=== PATIENT | female | born 1945 | race Caucasian/White ===

== ENCOUNTER 2019-02-13 06:00 | Outpatient (RCR) | payer MEDICARE, OTHER, SELFPAY | END 2019-03-01 23:00 | disposition home or self-care (01) | LOC: SPT 06:00 | PROVIDERS: Family Provider Family Medicine; Visit Provider Family Medicine | DX: R32 Unspecified urinary incontinence (principal) | CPT/HCPCS: 97530 ==

== ENCOUNTER 2019-03-28 10:17 | Outpatient (CLI) | payer MEDICARE, OTHER, SELFPAY ==
--- NOTE | 2019-03-28 | XR_ITS ---
WS: [id number] CHEST 2 VIEWS HISTORY: COUGH COMPARISON: 03/24/2017 Lungs: Mild pulmonary hyperinflation. Scarring in the upper lung valles is stable. No pulmonary mass, pleural effusion or pneumothorax. Cardiac size: Normal. Mediastinum/Aorta: Normal mediastinum. Bones: Normal. XR/XR chest 2V* [id number] IMPRESSION: Chronic emphysema with no pneumonia.
== END 2019-03-28 10:18 | disposition home or self-care (01) ==
LOC: RADOUTREAD 03-29 06:32
PROVIDERS: Family Provider Family Medicine; PCP Family Medicine; Visit Provider Nurse Practitioner Family
DX: J43.9 Emphysema, unspecified (principal); R05 Cough

== ENCOUNTER → 2019-03-31 10:17 | Outpatient (BNVA) | payer MEDICARE, OTHER, SELFPAY | PROVIDERS: Family Provider Family Medicine; PCP Family Medicine; Visit Provider Podiatrist Foot & Ankle Surgery | DX: M21.612 Bunion of left foot (principal) | CPT/HCPCS: 73620; 73630 ==

== ENCOUNTER 2019-05-05 22:07 | Emergency (ER) | payer MEDICARE, OTHER, SELFPAY ==
[2019-05-05 22:30] VITALS: BP 114/59; PULSE 111; RESP 18; TEMP 37.7; O2SAT 91; BMI 18.5
--- NOTE | 2019-05-05 22:53 | XR_ITS ---
WS: [id number] XR chest 1V portable [id number] REASON FOR EXAM: cough FINDINGS: Chronic obstructive pulmonary disease findings are noted. Comparisons were made to March 28, 2019. There is patchy infiltrate in the left lung base and there is evidence of a reticular pattern through out both lung valles consistent with fibrosis. The hilum showed granulomas similar to the previous exam. The apices and hilum are normal otherwise. XR/XR chest 1V portable [id number] IMPRESSION: Chronic obstructive pulmonary disease with interstitial fibrosis. There is a patchy pneumonia in the left lung base.
--- NOTE | 2019-05-05 22:55 | ED_ITS ---
HPI - URI/Sore Throat General: Chief Complaint: Upper Respiratory Infection Stated Complaint: cough, sob, fever Time Seen by Provider: 05/05/19 22:44 Source: patient Mode of arrival: ambulatory Limitations: no limitations History of Present Illness: HPI Narrative: Patient comes in today with cough and fever starting about 3 days ago. Patient was seen by Royl[facility] and was prescribed azithromycin and a medication for cough and inflammation. Patient states that that was 3 days ago and today she started feeling worse and her noticed that she had a fever tonight. Patient appears mildly unwell. Patient appears in no pain. Patient does report the cough is productive Associated symptoms: Reports fever(s) Review of Systems General: Reports: 10 or more systems reviewed and unremarkable except in HPI and below Const: Reports: fever Resp: Reports: productive cough PFSH ED PFSH: Social History (Updated 03/31/19 @ 10:49 by Zandra Man LPN) Smoking and tobacco status: never smoked Second hand smoke exposure: No Smoking risk assessment/counseling performed?: Yes Alcohol intake: never Desire information about alcohol rehabilitation?: No Counseling given: No Desire information about substance/drug rehabilitation?: No Counseling given: No Physical Exam Const: COMMON NORMALS: no apparent distress and oriented x3 GENERAL APPEARANCE: cooperative HENMT: COMMON NORMALS: normocephalic, external ears normal, EAC's normal, TM's normal bilaterally and external nose normal HEAD & SCALP: normal to insp ection and normocephalic FACE & SINUS: normal facial exam NOSE: external nose normal GENERAL EAR: hearing not grossly impaired EXTERNAL EAR: Yes external ears normal EXTERNAL AUDITORY CANAL: EAC's normal TYMPANIC MEMBRANE: TM's normal bilaterally MOUTH: oral and palatal mucosa normal THROAT: posterior oropharynx normal Eye: COMMON NORMALS: PERRL and EOMs intact bilaterally PUPIL: Yes PERRL Neck/C-Spine: COMMON NORMALS: full ROM and no lymphadenopathy Lymph: LYMPHATIC: no lymphedema noted Chest: COMMONS NORMALS: inspection of chest normal and palpation of chest normal Resp: COMMON NORMALS: normal respiratory effort and clear to auscultation bilaterally AUSCULTATION: clear to auscultation bilaterally Cardio: COMMON NORMALS: regular rate and regular rhythm RATE: regular rate RHYTHM: regular rhythm GI: COMMON NORMALS: normal to inspection, nondistended, normoactive bowel sounds and non-tender : COMMON NORMALS: Yes no CVA tenderness BLADDER/KIDNEY EXAM: Yes no CVA tenderness Back/Pelvis: COMMON NORMALS: no CVA tenderness and thoracic and lumbar spine normal to inspection Extremity: COMMON NORMALS: normal to inspection GENERAL: No edema Neuro: COMMON NORMALS: oriented x3, moves all extremities and no focal motor deficits Psych: COMMON NORMALS: mental status grossly normal and cooperative Skin: COMMON NORMALS: no rashes or lesions noted GENERAL SKIN EXAM: no rashes or lesions noted Course Vital Signs: Vital signs: Vital Signs Temperature 99.8 F H 05/05/19 22:30 Pulse Rate 111 H 05/05/19 22:30 Respiratory Rate 18 05/05/19 22:30 Blood Pressure 114/59 05/05/19 22:30 Pulse Oximetry 91 05/05/19 22:30 MDM - URI/Sore Throat MDM Narrative: Medical decision making narrative: Patient comes in for p ersistent cough for the last 3 days. Patient was started on is azithromycin 2 days ago and started running a fever tonight. Exam notes some decreased breath sounds in the bases. Skin is warm and dry. Vital signs are normal except for low-grade fever of 99.8, and pulse oxygenation of 91% on room air. Differential diagnosis includes exacerbation of COPD, pneumonia, upper respiratory infection, influenza. Chest x-ray noted a patchy infiltrate in the left lower lung. Influenza was negative. Recommended change of antibiotic from azithromycin to doxycycline patient was given a dose of.Rocephin and dexamethasone in the emergency room. Encourage plenty of fluids and return to the ER as needed for worsening difficulty breathing. Patient reported understanding agreed to plan Lab Data: Labs: Lab Results 05/05/19 Range/Units 22:38 Influenza Type A A g Negative (Negative) POC Influenza B Ag Negative (Negative) Discharge Plan Discharge Patient Disposition: Home, Self-Care Clinical Impression: Pneumonia Qualifiers: Pneumonia type: due to unspecified organism Laterality: left Lung location: lower lobe of lung Qualified Code(s): J18.9 - Pneumonia, unspecified organism Condition: Stable Prescriptions: New doxycycline hyclate 100 mg capsule 100 mg PO BID 10 Days Qty: 20 RF: 0 No Action calcium-magnesium 300-300 mg tablet 1 tab PO QDAY RF: 0 digestive aids mixture Tablet,Delayed Release (Dr/Ec) PO RF: 0 estradiol 1 mg tablet 0.5 mg PO QDAY RF: 0 fluoxetine 20 mg capsule 20 mg PO QDAY RF: 0 levothyroxine 50 mcg capsule 50 mcg PO QDAY RF: 0 Zithromax 250 mg tablet 250 mg PO DAILY RF: 0 Discharge Orders: Discharge Order (Routine); Ordered 05/06/19 Ordered By: Kenton Schilling Referrals: Ash Cali MD [Primary Care Provider] - Discharge Diet: Usual diet Discharge Activity: Resume usual activity Patient Instructions: Pneumonia (ED) Activity Restrictions/Additional Instructions: Drink plenty of fluids with medications Activity as tolerated Antibiotics as directed Complete Azithromycin as directed Acetaminophen as needed for pain or fever Follow-up with primary care in one week Return to ER for worsening shortness of breath Coding Level of Care Code ED Parking Lot Spotter for Raisa Fwtiara Exam Comprehensive
[2019-05-05 23:43] LABS: Influenza A by IFA Negative (Negative)
[2019-05-05 23:44] LABS: Influenza B by IFA Negative (Negative)
[2019-05-06] MEDS: dexamethasone 10 mg/mL INJ IM (00:32)
[2019-05-06] MEDS: doxycycline 100 mg Tablet PO (00:32)
[2019-05-06 00:51] VITALS: BP 109/70; PULSE 94; RESP 16; TEMP 36.6; O2SAT 93
== END 2019-05-06 00:51 | disposition home or self-care (01) ==
PROVIDERS: Emergency Provider Nurse Practitioner Family; Family Provider Family Medicine; PCP Family Medicine
DX: J18.9 Pneumonia, unspecified organism (principal)
CPT/HCPCS: 71045; 87804; 96372; 99282; J0696; J1100; J2001

== ENCOUNTER 2019-05-07 12:27 | Inpatient (IN) | payer MEDICARE, OTHER, SELFPAY ==
[2019-05-07] VITALS (9 sets, daily range): BP systolic 96–124; BP diastolic 50–60; PULSE 77–104; RESP 17–21; TEMP 37–37.4; O2SAT 90–96; BMI 18.5
--- NOTE | 2019-05-07 12:52 | ED_ITS ---
Entered by Mateo Washington, acting as scribe for Carrington Mackay MD HPI - SOB/Dyspnea General: Chief Complaint: Shortness of Breath/Dyspnea Stated Complaint: sob Time Seen by Provider: 05/07/19 12:52 History of Present Illness: HPI Narrative: 74 yo female presents with shortness of breath. Pt states that she was recently diagnosed with pneumonia. Pt states that she was up all night coughing. Pt states that she feels like she can't catch her breath. Pt states that she had a fever night. MD elicited complaint: shortness of breath and cough Pertinent past history: COPD Onset (ago): day(s) (2) Severity: moderate Exacerbating factors: coughing Relieving factors: nothing Known history of: COPD Associated symptoms: Reports cough; Deny abdominal pain, chest pain, fever(s), nausea or vomiting Review of Systems Const: Denies: fever, chills, body aches or change in appetite Eyes: Denies: blurry vision or eye discomfort ENMT: Denies: throat pain or dental pain Card: Denies: chest pain Resp: Reports: shortness of breath, non-productive cough and wheezing GI: Denies: abdominal pain, nausea, vomiting or diarrhea : Denies: painful urination Musc: Denies: neck pain or back pain Skin/Breast: Denies: rash Neuro: Denies: headache Psych: Denies: depression Thomas/Lymph: Denies: easy bruising All/Imm: Denies: hives PFSH ED PFSH: Medical History (Updated 05/07/19 @ 14:28 by Carrington Mackay MD) COPD (chronic obstructive pulmonary disease) Irritable bowel syndrome Thyroid disease Surgical History (Updated 05/07/19 @ 12:58 by Mateo Washington) H/O: hysterectomy History of carpal tunnel surgery Social History (Updated 03/31/19 @ 10:49 by Zandra Man LPN) Smoking and tobacco status: never smoked Second hand smoke exposure: No Smoking risk assessment/counseling performed?: Yes Alcohol intake: never Desire information about alcohol rehabilitation?: No Counseling given: No Desire information about substance/drug rehabilitation?: No Counseling given: No Physical Exam Const: COMMON NORMALS: no apparent distress, oriented x3 and healthy appearing HENMT: COMMON NORMALS: normocephalic and head/scalp atraumatic HEAD & SCALP: normocephalic and atraumatic Eye: COMMON NORMALS: PERRL and EOMs intact bilaterally PUPIL: Yes PERRL Neck/C-Spine: COMMON NORMALS: full ROM and supple Chest: COMMONS NORMALS: inspection of chest normal and palpation of chest normal Resp: COMMON NORMALS: normal respiratory effort AUSCULTATION: wheezes scattered wheezes Cardio: COMMON NORMALS: regular rate, regular rhythm and no murmurs RATE: regular rate RHYTHM: regular rhythm GI: COMMON NORMALS: normal to inspection, nondistended, normoactive bowel sounds, soft to palpation, non-tender and no masses PALPATION: Yes soft Extremity: COMMON NORMALS: normal to inspection and full ROM Neuro: COMMON NORMALS: oriented x3, moves all extremities and no focal motor deficits Psych: COMMON NORMALS: mental status grossly normal, thought process normal and cooperative THOUGHT PROCESS: normal thought process Skin: COMMON NORMALS: no rashes or lesions noted and no wounds GENERAL SKIN EXAM: no rashes or lesions noted Course Vital Signs: Vital signs: Vital Signs Temperature 98.6 F 05/07/19 12:47 Pulse Rate 88 05/07/19 13:35 Respiratory Rate 18 05/07/19 13:30 Blood Pressure 124/60 05/07/19 12:47 Pulse Oximetry 95 05/07/19 13:30 MDM - SOB/Dyspnea MDM Narrative: Medical decision making narrative: Patient presents here with pneumonia also history of COPD. Patient's been on outpatient treatment and is now having any improvement. Patient is in no severe distress here. Patient on IV antibiotics and spoke to hospitalist will admit for observation. Patient has been stable while in the ER. Lab Data: Labs: Lab Results 05/07/19 05/07/19 Range/Units 13:05 13:05 WBC 12.8 H (4.0-10.0) 10^3/ uL RBC 4.07 L (4.1-5.3) 10^6/u L Hgb 11.6 (11.5-15.3) g/dL Hct 36.0 L (37.0-47.0) % MCV 88.5 (81-99) fL MCH 28.5 (28.0-34.0) pg MCHC 32.2 (30.0-36.0) g/dL RDW 12.5 (12.1-15.1) % Plt Count 256 (130-400) 10^3/c mm MPV 10.8 H (7.4-10.4) fL Neut % (Auto) 85.1 % Lymph % (Auto) 9.7 % [place] % (Auto) 4.6 % Eos % (Auto) 0.2 % Baso % (Auto) 0.2 % Neut # (Auto) 10.9 H (1.8-7.7) 10^3/u L Lymph # (Auto) 1.2 (0.8-4.8) 10^3/u L [place] # (Auto) 0.6 (0.2-0.9) 10^3/u L Eos # (Auto) 0.0 (0.0-0.8) 10^3/u L Baso # (Auto) 0.0 (0.0-0.1) 10^3/u L Nucleated RBC % (a uto) 0 % Nucleated RBCs # 0.0 /100WBC Sodium 130 L (136-145) mmol/L Potassium 4.0 (3.5-5.1) mmol/L Chloride 92 L (98-107) mmol/L Carbon Dioxide 26 (22-29) mmol/L Anion Gap 16.0 (5-19) BUN 11 (8-23) mg/dL Creatinine 0.6 (0.5-0.9) mg/dL Glucose 104 (65-115) mg/dL Calcium 9.2 (8.5-10.5) mg/dL Total Bilirubin 0.3 (0.15-1.2) mg/dL AST 48 H (0-32) U/L ALT 28 (0-33) U/L Alkaline Phosphata se 48 (35-105) IU/L Total Protein 6.7 (6.6-8.7) g/dL Albumin 3.6 (3.5-5.2) g/dL Globulin 3.1 (1.3-4.6) g/dL Imaging Data^: CXR: Radiologist's impression: Ordering Provider/Ordering MD: Carrington Mackay MD Date of Service: 05/07/19 Procedure(s): XR chest 1V portable [id number] Accession Number(s): [id number] Report Number: [id number] WS: [id number] XR chest 1V portable [id number] REASON FOR EXAM: cough FINDINGS: The left lung base shows a patchy pneumonia overriding the cardiac silhouette. This was not observed on May 05, 2019. The heart and mediastinal interfaces are normal. The remaining lung valles appear to be normal. XR/XR chest 1V portable [id number] IMPRESSION: Pneumonia left lower lung. EKG Data^: EKG 1: Attestation: I personally reviewed and interpreted this EKG as follows: EKG Interpretation Date: 05/07/19 EKG interpretation time: 13:12 Interpretation: nsr hr [address] or t wave abnormaltiies Discharge Plan Discharge Patient Disposition: Placed in Observation Clinical Impression: Pneumonia Qualifiers: Pneumonia type: due to unspecified organism Laterality: left Lung location: lower lobe of lung Qualified Code(s): J18.9 - Pneumonia, unspecified organism Condition: Stable Referrals: Ash Cali MD [Primary Care Provider] - Coding Level of Care Code ED Master [employer] for Chg Fwd Exam Comprehensive The documentation recorded by the Felix dickinson Kialy, accurately reflects the service I personally performed and the decisions made by Thompson muhammad Korby, MD May 07, 2019 12:27
--- NOTE | 2019-05-07 12:57 | XR_ITS ---
WS: [id number] XR chest 1V portable [id number] REASON FOR EXAM: cough FINDINGS: The left lung base shows a patchy pneumonia overriding the cardiac silhouette. This was not observed on May 05, 2019. The heart and mediastinal interfaces are normal. The remaining lung valles appear to be normal. XR/XR chest 1V portable [id number] IMPRESSION: Pneumonia left lower lung.
--- NOTE | 2019-05-07 12:57 | ECG_ITS ---
Measurements Intervals Anton Rate: 88 P: 60 NE: 122 QRS: 31 QRSD: 98 T: 44 QT: 342 QTc: 414 SINUS RHYTHM POSSIBLE LEFT ATRIAL ENLARGEMENT [-0.1mV P WAVE IN V1/V2] INCOMPLETE RIGHT BUNDLE BRANCH BLOCK [90+ ms QRS DURATION, TERMINAL R IN V1/V2, 40+ 40+ ms S IN I/aVL/V4/V5/V6] Compared to ECG 06/02/2015 21:06:32 Sinus tachycardia no longer present ST (T wave) deviation no longer present Electronically Signed On 05-07-2019 14:07:07 ROOFING LABORER by Neha Russell M.D. [id number]
[2019-05-07 13:10] LABS: Basophils % 0.2 %; Eosinophils % 0.2 %; Hemoglobin 11.6 g/dL (11.5-15.3); Lymphocytes # 1.2 10^3/uL (0.8-4.8); Lymphocytes % 9.7 %; Mean Corpuscular HGB Conc 32.2 g/dL (30.0-36.0); Mean Corpuscular Hemoglobin 28.5 pg (28.0-34.0); Mean Corpuscular Volume 88.5 fL (81-99); Mean Platelet Volume 10.8 fL (7.4-10.4); Monocytes # 0.6 10^3/uL (0.2-0.9); Monocytes % 4.6 %; Neutrophils # 10.9 10^3/uL (1.8-7.7); Neutrophils % 85.1 %; Nucleated Red Blood Cells % 0 %; Platelet Count 256 10^3/cmm (130-400); Red Blood Count 4.07 10^6/uL (4.1-5.3); Red Cell Distribution Width 12.5 % (12.1-15.1); White Blood Count 12.8 10^3/uL (4.0-10.0)
[2019-05-07] MEDS: ipratropium-albuterol 3 mL Neb INHALATION (13:30)
[2019-05-07 13:32] LABS: Alanine Aminotransferase 28 U/L (0-33); Albumin Level 3.6 g/dL (3.5-5.2); Alkaline Phosphatase 48 IU/L (35-105); Aspartate Amino Transferase 48 U/L (0-32); Blood Urea Nitrogen 11 mg/dL (8-23); Calcium 9.2 mg/dL (8.5-10.5); Carbon Dioxide 26 mmol/L (22-29); Chloride 92 mmol/L (98-107); Creatinine Clr Calc Pharmacy 50.2767; Globulin 3.1 g/dL (1.3-4.6); Glucose 104 mg/dL (65-115); Sodium 130 mmol/L (136-145); Total Bilirubin 0.3 mg/dL (0.15-1.2); Total Protein 6.7 g/dL (6.6-8.7)
[2019-05-07] MEDS: sodium chloride 0.9% 1,000 ML 999 ML IV (14:26)
[2019-05-07] MEDS: cefTRIAXone 1,000 MG in sodium chloride 0.9% (plus) 50 ML 100 MG IV (14:28)
[2019-05-07] MEDS: azithromycin 500 MG in sodium chloride 0.9% 250 ML 250 MG IV (14:30)
--- NOTE | 2019-05-07 16:32 | P.HP_ITS ---
Providers/Chief Complaint Admitting Physician: Milagros Perry MD Primary Care Provider: Ash Cali MD Chief Complaint: pneumonia History of Present Illness Bernadette Brown is a 74 year old female with PMHx of COPD, Hypothyroidism, presents from home for evaluation of ongoing productive cough with brown sputum production, shortness of breath, malaise for the past several days. She was recently diagnosed with bronchitis and has been on treatment with azithromycin. She presented to the ER with complaints of worsening cough approximately 2 days ago and was switched to doxycycline. Her cough has been so persistent that she has been unable to sleep at night. She has not noticed any hemoptysis and has not had any post-tussive emesis but has generally been feeling quite unwell. She is not oxygen dependent at baseline. is present at bedside during my evaluation and states that she had a fever of 102.4F approximately 2 days ago, has been afebrile since. She had a chest x-ray done during her ER visit that showed COPD with interstitial fibrosis and patchy pneumonia in the left lung base. This seems to have worsened on follow-up chest x-ray done earlier to day. She has noted mild leukocytosis with a white count of 12.8, otherwise normal CBC, sodium of 130 with otherwise normal chemistry. She received IV steroids, azithromycin, ceftriaxone and 1 L normal saline bolus in the ER. She is not ill-appearing, is not in any distress during my assessment, does have a moderately persistent dry cough when asked to take a deep breath during my respiratory examination. Is not requiring any oxygen and is hemodynamically stable at this time, afebrile. She has been admitted for further treatment of left lower lobe pneumonia with continued IV antibiotics and monitoring of her respiratory status. Review of Systems Const: Reports: fever, change in appetite (decreased appetite), fatigue, malaise and change in sleep pattern (poor sleep due to persistent cough); Denies: chills Eyes: Denies: change in vision ENMT: Reports: dry mouth; Denies: throat pain, painful swallowing or hoarseness Card: Denies: chest pain, swelling of feet/ankles or lightheadedness Resp: Reports: productive cough (brown sputum); Denies: shortness of breath, wheezing, pain on inspiration or coughing up blood GI: Denies: abdominal pain, nausea, vomiting, vomiting blood or blood in stool : Denies: difficulty urinating, painful urination or urinary frequency Musc: Denies: back pain Skin/Breast: Denies: rash Neuro: Denies: numbness in extremities or weakness in extremities Psych: Denies: anxiety Medications/Allergies Home Medications Medication Instructions Recorded Confirmed Last Taken Type montelukast 10 mg PO DAILY 05/07/19 05/07/19 05/07/19 History Allergies Allergy/AdvReac Type Severity Reaction Status Date / Time No Known Allergies Allergy Verified 03/31/19 10:41 PFSH Acute PFSH: Medical History COPD (chronic obstructive pulmonary disease) Hypothyroidism Irritable bowel syndrome Thyroid disease Surgical History H/O: hysterectomy History of carpal tunnel surgery R Family History Mother Dementia Father Congestive heart failure Other CAD (coronary artery disease) Cancer Diabetes Hypertension Lung disease Psychiatric illness Denies family history of Clotting disorder Hyperlipidemia Chronic kidney disease (CKD) Suicide Anesthesia complication Bleeding disorder Family history of premature coronary artery disease Stroke Social History (Updated 05/07/19 @ 16:42 by Milagros Perry MD) Smoking and tobacco status: never smoked Second hand smoke exposure: Yes (minimal) Smoking risk assessment/counseling performed?: Yes Alcohol intake: never Desire information about alcohol rehabilitation?: No Counseling given: No Desire information about substance/drug rehabilitation?: No Counseling given: No Household members: spouse Vitals/I&O/Wt Last Vital Signs Temp 99.4 F 05/07/19 15:28 Pulse 88 05/07/19 15:28 Resp 20 H 05/07/19 15:28 BP 96/58 05/07/19 15:28 Pulse Ox 91 05/07/19 15:28 Weight last 48 hrs Weight 48.988 kg Physical Exam Const: COMMON NORMALS: no apparent distress, oriented x3 and alert GENERAL APPEARANCE: cooperative and comfortable; not in distress and not ill appearing NUTRITIONAL APPEARANCE: thin ORIENTATION/CONSCIOUSNESS: Yes awake HENMT: COMMON NORMALS: normocephalic, head/scalp atraumatic and hearing grossly normal bilaterally HEAD & SCALP: normocephalic and atraumatic MOUTH: moist mucous membranes abnormal Details: parched Eye: COMMON NORMALS: PERRL, EOMs intact bilaterally and conjunctivae normal CONJUNCTIVA: Yes conjunctivae normal PUPIL: Yes PERRL Neck/C-Spine: COMMON NORMALS: full ROM GENERAL: Yes normal visual insp ection and Yes trachea midline Resp: COMMON NORMALS: normal respiratory effort, no retractions, no use of accessory muscles and clear to auscultation bilaterally EFFORT & INSPECTION: Yes able to speak in complete sentences, Yes symmetric chest movement, No tachypneic and Yes actively coughing bronchospastic AUSCULTATION: no rhonchi, no wheezes and diminished lung sounds OTHER: -currently on RA Cardio: COMMON NORMALS: regular rate, regular rhythm, S1 normal heart sound, S2 normal heart sound and no murmurs RATE: regular rate RHYTHM: regular rhythm HEART SOUNDS: S1 normal and S2 normal GI: COMMON NORMALS: normal to inspection, nondistended, normoactive bowel sounds, soft to palpation and non-tender PALPATION: Yes soft Back/Pelvis: COMMON NORMALS: thoracic and lumbar spine normal to inspection Extremity: COMMON NORMALS: normal to inspection, full ROM and no clubbing, cyanosis or edema; negative for no pedal edema Neuro: COMMON NORMALS: oriented x3, moves all extremities, no focal motor deficits and no sensory deficits noted Psych: COMMON NORMALS: mental status grossly normal, thought process normal, cooperative, affect normal and speech normal SPEECH: Yes normal speech THOUGHT PROCESS: normal thought process Skin: COMMON NORMALS: no rashes or lesions noted, no jaundice, no petechiae and no mottling GENERAL SKIN EXAM: no rashes or lesions noted Data : 05/07/19 13:05 05/07/19 13:05 Micro: Microbiology 05/07/19 14:13 Blood Culture - Preliminary Blood SPECIMEN COLLECTED 05/07/19 14:16 Blood Culture - Preliminary Blood SPECIMEN COLLECTED A&P Assessment and plan (1) Pneumonia: -Noted evidence of left lower lobe pneumonia on chest x-ray -Minimal leukocytosis, afebrile; no concern for sepsis currently -Has received dose of ceftriaxone and azithromycin in ED, will continue these -Supplemental oxygen as needed, monitoring of respiratory status -Has been treated with oral azithromycin and doxycycline with minimal improvement in her symptoms -Negative influenza screen on 05/05; will check bacterial antigens and legionella -antitussives as needed Status: Acute Qualifiers: Laterality: left Lung location: lower lobe of lung Pneumonia type: due to unspecified organism Qualified Code(s): J18.9 - Pneumonia, unspecified organism Code(s): J18.9 - Pneumonia, unspecified organism (2) COPD (chronic obstructive pulmonary disease): -has known hx of COPD, not oxygen dependent at baseline -no evidence of COPD exacerbation at this time -received IV steroids in ED, hold off on further steroids at this time, no wheezing/bronchospasm on exam -not requiring oxygen currently, continue to monitor respiratory status -Neb treatments as needed Status: Acute Qualifiers: COPD type: unspecified COPD Qualified Code(s): J44.9 - Chronic obstructive pulmonary disease, unspecified Code(s): J44.9 - Chronic obstructive pulmonary disease, unspecified (3) Hypothyroidism: -has known hx of hypothyroidism -resume Levothyroxine Status: Acute Qualifiers: Hypothyroidism type: unspecified Qualified Code(s): E03.9 - H ypothyroidism, unspecified Code(s): E03.9 - Hypothyroidism, unspecified Additional A&P Information -regular diet as tolerated -DVT ppx with Lovenox, encourage ambulation as tolerated -Dispo: home, lives with -Code status: FULL code Attestations Medical Necessity Statement*: [facility]'s hospital stay will be less than 2 midnights for management of LLL pneumonia, failed outpatient therapy, needs IV antibiotics. Time Spent in Patient Care: Greater than 35 minutes (>than 50% of time spent in counselling and/or direct pt care on unit) . Coding Level of Care Code Acute Channel Machine Operator for Chg Fwd Diagnoses Pneumonia J18.9 Laterality: left Lung location: lower lobe of lung Pneumonia type: due to unspecified organism COPD (chronic obstructive pulmonary disease) J44.9 COPD type: unspecified COPD Hypothyroidism E03.9 Hypothyroidism type: unspecified
[2019-05-07] MEDS: enoxaparin 40 mg/0.4 mL Syringe SUBCUT (17:41)
[2019-05-07] MEDS: benzonatate 100 mg Capsule PO (17:41)
[2019-05-08] VITALS (10 sets, daily range): BP systolic 95–105; BP diastolic 48–74; PULSE 68–89; RESP 16–20; TEMP 36.6–37.3; O2SAT 90–98
[2019-05-08] MEDS: guaiFENesin 100 mg/5 mL UDC 10 mL 200 MG PO ×2 (04:28→11:04)
[2019-05-08] MEDS: benzonatate 100 mg Capsule PO (04:29)
[2019-05-08] MEDS: cetylpyridinium Lozenge 1 EACH MUCOUS MEM (04:32)
[2019-05-08] MEDS: levothyroxine 25 mcg Tablet PO (05:51)
[2019-05-08 06:18] LABS: Hematocrit 30.8 % (37.0-47.0); Hemoglobin 10.1 g/dL (11.5-15.3); Lymphocytes # 0.9 10^3/uL (0.8-4.8); Lymphocytes % 10.2 %; Mean Corpuscular HGB Conc 32.8 g/dL (30.0-36.0); Mean Corpuscular Hemoglobin 28.4 pg (28.0-34.0); Mean Corpuscular Volume 86.5 fL (81-99); Mean Platelet Volume 10.8 fL (7.4-10.4); Monocytes # 0.5 10^3/uL (0.2-0.9); Monocytes % 6.3 %; Neutrophils # 7.2 10^3/uL (1.8-7.7); Neutrophils % 83.2 %; Nucleated Red Blood Cells % 0 %; Platelet Count 217 10^3/cmm (130-400); Red Blood Count 3.56 10^6/uL (4.1-5.3); Red Cell Distribution Width 12.7 % (12.1-15.1); White Blood Count 8.6 10^3/uL (4.0-10.0)
[2019-05-08 06:57] LABS: Anion Gap 13.2 (5-19); Blood Urea Nitrogen 8 mg/dL (8-23); Calcium 8.6 mg/dL (8.5-10.5); Carbon Dioxide 25 mmol/L (22-29); Chloride 100 mmol/L (98-107); Glucose 109 mg/dL (65-115); Osmolality Calculated 274 mOsm/kg (285-295); Potassium 4.2 mmol/L (3.5-5.1); Sodium 134 mmol/L (136-145)
[2019-05-08] MEDS: ipratropium-albuterol 3 mL Neb INHALATION ×2 (09:28→14:53)
--- NOTE | 2019-05-08 12:04 | PC.CHAP ---
Pastoral Care Encounter/Spiritual Assessment Type of Contact [] Declined high tension tester visit [] Patient/Family/Request visit [] Outpatient visit [] Follow-up visit [] Physician referral [] Code/Alert [] Routine visit [] Staff referral [] Actively dying [] Patient sleeping [] Family support [] [] Out of room [] Palliative care [] [] Receiving care in room [] Pre-surgical visit [] Trauma [] Long length of stay [] ICU visit [] Other: Relational/Emotional Strength [] Patient feels connected with others/family/visitors/staff [] Distress [] Loneliness/isolation [] Abandonment Spirituality of Patient [] Person of Elizabeth [] Attends Yazidism of their Elizabeth [] Believes in Prayer [] Reads Bible or Baptist materials [] There are Spiritual issues to be addressed Professor Of Special Education Interventions [] Prayer [] Active listening [] Non-anxious presence [] Spiritual/emotional support [] Crisis/trauma care [] Spiritual counseling [] Bereavement support [] Provided bereavement packet [] Provided Bible/devotional materials [] Provided toy/stuffed animal, coloring book to patient or family member [] Provided Communion [] Anointing/[place] [] Salvation [] Completed spiritual assessment [] Other: Impact on Illness or Injury [] Angry [] Fearful [] Anxious [] Often cries [] Exhaustion [] Unable to work [] Unable to attend yarsani [] Unable to walk/stand [] Unable to read [] Unable to drive [] Unable to eat/drink [] Unable to sleep [] Unable to be with family [] Patient intubated [] Other: Summary Patient sleeping, follow up. Time spent with patient
[2019-05-08] MEDS: cefTRIAXone 1,000 MG in sodium chloride 0.9% (plus) 50 ML 100 MG IV (14:10)
--- NOTE | 2019-05-08 14:39 | PM.PN ---
Subjective Subjective: Interval history: AM labs noted, remains on RA, hemodynamically stable, resolved leukocytosis. Had 1100 mL urine output overnight. Just completed neb treatment, had a non-productive coughing spell with noted diffuse wheezing. Will add oral steroids. Primary complaint is cough. Has had a good appetite. Medications: Reviewed: Yes Medication Review Details: Active Medications Generic Name Dose Route Start Last Admin Trade Name Freq PRN Reason Stop Dose Admin Acetaminophen 650 mg 05/07/19 16:32 Tylenol PO Q6H PRN Mild/Mod Pain Or Temp >/= 101 Albuterol/Ipratrop ium 3 ml 05/07/19 16:46 05/08/19 09:28 Duoneb INHALATION 3 ml Q6H PRN Administration SHORTNESS OF BRAVO TH Benzocaine 1 each 05/07/19 16:32 05/08/19 04:32 Cepacol MUCOUS MEM 1 each Q2H PRN Administration SORE THROAT Benzonatate 100 mg 05/07/19 16:32 05/08/19 04:29 Tessalon Pearls PO 100 mg TID PRN Administration COUGH Enoxaparin Sodium 40 mg 05/07/19 17:00 05/07/19 17:41 Lovenox SUBCUT 40 mg Q24H JAVON Administration Guaifenesin 200 mg 05/07/19 16:32 05/08/19 11:04 Robitussin Oral Liq PO 200 mg Q4H PRN Administration COUGH AND CONGEST ION Ceftriaxone Sodium 1,000 mg/ 50 mls @ 100 mls/ hr 05/08/19 14:00 05/08/19 14:10 Sodium Chloride IV 100 mls/hr Q24H JAVON Administration Protocol Azithromycin 500 m g/ Sodium 250 mls @ 250 mls /hr 05/08/19 16:00 Chloride IV Q24H JAVON Protocol Levothyroxine Sodi um 25 mcg 05/08/19 06:00 05/08/19 05:51 Synthroid PO 25 mcg Q24H JAVON Administration Morphine Sulfate 2 mg 05/07/19 16:32 Morphine IVP Q4H PRN SEVERE PAIN Ondansetron HCl 4 mg 05/07/19 16:32 Zofran IVP Q6H PRN vomiting, or N/V if npo No Known Allergies Allergy (Verified 03/31/19 10:41) Vitals/I&O/Wt Last Vital Signs Temp 98.9 F 05/08/19 10:50 Pulse 84 05/08/19 10:50 Resp 18 05/08/19 10:50 BP 95/60 05/08/19 10:50 Pulse Ox 94 05/08/19 10:50 05/07/19 05/08/19 05/08/19 22:59 06:59 14:59 Intake Total 60 / 60 320 / 320 Output Total 450 / 450 650 / 1100 300 / 300 Balance -450 / -450 -590 / -1040 Weight last 48 hrs Weight 50.93 kg Weight 48.988 kg Physical Exam Const: COMMON NORMALS: no apparent distress, oriented x3 and alert GENERAL APPEARANCE: cooperative and comfortable; not in distress and not ill appearing NUTRITIONAL APPEARANCE: thin ORIENTATION/CONSCIOUSNESS: Yes awake HENMT: COMMON NORMALS: normocephalic, head/scalp atraumatic and hearing grossly normal bilaterally HEAD & SCALP: normocephalic and atraumatic MOUTH: moist mucous membranes abnormal Details: parched Eye: COMMON NORMALS: PERRL, EOMs intact bilaterally and conjunctivae normal CONJUNCTIVA: Yes conjunctivae normal PUPIL: Yes PERRL Neck/C-Spine: COMMON NORMALS: full ROM GENERAL: Yes normal visual inspection and Yes trachea midline Resp: COMMON NORMALS: normal respiratory effort, no retractions and no use of accessory muscles EFFORT & INSPECTION: Yes able to speak in complete sentences, Yes symmetric chest movement, No tachypneic and Yes actively coughing non-productive AUSCULTATION: no rhonchi, wheezes throughout and diminished lung sounds OTHER: -currently on RA Cardio: COMMON NORMALS: regular rate, regular rhythm, S1 normal heart sound, S2 normal heart sound and no murmurs RATE: regular rate RHYTHM: regular rhythm HEART SOUNDS: S1 normal and S2 normal GI: COMMON NORMALS: normal to inspection, nondistended, normoactive bowel sounds, soft to palpation and non-tender PALPATION: Yes soft Back/Pelvis: COMMON NORMALS: thoracic and lumbar spine normal to inspection Extremity: COMMON NORMALS: normal to inspection, full ROM and no clubbing, cyanosis or edema; negative for no pedal edema Neuro: COMMON NORMALS: oriented x3, moves all extremities, no focal motor deficits and no sensory deficits noted SENSORIUM/ORIENTATION: Yes alert Psych: COMMON NORMALS: mental status grossly normal, thought process normal, cooperative, affect normal and speech normal SPEECH: Yes normal speech THOUGHT PROCESS: normal thought process Skin: COMMON NORMALS: no rashes or lesions noted, no jaundice, no petechiae and no mottling GENERAL SKIN EXAM: no rashes or lesions noted Data : 05/08/19 05:52 05/08/19 05:52 Micro: Microbiology 05/07/19 14:13 Blood Culture - Preliminary Blood NEGATIVE TO DATE 05/07/19 14:16 Blood Culture - Preliminary Blood NEGATIVE TO DATE 05/07/19 21:37 Bacterial Antigens - Final Urine,Clean Catch A&P Assessment and plan (1) Pneumonia: -Noted evidence of left lower lobe pneumonia on chest x-ray -leukocytosis resolved, afebrile; no concern for sepsis currently -continue ceftriaxone and azithromycin (day 2) -Supplemental oxygen as needed, monitoring of respiratory status -Has been treated with oral azithromycin and doxycycline with minimal improvement in her symptoms -Negative influenza screen on 05/05; negative bacterial antigens, pending legionella -antitussives as needed Status: Acute Qualifiers: Laterality: left Lung location: lower lobe of lung Pneumonia type: due to unspecified organism Qualified Code(s): J18.9 - Pneumonia, unspecified organism Code(s): J18.9 - Pneumonia, unspecified organism (2) COPD (chronic obstructive pulmonary disease): -has known hx of COPD, not oxygen dependent at baseline -no evidence of COPD exacerbation at this time -received IV steroids in ED, will start on oral steroids due to noted diffuse wheezing on exam -not requiring oxygen currently, continue to monitor respiratory status -Neb treatments as needed Status: Acute Qualifiers: COPD type: unspecified COPD Qualified Code(s): J44.9 - Chronic obstructive pulmonary disease, unspecified Code(s): J44.9 - Chronic obstructive pulmonary disease, unspecified (3) Hypothyroidism: -has known hx of hypothyroidism -continue Levothyroxine Status: Acute Qualifiers: Hypothyroidism type: unspecified Qualified Code(s): E03.9 - Hypothyroidism, unspecified Code(s): E03.9 - Hypothyroidism, unspecified Additional A&P Information -regular diet as tolerated -DVT ppx with Lovenox, encourage ambulation as tolerated -Dispo: home, lives with -Code status: FULL code -change to inpatient status due to need for continued monitoring of respiratory status, IV antibiotics Attestations Medical Necessity Statement*: Patient requires hospitalization for continued treatment of LLL pneumonia, on IV antibiotics. Time Spent in Patient Care: Greater than 35 minutes (>than 50% of time spent in counselling and/or direct pt care on unit). Coding Level of Care Code Acute Counter Checker for g Fwd Exam Comprehensive Diagnoses Pneumonia J18.9 Laterality: left Lung location: lower lobe of lung Pneumonia type: due to unspecified organism COPD (chronic obstructive pulmonary disease) J44.9 COPD type: unspecified COPD Hypothyroidism E03.9 Hypothyroidism type: unspecified
[2019-05-08] MEDS: predniSONE 20 mg Tablet 40 MG PO (17:01)
[2019-05-08] MEDS: enoxaparin 40 mg/0.4 mL Syringe SUBCUT (17:01)
[2019-05-08] MEDS: azithromycin 500 MG in sodium chloride 0.9% 250 ML 250 MG IV (17:01)
[2019-05-09] VITALS (10 sets, daily range): BP systolic 101–118; BP diastolic 61–75; PULSE 61–91; RESP 18–24; TEMP 36.4–37; O2SAT 95–97
[2019-05-09] MEDS: guaiFENesin 100 mg/5 mL UDC 10 mL 200 MG PO ×2 (01:11→22:43)
[2019-05-09] MEDS: acetaminophen 325 mg Tablet 650 MG PO (01:11)
[2019-05-09] MEDS: levothyroxine 25 mcg Tablet PO (05:33)
[2019-05-09] MEDS: ipratropium-albuterol 3 mL Neb INHALATION (07:37)
[2019-05-09] MEDS: predniSONE 20 mg Tablet 40 MG PO (08:57)
--- NOTE | 2019-05-09 11:12 | PC.CHAP ---
Pastoral Care Encounter/Spiritual Assessment Type of Contact [] Declined branch service leader visit [] Patient/Family/Request visit [] Outpatient visit [] Follow-up visit [] Physician referral [] Code/Alert [x] Routine visit [] Staff referral [] Actively dying [] Patient sleeping [] Family support [] [] Out of room [] Palliative care [] [] Receiving care in room [] Pre-surgical visit [] Trauma [] Long length of stay [] ICU visit [] Other: Relational/Emotional Strength [x] Patient feels connected with others/family/visitors/staff [] Distress [] Loneliness/isolation [] Abandonment Spirituality of Patient [x] Person of Elizabeth [x] Attends Jew of their Elizabeth [x] Believes in Prayer [x] Reads Bible or Advent materials [] There are Spiritual issues to be addressed Pigs Feet Finisher Interventions [x] Prayer [x] Active listening [x] Non-anxious presence [x] Spiritual/emotional support [] Crisis/trauma care [] Spiritual counseling [] Bereavement support [] Provided bereavement packet [] Provided Bible/devotional materials [] Provided toy/stuffed animal, coloring book to patient or family member [] Provided Communion [] Anointing/[place] [] Salvation [x] Completed spiritual assessment [] Other: Impact on Illness or Injury [] Angry [] Fearful [] Anxious [] Often cries [] Exhaustion [] Unable to work [] Unable to attend moravian [] Unable to walk/stand [] Unable to read [] Unable to drive [] Unable to eat/drink [] Unable to sleep [] Unable to be with family [] Patient intubated [x] Other: No expected impact. Pt expects to return to all normal activities afater leaving hospital. Summary Pt feeling well, is happly, joyous and smiling. Pt expects to go home later today. Pt was able to start reading a book for enjoyment. Pt's was present. He asked to be pray for aas well as his , the patient. Pigs Feet Finisherlizett Bettencourt prayed for both per their specific prayer need requests. present Pigs Feet Finisherdiony Bettencourt Time spent with patient 14 minutes
[2019-05-09] MEDS: cefTRIAXone 1,000 MG in sodium chloride 0.9% (plus) 50 ML 100 MG IV (13:20)
--- NOTE | 2019-05-09 14:04 | P.PN_ITS ---
Subjective Subjective: Interval history: Patient seen and examined, at bedside, is in good spirits, reports feeling much better today. Was able to sleep through the night. Cough is much less frequent. Appetite has improved. Is requesting some MiraLAX which she takes at home due to history of chronic constipation. Is not requiring any supplemental oxygen, hemodynamically stable. Medications: Reviewed: Yes Medication Review Details: Active Medications Generic Name Dose Route Start Last Admin Trade Name Freq PRN Reason Stop Dose Admin Acetaminophen 650 mg 05/07/19 16:32 05/09/19 01:11 Tylenol PO 650 mg Q6H PRN Administration Mild/Mod Pain Or Temp >/= 101 Albuterol/Ipratrop ium 3 ml 05/07/19 16:46 05/09/19 07:37 Duoneb INHALATION 3 ml Q6H PRN Administration SHORTNESS OF BRAVO TH Benzocaine 1 each 05/07/19 16:32 05/08/19 04:32 Cepacol MUCOUS MEM 1 each Q2H PRN Administration SORE THROAT Benzonatate 100 mg 05/07/19 16:32 05/08/19 04:29 Tessalon Pearls PO 100 mg TID PRN Administration COUGH Enoxaparin Sodium 40 mg 05/07/19 17:00 05/08/19 17:01 Lovenox SUBCUT 40 mg Q24H JAVON Administration Guaifenesin 200 mg 05/07/19 16:32 05/09/19 01:11 Robitussin Oral Liq PO 200 mg Q4H PRN Administration COUGH AND CONGEST ION Ceftriaxone Sodium 1,000 mg/ 50 mls @ 100 mls/ hr 05/08/19 14:00 05/09/19 13:20 Sodium Chloride IV 100 mls/hr Q24H JAVON Administration Protocol Azithromycin 500 m g/ Sodium 250 mls @ 250 mls /hr 05/08/19 16:00 05/08/19 17:01 Chloride IV 250 mls/hr Q24H JAVON Administration Protocol Levothyroxine Sodi um 25 mcg 05/08/19 06:00 05/09/19 05:33 Synthroid PO 25 mcg Q24H JAVON Administration Morphine Sulfate 2 mg 05/07/19 16:32 Morphine IVP Q4H PRN SEVERE PAIN Ondansetron HCl 4 mg 05/07/19 16:32 Zofran IVP Q6H PRN vomiting, or N/V if npo Polyethylene Glyco l 17 gm 05/09/19 14:00 Miralax PO DAILY JAVON Prednisone 40 mg 05/08/19 15:45 05/09/19 08:57 Prednisone PO 40 mg DAILY JAVON Administration No Known Allergies Allergy (Verified 03/31/19 10:41) Vitals/I&O/Wt Last Vital Signs Temp 97.9 F 05/09/19 11:14 Pulse 74 05/09/19 11:14 Resp 19 H 05/09/19 11:14 BP 111/69 05/09/19 11:14 Pulse Ox 96 05/09/19 11:14 05/08/19 05/09/19 05/09/19 22:59 06:59 14:59 Intake Total 120 / 490 120 / 610 980 / 980 Output Total 1200 / 1500 400 / 1900 1100 / 1100 Balance -1080 / -1010 -280 / -1290 -120 / -120 Weight last 48 hrs Weight 51.301 kg Weight 50.93 kg Physical Exam Const: COMMON NORMALS: no apparent distress, oriented x3 and alert GENERAL APPEARANCE: cooperative and comfortable; not in distress and not ill appearing NUTRITIONAL APPEARANCE: thin ORIENTATION/CONSCIOUSNESS: Yes awake HENMT: COMMON NORMALS: normocephalic, head/scalp atraumatic and hearing grossly normal bilaterally HEAD & SCALP: normocephalic and atraumatic MOUTH: moist mucous membranes abnormal Details: parched Eye: COMMON NORMALS: PERRL, EOMs intact bilaterally and conjunctivae normal CONJUNCTIVA: Yes conjunctivae normal PUPIL: Yes PERRL Neck/C-Spine: COMMON NORMALS: full ROM GENERAL: Yes normal visual inspection and Yes trachea midline Resp: COMMON NORMALS: normal respiratory effort, no retractions, no use of accessory muscles and clear to auscultation bilaterally EFFORT & INSPECTION: Yes able to speak in complete sentences, Yes symmetric chest movement, No tachypneic and No actively coughing AUSCULTATION: clear to auscultation bilaterally, no rhonchi, no wheezes and diminished lung sounds OTHER: - currently on RA Cardio: COMMON NORMALS: regular rate, regular rhythm, S1 normal heart sound, S2 normal heart sound and no murmurs RATE: regular rate RHYTHM: regular rhythm HEART SOUNDS: S1 normal and S2 normal GI: COMMON NORMALS: normal to inspection, nondistended, normoactive bowel sounds, soft to palpation and non-tender PALPATION: Yes soft Back/Pelvis: COMMON NORMALS: thoracic and lumbar spine normal to inspection Extremity: COMMON NORMALS: normal to inspection, full ROM and no clubbing, cyanosis or edema; negative for no pedal edema Neuro: COMMON NORMALS: oriented x3, moves all extremities, no focal motor deficits and no sensory deficits noted SENSORIUM/ORIENTATION: Yes alert Psych: COMMON NORMALS: mental status grossly normal, thought process normal, cooperative, affect normal and speech normal SPEECH: Yes normal speech THOUGHT PROCESS: normal thought process Skin: COMMON NORMALS: no rashes or lesions noted, no jaundice, no petechiae and no mottling GENERAL SKIN EXAM: no rashes or lesions noted Data : 05/08/19 05:52 05/08/19 05:52 Micro: Microbiology 05/07/19 14:13 Blood Culture - Preliminary Blood NEGATIVE TO DATE 05/07/19 14:16 Blood Culture - Preliminary Blood NEGATIVE TO DATE A&P Assessment and plan (1) Pneumonia: -Noted evidence of left lower lobe pneumonia on chest x-ray -leukocytosis resolved, afebrile; no concern for sepsis currently -continue ceftriaxone and azithromycin (day 3) -Supplemental oxygen as needed, monitoring of respiratory status -Has been treated with oral azithromycin and doxycycline with minimal improvement in her symptoms -Negative influenza screen on 05/05; negative bacterial antigens, pending legionella -antitussives as needed Status: Acute Qualifiers: Laterality: left Lung location: lower lobe of lung Pneumonia type: due to unspecified organism Qualified Code(s): J18.9 - Pneumonia, unspecified organism Code(s): J18.9 - Pneumonia, unspecified organism (2) COPD (chronic obstructive pulmonary disease): -has known hx of COPD, not oxygen dependent at baseline -no evidence of COPD exacerbation at this time -received IV steroids in ED, wheezing improved with oral steroids -not requiring oxygen currently, continue to monitor respiratory status -Neb treatments as needed Status: Acute Qualifiers: COPD type: unspecified COPD Qualified Code(s): J44.9 - Chronic obstructive pulmonary disease, unspecified Code(s): J44.9 - Chronic obstructive pulmonary disease, unspecified (3) Hypothyroidism: -has known hx of hypothyroidism -continue Levothyroxine Status: Acute Qualifiers: Hypothyroidism type: unspecified Qualified Code(s): E03.9 - Hypothyroidism, unspecified Code(s): E03.9 - Hypothyroidism, unspecified Additional A&P Information -Chronic constipation, takes Miralax at home, resume -regular diet as tolerated -DVT ppx with Lovenox, encourage ambulation as tolerated -Dispo: home, lives with -Code status: FULL code Attestations Medical Necessity Statement*: Patient requires hospitalization for continued IV antibiotics as part of treatment for LLL pneumonia. Time Spent in Patient Care: Greater than 35 minutes (>than 50% of time s pent in counselling and/or direct pt care on unit) . Coding Level of Care Code Acute Shearing Machine Tender for Chg Fwd Diagnoses Pneumonia J18.9 Laterality: left Lung location: lower lobe of lung Pneumonia type: due to unspecified organism COPD (chronic obstructive pulmonary disease) J44.9 COPD type: unspecified COPD Hypothyroidism E03.9 Hypothyroidism type: unspecified
[2019-05-09] MEDS: polyethylene glycol 3350 Pkt 17 gm PO (14:39)
[2019-05-09] MEDS: azithromycin 500 MG in sodium chloride 0.9% 250 ML 250 MG IV (16:33)
[2019-05-09] MEDS: enoxaparin 40 mg/0.4 mL Syringe SUBCUT (16:33)
[2019-05-09] MEDS: benzonatate 100 mg Capsule PO (23:54)
[2019-05-10 04:00] VITALS: BP 114/65; PULSE 64; RESP 20; TEMP 36.4; O2SAT 95
[2019-05-10] MEDS: guaiFENesin 100 mg/5 mL UDC 10 mL 200 MG PO (05:17)
[2019-05-10] MEDS: levothyroxine 25 mcg Tablet PO (05:18)
[2019-05-10 07:40] VITALS: BP 118/64; PULSE 64; RESP 18; TEMP 36.4; O2SAT 96
[2019-05-10] MEDS: predniSONE 20 mg Tablet 40 MG PO (08:56)
--- NOTE | 2019-05-10 10:07 | P.DS_ITS ---
Discharge Providers Date of Admission: 05/08/19 15:40 Date of Discharge: May 10, 2019 Attending Provider at Admission: Milagros Perry MD Attending Provider at Discharge: Milagros Perry MD Primary Care Provider: Ash Cali MD Diagnoses at Discharge Discharge Diagnosis (1) Pneumonia: Status: Acute Problem details: -Noted evidence of left lower lobe pneumonia on chest x-ray -leukocytosis resolved, afebrile; no concern for sepsis currently -continue ceftriaxone and azithromycin (day 3) -Supplemental oxygen as needed, monitoring of respiratory status -Has been treated with oral azithromycin and doxycycline with minimal improvement in her symptoms -Negative influenza screen on 05/05; negative bacterial antigens -antitussives as needed Qualifiers: Laterality: left Lung location: lower lobe of lung Pneumonia type: due to unspecified organism Qualified Code(s): J18.9 - Pneumonia, unspecified organism (2) COPD (chronic obstructive pulmonary disease): Status: Chronic Problem details: -has known hx of COPD, not oxygen dependent at baseline -no evidence of COPD exacerbation at this time -received IV steroids in ED, wheezing improved with oral steroids -not requiring oxygen currently, continue to monitor respiratory status -Neb treatments as needed Qualifiers: COPD type: unspecified COPD Qualified Code(s): J44.9 - Chronic obstructive pulmonary disease, unspecified (3) Hypothyroidism: Status: Chronic Problem details: -has known hx of hypothyroidism -continue Levothyroxine Qualifiers: Hypothyroidism type: unspecified Qualified Code(s): E03.9 - Hypothyroidism, unspecified Other Information Additional DC diagnoses/information: -Chronic constipation, takes Miralax at home, resumed Reason for Visit Reason for Visit: Reason For Visit: pneumonia Hospital Course Hospital Course: Patient was admitted to the medical surgical floor and started on IV antibiotics, specifically ceftriaxone and azithromycin. Her respi ratory status was closely monitored and she has not required supplemental oxygen. She has been hemodynamically stable throughout her hospital stay. Chest x-ray showed evidence of left lower lobe pneumonia. She had previously been treated with azithromycin and doxycycline for bronchitis. She had received IV steroids in the ER and is currently on a short course of oral steroids. With nebulizer treatments and pulmonary toilet she has had cough with increased expectoration. I have let the patient know that cough will likely be the last symptom to resolve. She will be discharged on a course of Augmentin to complete her treatment course. She is counseled on need to seek medical attention immediately should any of her symptoms worsen. She will need to follow-up with her primary care physician within 1 week. Discharge Summary: -Patient to follow-up with primary care physician within 1 week. Physical Exam Const: COMMON NORMALS: no apparent distress, oriented x3 and alert GENERAL APPEARANCE: cooperative and comfortable; not in distress and not ill appearing NUTRITIONAL APPEARANCE: thin ORIENTATION/CONSCIOUSNESS: Yes awake HENMT: COMMON NORMALS: normocephalic, head/scalp atraumatic and hearing grossly normal bilaterally HEAD & SCALP: normocephalic and atraumatic MOUTH: moist mucous membranes abnormal Details: parched Eye: COMMON NORMALS: PERRL, EOMs intact bilaterally and conjunctivae normal CONJUNCTIVA: Yes conjunctivae normal PUPIL: Yes PERRL Neck/C-Spine: COMMON NORMALS: full ROM GENERAL: Yes normal visual inspection and Yes trachea midline Resp: COMMON NORMALS: normal respiratory effort, no retractions and no use of accessory muscles EFFORT & INSPECTION: Yes able to speak in complete sentences, Yes symmetric chest movement, No tachypneic and No actively coughing AUSCULTATION: no rhonchi, no wheezes and diminished lung sounds on the left OTHER: -currently on RA Cardio: COMMON NORMALS: regular rate, regular rhythm, S1 normal heart sound, S 2 normal heart sound and no murmurs RATE: regular rate RHYTHM: regular rhythm HEART SOUNDS: S1 normal and S2 normal GI: COMMON NORMALS: normal to inspection, nondistended, normoactive bowel sounds, soft to palpation and non-tender PALPATION: Yes soft Back/Pelvis: COMMON NORMALS: thoracic and lumbar spine normal to inspection Extremity: COMMON NORMALS: normal to inspection, full ROM and no clubbing, cyanosis or edema; negative for no pedal edema Neuro: COMMON NORMALS: oriented x3, moves all extremities, no focal motor deficits and no sensory deficits noted SENSORIUM/ORIENTATION: Yes alert Psych: COMMON NORMALS: mental status grossly normal, thought process normal, cooperative, affect normal and speech normal SPEECH: Yes normal speech THOUGHT PROCESS: normal thought process Skin: COMMON NORMALS: no rashes or lesions noted, no jaundice, no petechiae and no mottling GENERAL SKIN EXAM: no rashes or lesions noted Discharge Data Data Completed and Pending: Completed Studies During Hospitalization Category Date Time Status XR chest 1V rebecca ble [id number] Urgent Exams 05/07/19 12:57 Completed Pending at discharge Category Date Time Status Blood Culture Sta t Lab 05/07/19 14:13 Results Legionella Antibo dy Routine Lab 05/07/19 13:05 Received Vitals: Last Vital Signs Temp 97.5 F L 05/10/19 07:40 Pulse 64 05/10/19 07:40 Resp 18 05/10/19 07:40 BP 118/64 05/10/19 07:40 Pulse Ox 96 05/10/19 07:40 Discharge Plan Discharge Patient Disposition: Home, Self-Care Condition: Stable Prescriptions: New Miralax 17 gram Powder In Packet 17 g PO DAILY 30 Days Qty: 30 RF: 0 prednisone 20 mg Tablet 40 mg PO DAILY 3 Days Qty: 6 RF: 0 guaifenesin 100 mg/5 mL Liquid 200 mg PO Q4H PRN (Reason: Cough And Congestion) Qty: 118 RF: 0 amoxicillin-pot clavulanate 875-125 mg tablet 1 tab PO BID 7 Days Qty: 14 RF: 0 Continued calcium-magnesium 300-300 mg tablet 1 tab PO DAILY RF: 0 estradiol 1 mg tablet See Rx Instructions .ROUTE .COMPLEX RF: 0 levothyroxine 50 mcg capsule 25 mcg PO DAILY RF: 0 Discontinued azithromycin [Zithromax] 250 mg tablet 250 mg PO DAILY RF: 0 doxycycline hyclate 100 mg capsule 100 mg PO BID 10 Days Qty: 20 RF: 0 montelukast 10 mg Tablet 10 mg PO DAILY RF: 0 Discharge Orders: Discharge Order (Routine); Ordered 05/10/19 Ordered By: Milagros Perry Referrals: Ash Cali MD [Primary Care Provider] - 4-7 days (Post-hospital discharge follow up. Treated for LLL pneumonia with ceftriaxone and azithromycin, discharged on Augmentin and had been treated with Azithromycin and doxycycline previously. ) Discharge Diet: Regular Discharge Activity: Resume usual activity Patient Instructions: Prednisone (By mouth), Guaifenesin (By mouth), Amoxicillin/Clavulanate Potassium (By mouth), Polyethylene Glycol 3350 (By mouth ), Pneumonia (GEN) Discharge Attestations Time Spent in Discharge Care*: greater than 30 min Specific Discharge Activities: Specific discharge activities: educating patient, educating and/or supporting family/caregiver, discussing with bottle caser/social workers/dc planners, documenting/other paperwork and evaluating patient/reviewing data Status at Discharge: Cognitive status at discharge: cognitively intact , Behavioral status at discharge: cooperative , Functional status at discharge: independent ambulation Overall status at discharge: patient is back to baseline Quality Metrics Clinical Quality Measures During this hospital stay, did patient experience: None Coding Level of Care Code Acute Machine Heel Seat Laster for Chg Fwd Diagnoses Pneumonia J18.9 Laterality: left Lung location: lower lobe of lung Pneumonia type: due to unspecified organism COPD (chronic obstructive pulmonary disease) J44.9 COPD type: unspecified COPD Hypothyroidism E03.9 Hypothyroidism type: unspecified
[2019-05-10 10:09] VITALS: BP 118/64; PULSE 64; RESP 18; TEMP 36.4; O2SAT 96
[2019-05-11 15:30] LABS: Legionella Antibody <1:256
== END 2019-05-10 10:57 | disposition home or self-care (01) | DRG 194 ==
LOC: ER 14:28 → MEDSURG 14:35
PROVIDERS: Admitting Provider Family Medicine; Emergency Provider Emergency Medicine; Family Provider Family Medicine; PCP Family Medicine; Visit Provider Family Medicine
DX: J18.9 Pneumonia, unspecified organism (principal); J44.0 Chronic obstructive pulmonary disease with (acute) lower respiratory infection; E03.9 Hypothyroidism, unspecified; Z79.890 Hormone replacement therapy; Z79.83 Long term (current) use of bisphosphonates
CPT/HCPCS: 12345; 36415; 71045; 80048; 80053; 85025; 86403; 86713; 87040; 87804; 93005; 94640; 96372; 96374; 99282; 99283; G0378; J0456; J0696; J1100; J1650; J2001; J2930; J7030; J7050; J7512; J7611

== ENCOUNTER 2020-01-04 13:42 | Outpatient (RCR) | payer MEDICARE, OTHER, SELFPAY | END 2020-01-14 23:59 | disposition home or self-care (01) | LOC: SPT 13:42 | PROVIDERS: PCP Family Medicine; Referring Provider Family Medicine; Visit Provider Family Medicine | DX: M54.31 Sciatica, right side (principal) | CPT/HCPCS: 97110; 97161 ==

== ENCOUNTER 2020-01-15 06:00 | Outpatient (RCR) | payer MEDICARE, OTHER, SELFPAY | END 2020-02-13 23:59 | disposition home or self-care (01) | LOC: SPT 06:00 | PROVIDERS: PCP Family Medicine; Visit Provider Family Medicine | DX: M54.31 Sciatica, right side (principal) | CPT/HCPCS: 97110 ==

== ENCOUNTER 2020-02-14 06:00 | Outpatient (RCR) | payer MEDICARE, OTHER, SELFPAY | END 2020-03-15 23:59 | disposition home or self-care (01) | LOC: SPT 06:00 | PROVIDERS: PCP Family Medicine; Visit Provider Family Medicine | DX: M54.31 Sciatica, right side (principal) | CPT/HCPCS: 97110; 97164 ==

== ENCOUNTER 2020-03-16 06:00 | Outpatient (RCR) | payer MEDICARE, OTHER, SELFPAY | END 2020-04-15 23:59 | disposition home or self-care (01) | LOC: SPT 06:00 | PROVIDERS: PCP Family Medicine; Visit Provider Family Medicine | DX: M54.31 Sciatica, right side (principal) | CPT/HCPCS: 97110 ==

== ENCOUNTER 2020-05-04 09:35 | Emergency (ER) | payer MEDICARE, OTHER, SELFPAY ==
[2020-05-04 09:43] VITALS: BP 139/85; PULSE 80; RESP 18; TEMP 36.5; O2SAT 99; BMI 18.8
--- NOTE | 2020-05-04 09:49 | XR_ITS ---
WS: [id number] ABDOMEN 1 VIEW(S) HISTORY: abd pain COMPARISON: None available. Mild fecal retention and constipation. No suspicious calcifications or masses. No bone abnormality. XR/XR KUB portable [id number] IMPRESSION: Mild constipation.
--- NOTE | 2020-05-04 09:53 | ED_ITS ---
HPI - Abdominal Pain General: Chief Complaint: Abdominal Pain Stated Complaint: AB/BACK PAIN Time Seen by Provider: 05/04/20 09:36 History of Present Illness: HPI narrative: 75-year-old female comes in complaining of abdominal pain low back pain for last 2 days. She has chronic constipation she is taken several different stool softeners MiraLAX Dulcolax she has a small bowel movement yesterday but nothing since she still having a lot of cramping pain she denies dysuria urgency or frequency no hematochezia melena hematemesis coffee-ground emesis denies nausea or vomiting or fever. MD elicited complaint: abdominal pain Pertinent past history: constipation Onset (ago): day(s) (2) Pain Consistency: intermittent Location: Diffuse Quality: cramping Radiation: back Exacerbating factors: nothing Relieving factors: nothing Associated Symptoms: Reports bloating, constipation, GI cramping and poor appetite; Denies anorexia, belching, change in bowel habits, change in stool character, chills, coffee ground emesis, diarrhea, dyspepsia, dysuria, excessive flatus, fever(s), heartburn, hematochezia, hematuria, hematemesis, fecal incontinence, loose stools, melena, nausea, syncope and vomiting Review of Systems Const: Denies: fever(s) or chills ENMT: Denies: throat pain, ear or mastoid pain, nasal discharge or nasal congestion Card: Denies: syncope Resp: Denies: dyspnea, productive cough or non-productive cough GI: Reports: constipation, bloating and GI cramping; Denies: nausea, vomiting, hematemesis, coffee ground emesis, heartburn, diarrhea, belching, excessive flatus, fecal incontinence, change in bowel habits, change in stool character, hematochezia or melena : Denies: dysuria or hematuria Skin/Breast: Denies: rash or pruritus PFSH ED PFSH: Medical History COPD (chronic obstructive pulmonary disease) -has known hx of COPD, not oxygen dependent at baseline -no evidence of COPD exacerbation at this time -received IV steroids in ED, wheezing improved with oral steroids -not requiring oxygen currently, continue to monitor respiratory status -Neb treatments as needed Hypothyroidism -has known hx of hypothyroidism -continue Levothyroxine Irritable bowel syndrome Thyroid disease Surgical History H/O: hysterectomy History of carpal tunnel surgery R Family History Mother Dementia Father Congestive heart failure Other CAD (coronary artery disease) Cancer Diabetes Hypertension Lung disease Psychiatric illness Denies family history of Clotting disorder Hyperlipidemia Chronic kidney disease (CKD) Suicide Anesthesia complication Bleeding disorder Family history of premature coronary artery disease Stroke Social History Smoking and tobacco status: never smoked Second hand smoke exposure: Yes (minimal) Smoking risk assessment/counseling performed?: Yes Alcohol intake: never Desire information about alcohol rehabilitation?: No Counseling given: No Desire information about substance/drug rehabilitation?: No Counseling given: No Household members: spouse Physical Exam Const: COMMON NORMALS: no acute distress GENERAL APPEARANCE: cooperative a nd comfortable ORIENTATION/CONSCIOUSNESS: Yes awake, Yes oriented to person, Yes oriented to place and Yes oriented to time HENMT: COMMON NORMALS: normocephalic, atraumatic and hearing grossly normal bilaterally HEAD & SCALP: normocephalic and atraumatic Eye: COMMON NORMALS: Equal, round and reactive pupils present, EOMs intact bilaterally, conjunctivae normal and no scleral icterus CONJUNCTIVA: Yes conjunctivae normal PUPIL: Yes Equal, round and reactive pupils present Neck/C-Spine: COMMON NORMALS: full ROM, no lymphadenopathy, supple and no JVD Lymph: LYMPHATIC: no lymphadenopathy noted and no lymphedema noted Resp: COMMON NORMALS: normal respiratory effort, No retractions, No use of accessory muscles and clear to auscultation bilaterally AUSCULTATION: clear to auscultation bilaterally Cardio: COMMON NORMALS: no JVD, regular rate, regular rhythm and No murmurs present (Cardio) RATE: regular rate RHYTHM: regular rhythm GI: COMMON NORMALS: Soft to palpation and No hepatosplenomegaly present AUSCULTATION: Yes normoactive bowel sounds PALPATION: Yes Soft to palpation, No Tenderness to palpation present (GI), No Guarding due to palpation present (GI) and Yes No hepatosplenomegaly present Extremity: COMMON NORMALS: normal to inspection, capillary refill normal, no clubbing, cyanosis or edema, no calf tenderness and no pedal edema Neuro: SENSORIUM/ORIENTATION: Yes oriented to person, Yes oriented to place and Yes oriented to time Skin: COMMON NORMALS: no rashes or lesions noted GENERAL SKIN EXAM: no rashes or lesions noted Course Vital Signs: Vital signs: Vital Signs Temperature 97.7 F 05/04/20 09:43 Pulse Rate 73 05/04/20 11:28 Respiratory Rate 17 05/04/20 11:28 Blood Pressure 119/67 05/04/20 11:28 Pulse Oximetry 98 05/04/20 11:28 MDM - Abdominal Pain MDM Narrative: Medical decision making narrative: Discussed findings with the patient we will have her use leg citrate relieve her constipation. Continue MiraLAX can also use Sara-Colace. Lab Data: Labs: Lab Results 05/04/20 05/04/20 05/04/20 Range/Units 10:20 10:20 10:50 WBC 6.4 (4.0-10.0) 10^3/ uL RBC 4.59 (4.1-5.3) 10^6/u L Hgb 13.3 (11.5-15.3) g/dL Hct 40.9 (37.0-47.0) % MCV 89.1 (81-99) fL MCH 29.0 (28.0-34.0) pg MCHC 32.5 (30.0-36.0) g/dL RDW 12.0 L (12.1-15.1) % Plt Count 250 (130-400) 10^3/c mm MPV 10.6 H (7.4-10.4) fL Neut % (Auto) 67.4 % Lymph % (Auto) 20.9 % Elk % (Auto) 8.3 % Eos % (Auto) 2.5 % Baso % (Auto) 0.6 % Neut # (Auto) 4.33 (1.8-7.7) 10^3/u L Lymph # (Auto) 1.3 (0.8-4.8) 10^3/u L Elk # (Auto) 0.5 (0.2-0.9) 10^3/u L Eos # (Auto) 0.2 (0.0-0.8) 10^3/u L Baso # (Auto) 0.0 (0.0-0.1) 10^3/u L Nucleated RBC % (a uto) 0 % Nucleated RBCs # 0.0 /100WBC Sodium 135 L (136-145) mmol/L Potassium 4.6 (3.5-5.1) mmol/L Chloride 100 (98-107) mmol/L Carbon Dioxide 29 (22-29) mmol/L Anion Gap 10.6 (5-19) BUN 10 (8-23) mg/dL Creatinine 0.4 L (0.5-0.9) mg/dL GFR Calculation Not Reportable Glucose 83 (65-115) mg/dL Calculated Osmolal ity 278 L (285-295) mOsm/k g Calcium 9.1 (8.5-10.5) mg/dL Total Bilirubin 0.4 (0.15-1.2) mg/dL AST 20 (0-32) U/L ALT 19 (0-33) U/L Alkaline Phosphata se 45 (35-105) IU/L Total Protein 6.6 (6.6-8.7) g/dL Albumin 4.1 (3.5-5.2) g/dL Globulin 2.5 (1.3-4.6) g/dL Urine Color Yellow (Yellow) Urine Appearance Clear (CLEAR) Urine pH 6.5 (5-7) Ur Specific Gravit y 1.010 (1.005-1.030) Urine Protein Neg (Negative) Urine Glucose (UA) Norm (Normal) Urine Ketones Negative (Negative) Urine Blood Neg (Negative) Urine Nitrate Negative (Negative) Urine Bilirubin Neg (Negative) Urine Urobilinogen Norm (Negative) mg/dL Ur Leukocyte [place] ase Negative (Negative) Discharge Plan Discharge Patient Disposition: Home Clinical Impression: Constipation Condition: Stable Prescriptions: New magnesium citrate Solution 150 ml PO BID PRN (Reason: constipation) Qty: 296 RF: 0 No Action estradiol 1 mg tablet See Rx Instructions .ROUTE .COMPLEX RF: 0 levothyroxine 50 mcg capsule See Rx Instructions .ROUTE .COMPLEX RF: 0 Celebrex 200 mg capsule 200 mg PO DAILY@0800 RF: 0 zinc gluconate 30 mg Tablet 30 mg PO DAILY@0730 RF: 0 Vitamin C 500 mg Tablet 500 mg PO DAILY@0730 RF: 0 simvastatin 5 mg tablet 5 mg PO DAILY@2200 RF: 0 Vitamin D3 25 mcg (1,000 unit) Tablet 25 mcg PO DAILY@07 RF: 0 potassium gluconate 595 mg (99 mg) Tablet 595 mg PO DAILY@729 RF: 0 Calcium Magnesium 500 mg calcium -250 mg Tablet 1 tab PO DAILY@729 RF: 0 Glucosamine Chondroitin 550-30-1 mg Capsule 1 cap PO DAILY@729 RF: 0 Copper Tab 3 mg PO DAILY@729 RF: 0 Hyaluronic Joint Complex 1 tab PO DAILY@729 RF: 0 Quercetin 1 tab PO DAILY@729 RF: 0 Turmeric Curcumin 1 mg PO DAILY@729 RF: 0 Discharge Orders: Discharge ED (Routine); Ordered 05/04/20 Ordered By: Kwasi Cain Referrals: Ash Cali MD [Primary Care Provider] - Discharge Diet: Clear Liquid Discharge Activity: Increase activity as tolerated Patient Instructions: Opioid Safety Activity Restrictions/Additional Instructions: Use mag citrate every 6 hours as needed until desired results achieved. Clear liquid diet for 24 to 48 hours. Coding Level of Care Code ED [place] [employer] Director for [facility] Fwd Exam Comprehensive
[2020-05-04 10:31] LABS: Basophils % 0.6 %; Eosinophils # 0.2 10^3/uL (0.0-0.8); Eosinophils % 2.5 %; Hematocrit 40.9 % (37.0-47.0); Hemoglobin 13.3 g/dL (11.5-15.3); Lymphocytes # 1.3 10^3/uL (0.8-4.8); Lymphocytes % 20.9 %; Mean Corpuscular HGB Conc 32.5 g/dL (30.0-36.0); Mean Corpuscular Volume 89.1 fL (81-99); Mean Platelet Volume 10.6 fL (7.4-10.4); Monocytes # 0.5 10^3/uL (0.2-0.9); Monocytes % 8.3 %; Neutrophils # 4.33 10^3/uL (1.8-7.7); Neutrophils % 67.4 %; Nucleated Red Blood Cells % 0 %; Platelet Count 250 10^3/cmm (130-400); Red Blood Count 4.59 10^6/uL (4.1-5.3); White Blood Count 6.4 10^3/uL (4.0-10.0)
[2020-05-04 10:49] LABS: Alanine Aminotransferase 19 U/L (0-33); Albumin Level 4.1 g/dL (3.5-5.2); Alkaline Phosphatase 45 IU/L (35-105); Anion Gap 10.6 (5-19); Aspartate Amino Transferase 20 U/L (0-32); Blood Urea Nitrogen 10 mg/dL (8-23); Calcium 9.1 mg/dL (8.5-10.5); Carbon Dioxide 29 mmol/L (22-29); Chloride 100 mmol/L (98-107); Globulin 2.5 g/dL (1.3-4.6); Glucose 83 mg/dL (65-115); Osmolality Calculated 278 mOsm/kg (285-295); Potassium 4.6 mmol/L (3.5-5.1); Sodium 135 mmol/L (136-145); Total Bilirubin 0.4 mg/dL (0.15-1.2); Total Protein 6.6 g/dL (6.6-8.7)
[2020-05-04 10:59] VITALS: BP 119/67; PULSE 75; RESP 18; O2SAT 98
[2020-05-04 11:02] LABS: Add Urine Microscopic? NO
[2020-05-04 11:12] LABS: Bilirubin Urine Neg (Negative); Blood Urine Neg (Negative); Glucose Urine UA Norm (Normal); Ketones Urine Negative (Negative); Leukocyte Esterase Urine Negative (Negative); Nitrate Urine Negative (Negative); Protein Urine Neg (Negative); Urine Appearance Clear (CLEAR); Urine Color Yellow (Yellow); Urobilinogen Urine Norm (Negative); pH Urine 6.5 (5-7)
[2020-05-04 11:28] VITALS: BP 119/67; PULSE 73; RESP 17; O2SAT 98
== END 2020-05-04 11:21 | disposition home or self-care (01) ==
PROVIDERS: Emergency Provider Family Medicine; PCP Family Medicine
DX: K59.00 Constipation, unspecified (principal); J44.9 Chronic obstructive pulmonary disease, unspecified; Z77.22 Contact with and (suspected) exposure to environmental tobacco smoke (acute) (chronic)
CPT/HCPCS: 74018; 80053; 81003; 85025; 99283

== ENCOUNTER 2020-05-23 15:07 | Emergency (ER) | payer MEDICARE, OTHER, SELFPAY ==
[2020-05-23] VITALS (8 sets, daily range): BP systolic 121–180; BP diastolic 65–93; PULSE 82–115; RESP 17–19; TEMP 36.9; O2SAT 91–97; BMI 18.8
--- NOTE | 2020-05-23 15:20 | XR_ITS ---
WS: [id number] Soft tissue neck, AP and lateral views, 05/23/2020 Clinical Data: FB throat-pill Comparison: None. Findings: There is no radiopaque foreign body seen in the pharynx, hypopharynx or trachea. Degenerative change of the cervical vertebral bodies C5-C7 with disc space narrowing can be seen. No prevertebral soft ti ssue swelling is noted. The lung apices and trachea do not demonstrate any foreign bodies. XR/XR soft tissue neck 85634 Impression: Negative for radiopaque foreign body.
--- NOTE | 2020-05-23 15:45 | W.ED.GENADLT ---
HPI - General Adult General: Chief complaint: Airway/Esophagus Foreign Body Stated complaint: CHOKING ON PILL Time Seen by Provider: 05/23/20 15:20 Source: patient Mode of arrival: ambulatory History of Present Illness: HPI narrative: 75-year-old female complaining of cough and foreign body sensation in her throat shortly after she felt a fiber supplement pill get stuck in her throat. She initially drank some water right after it first occurred, felt slightly better but then when she went outside and leaned over to start gardening, she suddenly started coughing violently, and has not been able to stop coughing since. She started to cough up small amounts of blood. She does not feel any swelling or foreign body when she swallows, but every time she breathes triggers coughing. She has not had any trouble in the past with dysphagia or difficulty swallowing. Associated symptoms: Reports dyspnea; Deny chest pain, rash, palpitations or vomiting Review of Systems General: Reports: 10 or more systems reviewed and unremarkable except in HPI and below Const: Denies: fever(s), chills or body aches ENMT: Reports: throat pain and hoarseness Card: Denies: chest pain, palpitations or irregular heart rhythm Resp: Reports: dyspnea, non-productive cough, stridor and hemoptysis GI: Denies: nausea or vomiting Musc: Denies: neck pain, back pain or extremity pain Skin/Breast: Denies: rash, pruritus or erythema PFSH ED PFSH: Medical History COPD (chronic obstructive pulmonary disease) -has known hx of COPD, not oxygen dependent at baseline -no evidence of COPD exacerbation at this time -received IV steroids in ED, wheezing improved with oral steroids -not requiring oxygen currently, continue to monitor respiratory status -Neb treatments as needed Hypothyroidism -has known hx of hypothyroidism -continue Levothyroxine Irritable bowel syndrome Thyroid disease Surgical History H/O: hysterectomy History of carpal tunnel surgery R Family History Mother Dementia Father Congestive heart failure Other CAD (coronary artery disease) Cancer Diabetes Hypertension Lung disease Psychiatric illness Denies family history of Clotting disorder Hyperlipidemia Chronic kidney disease (CKD) Suicide Anesthesia complication Bleeding disorder Family history of premature coronary artery disease Stroke Social History Smoking and tobacco status: never smoked Second hand smoke exposure: Yes (minimal) Smoking risk assessment/counseling performed?: Yes Alcohol intake: never Desire information about alcohol rehabilitation?: No Counseling given: No Desire information about substance/drug rehabilitation?: No Counseling given: No Household members: spouse Physical Exam Const: COMMON NORMALS: average body habitus and patient oriented x3 GENERAL APPEARANCE: in distress HENMT: COMMON NORMALS: normocephalic HEAD & SCALP: normal to inspection and normocephalic FACE & SINUS: normal facial exam and face symmetric NOSE: Nasal discharge present clear; no Foreign body present in naris Eye: COMMON NORMALS: Equal, round and reactive pupils present, EOMs intact bilaterally, conjunctivae normal and no scleral icterus CONJUNCTIVA: Yes conjunctivae normal PUPIL: Yes Equal, round and reactive pupils present Neck/C-Spine: COMMON NORMALS: full ROM, no lymphadenopathy and supple GENERAL: Yes trachea midline, Yes anterior neck swelling, No lymphadenopathy, No tracheal deviation and No submandibular swelling CERVICAL SPINE: Yes cervical ROM normal Resp: EFFORT & INSPECTION: Yes labored, Yes stridor, Yes Actively coughing hacking and barking, Yes uses accessory muscles and No tracheal deviation Neuro: COMMON NORMALS: patient oriented x3 Course Vital Signs: Vital signs: Vital Signs Temperature 98.5 F 05/23/20 15:11 Pulse Rate 95 05/23/20 21:00 Respiratory Rate 17 05/23/20 17:52 Blood Pressure 136/65 05/23/20 21:00 Pulse Oximetry 97 05/23/20 21:00 MDM - General Adult MDM Narrative: Medical decision making narrative: 75-year-old female aspirated a fiber supplement capsule. Following her CT scan, she successfully expectorated several pieces of the tablet and had relief. I had consulted with the fiberglass product tester, Dr. Bowling earlier on about the case, he reviewed the CT and saw that the right distal mainstem had been partially occluded. He recommended placing her on Augmentin, and having her follow-up in pulmonology clinic as she also has underlying bronchial disease. IV Unasyn 3 g administered here in the ED. At the time of discharge, the patient was no longer coughing, she was able to drink without difficulty, and had no stridor. Medical Records: Attestation: I reviewed the patient's medical records. Lab Data: Attestation: I reviewed the patient's lab results. Discharge Plan Discharge Patient Disposition: Home Clinical Impression: Chronic bronchitis with emphysema Aspiration of foreign body in respiratory tract Qualifiers: Encounter type: initial encounter Qualified Code(s): T17.908A - Unspecified foreign body in respiratory tract, part unspecified causing other injury, initial encounter Condition: Stable Prescriptions: New Augmentin 875-125 mg tablet 1 tab PO BID 7 Days Qty: 14 RF: 0 No Action estradiol 1 mg tablet See Rx Instructions .ROUTE .COMPLEX RF: 0 levothyroxine 50 mcg capsule See Rx Instructions .ROUTE .COMPLEX RF: 0 cyclobenzaprine 5 mg Tablet 5 mg PO BID PRN (Reason: muscle spasms) RF: 0 celecoxib [Celebrex] 200 mg capsule 200 mg PO DAILY@0800 RF: 0 zinc gluconate 30 mg Tablet 30 mg PO DAILY@0730 RF: 0 ascorbic acid (vitamin C) [Vitamin C] 500 mg Tablet 500 mg PO DAILY@0730 RF: 0 simvastatin 5 mg tablet 5 mg PO DAILY@2200 RF: 0 cholecalciferol (vitamin D3) [Vitamin D3] 25 mcg (1,000 unit) Tablet 25 mcg PO DAILY@0730 RF: 0 potassium gluconate 595 mg (99 mg) Tablet 595 mg PO DAILY@0730 RF: 0 Calcium Magnesium 500 mg calcium -250 mg Tablet 1 tab PO DAILY@0730 RF: 0 Glucosamine Chondroitin 550-30-1 mg Capsule 1 cap PO DAILY@0730 RF: 0 Copper Tab 3 mg PO DAILY@0730 RF: 0 Hyaluronic Joint Complex 1 tab PO DAILY@0730 RF: 0 Quercetin 1 tab PO DAILY@0730 RF: 0 Turmeric Curcumin 1 mg PO DAILY@0730 RF: 0 Discharge Orders: Discharge ED (Routine); Ordered 05/23/20 Ordered By: Annmarie Saini Referrals: Bryan Bowling MD [Physician] - 7-10 days ( ER follow-up; aspiration, chronic bronchitis) Ash Cali MD [Primary Care Provider] - Discharge Diet: Advance as tolerated Discharge Activity: Resume usual activity Patient Instructions: Aspiration Pneumonia (GEN) Activity Restrictions/Additional Instructions: Rest, drink plenty of fluids. You have been referred to the pulmonology clinic for follow-up, if you have not heard from them in the next week, call to request an appointment. Make sure to finish all of the antibiotics. Return immediately to the ER if you develop fever, worsening cough, difficulty breathing, or any other concerning symptoms. Coding Level of Care Code ED Authorization Specialist for [facility] Exam Detailed
[2020-05-23] MEDS: dexamethasone 4 mg/mL INJ 8 MG IVP (16:28)
[2020-05-23] MEDS: midazolam 1 mg/mL INJ 2 mL IVP (16:29)
[2020-05-23] MEDS: lidocaine 4% PF 5 mL INJ INHALATION (17:56)
--- NOTE | 2020-05-23 18:32 | CTR_ITS ---
PROCEDURE INFORMATION: Exam: CT Chest With Contrast; Diagnostic Exam date and time: 05/23/2020 6:40 PM Age: 75 years old Clinical indication: Patient HX: Pill stuck in throat. Patient has uncontrolled cough since; Additional info: Possible aspiration TECHNIQUE: Imaging protocol: Diagnostic computed tomography of the chest with contrast. Radiation optimization: All CT scans at this facility use at least one of these dose optimization techniques: automated exposure control; mA and/or kV adjustment per patient size (includes targeted exams where dose is matched to clinical indication); or iterative reconstruction. Contrast material: OMNI 300; Contrast volume: 75 ml; Contrast route: INTRAVENOUS (IV); COMPARISON: CT chest w con* [id number] 11/25/2017 11:02 AM RADIATION DOSE METRICS: Total DLP (mGy-cm): 314.26 FINDINGS: Lungs: Linear scarring in both lung apices. Mild tree-in-bud type opacities in the inferior lower lobes. Mild bronchiectasis with bronchial wall thickening in the right middle lobe and lingula. Multiple 3-4 mm nodules in the bilateral lower lobes. No consolidation. Changes of emphysema. Pleural spaces: Unremarkable. No pneumothorax. No pleural effusion. Heart: Unremarkable. No cardiomegaly. No pericardial effusion. Mediastinal space: Gas filled thoracic esophagus. No filling defect identified. Aorta: Unremarkable. No aortic aneurysm. Lymph nodes: Unremarkable. No enlarged lymph nodes. Liver: Subcentimeter hypodensity in the liver is too small to characterize but is most likely a cyst. No follow-up imaging is recommended. Bones/joints: Unremarkable. No acute fracture. Soft tissues: Unremarkable. CT/CT chest w con* [id number] IMPRESSION: 1. Mild tree-in-bud type opacities in the inferior lower lobes could indicate endobronchial infection or aspiration. 2. Bronchiectasis with mild bronchial wall thickening in the right middle lobe and lingula could relate to chronic infection and/or aspiration. 3. Multiple 3-4 mm pulmonary nodules. For patients at low risk (minimal or absent history of smoking and of other known risk factors), no routine follow-up is indicated. For patients at high risk (history of smoking or of other known risk factors), consider optional CT Chest at 12 months. (Reference: Shane) References: Shane Tobias et al. Guidelines for Management of Incidental Pulmonary Nodules Detected on CT Images: From the Fleischner Society 2017. Radiology. 2017;284(1):228-243. Radiation Dose CTDIVOL = (mGy): DLP = 314.26 (mGy-cm)
[2020-05-23] MEDS: iohexol 300 mg/mL 100 mL Btl IV (18:57)
[2020-05-23] MEDS: lidocaine 2% viscous 15 mL UDC 10 ML MUCOUS MEM (19:13)
[2020-05-23] MEDS: ampicillin-sulbactam 3 GM in sodium chloride 0.9% (plus) 50 ML IV (19:38)
== END 2020-05-23 21:03 | disposition home or self-care (01) ==
PROVIDERS: Emergency Provider Family Medicine; PCP Family Medicine
DX: T17.908A Unspecified foreign body in respiratory tract, part unspecified causing other injury, initial encounter (principal); J44.9 Chronic obstructive pulmonary disease, unspecified; Z77.22 Contact with and (suspected) exposure to environmental tobacco smoke (acute) (chronic); X58.XXXA Exposure to other specified factors, initial encounter
CPT/HCPCS: 70360; 71260; 94640; 96365; 96375; 99284; J0295; J1100; J2250; Q9967

== ENCOUNTER 2020-06-04 06:00 | Outpatient (RCR) | payer MEDICARE, OTHER, SELFPAY | END 2020-06-13 23:59 | disposition home or self-care (01) | LOC: SPT 06:00 | PROVIDERS: PCP Family Medicine; Referring Provider Family Medicine; Visit Provider Family Medicine | DX: M54.30 Sciatica, unspecified side (principal) | CPT/HCPCS: 97110; 97161 ==

== ENCOUNTER 2020-06-05 15:15 | Outpatient (CLI) | payer MEDICARE, OTHER, SELFPAY ==
--- NOTE | 2020-06-05 15:20 | XR_ITS ---
WS: [id number] CHEST 2 VIEWS HISTORY: rule out pneumonia COMPARISON: 05/07/2019 Lungs: Hyperinflated lungs. No mass or pulmonary nodule. Mild thickening along the RIGHT minor fissur e. No pleural effusion. Cardiac size: Normal. Mediastinum/Aorta: Normal mediastinum. Bones: Normal. XR/XR chest 2V* [id number] IMPRESSION: Chronic emphysema. No pneumonia.
== END 2020-06-05 15:16 | disposition home or self-care (01) ==
PROVIDERS: PCP Family Medicine; Visit Provider Internal Medicine Pulmonary Disease
DX: J18.9 Pneumonia, unspecified organism (principal); J43.9 Emphysema, unspecified
CPT/HCPCS: 71046

== ENCOUNTER 2020-06-06 15:42 | Outpatient (CLI) | payer MEDICARE, OTHER, SELFPAY ==
--- NOTE | 2020-06-06 16:10 | MR_ITS ---
WS: [id number] MRI LUMBAR SPINE NONCONTRAST HISTORY: SCIATICA COMPARISON: 08/23/2014 TECHNIQUE: Sagittal and axial multisequence imaging is submitted. Partial fusion between the C3-4 vertebral bodies. There is moderate degenerative changes throughout t he cervical and thoracic spine with mild curvature. Straightening of the normal lumbar lordosis. 5 mm retrolisthesis of L3. Severe disc space narrowing a t the L3-4 level. There is a heterogeneous marrow pattern which is probably due to marrow replacement or anemia. No acute fractures. Conus terminates normally at L1-2 disc level. L1-L2: Very mild annular disc bulging. No stenosis. L2-L3: Mild ligamentum flavum disease and annular disc bulging. There is mild bilateral foraminal cinthya rowing. L3-L4: Diffuse annular disc bulging and osteophytic ridging. Mild central stenosis. Severe RIGHT and moderate LEFT foraminal stenosis. L4-L5: Mild annular disc bulging and osteophytic ridging. Severe bilateral ligamentum flavum disease and mild facet arthritis. Significant encroachment into the thecal sac and foramen resulting in sever e central and moderate to severe bilateral foraminal stenosis. Bilateral nerve root sleeve diverticul a. L5-S1: Annular disc bulging and osteophytic ridging with marked facet arthritis. Severe central and b ilateral foraminal stenosis. Small amount of fluid in the facet joints. 5 mm cyst associated with the RIGHT facet joint. Paravertebral soft tissues are similar to the prior study. Small extrarenal pelves and mild atheroscl erosis aorta. 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 MR/MR lumbar spine wo con* [id number] IMPRESSION: 1. Moderate progression of degenerative changes and stenoses throughout the pilar mbar spine since 2014. 2. Severe RIGHT and moderate LEFT foraminal stenosis at L3-4. 3. Severe central with moderate to severe bilateral foraminal stenosis at L4-5 . 4. Severe central and bilateral foraminal stenosis at L5-S1.
== END 2020-06-06 15:43 | disposition home or self-care (01) ==
LOC: RADSHAW 15:45
PROVIDERS: PCP Family Medicine; Visit Provider Family Medicine
DX: M54.30 Sciatica, unspecified side (principal); M48.07 Spinal stenosis, lumbosacral region; M48.061 Spinal stenosis, lumbar region without neurogenic claudication
CPT/HCPCS: 72148

== ENCOUNTER → 2020-06-22 11:03 | Outpatient (BNVA) | payer MEDICARE, OTHER, SELFPAY | PROVIDERS: PCP Family Medicine; Visit Provider Internal Medicine Pulmonary Disease | DX: Z20.828 Contact with and (suspected) exposure to other viral communicable diseases (principal) | CPT/HCPCS: 87635 ==

== ENCOUNTER 2020-06-27 10:05 | Outpatient (CLI) | payer MEDICARE, OTHER, SELFPAY ==
--- NOTE | 2020-06-27 08:59 | PFTS_ITS ---
Date of Study:06/27/20 Date of Dictation: 06/29/2020 MECHANICS: Postbronchodilator forced vital capacity (FVC) is normal. Postbronchodilator forced expiratory volume in one second (FEV1) is mildly reduced 84%. FEV1/FVC is reduced. There is significant response to bronchodilators. FLOW VOLUME LOOP: Scooping of the end expiratory limb suggestive of airway obstruction normalized somewhat postbronchodilator. . LUNG VOLUMES: Total lung capacity (TLC) is normal. Residual volume (RV) is normal. DIFFUSING CAPACITY FOR CARBON MONOXIDE: Mildly reduced to 69%. . INTERPRETATION: The prebronchodilator spirometry is suggestive of moderate obstructive ventilatory defect with significant response to bronchodilators. Normal lung volumes. There is mild reduction in gas transfer. Correlate clinically. MTDD
--- NOTE | 2020-06-27 11:28 | PFTS_ITS ---
Date of Study:06/27/20 Date of Dictation: 06/29/2020 MECHANICS: Postbronchodilator forced vital capacity (FVC) is normal. Postbronchodilator forced expiratory volume in one second (FEV1) is mildly reduced 68%. FEV1/FVC is reduced. There is significant response to bronchodilators. FLOW VOLUME LOOP: Scooping of the end expiratory limb suggestive of airway obstruction normalized somewhat postbronchodilator. . LUNG VOLUMES: Total lung capacity (TLC) is normal. Residual volume (RV) is normal. DIFFUSING CAPACITY FOR CARBON MONOXIDE: Mildly reduced to 69%. . INTERPRETATION: The prebronchodilator spirometry is suggestive of moderate obstructive ventilatory defect with significant response to bronchodilators. Normal lung volumes. There is mild reduction in gas transfer. Correlate clinically. MTDD
== END 2020-06-27 10:06 | disposition home or self-care (01) ==
LOC: RT 10:08
PROVIDERS: PCP Family Medicine; Visit Provider Internal Medicine Pulmonary Disease
DX: J44.9 Chronic obstructive pulmonary disease, unspecified (principal)
CPT/HCPCS: 94060; 94726; 94729; J7611

== ENCOUNTER 2020-07-30 15:58 | Outpatient (CLI) | payer MEDICARE, OTHER, SELFPAY ==
[2020-07-30 16:41] LABS: Basophils # 0.1 10^3/uL (0.0-0.1); Basophils % 0.8 %; Eosinophils # 0.2 10^3/uL (0.0-0.8); Eosinophils % 2.9 %; Hematocrit 38.7 % (37.0-47.0); Hemoglobin 12.5 g/dL (11.5-15.3); Lymphocytes # 1.7 10^3/uL (0.8-4.8); Mean Corpuscular HGB Conc 32.3 g/dL (30.0-36.0); Mean Corpuscular Hemoglobin 29.8 pg (28.0-34.0); Mean Corpuscular Volume 92.1 fL (81-99); Monocytes # 0.6 10^3/uL (0.2-0.9); Monocytes % 8.9 %; Neutrophils # 3.73 10^3/uL (1.8-7.7); Neutrophils % 60.2 %; Nucleated Red Blood Cells % 0 %; Platelet Count 228 10^3/cmm (130-400); Red Cell Distribution Width 12.6 % (12.1-15.1); White Blood Count 6.2 10^3/uL (4.0-10.0)
[2020-08-02 09:22] LABS: Alternaria Alternata (M6) Ige <0.10 kU/L; Alternaria Class 0; Bermuda Class 0; Bermuda Grass (G2) Ige <0.10 kU/L; Cat Dander (E1) Ige 0.21 kU/L; Cat Dander Class 0/1; Common Ragweed (Short) (W1) Ig 2.25 kU/L; D. Farinae Class 1; Dermatophagoides Class 0; Dermatophagoides Farinae (D2) 0.47 kU/L; Dermatophagoides Pteronyssinus <0.10 kU/L; Dog Dander (E5) Ige <0.10 kU/L; Dog Dander Class 0; Elm (T8) Ige 0.17 kU/L; Elm Class 0/1; English Plantain (W9) Ige 0.22 kU/L; English Plantain Class 0/1; House Dust (Greer) (H1) Ige 0.18 kU/L; House Dust (Hollister- Stier) <0.10 kU/L; House Dust Class 0; House Dust Class 0/1; Immunoglobulin E 33 kU/L (<OR=114); Immunoglobulin E 37 kU/L (<OR=114); Johnson Grass (G10) Ige <0.10 kU/L; Johnson Grass Cl 0; June Grass Class 0; June Grass(Kentucky Blue) (G8) <0.10 kU/L; Lamb'S Quarters (Goose Foot) <0.10 kU/L; Lamb'S Quarters Class 0; Maple (Box Elder) (T1) Ige <0.10 kU/L; Maple Class 0; Meadow Fescue (G4) Ige <0.10 kU/L; Meadow Fescue Class 0; Mucor Racemosus Class 0; Oak (T7) Ige <0.10 kU/L; Oak Class 0; Orchard Grass (Cocksfoot) (G3) <0.10 kU/L; Penicillium Class 0; Penicillium Notatum (M1) Ige <0.10 kU/L; Perennial Rye Grass (G5) Ige <0.10 kU/L; Perennial Rye Grass Class 0; Ragweeed Class 2; Rough Marsh Elder (W16) Ige 0.13 kU/L; Rough Marsh Elder Class 0/1; Sweet Vernal Class 0; Sweet Vernal Grass (G1) Ige <0.10 kU/L; Timothy Grass (G6) Ige <0.10 kU/L; Timothy Grass Class 0
[2020-08-02 18:17] LABS: Aspergillus Fumigatus, Igg Ab, <3.0 mg/L (<=102)
== END 2020-07-30 15:59 | disposition home or self-care (01) ==
LOC: LAB 16:08
PROVIDERS: PCP Family Medicine; Visit Provider Internal Medicine Pulmonary Disease
DX: J44.9 Chronic obstructive pulmonary disease, unspecified (principal); Z91.09 Other allergy status, other than to drugs and biological substances
CPT/HCPCS: 36415; 82785; 85025; 86003

== ENCOUNTER → 2020-08-08 09:57 | Outpatient (BNVA) | payer MEDICARE, OTHER, SELFPAY | PROVIDERS: PCP Family Medicine; Visit Provider Internal Medicine Rheumatology | DX: M15.4 Erosive (osteo)arthritis (principal); Z79.899 Other long term (current) drug therapy; J44.9 Chronic obstructive pulmonary disease, unspecified; K22.8 Other specified diseases of esophagus; M19.90 Unspecified osteoarthritis, unspecified site | CPT/HCPCS: 36415; 73130; 73630; 86038; 86431; 99204 ==

== ENCOUNTER 2020-08-08 14:19 | Outpatient (CLI) | payer MEDICARE, OTHER, SELFPAY ==
--- NOTE | 2020-08-08 14:31 | XR_ITS ---
WS: [id number] Exam: XR hand RT min 3V* [id number] Date/Time of Exam: 08/08/2020 2:41 PM Reason For Exam: Z79.899 - Other longterm (current) drug therapy Moderately advanced degenerative changes noted in the IP and MP joints. There is deformity of the the second through the fifth digits. No soft tissue foreign bodies are seen. No fractures are noted. XR/XR hand RT min 3V* [id number] IMPRESSION: 1. Moderately advanced degenerative changes in the right hand as noted above. 2. No sign of fracture or bone destruction.
--- NOTE | 2020-08-08 14:31 | XR_ITS ---
WS: [id number] Exam: XR foot LT min 3V* [id number] Date/Time of Exam: 08/08/2020 2:41 PM Reason For Exam: Z79.899 - Other fci (current) drug therapy Comparison 03/31/2019. Prominent hallux valgus deformity noted. Moderate degenerative changes in the IP joints. Minimal dege nerative change of the first MP joint and midfoot joints. Small plantar heel spur. No soft tissue for eign bodies. No fracture or dislocation. XR/XR foot LT min 3V* [id number] IMPRESSION: 1. Prominent hallux valgus and degenerative changes. 2. No fracture.
--- NOTE | 2020-08-08 14:31 | XR_ITS ---
WS: [id number] Exam: XR hand LT min 3V* [id number] Date/Time of Exam: 08/08/2020 2:31 PM Reason For Exam: Z79.899 - Other senior living (current) drug therapy No acute fracture or dislocation. Moderately advanced degenerative changes of the IP and MP joints. M arked degenerative change at the CMC joint of the thumb. No soft tissue foreign bodies. XR/XR hand LT min 3V* [id number] IMPRESSION: 1. Moderately advanced degenerative changes of the hand as noted above. 2. No fracture noted.
--- NOTE | 2020-08-08 14:31 | XR_ITS ---
WS: [id number] Exam: XR foot RT min 3V* [id number] Date/Time of Exam: 08/08/2020 2:41 PM Reason For Exam: Z79.899 - Other alf (current) drug therapy No acute fracture or dislocation. Mild degenerative changes in the IP joints and first MP joint. Dege nerative changes also noted in the midfoot joints. No soft tissue foreign bodies. XR/XR foot RT min 3V* [id number] IMPRESSION: 1. Mild degenerative changes. No fracture or dislocation. No bone destruction.
[2020-08-09 13:03] LABS: Cyclic Citrullinated Peptide <16 UNITS
[2020-08-10 12:47] LABS: Anti-Nuclear Antibody Screen POSITIVE (NEGATIVE)
== END 2020-08-08 14:20 | disposition home or self-care (01) ==
LOC: RAD 14:27
PROVIDERS: PCP Family Medicine; Visit Provider Internal Medicine Rheumatology
DX: M19.90 Unspecified osteoarthritis, unspecified site (principal); Z79.899 Other long term (current) drug therapy
CPT/HCPCS: 36415; 73130; 73630; 86038; 86431

== ENCOUNTER → 2020-09-05 15:08 | Outpatient (BNVA) | payer MEDICARE, OTHER, SELFPAY | PROVIDERS: PCP Family Medicine; Visit Provider Internal Medicine Rheumatology | DX: M15.4 Erosive (osteo)arthritis (principal); R76.8 Other specified abnormal immunological findings in serum; Z79.899 Other long term (current) drug therapy; J44.9 Chronic obstructive pulmonary disease, unspecified; K22.8 Other specified diseases of esophagus | CPT/HCPCS: 99213 ==

== ENCOUNTER 2020-09-07 09:40 | Outpatient (CLI) | payer MEDICARE, OTHER, SELFPAY ==
[2020-09-10 11:53] LABS: COMPLEMENT, TOTAL (CH50) 57 U/mL (31-60)
[2020-09-10 13:02] LABS: COMPLEMENT COMPONENT C3C 78 mg/dL (83-193); COMPLEMENT COMPONENT C4C 19 mg/dL (15-57); Thyroglobulin AB <1 IU/mL (< or = 1)
[2020-09-10 14:42] LABS: CENTROMERE B ANTIBODY <1.0 NEG AI (<1.0 NEG); JO-1 ANTIBODY <1.0 NEG AI (<1.0 NEG); RNP ANTIBODY <1.0 NEG AI (<1.0 NEG); SCL-70 ANTIBODY <1.0 NEG AI (<1.0 NEG); SJOGREN'S ANTIBODY (SS-A) <1.0 NEG AI (<1.0 NEG); SM ANTIBODY <1.0 NEG AI (<1.0 NEG); SS-B <1.0 NEG AI (<1.0 NEG); THYROID PEROXIDASE ANTIBODIES <1 IU/mL (<9)
[2020-09-11 10:42] LABS: ANA SCREEN, IFA POSITIVE (NEGATIVE)
[2020-09-13 01:13] LABS: DNA AB (DS) CRITHIDIA,IFA NEGATIVE (NEGATIVE)
== END 2020-09-07 09:41 | disposition home or self-care (01) ==
PROVIDERS: PCP Family Medicine; Visit Provider Internal Medicine Rheumatology
DX: R76.8 Other specified abnormal immunological findings in serum (principal); Z79.899 Other long term (current) drug therapy
CPT/HCPCS: 36415; 86160; 86162; 86235; 86255; 86376; 86800

== ENCOUNTER 2020-11-15 08:02 | Emergency (ER) | payer MEDICARE, OTHER, SELFPAY ==
[2020-11-15 08:07] VITALS: BP 132/47; PULSE 71; RESP 18; TEMP 37; O2SAT 98; BMI 18.8
[2020-11-15 08:15] VITALS: O2SAT 97
--- NOTE | 2020-11-15 08:16 | XR_ITS ---
WS: [id number] Left foot, 3 views, 11/15/2020 Clinical Data: injury/pain Comparison: Left foot, 08/08/2020. Findings: No fractures or dislocations are seen. No bone destruction or erosion is noted. As a prominent bunion at the head of the left first metatarsal.There is a small plantar spur. XR/XR foot LT min 3V* [id number] Impression: Bunion at the head of the left first metatarsal.
--- NOTE | 2020-11-15 08:17 | W.ED.LOWEXIN ---
HPI - Extremity Injury (Lower) General: Chief Complaint: Extremity Injury, Lower Stated Complaint: LEFT FOOT PAIN Time Seen by Provider: 11/15/20 08:06 Source: patient Mode of arrival: ambulatory Limitations: no limitations History of Present Illness: HPI Narrative: Patient is a very nice 75-year-old female who presents to ED today along with her for evaluation of a left foot injury that she sustained yesterday after she was stepping off of a curb and twisted the foot. Patient states she iced and elevated the extremity yesterday evening but continued having pain today. She has noticed bruising along the lateral aspect of her foot. She has no other injuries or complaints at this time. complaint: foot injury Onset (ago): day(s) (yesterday) Injury: Left: foot Type of Injury: inversion Place: other ([facility]) Severity: moderate Relieving factors: immobilization Exacerbating factors: weight bearing, movement and palpation Associated symptoms: Reports no associated symptoms Other symptoms: none Treatments prior to arrival: cold therapy and other (elevation) Review of Systems Musc: Reports: extremity pain (L foot); Denies: extremity swelling, joint pain or joint swelling Neuro: Denies: numbness in extremities or sensory changes PFSH ED PFSH: Medical History COPD (chronic obstructive pulmonary disease) -has known hx of COPD, not oxygen dependent at baseline -no evidence of COPD exacerbation at this time -received IV steroids in ED, wheezing improved with oral steroids -not requiring oxygen currently, continue to monitor respiratory status -Neb treatments as needed Erosive osteoarthritis of both hands Hypothyroidism -has known hx of hypothyroidism -continue Levothyroxine Irritable bowel syndrome Thyroid disease Surgical History H/O: hysterectomy History of carpal tunnel surgery R Family History Mother Dementia Father Congestive heart failure Other CAD (coronary artery disease) Cancer Diabetes Hypertension Lung disease Psychiatric illness Denies family history of Clotting disorder Hyperlipidemia Chronic kidney disease (CKD) Suicide Anesthesia complication Bleeding disorder Family history of premature coronary artery disease Stroke Social History Smoking and tobacco status: never smoked Second hand smoke exposure: Yes (minimal) Smoking risk assessment/counseling performed?: Yes Alcohol intake: never Desire information about alcohol rehabilitation?: No Counseling given: No Desire information about substance/drug rehabilitation?: No Counseling given: No Lives independently: Yes Household members: spouse Housing: House Marital status: service: No Current occupational status: retired Pets and animals: No History of recent travel: Yes (back from [place] on 07/22/20) Out of state: Yes Current gender identity: Female Physical Exam Const: COMMON NORMALS: no acute distress, no limitations and alert GENERAL APPEARANCE: cooperative Extremity: COMMON NORMALS: full ROM, capillary refill normal, no joint enlargement, no clubbing, cyanosis or edema, no calf tenderness and no pedal edema GENERAL: Yes normal exam except as noted LEFT LOWER EXTREMITY: Yes foot & digits (TTP dorsal/lateral L foot mainly over 4-5 metatarsals) Left foot and digits: Yes neurovascular exam (normal) Neuro: COMMON NORMALS: moves all extremities, no focal motor deficits and no sensory deficits noted SENSORIUM/ORIENTATION: Yes alert Skin: COMMON NORMALS: no rashes or lesions noted NARRATIVE SKIN EXAM: ecchymosis to L lateral foot; no other pertinent skin findings noted GENERAL SKIN EXAM: no rashes or lesions noted TRAUMA: no lacerations or abrasions Course Vital Signs: Vital signs: Vital Signs Temperature 98.6 F 11/15/20 08:07 Pulse Rate 71 11/15/20 08:07 Respiratory Rate 18 11/15/20 08:07 Blood Pressure 132/47 11/15/20 08:07 Pulse Oximetry 97 11/15/20 08:15 MDM - Extremity Injury (Lower) MDM Narrative: Medical decision making narrative: Will place in surgical shoe and have patient be non-weight bearing until cleared by ortho. Patient states she has crutches at home she can use. She is comfortable with OTC tylenol/motrin. Imaging Data^: XR L foot: Radiologist's impression: [address] [address] XRay Report Signed with Gwendolyn Patient: Bernadette Brown Unit #: [id number] : 1945 Age/Sex: 75 / F ADM Date: 11/15/20 Loc: ER Room/Bed: Attending Dr: Ordering Provider/Ordering MD: Anuradha Buckley Date of Service: 11/15/20 Procedure(s): XR foot LT min 3V* [id number] Accession Number(s): [id number] Report Number: [id number] ADDENDUM WS: [id number] There is a nondisplaced fracture of the base of the left fifth metatarsal. Addendum Dictated By: Roxi Bose MD Addendum Signed By: Roxi Bose MD Signed Date/Time: 11/15/20842 Addendum Cosigned By: WS: [id number] Left foot, 3 views, 11/15/2020 Clinical Data: injury/pain Comparison: Left foot, 08/08/2020. Findings: No fractures or dislocations are seen. No bone destruction or erosion is noted. As a prominent bunion at the head of the left first metatarsal.There is a small plantar spur. XR/XR foot LT min 3V* [id number] Impression: Bunion at the head of the left first metatarsal. Dictated By: Roxi Bose MD Signed By: Roix Bose MD Signed Date/Time: 11/15/20834 DD/ 2 Discharge Plan Discharge Patient Disposition: Home Clinical Impression: Closed nondisplaced fracture of fifth left metatarsal bone Qualifiers: Encounter type: initial encounter Qualified Code(s): S92.355A - Nondisplaced fracture of fifth metatarsal bone, left foot, initial encounter for closed fracture Condition: Stable Prescriptions: No Action acetaminophen [Tylenol Extra Strength] 500 mg tablet 1,000 mg PO BID Qty: 60 RF: 0 diclofenac sodium 1 % gel 2 g topical QID Qty: 100 RF: 2 estradiol 1 mg tablet See Rx Instructions .ROUTE .COMPLEX RF: 0 levothyroxine 50 mcg capsule See Rx Instructions .ROUTE .COMPLEX RF: 0 albuterol sulfate 90 mcg/actuation HFA aerosol inhaler 2 puff inhalation Q6H PRN (Reason: shortness of breath or wheezing) Qty: 8.5 RF: 3 montelukast [Singulair] 10 mg tablet 10 mg PO DAILY Qty: 30 RF: 3 fluticasone propion-salmeterol [Advair Diskus] 250-50 mcg/dose blister with device 1 inh inhalation BID Qty: 60 RF: 3 cyclobenzaprine 5 mg Tablet 5 mg PO BID PRN (Reason: muscle spasms) RF: 0 zinc gluconate 30 mg Tablet 30 mg PO DAILY@729 RF: 0 ascorbic acid (vitamin C) [Vitamin C] 500 mg Tablet 500 mg PO DAILY@729 RF: 0 simvastatin 5 mg tablet 5 mg PO DAILY@2199 RF: 0 cholecalciferol (vitamin D3) [Vitamin D3] 25 mcg (1,000 unit) Tablet 25 mcg PO DAILY@729 RF: 0 potassium gluconate 595 mg (99 mg) Tablet 595 mg PO DAILY@729 RF: 0 Calcium Magnesium 500 mg calcium -250 mg Tablet 1 tab PO DAILY@729 RF: 0 Glucosamine Chondroitin 550-30-1 mg Capsule 1 cap PO DAILY@729 RF: 0 Copper Tab 3 mg PO DAILY@729 RF: 0 Hyaluronic Joint Complex 1 tab PO DAILY@729 RF: 0 Quercetin 1 tab PO DAILY@729 RF: 0 Turmeric Curcumin 1 mg PO DAILY@729 RF: 0 Discharge Orders: Discharge ED (Routine); Ordered 11/15/20 Ordered By: Anuradha Buckley Referrals: Ash Cali MD [Primary Care Provider] - Patient Instructions: Fractures - Metatarsal Activity Restrictions/Additional Instructions: As we discussed no weightbearing until told otherwise by orthopedics. Case management should contact you shortly to set you up with this appointment date and time. Coding Level of Care Code ED District Sales Representative for Chg Fwd Exam Expanded Problem Focused
[2020-11-15 08:55] VITALS: BP 104/60; PULSE 82; RESP 13; O2SAT 98
--- NOTE | 2020-11-23 13:55 | DCPLANNER ---
agronomy location manager had message to schedule a follow up appointment for patient with ortho. Ortho clinic was called, referral made, patient was seen on 11.20.20 - patient did attend the appointment.
== END 2020-11-15 08:55 | disposition home or self-care (01) ==
PROVIDERS: Emergency Provider Physician Assistant; PCP Family Medicine
DX: S92.355A Nondisplaced fracture of fifth metatarsal bone, left foot, initial encounter for closed fracture (principal); J44.9 Chronic obstructive pulmonary disease, unspecified; X50.1XXA Overexertion from prolonged static or awkward postures, initial encounter
CPT/HCPCS: 73630; 99282

== ENCOUNTER → 2020-11-20 09:36 | Outpatient (BNVA) | payer MEDICARE, OTHER, SELFPAY | PROVIDERS: PCP Family Medicine; Visit Provider Podiatrist Foot & Ankle Surgery | DX: M79.672 Pain in left foot (principal); S92.355A Nondisplaced fracture of fifth metatarsal bone, left foot, initial encounter for closed fracture; Z46.89 Encounter for fitting and adjustment of other specified devices; M54.30 Sciatica, unspecified side | CPT/HCPCS: 73630; 97760; L4361 ==

== ENCOUNTER 2020-11-20 13:48 | Outpatient (CLI) | payer MEDICARE, OTHER, SELFPAY | END 2020-11-20 13:49 | disposition home or self-care (01) | LOC: SPT 13:55 | PROVIDERS: PCP Family Medicine; Visit Provider Podiatrist Foot & Ankle Surgery | DX: Z46.89 Encounter for fitting and adjustment of other specified devices (principal); M54.30 Sciatica, unspecified side | CPT/HCPCS: 97760; L4361 ==

== ENCOUNTER → 2020-12-11 14:42 | Outpatient (BNVA) | payer MEDICARE, OTHER, SELFPAY | PROVIDERS: PCP Family Medicine; Visit Provider Podiatrist Foot & Ankle Surgery | DX: S92.355A Nondisplaced fracture of fifth metatarsal bone, left foot, initial encounter for closed fracture (principal); M79.672 Pain in left foot; W10.1XXA Fall (on)(from) sidewalk curb, initial encounter | CPT/HCPCS: 73630 ==

== ENCOUNTER → 2021-01-03 15:25 | Outpatient (BNVA) | payer MEDICARE, OTHER, SELFPAY | PROVIDERS: PCP Family Medicine; Visit Provider Podiatrist Foot & Ankle Surgery | DX: S92.355A Nondisplaced fracture of fifth metatarsal bone, left foot, initial encounter for closed fracture (principal); W10.1XXA Fall (on)(from) sidewalk curb, initial encounter; M21.612 Bunion of left foot | CPT/HCPCS: 73630 ==

== ENCOUNTER → 2021-01-30 11:35 | Outpatient (BNVA) | payer MEDICARE, OTHER, SELFPAY | PROVIDERS: PCP Family Medicine; Visit Provider Podiatrist Foot & Ankle Surgery | DX: S92.355D Nondisplaced fracture of fifth metatarsal bone, left foot, subsequent encounter for fracture with routine healing (principal); W10.1XXD Fall (on)(from) sidewalk curb, subsequent encounter | CPT/HCPCS: 73630 ==

== ENCOUNTER 2021-04-09 07:08 | Outpatient (CLI) | payer MEDICARE, OTHER, SELFPAY ==
--- NOTE | 2021-04-09 07:12 | ECG_ITS ---
[facility] Test Date: 2021-04-09 Pat Name: Bernadette Brown Department: Room: Gender: Female Carry All Driver: : 1945 Requested By: Bryan Asherr Oscar Order Number: [id number] Jason MD: Beltran Samson M.D. Interpretive Statements NAME OF STUDY: DOBUTAMINE SESTAMIBI STRESS TEST INDICATION: [BARRON, ] PROCEDURE: At the baseline, the blood pressure was 135/75 with a heart rate of 69. The electrocardiogram showed normal sinus rhythm with normal ST Ts. The dobutamine was infused over a period of 7 minutes and 45 seconds. The maximum heart rate obtained was 130 (90% of the maximum predicted heart rate). The blood pressure at that time was 140/50 mmHg. The patient did not have any chest pain. The EKG showed 1 to 1-1/[address] depressions in lead II, III and aVF. the physical examination remained unchanged. No arrhythmias were seen on the monitor. During the recovery phase, the patient did not have any specific symptoms. The blood pressure at the end of the recovery phase was 149/63 with a heart rate of 93 per minute. CONCLUSION: 1. Abnormal EKG response review to infusion, suggesting inferior wall ischemia 2. No dobutamine induced chest pain or cardiac arrhythmia 3. Fair exercise tolerance. 4. Sestamibi/Sestamibi perfusion scan pending; see separate report. Electronically Signed On 05-09-2021 13:56:30 CALIBRATION LABORATORY TECHNICIAN by Beltran Samson M.D. [email or web address]
--- NOTE | 2021-04-09 07:13 | NMCV_ITS ---
NM kimberly perf SPECT r/s* [id number] Bernadette Brown Age: 76 Gender: F : 1945 Exam Date: 04/09/2021 08:18 Ordering Phys: Bryan Bowling MD Technologist: VERONICA Harrell Exam Location: [facility] Indications: SHORTNESS OF BREATH STRESS TEST Please see separate stress test report in [facility] for full findings IMAGE PROTOCOL Rest/Stress 1 Dobutamine Day Radiopharmaceutical Dose (mCi) Administration Site Administered by Rest: Tc-99m 10.7 IV VERONICA Vargas Sestamibi Stress:Tc-99m 32.9 IV VERONICA Vargas Sestamibi Rest: 09-Apr-2021 60 Discovery 630 Stress: 09-Apr-2021 30 Discovery 630 Radiopharmaceutical was injected at 86% maximum heart rate. Images obtained in supine and prone position. SPECT RESULTS Technical Quality: Excellent Raw Data Analysis: Normal Image Corrections: No attenuation or motion correction applied Summed Stress Score: 0 Summed Rest Score: 0 Summed Difference Score: 0 PERFUSION FINDINGS SPECT images demonstrate homogeneous tracer distribution throughout the myocardium. FUNCTIONAL RESULTS (calculated via Gated SPECT) Stress Image LV EF (%): 88 Stress EDV (mL):65 TID: 1.37 Stress ESV (mL):8 FUNCTIONAL FINDINGS: The left ventricle is normal in size. Transient Ischemia Dilatation of 1.4. The left ventricular ejection fraction is normal with a value of 88%. There is hyperdynamic left ventricular wall thickening with no regional wall motion abnormality. IMPRESSIONS 1. Myocardial perfusion imaging is normal. 2. Overall left ventricular systolic function is hyperdynamic without regional wall motion abnormalities. 3. The left ventricular ejection fraction is normal with a value of 88%. 4. Transient Ischemia Dilatation of 1.4. This may represent hypertensive response/subendocardial ischemia. Clinical correlation is advised. 5. No prior similar studies to compare. Neha Russell MD (Electronically Signed) Final Date: 09 April 2021 19:39 S
[2021-04-09 07:27] VITALS: BMI 19.3
[2021-04-09] MEDS: DOBUTtamine 200 MG in sodium chloride 0.9% 34 ML 23.07 MG IV (09:05)
[2021-04-09 09:28] VITALS: BP 149/63; PULSE 98
== END 2021-04-09 07:09 | disposition home or self-care (01) ==
LOC: CDL 07:11
PROVIDERS: PCP Family Medicine; Visit Provider Internal Medicine Pulmonary Disease
DX: R06.09 Other forms of dyspnea (principal); R06.02 Shortness of breath; R94.39 Abnormal result of other cardiovascular function study
CPT/HCPCS: 78452; 93017; A9500; J1250; J7050

== ENCOUNTER 2021-06-03 10:44 | Emergency (ER) | payer MEDICARE, OTHER, SELFPAY ==
[2021-06-03 11:08] VITALS: BP 130/81; PULSE 79; RESP 18; TEMP 36.6; O2SAT 97; BMI 18.8
[2021-06-03 11:13] VITALS: BP 146/74; PULSE 82; RESP 18; O2SAT 97
[2021-06-03 11:31] VITALS: O2SAT 97
[2021-06-03 12:02] LABS: Basophils # 0.1 10^3/uL (0.0-0.1); Basophils % 0.4 %; Eosinophils % 0.3 %; Hemoglobin 13.6 g/dL (11.5-15.3); Lymphocytes # 1.1 10^3/uL (0.8-4.8); Lymphocytes % 8.3 %; Mean Corpuscular HGB Conc 32.4 g/dL (30.0-36.0); Mean Corpuscular Hemoglobin 28.9 pg (28.0-34.0); Mean Corpuscular Volume 89.4 fl (81-99); Mean Platelet Volume 10.5 fL (7.4-10.4); Monocytes # 0.3 10^3/uL (0.2-0.9); Monocytes % 2.2 %; Neutrophils # 11.35 10^3/uL (1.8-7.7); Neutrophils % 88.4 %; Nucleated Red Blood Cells % 0 %; Platelet Count 310 10^3/cmm (130-400); Red Cell Distribution Width 12.4 % (12.1-15.1); White Blood Count 12.8 10^3/uL (4.0-10.0)
[2021-06-03 12:17] LABS: Alanine Aminotransferase 30 U/L (0-33); Albumin Level 4.7 g/dL (3.5-5.2); Alkaline Phosphatase 50 IU/L (35-105); Anion Gap 15.3 (5-19); Aspartate Amino Transferase 21 U/L (0-32); Blood Urea Nitrogen 12 mg/dL (8-23); Calcium 9.4 mg/dL (8.5-10.5); Carbon Dioxide 26 mmol/L (22-29); Chloride 101 mmol/L (98-107); Creatine Phosphokinase 72 U/L (26-192); Globulin 2.6 g/dL (1.3-4.6); Glucose 98 mg/dL (65-115); Osmolality Calculated 286 mOsm/kg (285-295); Potassium 4.3 mmol/L (3.5-5.1); Sodium 138 mmol/L (136-145); Total Bilirubin 0.2 mg/dL (0.15-1.2); Total Protein 7.3 g/dL (6.6-8.7)
--- NOTE | 2021-06-03 12:26 | XRR_ITS ---
PROCEDURE INFORMATION: Exam: XR Chest Exam date and time: 06/03/2021 11:39 AM Age: 76 years old Clinical indication: Cough and dyspnea; Cough with hemorrhage; Additional info: Dyspnea/cough TECHNIQUE: Imaging protocol: XR of the chest. Views: 1 view. COMPARISON: CR XR chest 2V* [id number] 06/05/2020 3:25 PM FINDINGS: Lungs: Hyperinflated lungs. No consolidation. Calcified granuloma noted in the left upper lung. Pleural spaces: No pleural effusion. No pneumothorax. Heart/Mediastinum: No cardiomegaly. Bones/joints: Visualized osseous structures are intact. XR/XR chest 1V portable [id number] IMPRESSION: No acute findings.
[2021-06-03 13:13] VITALS: BP 116/62; PULSE 78; RESP 18; O2SAT 95
[2021-06-03 14:06] VITALS: BP 121/61; PULSE 71; RESP 18; TEMP 36.6; O2SAT 96
--- NOTE | 2021-06-03 14:19 | W.ED.COVID ---
HPI - COVID General: Chief Complaint: COVID symptoms Stated Complaint: Coughing and congestion Time Seen by Provider: 06/03/21 11:05 Source: patient Mode of arrival: ambulatory Limitations: no limitations Triage information: Has fever, cough or shortness of breath. No known COVID + exposure last 14 days History of Present Illness: 76-year-old female presents emergency room with nonproductive cough for the last 6 days. No fever sweats chills myalgias. Precipitated after day that she been working outside she thought she had environmental allergies she she was seen at a local clinic and evaluated they thought that she had also had allergies she was discharged home with antihistamines. She is not previously had COVID nor she been vaccinated. MD complaint: has COVID symptoms COVID 19 common symptoms: positive cough, non-productive cough, dyspnea, body aches and nasal congestion; negative throat pain, nausea, vomiting or diarrhea COVID 19 other sytmptoms: negative chest pain or requiring oxygen Onset (ago): week(s) (1) Pertinent comorbid conditions: diabetes Treatment prior to arrival: steroids COVID Results: SARS-CoV-2 RNA (RT-PCR) Not detected (NOT DETECTED) 06/22/20 11:03 06/22/20 SARS-CoV-2 (PCR) Not detected (NOT DETECT) 06/03/21 12:12 06/03/21 Coronavirus Type 229E (PCR) Not detected (NOT DETECT) 06/03/21 12:12 06/03/21 Review of Systems Const: Reports: body aches ENMT: Reports: nasal congestion; Denies: throat pain, ear or mastoid pain or nasal discharge Card: Denies: chest pain, edema, dyspnea on exertion or orthopnea Resp: Reports: dyspnea and non-productive cough GI: Denies: abdominal pain, nausea, vomiting, hematemesis, coffee ground emesis, diarrhea, constipation, bloating, hematochezia or melena : Denies: flank pain, difficulty voiding, dysuria, urinary frequency or urinary urgency Skin/Breast: Denies: rash or pruritus PFSH ED PFSH: Medical History COPD (chronic obstructive pulmonary disease) -has known hx of COPD, not oxygen dependent at baseline -no evidence of COPD exacerbation at this time -received IV steroids in ED, wheezing improved with oral steroids -not requiring oxygen currently, continue to monitor respiratory status -Neb treatments as needed Erosive osteoarthritis of both hands Hypothyroidism -has known hx of hypothyroidism -continue Levothyroxine Irritable bowel syndrome Thyroid disease Surgical History H/O thumb surgery bone spur H/O: hysterectomy History of carpal tunnel surgery R Family History Mother Dementia Father Congestive heart failure Other CAD (coronary artery disease) Cancer Diabetes Hypertension Lung disease Psychiatric illness Denies family history of Clotting disorder Hyperlipidemia Chronic kidney disease (CKD) Suicide Anesthesia complication Bleeding disorder Family history of premature coronary artery disease Stroke Social History Smoking and tobacco status: never smoked Second hand smoke exposure: Yes (minimal) Smoking risk assessment/counseling performed?: Yes Alcohol intake: never Desire information about alcohol rehabilitation?: No Counseling given: No Desire information about substance/drug rehabilitation?: No Counseling given: No Lives independently: Yes Household members: spouse Housing: House Marital status: service: No Current occupational status: retired Pets and animals: No History of recent travel: Yes (back from [place] on 07/22/20) Out of state: Yes Current gender identity: Female Physical Exam Const: COMMON NORMALS: no acute distress GENERAL APPEARANCE: cooperative and comfortable ORIENTATION/CONSCIOUSNESS: Yes awake, Yes oriented to person, Yes oriented to place and Yes oriented to time HENMT: COMMON NORMALS: normocephalic, atraumatic, hearing grossly normal bilaterally, external ears normal, EAC's normal, TM's normal bilaterally, Normal nasal mucous membranes and turbinates present, moist oral mucous membranes and oropharynx normal HEAD & SCALP: normocephalic and atraumatic NOSE: Normal nasal mucous membranes and turbinates present EXTERNAL EAR: Yes external ears normal EXTERNAL AUDITORY CANAL: EAC's normal TYMPANIC MEMBRANE: TM's normal bilaterally Eye: COMMON NORMALS: Equal, round and reactive pupils present, EOMs intact bilaterally, conjunctivae normal and no scleral icterus CONJUNCTIVA: Yes conjunctivae normal PUPIL: Yes Equal, round and reactive pupils present Neck/C-Spine: COMMON NORMALS: full ROM, no lymphadenopathy, supple and no JVD Resp: COMMON NORMALS: normal respiratory effort, No retractions, No use of accessory muscles and clear to auscultation bilaterally AUSCULTATION: clear to auscultation bilaterally Cardio: COMMON NORMALS: no JVD, regular rate, regular rhythm and No murmurs present (Cardio) RATE: regular rate RHYTHM: regular rhythm GI: COMMON NORMALS: Soft to palpation and No hepatosplenomegaly present AUSCULTATION: Yes normoactive bowel sounds PALPATION: Yes Soft to palpation, No Tenderness to palpation present (GI), No Guarding due to palpation present (GI) and Yes No hepatosplenomegaly present Extremity: COMMON NORMALS: normal to inspection, capillary refill normal, no clubbing, cyanosis or edema, no calf tenderness and no pedal edema Neuro: SENSORIUM/ORIENTATION: Yes oriented to person, Yes oriented to place and Yes oriented to time Skin: COMMON NORMALS: no rashes or lesions noted GENERAL SKIN EXAM: no rashes or lesions noted Course Vital Signs: Vital signs: Vital Signs Temperature 98 F 06/03/21 14:30 Pulse Rate 71 06/03/21 14:30 Respiratory Rate 18 06/03/21 14:30 Blood Pressure 129/74 06/03/21 14:30 Pulse Oximetry 96 06/03/21 14:30 [facility] - COVID Medical Decision Making Exam is otherwise unremarkable. Patient has been vaccinated chest x-ray is normal sats are good. Has any recurrence or worsening or change symptoms return to the emergency room. Just observe for now we will wait until the results are back and give him a call with the final result Medical Records I reviewed the patient's medical records. Lab Data I reviewed the patient's lab results. : 06/03/21 11:30 06/03/21 11:30 Radiology Impressions Chest X-Ray 06/03/21 12:26 IMPRESSION: No acute findings. Laboratory Results WBC 12.8 10^3/uL (4.0-10.0) H 06/03/21 11:30 RBC 4.70 10^6/uL (4.1-5.3) 06/03/21 11:30 Hgb 13.6 g/dL (11.5-15.3) 06/03/21 11:30 Hct 42.0 % (37.0-47.0) 06/03/21 11:30 MCV 89.4 fl (81-99) 06/03/21 11:30 MCH 28.9 pg (28.0-34.0) 06/03/21 11:30 MCHC 32.4 g/dL (30.0-36.0) 06/03/21 11:30 RDW 12.4 % (12.1-15.1) 06/03/21 11:30 Plt Count 310 10^3/cmm (130-400) 06/03/21 11:30 MPV 10.5 fL (7.4-10.4) H 06/03/21 11:30 Neut % (Auto) 88.4 % 06/03/21 11:30 Lymph % (Auto) 8.3 % 06/03/21 11:30 [place] % (Auto) 2.2 % 06/03/21 11:30 Eos % (Auto) 0.3 % 06/03/21 11:30 Baso % (Auto) 0.4 % 06/03/21 11:30 Neut # (Auto) 11.35 10^3/uL (1.8-7.7) H 06/03/21 11:30 Lymph # (Auto) 1.1 10^3/uL (0.8-4.8) 06/03/21 11:30 Monroe # (Auto) 0.3 10^3/uL (0.2-0.9) 06/03/21 11:30 Eos # (Auto) 0.0 10^3/uL (0.0-0.8) 06/03/21 11:30 Baso # (Auto) 0.1 10^3/uL (0.0-0.1) 06/03/21 11:30 Nucleated RBC % (auto) 0 % 06/03/21 11:30 Nucleated RBCs # 0.0 /100WBC 06/03/21 11:30 Sodium 138 mmol/L (136-145) 06/03/21 11:30 Potassium 4.3 mmol/L (3.5-5.1) 06/03/21 11:30 Chloride 101 mmol/L (98-107) 06/03/21 11:30 Carbon Dioxide 26 mmol/L (22-29) 06/03/21 11:30 Anion Gap 15.3 (5-19) 06/03/21 11:30 BUN 12 mg/dL (8-23) 06/03/21 11:30 Creatinine 0.5 mg/dL (0.5-0.9) 06/03/21 11:30 GFR Calculation Not Reportable 06/03/21 11:30 Glucose 98 mg/dL (65-115) 06/03/21 11:30 Calculated Osmolality 286 mOsm/kg (285-295) 06/03/21 11:30 Calcium 9.4 mg/dL (8.5-10.5) 06/03/21 11:30 Total Bilirubin 0.2 mg/dL (0.15-1.2) 06/03/21 11:30 AST 21 U/L (0-32) 06/03/21 11:30 ALT 30 U/L (0-33) 06/03/21 11:30 Alkaline Phosphatase 50 IU/L (35-105) 06/03/21 11:30 Creatine Kinase 72 U/L (26-192) 06/03/21 11:30 C-Reactive Protein 3.0 mg/L (0.0-4.9) 06/03/21 11:30 Total Protein 7.3 g/dL (6.6-8.7) 06/03/21 11:30 Albumin 4.7 g/dL (3.5-5.2) 06/03/21 11:30 Globulin 2.6 g/dL (1.3-4.6) 06/03/21 11:30 Coronavirus 229E (PCR) Not detected (NOT DETECT) 06/03/21 12:12 Human Metapneumovir PCR Not detected (NOT DETECT) 06/03/21 18:03 Entero/Rhino (PCR) Detected (NOT DETECT) A 06/03/21 18:03 SARS-CoV-2 (PCR) Not detected (NOT DETECT) 06/03/21 12:12 SARS-CoV-2 RNA (RT-PCR) Not detected (NOT DETECTED) 06/22/20 11:03 06/22/20 SARS-CoV-2 (PCR) Not detected (NOT DETECT) 06/03/21 12:12 06/03/21 Coronavirus Type 229E (PCR) Not detected (NOT DETECT) 06/03/21 12:12 06/03/21 Discharge Plan Discharge Patient Disposition: Home Clinical Impression: Environmental allergies Condition: Stable Prescriptions: New prednisone 20 mg tablet 20 mg PO TID Qty: 15 0RF Rx Instructions: 1 p.o. 3 times daily x3 days, 1 p.o. twice daily x2 days, 1 p.o. daily x2 days No Action acetaminophen [Tylenol Extra Strength] 500 mg tablet 1,000 mg PO BID Qty: 60 0RF estradiol 1 mg tablet See Rx Instructions .ROUTE .COMPLEX 0RF Rx Instructions: 1mg po every other day & 0.5mg po on other days levothyroxine 50 mcg capsule See Rx Instructions .ROUTE .COMPLEX 0RF Rx Instructions: TAKE 1 TAB EVERY OTHER DAY, AND 1/2 TAB ON THE OPPOSITE DAYS. albuterol sulfate 90 mcg/actuation HFA aerosol inhaler 2 puff inhalation Q6H PRN (Reason: shortness of breath or wheezing) Qty: 8.5 3RF (DME) Cam Boot on left See Rx Instructions .Route .MEDSUPPLY Qty: 1 0RF Rx Instructions: As directed montelukast [Singulair] 10 mg tablet 10 mg PO DAILY Qty: 90 3RF fluticasone propion-salmeterol [Advair Diskus] 500-50 mcg/dose blister with device 1 inh inhalation BID Qty: 60 3RF cyclobenzaprine 5 mg Tablet 5 mg PO BID PRN (Reason: muscle spasms) 0RF ascorbic acid (vitamin C) [Vitamin C] 500 mg Tablet 500 mg PO DAILY@0730 0RF simvastatin 5 mg tablet 5 mg PO DAILY@2200 0RF cholecalciferol (vitamin D3) [Vitamin D3] 25 mcg (1,000 unit) Tablet 25 mcg PO DAILY@0730 0RF potassium gluconate 595 mg (99 mg) Tablet 595 mg PO DAILY@0730 0RF Calcium Magnesium 500 mg calcium -250 mg Tablet 1 tab PO DAILY@0730 0RF Glucosamine Chondroitin 550-30-1 mg Capsule 1 cap PO DAILY@0730 0RF Copper Tab 3 mg PO DAILY@0730 0RF Quercetin 1 tab PO DAILY@0730 0RF Turmeric Curcumin 1 mg PO DAILY@0730 0RF Discharge Orders: Discharge ED (Routine); Ordered 06/03/21 Ordered By: Kwasi Cain Referrals: Ash Cali MD [Primary Care Provider] - Discharge Diet: Usual diet Discharge Activity: Resume usual activity Patient Instructions: Opioid Safety Activity Restrictions/Additional Instructions: If not improving recheck with your primary care doctor or your cryptologic support specialist within the next 10 days Coding Level of Care Code ED Hand Roller Engraver for Raisa Sutton
[2021-06-03 14:30] VITALS: BP 129/74; PULSE 71; RESP 18; TEMP 36.6; O2SAT 96
[2021-06-03 15:56] LABS: Adenovirus Not Detected (NOT DETECT); Chlamydia Pneumoniae Not Detected (NOT DETECT); Coronavirus 229E,HKU1,NL63,OC4 Not Detected (NOT DETECT); Human Metapneumovirus Not Detected (NOT DETECT); Human Rhinovirus/Enterovirus Detected (NOT DETECT); Influenza A Not Detected (NOT DETECT); Influenza A H1 Not Detected (NOT DETECT); Influenza A H1-2009 Not Detected (NOT DETECT); Influenza A H3 Not Detected (NOT DETECT); Influenza B Not Detected (NOT DETECT); Mycoplasma Pneumoniae Not Detected (NOT DETECT); Parainfluenza Virus Type 1 Not Detected (NOT DETECT); Parainfluenza Virus Type 2 Not Detected (NOT DETECT); Parainfluenza Virus Type 3 Not Detected (NOT DETECT); Parainfluenza Virus Type 4 Not Detected (NOT DETECT); Respiratory Syncytial Virus A Not Detected (NOT DETECT); Respiratory Syncytial Virus B Not Detected (NOT DETECT); SARS-COV-2 Not Detected (NOT DETECT)
[2021-06-03 18:03] LABS: Human Metapneumovirus Not Detected (NOT DETECT); Human Rhinovirus/Enterovirus Detected (NOT DETECT); Results from Genmark
== END 2021-06-03 14:34 | disposition home or self-care (01) ==
PROVIDERS: Emergency Provider Family Medicine; PCP Family Medicine
DX: T78.49XA Other allergy, initial encounter (principal); J44.9 Chronic obstructive pulmonary disease, unspecified; Z77.22 Contact with and (suspected) exposure to environmental tobacco smoke (acute) (chronic); Z20.822 Contact with and (suspected) exposure to COVID-19
CPT/HCPCS: 71045; 80053; 82550; 85025; 86140; 87635; 87801; 99283

== ENCOUNTER 2021-06-06 09:24 | Emergency (ER) | payer MEDICARE, OTHER, SELFPAY ==
[2021-06-06 09:35] VITALS: BP 148/84; PULSE 96; RESP 20; TEMP 36.9; O2SAT 97; BMI 18.8
--- NOTE | 2021-06-06 09:45 | XR_ITS ---
WS: [id number] Portable AP upright chest, 06/06/2021 Clinical Data: cough Comparison: Portable chest, 06/03/2021. Findings: No nodules, masses or effusions are seen. The heart is normal. The pulmonary vascularity is not increased. No pneumonia or pneumothorax is seen. The aortic arch and descending thoracic aorta s how tortuosity. The diaphragms are flattened. XR/XR chest 1V portable [id number] Impression: Atherosclerosis and cardiomegaly.
--- NOTE | 2021-06-06 09:48 | ED_ITS ---
HPI - General Adult General: Chief complaint: General Medical Stated complaint: Difficulty breathing Time Seen by Provider: 06/06/21 09:44 History of Present Illness: Patient presents with cough and rattle in her chest. Currently being treated for viral bronchitis. Has used an inhaler and she has taken prednisone. She is having some sinus drainage. Has had a history of sinus infections. Denies any fever or chills. Associated symptoms: Deny chest pain, dyspnea, headache(s), nausea, rash or vomiting Review of Systems Const: Denies: fever(s), chills or body aches Eyes: Denies: eye discomfort ENMT: Reports: nasal congestion; Denies: throat pain Card: Denies: chest pain Resp: Reports: productive cough; Denies: dyspnea GI: Denies: abdominal pain, nausea or vomiting Skin/Breast: Denies: rash Neuro: Denies: headache(s) Psych: Denies: depression or suicidal ideation PFS ED PFSH: Medical History COPD (chronic obstructive pulmonary disease) -has known hx of COPD, not oxygen dependent at baseline -no evidence of COPD exacerbation at this time -received IV steroids in ED, wheezing improved with oral steroids -not requiring oxygen currently, continue to monitor respiratory status -Neb treatments as needed Erosive osteoarthritis of both hands Hypothyroidism -has known hx of hypothyroidism -continue Levothyroxine Irritable bowel syndrome Thyroid disease Surgical History H/O thumb surgery bone spur H/O: hysterectomy History of carpal tunnel surgery R Family History Mother Dementia Father Congestive heart failure Other CAD (coronary artery disease) Cancer Diabetes Hypertension Lung disease Psychiatric illness Denies family history of Clotting disorder Hyperlipidemia Chronic kidney disease (CKD) Suicide Anesthesia complication Bleeding disorder Family history of premature coronary artery disease Stroke Social History Smoking and tobacco status: never smoked Second hand smoke exposure: Yes (minimal) Smoking risk assessment/counseling performed?: Yes Alcohol intake: never Desire information about alcohol rehabilitation?: No Counseling given: No Desire information about substance/drug rehabilitation?: No Counseling given: No Lives independently: Yes Household members: spouse Housing: House Marital status: service: No Current occupational status: retired Pets and animals: No History of recent travel: Yes (back from [place] on 07/22/20) Out of state: Yes Current gender identity: Female Physical Exam Const: COMMON NORMALS: no acute distress, patient oriented x3 and alert HENMT: COMMON NORMALS: normocephalic and external ears normal HEAD & SCALP: normocephalic FACE & SINUS: sinus tenderness frontal EXTERNAL EAR: Yes external ears normal Eye: COMMON NORMALS: EOMs intact bilaterally Neck/C-Spine: COMMON NORMALS: no JVD Resp: COMMON NORMALS: normal respiratory effort and No use of accessory muscles AUSCULTATION: wheezes (Upper lobes mild expiratory) Cardio: COMMON NORMALS: no JVD GI: INSPECTION: Yes normal to inspection Extremity: COMMON NORMALS: normal to inspection and full ROM Neuro: COMMON NORMALS: patient oriented x3 SENSORIUM/ORIENTATION: Yes alert Psych: COMMON NORMALS: mental status grossly normal Skin: COMMON NORMALS: no rashes or lesions noted GENERAL SKIN EXAM: no rashes or lesions noted Course Vital Signs: Vital signs: Vital Signs Temperature 98.5 F 06/06/21 09:35 Pulse Rate 90 06/06/21 09:59 Respiratory Rate 14 06/06/21 09:59 Blood Pressure 131/70 06/06/21 09:59 Pulse Oximetry 97 06/06/21 09:59 MDM - General Adult Medical Decision Making Sinus drainage and cough. Patient is on prednisone using inhaler. I gave prescription for antibiotic. Follow-up primary care provider. Lab Data Radiology Impressions Chest X-Ray 06/06/21 09:45 Impression: Atherosclerosis and cardiomegaly. Discharge Plan Discharge Patient Disposition: Home Clinical Impression: Sinus drainage, Cough Condition: Stable Prescriptions: New Bactrim DS 800-160 mg tablet 1 tab PO BID 10 Days Qty: 20 0RF No Action acetaminophen [Tylenol Extra Strength] 500 mg tablet 1,000 mg PO BID Qty: 60 0RF estradiol 1 mg tablet See Rx Instructions .ROUTE .COMPLEX 0RF Rx Instructions: 1mg po every other day & 0.5mg po on other days levothyroxine 50 mcg capsule See Rx Instructions .ROUTE .COMPLEX 0RF Rx Instructions: TAKE 1 TAB EVERY OTHER DAY, AND 1/2 TAB ON THE OPPOSITE DAYS. albuterol sulfate 90 mcg/actuation HFA aerosol inhaler 2 puff inhalation Q6H PRN (Reason: shortness of breath or wheezing) Qty: 8.5 3RF (DME) Cam Boot on left See Rx Instructions .Route .MEDSUPPLY Qty: 1 0RF Rx Instructions: As directed montelukast [Singulair] 10 mg tablet 10 mg PO DAILY Qty: 90 3RF fluticasone propion-salmeterol [Advair Diskus] 500-50 mcg/dose blister with de vice 1 inh inhalation BID Qty: 60 3RF cyclobenzaprine 5 mg Tablet 5 mg PO BID PRN (Reason: muscle spasms) 0RF ascorbic acid (vitamin C) [Vitamin C] 500 mg Tablet 500 mg PO DAILY@729 0RF simvastatin 5 mg tablet 5 mg PO DAILY@0 0RF cholecalciferol (vitamin D3) [Vitamin D3] 25 mcg (1,000 unit) Tablet 25 mcg PO DAILY@30 0RF potassium gluconate 595 mg (99 mg) Tablet 595 mg PO DAILY@30 0RF Calcium Magnesium 500 mg calcium -250 mg Tablet 1 tab PO DAILY@30 0RF Glucosamine Chondroitin 550-30-1 mg Capsule 1 cap PO DAILY@729 0RF Copper Tab 3 mg PO DAILY@729 0RF Quercetin 1 tab PO DAILY@30 0RF Turmeric Curcumin 1 mg PO DAILY@30 0RF prednisone 20 mg tablet 20 mg PO TID Qty: 15 0RF Rx Instructions: 1 p.o. 3 times daily x3 days, 1 p.o. twice daily x2 days, 1 p.o. daily x2 days Discharge Orders: Discharge ED (Routine); Ordered 06/06/21 Ordered By: Salbador Barrera Referrals: Ash Cali MD [Primary Care Provider] - Discharge Diet: Usual diet Discharge Activity: Resume usual activity Activity Restrictions/Additional Instructions: Follow-up with medical provider as directed. Take medications as prescribed. Return to the ER or your medical provider if condition worsens. Please read and understand discharge instructions. If any questions ask please. Coding Level of Care Code ED Sheet Metal Engineer for Raisa Fwd Exam Comprehensive
[2021-06-06 09:59] VITALS: BP 131/70; PULSE 90; RESP 14; O2SAT 97
[2021-06-06 10:34] VITALS: BP 130/64; PULSE 84; RESP 16; O2SAT 97
== END 2021-06-06 10:36 | disposition home or self-care (01) ==
PROVIDERS: Emergency Provider Nurse Practitioner Family; PCP Family Medicine
DX: R05.9 Cough, unspecified (principal); R09.89 Other specified symptoms and signs involving the circulatory and respiratory systems; J44.9 Chronic obstructive pulmonary disease, unspecified; Z77.22 Contact with and (suspected) exposure to environmental tobacco smoke (acute) (chronic)
CPT/HCPCS: 71045; 99282

== ENCOUNTER → 2021-07-29 15:26 | Outpatient (BNVA) | payer MEDICARE, OTHER, SELFPAY | PROVIDERS: PCP Family Medicine; Visit Provider Internal Medicine Pulmonary Disease | DX: Z91.89 Other specified personal risk factors, not elsewhere classified (principal); Z22.7 Latent tuberculosis; Z83.6 Family history of other diseases of the respiratory system; Z91.09 Other allergy status, other than to drugs and biological substances; J45.909 Unspecified asthma, uncomplicated; K22.89 Other specified disease of esophagus | CPT/HCPCS: 99214 ==

== ENCOUNTER 2021-10-31 07:37 | Outpatient (CLI) | payer MEDICARE, OTHER, SELFPAY ==
--- NOTE | 2021-10-31 07:55 | MM_ITS ---
WS: [id number] Bilateral screening 3D tomosynthesis digital mammogram, 10/31/2021 Clinical Data: SCREENING Comparison: 06/18/2016, 03/01/2015, 04/13/2013, 03/25/2012, 02/13/2012, 11/14/2010, 05/03/2009, 01/17/2028, 1 . Findings: The breast parenchymal pattern shows extreme density. No spiculated masses or clustered calcification s are seen. There are no secondary signs of carcinoma. There are mole markers on both breasts. MM/[place] [id number] Impression: 1. Negative bilateral mammogram unchanged. 2. Recommend annual screening mammograms. BIRADS: 1-Negative FOLLOW UP: 1 Year Follow-up The CAD policy checker was used.
== END 2021-10-31 07:38 | disposition home or self-care (01) ==
LOC: RAD 07:39
PROVIDERS: PCP Family Medicine; Visit Provider Family Medicine
DX: Z12.31 Encounter for screening mammogram for malignant neoplasm of breast (principal); R06.02 Shortness of breath; J45.20 Mild intermittent asthma, uncomplicated; R09.82 Postnasal drip; Z91.09 Other allergy status, other than to drugs and biological substances; Z91.89 Other specified personal risk factors, not elsewhere classified; Z22.7 Latent tuberculosis; Z83.6 Family history of other diseases of the respiratory system; Z86.16 Personal history of COVID-19
CPT/HCPCS: 77063; 77067; 99214

== ENCOUNTER 2021-11-04 08:24 | Outpatient (CLI) | payer MEDICARE, OTHER, SELFPAY ==
[2021-11-04 09:33] LABS: Alanine Aminotransferase 20 U/L (0-33); Albumin Level 4.3 g/dL (3.5-5.2); Alkaline Phosphatase 45 U/L (35-105); Anion Gap 12.3 (5-19); Aspartate Amino Transferase 22 U/L (0-32); Blood Urea Nitrogen 11 mg/dL (8-23); Carbon Dioxide 28 mmol/L (22-29); Chloride 102 mmol/L (98-107); Globulin 2.3 g/dL (1.3-4.6); Glucose 94 mg/dL (65-115); Osmolality Calculated 285 mOsm/kg (285-295); Potassium 4.3 mmol/L (3.5-5.1); Sodium 138 mmol/L (136-145); Total Bilirubin 0.2 mg/dL (0.15-1.2); Total Protein 6.6 g/dL (6.6-8.7)
== END 2021-11-04 08:25 | disposition home or self-care (01) ==
PROVIDERS: PCP Family Medicine; Visit Provider Internal Medicine Pulmonary Disease
DX: Z22.7 Latent tuberculosis (principal)
CPT/HCPCS: 36415; 80053

== ENCOUNTER → 2022-02-11 13:22 | Outpatient (BNVA) | payer MEDICARE, OTHER, SELFPAY | PROVIDERS: PCP Family Medicine; Visit Provider Podiatrist Foot & Ankle Surgery | DX: M19.072 Primary osteoarthritis, left ankle and foot (principal); M21.072 Valgus deformity, not elsewhere classified, left ankle | CPT/HCPCS: 73630; 99214 ==

== ENCOUNTER 2022-02-19 13:38 | Outpatient (CLI) | payer MEDICARE, OTHER, SELFPAY ==
--- NOTE | 2022-02-19 13:44 | XR_ITS ---
WS: [id number] DEXA (DUAL ENERGY X-RAY ABSORPTIOMETRY) Bone mineral density was performed using a BringMeThat machine. HISTORY: POSTMENOPAUSAL COMPARISON: 05/15/2016 Lumbar spine BMD (L1-L4): 1.168 g/cm2 T score: -0.1 Z score: 2.2 Total hip BMD: Left: 0.885 g/cm2. T score: -1.0 Z score: 1.3 Right: 0.888 g/cm2. T score: -0.9 Z score: 1.3 10 year probability of a major osteoporotic fracture is 14.9%. Compared to the prior study from 05/15/2016. Lumbar spine bone mineral density has decreased by 0.1%. Bilateral hips bone mineral density has increase by 1.3%. XR/XR DEXA axial skeleton* [id number] IMPRESSION: NORMAL BONE MINERAL DENSITY based upon the WHO classification for females. No significant change in bone mineral density since the prior study.
== END 2022-02-19 13:39 | disposition home or self-care (01) ==
LOC: RAD 13:39
PROVIDERS: PCP Family Medicine; Visit Provider Family Medicine
DX: Z78.0 Asymptomatic menopausal state (principal)
CPT/HCPCS: 77080

== ENCOUNTER → 2022-04-28 12:58 | Outpatient (BNVA) | payer MEDICARE, OTHER, SELFPAY | PROVIDERS: PCP Family Medicine; Visit Provider Podiatrist Foot & Ankle Surgery | DX: M21.612 Bunion of left foot (principal) | CPT/HCPCS: 99214 ==

== ENCOUNTER 2022-05-02 09:09 | Day surgery (SDC) | payer MEDICARE, OTHER, SELFPAY ==
[2022-05-01 09:57] VITALS: BMI 18.5
[2022-05-02] VITALS (8 sets, daily range): BP systolic 92–148; BP diastolic 55–86; PULSE 71–83; RESP 16–18; TEMP 36.1–36.4; O2SAT 95–97
--- NOTE | 2022-05-02 | XR_ITS ---
WS: [id number] Exam: XR foot LT 2V [id number] Date/Time of Exam: 05/02/2022 12:00 AM Reason For Exam: KASANDRA PICS AP and lateral intraoperative C-arm images of the left foot are submitted for evaluation. Final images depict arthrodesis of the first metatarsal cuneiform joint stabilized with a single axia l screw. No other significant finding on this limited series.
--- NOTE | 2022-05-02 09:39 | W.PM.OPSUD ---
Surgery/Procedure H&P Update DATE OF PROCEDURE: May 02, 2022 DATE H&P PERFORMED: 02/11/22 CHANGES TO PREVIOUS DOCUMENTATION: None PREOP DIAGNOSIS: Left bunion PLANNED PROCEDURE: Operation Date: 05/02/22 10:40 Proposed Procedures p :?Left Lapidus bunionectomy and Duy osteotomy 21329, 16914, M21.612(Left) - Goyo Ordoñez DPM s Duy Osteotomy(Left) - Goyo Ordoñez DPM
--- NOTE | 2022-05-02 09:49 | ANES.PREANE2 ---
Pre-Anesthetic Assessment Height/Weight: Height 1.63 m Weight 48.988 kg Temp Pulse Resp BP Pulse Ox O2 Del Method 97.6 F 83 16 146/55 96 05/02/22 09:32 05/02/22 09:32 05/02/22 09:32 05/02/22 09:32 05/02/22 09:32 05/02/22 09:32 Preop Diagnosis: Left bunion Operation Date: 05/02/22 10:40 Proposed Procedures p :?Left Lapidus bunionectomy and Duy osteotomy 69528, 33695, M21.612(Left) - Goyo Ordoñez DPM s Duy Osteotomy(Left) - Goyo Ordoñez DPM Familial anesthetic complications: none Was Beta Gian taken within 24 hours: N/A Was Clonidine taken within 24 hours: N/A Last intake: Intake Last Liquid Date 05/01/22 Last Liquid Time 23:56 Last Solid Date 05/01/22 Last Solid Time 20:00 Social No alcohol and No tobacco Exam alert, oriented x 3, clear to auscultation bilaterally and regular rate & rhythm Airway Submandibular: within normal limits Cervical ROM: within normal limits Mallampati: Class II Dentition: full Pulmonary Seasonal allergy Metabolic Hyperlipidemia and Thyroid Disease Anesthetic Plan ASA status: 2 Anesthesia: Choice Medications/Allergies Home Medications Medication Instructions Recorded Confirmed Last Taken Type estradiol 1 mg tablet See Rx Instructions .Route .COMPLEX 03/31/19 05/01/22 05/01/22 History levothyroxine 50 mcg capsule See Rx Instructions .Route .COMPLEX 03/31/19 05/02/22 05/02/22 History Turmeric Curcumin 1 mg PO DAILY@72905/04/20 05/01/22 05/01/22 History ascorbic acid (vitamin C) 500 mg 500 mg PO DAILY@72905/04/20 05/01/22 05/01/22 History tablet (Vitamin C) calcium carb-Ca gluc 500 mg 1 tab PO DAILY@72905/04/20 05/01/22 05/01/22 History calcium-magnesium ox-Mg gluc 250 mg tablet (Calcium Magnesium) cholecalciferol (vitamin D3) 25 25 mcg PO DAILY@30 05/04/20 05/01/22 05/01/22 History mcg (1,000 unit) tablet (Vitamin D3) glucosamine sulf dipot 1 cap PO DAILY@30 05/04/20 05/01/22 05/01/22 History chlr,msm,chond 550 mg-C 30 mg-vargas 1 mg capsule (Glucosamine Chondroitin) potassium gluconate 595 mg (99 mg) 595 mg PO DAILY@0730 05/04/20 05/01/22 05/01/22 History tablet simvastatin 5 mg tablet 5 mg PO DAILY@2200 05/04/20 05/01/22 05/01/22 History albuterol sulfate 90 mcg/actuation 2 puff inhalation Q6H PRN 07/30/20 05/01/22 Unknown Rx aerosol inhaler shortness of breath or wheezing #8.5 grams fluticasone 500 mcg-salmeterol 50 1 inh inhalation BID #60 ea 02/18/21 05/01/22 04/17/22 Rx mcg/dose blistr powdr for inhalation (Advair Diskus) montelukast 10 mg tablet 10 mg PO DAILY #90 tabs 02/17/22 05/01/22 05/01/22 Rx (Singulair) copper 3 mg tablet 3 mg PO DAILY 05/01/22 05/01/22 05/01/22 History fluticasone propionate 50 1 spray intranasal Q12H PRN nasal 05/01/22 05/01/22 05/01/22 Rx mcg/actuation nasal congestion #16 mL spray,suspension (Flonase Allergy Relief) vitamin B complex-folic acid ER 0 tab PO DAILY 05/01/22 05/01/22 05/01/22 History 400 mcg tablet,extended release (Complex B-100) Allergies Allergy/AdvReac Type Severity Reaction Status Date / Time ciprofloxacin [Cipro] Allergy Mild pt doesnt Verified 04/28/22 13:02 want to take levofloxacin [From Levaquin] Allergy Mild unsure Verified 04/28/22 13:02 budesonide [From Symbicort] Allergy Hoarseness Verified 04/28/22 13:02 of voice formoterol [From Symbicort] Allergy Hoarseness Verified 04/28/22 13:02 of voice PFSH Anesthesia Medical History COPD (chronic obstructive pulmonary disease) -has known hx of COPD, not oxygen dependent at baseline -no evidence of COPD exacerbation at this time -received IV steroids in ED, wheezing improved with oral steroids -not requiring oxygen currently, continue to monitor respiratory status -Neb treatments as needed Erosive osteoarthritis of both hands Hypothyroidism -has known hx of hypothyroidism -continue Levothyroxine Irritable bowel syndrome Thyroid disease Surgical History H/O thumb surgery bone spur H/O: hysterectomy History of carpal tunnel surgery R Family History Mother Dementia Father Congestive heart failure Other CAD (coronary artery disease) Cancer Diabetes Hypertension Lung disease Psychiatric illness Denies family history of Clotting disorder Hyperlipidemia Chronic kidney disease (CKD) Suicide Anesthesia complication Bleeding disorder Family history of premature coronary artery disease Stroke Social History Smoking and tobacco status: never smoked Second hand smoke exposure: Yes (minimal) Smoking risk assessment/counseling performed?: Yes Alcohol intake: never Desire information about alcohol rehabilitation?: No Counseling given: No Desire information about substance/drug rehabilitation?: No Counseling given: No Lives independently: Yes Household members: spouse Housing: House Marital status: service: No Current occupational status: retired Pets and animals: No History of recent travel: Yes (back from [place] on 07/22/20) Out of state: Yes Current gender identity: Female Data Anesthesia Cardiac Studies: Sestamibi Stress Test (Cardiology) 04/09/21
[2022-05-02] MEDS: sodium chloride 0.9% 1,000 ML 30 ML IV (09:54)
[2022-05-02] MEDS: pregabalin 150 mg Capsule 300 MG PO (09:54)
[2022-05-02] MEDS: CELEcoxib 200 mg Capsule 400 MG PO (09:55)
[2022-05-02] MEDS: ceFAZolin 2,000 MG in sodium chloride 0.9% (plus) 50 ML 100 MG IV (10:07)
--- NOTE | 2022-05-02 11:41 | XR_ITS ---
WS: [id number] Left foot, 3 views, 05/02/2022 Clinical Data: post op Comparison: Left foot, 02/11/2022 Findings: There is a bunionectomy with resection of a portion of the medial aspect of the distal left first met atarsal. There is an arthrodesis at the base of left first metatarsal with the left first cuneiform w ith a medial plate and screws and a longitudinal screw. There is an osteotomy of the left first toe proximal phalanx. There is a splint supporting the left foot. XR/XR foot LT min 3V* [id number] Impression: Postoperative changes of the left foot
[2022-05-02] MEDS: HYDROcodone-acetaminophen 10-325 mg Tablet 1 TAB PO (12:17)
--- NOTE | 2022-05-02 14:19 | ANE.PACU2 ---
Inpatient post-anesthesia follow up: Airway intact: Yes Vital signs: Temperature 97 F Pulse Rate 80 Respiratory Rate 18 Blood Pressure 148/86 Pulse Oximetry 95 Oxygen Delivery Me thod Room Air Oxygen Flow Rate Fraction of Inspir ed Oxygen Hydration adequate: Yes Nausea and vomiting: Yes Pain level: 3 Mental status: Baseline
--- NOTE | 2022-05-02 19:18 | PM.OP ---
Operative Report Date of procedure: May 02, 2022 Pre-op diagnosis: Preop Diagnosis Left bunion Post-op diagnosis: Left bunion deformity Procedure done: ?Left Lapidus bunionectomy and Duy osteotomy. CPT codes 50253, 69317 Implants: [place] 28 primary Lapidus arthrodesis plate, left. 4.0 [place] homerun screw, 10 mm [place] staple, 3-0 Vicryl, 4-0 Vicryl, 4 nylon, 1 cc of beast bone putty by [place] Surgeon: BP Qasim Ux Researcher: Keely Estimated blood loss: 5 See intraoperative documentation IV fluids: 0 Urine output: 0 Complications: None Brief History: I discussed at length surgical options as well as recovery's from these surgeries to the left foot bunion deformity.? Unfortunately a head procedure would be an adequate in reducing the severity of her angular deformity.? Her first intermetatarsal angle is at 21 degrees and her hallux is track bound.? She also has hypermobility at the medial column.? Given these clinical and radiographic findings she would be better served with a first metatarsal phalangeal joint arthrodesis versus Lapidus bunionectomy.? Where arthrodesis yields a good success rate and low recurrence she is opposed to this, she does not like the idea of a joint destructive procedure and wants to maintain motion at the great toe.? A Lapidus and Logan would be an appealing option however in her case there is an increased risk in nonunion and I expressed this to the patient at length.? Patient expresses understanding and states that she would like to proceed with a Lapidus style bunionectomy and Duy osteotomy. I reviewed at length with the patient, the risks, potential complications, benefits, alternatives, expectations, and typical outcomes associated with the surgery. The risks and potential complications were explained in detail, including but not limited to infection, wound dehiscence or soft tissue complications, bleeding and hematoma, chronic edema, neuritis or nerve damage producing numbness or chronic pain, CRPS, failure to relieve pain or worsening pain, thick / painful / unsightly scar, limited motion / stiffness, malposition, delayed union, malunion, or nonunion, fracture, reaction to implants, anesthetic complications, venous thromboembolism, and deformity recurrence.? I discussed the notion of no regrets with the patient as it pertains to complications and outcomes. The patient seemed to understand the nature of the proposed care and required convalescence. They asked appropriate questions, answered to their satisfaction. They are aware no guarantees can be made as to a satisfactory outcome and they understand there may be other possible unforeseen complications or outcomes not listed here that will be treated accordingly if they arise. There were no written or implied guarantees given to the patient. They gave informed consent to proceed. Procedure: Attention was directed to the dorsal medial aspect of the left first metatarsal base and medial cuneiform joint where a curvilinear incision was made medial to the extensor houses longus tendon through skin with dissection carried down through subcutaneous tissue to the layer of periosteum utilizing a combination of blunt and sharp technique.? Care was taken to retract and preserve neurovascular and tendinous structures.? All bleeders were ligated and cauterized as necessary.? Periosteal incision was made and the base of the first metatarsal and distal aspect of the medial cuneiform were freed from their soft tissue and capsular attachments followed by denuding all articular surface with curettage and power bur at the arthrodesis site for Lapidus bunionectomy.? The incision was irrigated with copious months of sterile skin solution.? For scaling and subchondral drilling were then performed followed by reduction of the first intermetatarsal angle parallel to the second metatarsal.? Temporary fixation was then performed and utilizing standard AO technique a homerun screw from dorsal distal to proximal plantar was advanced at the arthrodesis site of the base of the first metatarsal and medial cuneiform followed by application of a medial locking plate utilizing standard AO technique 2 screws proximal and 2 distal with excellent bony apposition and compression noted. Any bone voids were filled with [place] beast demineralized bone matrix. Temporary fixation was removed, robust stabilization of the arthrodesis site was appreciated intraoperatively.? Reduced first intermetatarsal angle also appreciated and in all 3 standard views AP, oblique and lateral view hardware involved in the arthrodesis site did not violate adjacent joints.? Incision was irrigated with copious amounts of sterile skin solution and closed with capsule and periosteum reapproximated with 3-0 Vicryl, subcutaneous tissue reapproximated with 4-0 Vicryl and skin with 4-0 nylon. Evaluating the medial aspect of the left first metatarsal head some osseous prominence remained as well as hallux valgus.? A incision directly over the dorsal medial aspect of the left first metatarsal phalange joint through skin with dissection carried down to the joint capsule utilizing sharp and blunt technique was performed followed by a linear capsulotomy and a resection of the medial eminence of the first metatarsal head and all rough edges being smoothed with a hand rasp.? A Duy osteotomy was performed into the proximal phalanx maintaining a lateral cortical hinge, irrigation was performed followed by reduction of the hallux valgus deformity and fixation utilizing a 10 mm compression staple by Lui with excellent bony apposition and compression noted in a more rectus hallux position appreciated. The incision was then flushed with copious amounts of sterile skin solution and closed with joint capsule reapproximated 3-0 Vicryl, subcutaneous tissue with 4-0 Vicryl and skin 4-0 nylon. Incisions were then dressed with Adaptic, sterile 4 x 4's Kerlix and Tank wrap.? Cam boot was applied to the left lower extremity.? The tourniquet was then deflated and a prompt hyperemic response is noted to the distal digits of the left foot.? Patient tolerated the procedure and anesthesia well and was transferred to the PACU with vital signs stable and vascular status intact.? Following period of postoperative monitoring she will be discharged home may heel touch only for transfers otherwise nonweightbearing and to remain immobilized with a cam boot.? I advised an 81 mg aspirin to be taken once daily starting the morning after surgery to help potentially reduce the risk of deep vein thrombosis.
== END 2022-05-02 13:48 | disposition home or self-care (01) ==
PROVIDERS: PCP Family Medicine; Visit Provider Podiatrist Foot & Ankle Surgery
PROC: (CPT 28297; principal; 2022-05-02 10:20)
PROC: (CPT 28298; 2022-05-02 10:20)
DX: M21.612 Bunion of left foot (principal); E78.5 Hyperlipidemia, unspecified; J44.9 Chronic obstructive pulmonary disease, unspecified; M16.0 Bilateral primary osteoarthritis of hip; E03.9 Hypothyroidism, unspecified
CPT/HCPCS: 28297; 28298; 73620; 73630; 76000; C1713; C9290; J0690; J2704; J3010; J3490; J7030

== ENCOUNTER → 2022-05-09 13:09 | Outpatient (BNVA) | payer MEDICARE, OTHER, SELFPAY | PROVIDERS: PCP Family Medicine; Visit Provider Podiatrist Foot & Ankle Surgery | DX: Z98.890 Other specified postprocedural states (principal) | CPT/HCPCS: 99024 ==

== ENCOUNTER → 2022-05-15 13:13 | Outpatient (BNVA) | payer MEDICARE, OTHER, SELFPAY | PROVIDERS: PCP Family Medicine; Visit Provider Podiatrist Foot & Ankle Surgery | DX: Z98.890 Other specified postprocedural states (principal) | CPT/HCPCS: 73630; 99024 ==

== ENCOUNTER → 2022-06-12 13:18 | Outpatient (BNVA) | payer MEDICARE, OTHER, SELFPAY | PROVIDERS: PCP Family Medicine; Visit Provider Podiatrist Foot & Ankle Surgery | DX: Z98.890 Other specified postprocedural states (principal) | CPT/HCPCS: 73630; 99024 ==

== ENCOUNTER → 2022-06-26 13:21 | Outpatient (BNVA) | payer MEDICARE, OTHER, SELFPAY | PROVIDERS: PCP Family Medicine; Visit Provider Podiatrist Foot & Ankle Surgery | DX: Z98.890 Other specified postprocedural states (principal) | CPT/HCPCS: 73630; 99024 ==

== ENCOUNTER → 2022-07-10 15:32 | Outpatient (BNVA) | payer MEDICARE, OTHER, SELFPAY | PROVIDERS: PCP Family Medicine; Visit Provider Podiatrist Foot & Ankle Surgery | DX: Z98.890 Other specified postprocedural states (principal) | CPT/HCPCS: 73630; 99024 ==

== ENCOUNTER → 2022-07-14 13:03 | Outpatient (BNVA) | payer MEDICARE, OTHER, SELFPAY | PROVIDERS: PCP Family Medicine; Visit Provider Internal Medicine Pulmonary Disease | DX: J45.20 Mild intermittent asthma, uncomplicated (principal); Z91.09 Other allergy status, other than to drugs and biological substances; Z91.89 Other specified personal risk factors, not elsewhere classified; Z22.7 Latent tuberculosis; Z83.6 Family history of other diseases of the respiratory system; Z86.16 Personal history of COVID-19; R09.82 Postnasal drip; K22.89 Other specified disease of esophagus | CPT/HCPCS: 99214 ==

== ENCOUNTER 2022-09-09 08:45 | Outpatient (CLI) | payer MEDICARE, OTHER, SELFPAY ==
--- NOTE | 2022-09-09 08:55 | FL_ITS ---
WS: [id number] Exam: FL barium swallow modifd [id number] Date/Time of Exam: 09/09/2022 9:06 AM Reason For Exam: Oropharyngeal dysphagia Fluoroscopy time: 2min [id number] minutes # of spot films: Modified barium swallow was performed in conjunction with the speech therapy service. Swallowing function at the level of the oropharynx was normal. No aspiration or significant penetrati on identified. The patient tolerated all consistencies of barium mixture foodstuffs without difficult y. The patient swallowed a barium pill without complication. FL/FL barium swallow modifd 06579 IMPRESSION: 1. No sign of aspiration or penetration. A separate report with recommendations will follow from the speech therapy serv ice.
== END 2022-09-09 08:46 | disposition home or self-care (01) ==
LOC: RAD 08:48
PROVIDERS: PCP Family Medicine; Visit Provider Family Medicine
DX: R13.12 Dysphagia, oropharyngeal phase (principal)
CPT/HCPCS: 74230; 92611

== ENCOUNTER → 2023-01-02 11:41 | Outpatient (BNVA) | payer MEDICARE, OTHER, SELFPAY | PROVIDERS: PCP Family Medicine; Visit Provider Podiatrist Foot & Ankle Surgery | DX: M20.12 Hallux valgus (acquired), left foot | CPT/HCPCS: 73630; 99214 ==

== ENCOUNTER 2023-02-13 07:45 | Day surgery (SDC) | payer MEDICARE, OTHER, SELFPAY ==
[2023-02-13] VITALS (10 sets, daily range): BP systolic 107–154; BP diastolic 59–84; PULSE 69–79; RESP 11–18; TEMP 36.1–36.4; O2SAT 95–99; BMI 18.5
--- NOTE | 2023-02-13 | XR_ITS ---
WS: [id number] Left foot, C-arm fluoroscopy views, 02/13/2023 Clinical Data: or pic, left first metatarsophalangeal fusion Comparison: None. Findings: Dr. Ordoñez performed a procedure on the left first MTP joint Impression: Procedure on left first MTP joint.
[2023-02-13] MEDS: sodium chloride 0.9% 1,000 ML 30 ML IV (08:10)
[2023-02-13] MEDS: CELEcoxib 200 mg Capsule 400 MG PO (08:11)
[2023-02-13] MEDS: gabapentin 300 mg Capsule PO (08:11)
--- NOTE | 2023-02-13 08:21 | P.HPUD_ITS ---
Surgery/Procedure H&P Update DATE OF PROCEDURE: February DATE H&P PERFORMED: 02/13/22 H&P UPDATE INFORMATION: I have reviewed H&P completed within last 30 days, I have examined patient prior to procedure, No changes to prior documentation and H&P is in [facility] EMR on date indicated CHANGES TO PREVIOUS DOCUMENTATION: None PREOP DIAGNOSIS: Left hallux rigidus PRIMARY INDICATION FOR PROCEDURE: Left hallux rigidus PLANNED PROCEDURE: Operation Date: 02/13/23 09:25 Proposed Procedures p Left first metatarsophalangeal joint fusion 77162,M21.612(Left) - Goyo Ordoñez DPM
--- NOTE | 2023-02-13 08:21 | PM.OPSURHP ---
Providers/Chief Complaint Primary Care Provider: Ash Cali MD Chief Complaint: M21.612 Established 77 year old female patient presenting to clinic for evaluation of left foot. Patient reports she bump left foot a few days ago and she is experiencing increase discomfort. Patient has a post operative history of a Lapidus bunionectomy to left completed on 05/02/22. Patient reports that her foot feels different than before. She is accompanied by her . She has tried accommodative shoes, anti-inflammatories is even tried spacing and splinting without improvement. Would like to discuss surgical options as her pain affects her overall quality of life. Patient denies any subjective nausea, vomiting, fever, chills, shortness of breath or chest pain. History of Present Illness Bernadette Brown is a 77 year old female Review of Systems General: Reports: 10 or more systems reviewed and unremarkable except in HPI and below Const: Denies: fever(s) or chills Eyes: Denies: change in vision Card: Denies: chest pain or palpitations Resp: Denies: dyspnea or productive cough GI: Denies: abdominal pain, nausea or vomiting : Denies: flank pain Musc: Reports: extremity pain, joint pain, joint stiffness, limited range of motion and deformity Skin/Breast: Reports: skin tenderness; Denies: rash Neuro: Reports: difficulty walking; Denies: numbness in extremities, sensory changes or frequent falls Psych: Denies: suicidal ideation Thomas/Lymph: Denies: easy bruising Medications/Allergies Home Medications Medication Instructions Recorded Confirmed Last Taken Type estradiol 1 mg tablet See Rx Instructions .Route .COMPLEX 03/31/19 02/12/23 02/12/23 History levothyroxine 50 mcg capsule See Rx Instructions .Route .COMPLEX 03/31/19 02/12/23 02/13/23 History Turmeric Curcumin 1 mg PO DAILY@72905/04/20 02/12/23 02/12/23 History calcium carb-Ca gluc 500 mg 1 tab PO DAILY@72905/04/20 02/12/23 02/12/23 History calcium-magnesium ox-Mg gluc 250 mg tablet (Calcium Magnesium) cholecalciferol (vitamin D3) 25 25 mcg PO DAILY@72905/04/20 02/12/23 02/12/23 History mcg (1,000 unit) tablet (Vitamin D3) glucosamine sulf dipot 1 cap PO DAILY@72905/04/20 02/12/23 02/12/23 History chlr,msm,chond 550 mg-C 30 mg-vargas 1 mg capsule (Glucosamine Chondroitin) potassium gluconate 595 mg (99 mg) 595 mg PO DAILY@72905/04/20 02/12/23 02/12/23 History tablet simvastatin 5 mg tablet 5 mg PO DAILY@219905/04/20 02/12/23 02/12/23 History albuterol sulfate 90 mcg/actuation 2 puff inhalation Q6H PRN 07/30/20 02/12/23 Unknown Rx aerosol inhaler shortness of breath or wheezing #8.5 grams montelukast 10 mg tablet 10 mg PO DAILY #90 tabs 02/17/22 02/12/23 02/12/23 Rx (Singulair) copper 3 mg tablet 3 mg PO DAILY 05/01/22 02/12/23 02/12/23 History vitamin B complex-folic acid ER 0 tab PO DAILY 05/01/22 02/12/23 02/12/23 History 400 mcg tablet,extended release (Complex B-100) fexofenadine 60 mg tablet 60 mg PO BID PRN allergies 07/14/22 02/12/23 02/12/23 History fluticasone propionate 50 1 spray intranasal Q12H PRN nasal 11/24/22 02/12/23 02/13/23 Rx mcg/actuation nasal congestion #16 mL spray,suspension (Flonase Allergy Relief) oxycodone-acetaminophen 10 mg-325 1 tab PO Q6H PRN pain 7 days #28 02/12/23 Unknown Rx mg tablet (Percocet) tabs Allergies Allergy/AdvReac Type Severity Reaction Status Date / Time ciprofloxacin [Cipro] Allergy Mild pt doesnt Verified 02/12/23 10:34 want to take levofloxacin [From Levaquin] Allergy Mild unsure Verified 02/12/23 10:34 budesonide [From Symbicort] Allergy Hoarseness Verified 02/12/23 10:34 of voice formoterol [From Symbicort] Allergy Hoarseness Verified 02/12/23 10:34 of voice hydrocodone Allergy ADR-Halluci Verified 02/12/23 10:34 nating PFSH PFSH: Medical History COPD (chronic obstructive pulmonary disease) -has known hx of COPD, not oxygen dependent at baseline -no evidence of COPD exacerbation at this time -received IV steroids in ED, wheezing improved with oral steroids -not requiring oxygen currently, continue to monitor respiratory status -Neb treatments as needed Erosive osteoarthritis of both hands Hypothyroidism -has known hx of hypothyroidism -continue Levothyroxine Irritable bowel syndrome Psychiatric care Thyroid disease Surgical History H/O thumb surgery bone spur H/O: hysterectomy History of carpal tunnel surgery R Family History Mother Dementia Father Congestive heart failure Other CAD (coronary artery disease) Cancer Diabetes Hypertension Lung disease Psychiatric illness Denies family history of Clotting disorder Hyperlipidemia Chronic kidney disease (CKD) Suicide Anesthesia complication Bleeding disorder Family history of premature coronary artery disease Stroke Social History Smoking and tobacco/nicotine status: never used tobacco/nicotine Second hand smoke exposure: Yes (minimal) Alcohol intake: never Substance/Drug Use: never Lives independently: Yes Household members: spouse Housing: House Marital status: service: No Current occupational status: retired Pets and animals: No Do you think of yourself as: Straight/Heterosexual Current gender identity: Female Dietary Habits: Caffeine: Yes Physical Exam Narrative: EXAM NARRATIVE: GENERAL: Patient is alert and oriented ?3 and in no acute distress. The following is a focused left lower extremity exam. VASCULAR: Dorsalis pedis and posterior tibial arteries palpable +2. Capillary refill time less than 3 seconds to the distal hallux bilaterally. Calf is supple and nontender proximally and distally. Mild edema at the operative site consistent with postoperative course. NEUROLOGICAL: Protective sensation intact to light touch. DERMATOLOGICAL: Well-healed cicatrix left foot. MUSCULOSKELETAL: No pain with range of motion of the left first metatarsal phalangeal joint. Muscle strength +5 in all 3 planes left foot and ankle. Triplane the form due to the left first metatarsal phalangeal joint. Frontal plane deformity with internal rotation, crossover toe deformity at the left great toe overriding the second toe and prominence of the first metatarsal phalangeal joint this is reducible. Pain to palpation and with range of motion of the left first metatarsophalangeal joint. CARDIOVASCULAR: S1, S2, normal rate, normal rhythm. Dorsalis pedis and posterior tibial arteries palpable. LUNGS: Clear to auscltation, no use of acessory muscles, no crackles or wheezes. A&P Assessment and plan (1) Hallux valgus (acquired), left foot: Plan Left foot x-ray 3 view shows recurrence of hallux valgus and increased first intermetatarsal angle. Patient wishing to discuss permanent solutions, has already tried conservative treatments consisting of anti-inflammatories, activity modifications, shoe gear modifications, splinting and bracing. Her left great toe is overriding the second toe and this is causing her issues with balance and pain with everyday activities. Discussed joint preserving versus joint destructive procedures. Discussed tight rope versus arthrodesis. Patient most interested in arthrodesis as a more 1 and done type of procedure. I reviewed at length with the patient, the risks, potential complications, benefits, alternatives, expectations, and typical outcomes associated with the surgery. The risks and potential complications were explained in detail, including but not limited to infection, wound dehiscence or soft tissue complications, bleeding and hematoma, chronic edema, neuritis or nerve damage producing numbness or chronic pain, CRPS, failure to relieve pain or worsening pain, thick / painful / unsightly scar, limited motion / stiffness, malposition, delayed union, malunion, or nonunion, fracture, reaction to implants, anesthetic complications, venous thromboembolism, and deformity recurrence. I discussed the notion of no regrets with the patient as it pertains to complications and outcomes. The patient seemed to understand the nature of the proposed care and required convalescence. They asked appropriate questions, answered to their satisfaction. They are aware no guarantees can be made as to a satisfactory outcome and they understand there may be other possible unforeseen complications or outcomes not listed here that will be treated accordingly if they arise. There were no written or implied guarantees given to the patient. They gave informed consent to proceed. Left first metatarsophalangeal joint arthrodesis scheduled outpatient under MAC anesthesia February 13, 2021. Local MAC versus LMA per anesthesia preference [place], supine Mini C arm Small power [place] 60 minutes Coding Level of Care Code Acute Code for Chg Fwd Diagnoses Hallux valgus (acquired), left foot M20.12
--- NOTE | 2023-02-13 08:21 | P.OP_ITS ---
Operative Report Date of procedure: February 13, 2023 Pre-op diagnosis: Left hallux valgus Left second hammertoe Post-op diagnosis: Left hallux valgus Left second hammertoe Post-op findings: Left hallux valgus with arthrosis Procedure done: Left first metatarsophalangeal joint fusion. CPT code 52059 Left second hammertoe correction. CPT code 32940 Left foot flexor tendon transfer. CPT code 50139 Implants: Yoder first metatarsal phalangeal joint primary arthrodesis plate Yoder 2.7 millimeter screws distally x3 Yoder 3.5 millimeter screws proximally X3 3.0 mm homerun screw 0.045 K wire 3-0 Vicryl, 4-0 Vicryl, 4-0 nylon Specimens removed/disposition: None Surgeon: Goyo Ordoñez DPM Protective Services Social Worker: See intraoperative documentation Estimated blood loss: 5 milliliters 66 IV fluids: 0 Urine output: 0 Complications: None Findings: Hallux valgus with arthrosis of the left first metatarsal phalangeal joint. Brief History: Left foot x-ray 3 view shows recurrence of hallux valgus and increased first intermetatarsal angle. Patient wishing to discuss permanent solutions, has already tried conservative treatments consisting of anti-inflammatories, activity modifications, shoe gear modifications, splinting and bracing. Her left great toe is overriding the second toe and this is causing her issues with balance and pain with everyday activities. Discussed joint preserving versus joint destructive procedures. Discussed tight rope versus arthrodesis. Patient most interested in arthrodesis as a more 1 and done type of procedure. I reviewed at length with the patient, the risks, potential complications, benefits, alternatives, expectations, and typical outcomes associated with the surgery. The risks and potential complications were explained in detail, including but not limited to infection, wound dehiscence or soft tissue complications, bleeding and hematoma, chronic edema, neuritis or nerve damage producing numbness or chronic pain, CRPS, failure to relieve pain or worsening pain, thick / painful / unsightly scar, limited motion / stiffness, malposition, delayed union, malunion, or nonunion, fracture, reaction to implants, anesthetic complications, venous thromboembolism, and deformity recurrence. I discussed the notion of no regrets with the patient as it pertains to complications and outcomes. The patient seemed to understand the nature of the proposed care and required convalescence. They asked appropriate questions, answered to their satisfaction. They are aware no guarantees can be made as to a satisfactory outcome and they understand there may be other possible unforeseen complications or outcomes not listed here that will be treated accordingly if they arise. There were no written or implied guarantees given to the patient. They gave informed consent to proceed. Procedure: Under mild sedation the patient was brought to the operating room and remained on the gurney in supine position. A timeout was performed. Anesthesia was then administered by the anesthesia service. Local anesthesia was injected by myself consisting of 20 cc of 0.5% Marcaine plain in a left male block fashion with an additional 20 cc of Exparel at the operative site subcutaneously in a grid like fashion per landscape foreman recommendation and technique. Well-padded pneumatic tourniquet was applied to the left ankle. The left lower extremity was then scrubbed, prepped and draped utilizing normal aseptic technique. Left foot was exanguinated with an Esmarch bandage and the tourniquet inflated to 250 mmHg. Attention was directed to the left first metatarsal phalangeal joint. A careful incision was made over the first metatarsal phalangeal joint, and dissection was carried through subcutaneous tissue to expose the joint capsule. The joint capsule was meticulously opened, revealing the metatarsal phalangeal joint. Attention was then turned towards preparing the fusion site. The articular surfaces of the joint were denuded to create a suitable environment for fusion, ensuring proper alignment and angulation of the bones. Utilizing standard AO technique the fusion hardware, a Yoder 28 metatarsal phalangeal joint arthrodesis plate, was then positioned dorsally over the joint. This dorsal locking plate was carefully secured with three 2.7 millimeter screws distally and three 3.5 millimeter screws proximally. To enhance the stability of the fusion, a 3.0 millimeter compression screw was also inserted. Throughout the procedure, the placement of the hardware and the positioning of the fusion site were continuously monitored and confirmed with the aid of mini C-arm fluoroscopy, ensuring precise alignment and optimal hardware placement. Placement of the left first metatarsal phalangeal joint arthrodesis site was 5 degrees dorsiflexion, neutral in the frontal plane and slight valgus. Following the successful placement of the fusion hardware, the joint capsule was closed using 3-0 Vicryl sutures. The subcutaneous tissue was approximated with 4-0 Vicryl, and the skin closure was meticulously completed in a layered fashion using 4-0 nylon sutures. Attention was directed to the left second toe dorsally where a linear longitudinal incision was made over the proximal interphalangeal joint through skin with a 15 blade with dissection carried down to layer of extensor tendon this was incised transversely with a tenotomy performed sharply and proximal and retracted and secured with mosquito hemostat. Transverse capsulotomy performed at the level of the proximal interphalangeal joint and the head of the proximal phalanx and base of the intermediate phalanx were transected with a sagittal saw, the flexor digitorum longus tendon was split longitudinally and wrapped around the proximal phalanx both medially and laterally and secured with 4-0 nylon effectively transferring a deep flexor tendon dorsally to stabilize the right second toe in the sagittal plane from cock up toe deformity and maintaining more rectus alignment. The incision was irrigated with saline solution. K wire was then driven from the base of the intermediate phalanx distally and then seated proximally crossing the metatarsal phalangeal joint with the second toe held rectus for additional stability. Distal end was trimmed and covered with a Ronel ball. The incision was irrigated with saline solution and closed with the extensor tendon reapproximated with 4-0 Vicryl, skin with 4-0 nylon. To conclude the procedure, the surgical sites were dressed with Adaptic, sterile 4 x 4 gauze, and Kerlix, followed by securing it with an Tank wrap. A cam boot was then applied to the left foot to provide immobilization and support during the initial phase of recovery. The procedure was executed without complications, and the alignment and stability achieved were deemed satisfactory for optimal healing and recovery. Tourniquet was deflated and a prompt hyperemic response was noted to the distal digits of the left foot. Cam boot was applied to the left foot. Patient was transferred to the PACU with vital signs stable and vascular status intact. Following a period of postoperative monitoring she will be discharged home. Was given at home care instructions, scheduled follow-up and my cell phone number to contact with any postoperative questions or concerns.
--- NOTE | 2023-02-13 08:30 | ANES.PREANE2 ---
Pre-Anesthetic Assessment Height/Weight: Height 1.63 m Weight 48.988 kg Temp Pulse Resp BP Pulse Ox O2 Del Method 97.5 F L 78 18 107/66 97 Room Air 02/13/23 08:02 02/13/23 08:02 02/13/23 08:02 02/13/23 08:02 02/13/23 08:02 02/13/23 08:02 Preop Diagnosis: Left hallux valgus Operation Date: 02/13/23 09:10 Proposed Procedures p Left first metatarsophalangeal joint fusion 07671,M21.612(Left) - Goyo Ordoñez DPM Familial anesthetic complications: None Was Beta Gian taken within 24 hours: N/A Was Clonidine taken within 24 hours: N/A Last intake: Intake Last Liquid Date 02/12/23 Last Liquid Time 21:00 Last Solid Date 02/12/23 Last Solid Time 21:00 Social No alcohol and No tobacco Exam alert, oriented x 3, clear to auscultation bilaterally and regular rate & rhythm Airway Mallampati: Class I Dentition: full Pulmonary Asthma and Chronic Obstructive Pulmonary Disease hx accidental aspiration of pill Metabolic Hyperlipidemia and Thyroid Disease Anesthetic Plan ASA status: 3 Anesthesia: MAC Risk of > 500 ml blood loss (7ml/kg in children): No Medications/Allergies Home Medications Medication Instructions Recorded Confirmed Last Taken Type estradiol 1 mg tablet See Rx Instructions .Route .COMPLEX 03/31/19 02/12/23 02/12/23 History levothyroxine 50 mcg capsule See Rx Instructions .Route .COMPLEX 03/31/19 02/12/23 02/13/23 History Turmeric Curcumin 1 mg PO DAILY@72905/04/20 02/12/23 02/12/23 History calcium carb-Ca gluc 500 mg 1 tab PO DAILY@72905/04/20 02/12/23 02/12/23 History calcium-magnesium ox-Mg gluc 250 mg tablet (Calcium Magnesium) cholecalciferol (vitamin D3) 25 25 mcg PO DAILY@72905/04/20 02/12/23 02/12/23 History mcg (1,000 unit) tablet (Vitamin D3) glucosamine sulf dipot 1 cap PO DAILY@72905/04/20 02/12/23 02/12/23 History chlr,msm,chond 550 mg-C 30 mg-vargas 1 mg capsule (Glucosamine Chondroitin) potassium gluconate 595 mg (99 mg) 595 mg PO DAILY@0730 05/04/20 02/12/23 02/12/23 History tablet simvastatin 5 mg tablet 5 mg PO DAILY@2200 05/04/20 02/12/23 02/12/23 History albuterol sulfate 90 mcg/actuation 2 puff inhalation Q6H PRN 07/30/20 02/12/23 Unknown Rx aerosol inhaler shortness of breath or wheezing #8.5 grams montelukast 10 mg tablet 10 mg PO DAILY #90 tabs 02/17/22 02/12/23 02/12/23 Rx (Singulair) copper 3 mg tablet 3 mg PO DAILY 05/01/22 02/12/23 02/12/23 History vitamin B complex-folic acid ER 0 tab PO DAILY 05/01/22 02/12/23 02/12/23 History 400 mcg tablet,extended release (Complex B-100) fexofenadine 60 mg tablet 60 mg PO BID PRN allergies 07/14/22 02/12/23 02/12/23 History fluticasone propionate 50 1 spray intranasal Q12H PRN nasal 11/24/22 02/12/23 02/13/23 Rx mcg/actuation nasal congestion #16 mL spray,suspension (Flonase Allergy Relief) oxycodone-acetaminophen 10 mg-325 1 tab PO Q6H PRN pain 7 days #28 02/12/23 Unknown Rx mg tablet (Percocet) tabs Allergies Allergy/AdvReac Type Severity Reaction Status Date / Time ciprofloxacin [Cipro] Allergy Mild pt doesnt Verified 02/12/23 10:34 want to take levofloxacin [From Levaquin] Allergy Mild unsure Verified 02/12/23 10:34 budesonide [From Symbicort] Allergy Hoarseness Verified 02/12/23 10:34 of voice formoterol [From Symbicort] Allergy Hoarseness Verified 02/12/23 10:34 of voice hydrocodone Allergy ADR-Halluci Verified 02/12/23 10:34 nating Current Medications Generic Name Dose Route Start Last Admin Trade Name Freq PRN Reason Stop Dose Admin Sodium Chloride 1,000 mls @ 30 mls/hr 02/13/23 08:00 02/13/23 08:10 Sodium Chloride 0.9% IV 12/02/23 07:59 30 mls/hr .Q24H JAVON Administration PFSH Anesthesia Medical History COPD (chronic obstructive pulmonary disease) -has known hx of COPD, not oxygen dependent at baseline -no evidence of COPD exacerbation at this time -received IV steroids in ED, wheezing improved with oral steroids -not requiring oxygen currently, continue to monitor respiratory status -Neb treatments as needed Erosive osteoarthritis of both hands Hypothyroidism -has known hx of hypothyroidism -continue Levothyroxine Irritable bowel syndrome Psychiatric care Thyroid disease Surgical History H/O thumb surgery bone spur H/O: hysterectomy History of carpal tunnel surgery R Family History Mother Dementia Father Congestive heart failure Other CAD (coronary artery disease) Cancer Diabetes Hypertension Lung disease Psychiatric illness Denies family history of Clotting disorder Hyperlipidemia Chronic kidney disease (CKD) Suicide Anesthesia complication Bleeding disorder Family history of premature coronary artery disease Stroke Social History Smoking and tobacco/nicotine status: never used tobacco/nicotine Second hand smoke exposure: Yes (minimal) Alcohol intake: never Substance/Drug Use: never Lives independently: Yes Household members: spouse Housing: House Marital status: service: No Current occupational status: retired Pets and animals: No Do you think of yourself as: Straight/Heterosexual Current gender identity: Female Data Anesthesia Cardiac Studies: Sestamibi Stress Test (Cardiology) 04/09/21
[2023-02-13] MEDS: ceFAZolin 2,000 MG in sodium chloride 0.9% (plus) 50 ML 100 MG IV (08:35)
[2023-02-13] MEDS: BUPivacaine 0.5% INJ 10 mL 20 ML INJECTION (09:00)
[2023-02-13] MEDS: BUPivacaine liposome 13.3 mg/mL SDV 10 mL 266 MG INJECTION (09:00)
--- NOTE | 2023-02-13 10:06 | P.BOP_ITS ---
Date of Procedure: 02/13/23 Surgeon: Goyo Ordoñez DPM Robotics Application Engineer(s): Levy Hardy Procedure(s) performed: Left first metatarsal phalangeal joint fusion. Left foot flexor tendon transfer. Left second hammertoe correction. Findings of the procedure(s): None Estimated blood loss: 2 Specimen(s) removed: None Post-operative diagnosis: Left hallux valgus, left second hammertoe, left flexor tendon contracture.
--- NOTE | 2023-02-13 10:23 | PC.NURSE ---
1020pt complains of left sided chest pain - states hurts with inhalation - repositioned per this nurse with decrease in pain noted -vss - anesthesia notified with orders rec'd
--- NOTE | 2023-02-13 10:36 | ECG_ITS ---
[facility] Test Date: 2023-02-13 Pat Name: Bernadette Brown Department: Room: Gender: Female Transcribing Machine Operator: : 1945 Requested By: Yelena Engle Order Number: [id number] Gomez MD: Neha Russell M.D. Measurements Intervals [place] Rate: 69 P: 46 IL: 143 QRS: 4 QRSD: 92 T: 65 QT: 412 QTc: 444 Interpretive Statements SINUS RHYTHM POSSIBLE LEFT ATRIAL ENLARGEMENT [-0.1mV P-WAVE IN V1/V2] Compared to ECG 05/07/2019 13:12:56 Incomplete right bundle-branch block no longer present Electronically Signed On 02-14-2023 6:04:32 FOUNDER AND CHIEF TECHNICAL OFFICER by Neha Russell M.D. [id number]
--- NOTE | 2023-02-13 10:42 | PC.NURSE ---
1040 - anesthesia notified of ekg results - order to move to phase 2
--- NOTE | 2023-02-13 13:36 | ANE.PACU2 ---
Inpatient post-anesthesia follow up: Airway intact: Yes Vital signs: Temperature 97.0 F Pulse Rate 72 Respiratory Rate 16 Blood Pressure 154/78 Pulse Oximetry 98 Oxygen Delivery Me thod Room Air Oxygen Flow Rate Fraction of Inspir ed Oxygen Hydration adequate: Yes Nausea and vomiting: No Pain level: 1 Mental status: Baseline
== END 2023-02-13 11:29 | disposition home or self-care (01) ==
PROVIDERS: PCP Family Medicine; Visit Provider Podiatrist Foot & Ankle Surgery
PROC: (CPT 28740; principal; 2023-02-13 09:00)
DX: M20.12 Hallux valgus (acquired), left foot (principal); M20.42 Other hammer toe(s) (acquired), left foot; J44.9 Chronic obstructive pulmonary disease, unspecified; E78.5 Hyperlipidemia, unspecified; E03.9 Hypothyroidism, unspecified
CPT/HCPCS: 27691; 28285; 28750; 73620; 76000; 93005; C1713 ×2; C9290; J0690; J1100; J2704; J3490; J7030

== ENCOUNTER → 2023-02-26 15:09 | Outpatient (BNVA) | payer MEDICARE, OTHER, SELFPAY | PROVIDERS: PCP Family Medicine; Visit Provider Podiatrist Foot & Ankle Surgery | DX: Z98.890 Other specified postprocedural states (principal) | CPT/HCPCS: 73630; 99024 ==

== ENCOUNTER → 2023-03-12 13:27 | Outpatient (BNVA) | payer MEDICARE, OTHER, SELFPAY | PROVIDERS: PCP Family Medicine; Visit Provider Podiatrist Foot & Ankle Surgery | DX: Z98.890 Other specified postprocedural states (principal) | CPT/HCPCS: 73630; 99024 ==

== ENCOUNTER 2023-03-24 14:06 | Outpatient (CLI) | payer MEDICARE, OTHER, SELFPAY ==
--- NOTE | 2023-03-24 | USCV_ITS ---
Bernadette Brown Age: 78 Gender: F : 1945 Exam Date: 03/24/2023 14:38 Ordering Phys: Jon Joshua MD Technologist: Soo Fong Exam Location: [facility] [place] Indication: Murmur BP: 128 / 71 HR: 68 Rhythm: Sinus Technical Quality: Adequate MEASUREMENTS (Male / Female) Normal Values 2D ECHO LV Diastolic Diameter PLAX 3.9 cm 4.2 - 5.9 / 3.9 - 5.3 cm LV Systolic Diameter PLAX 2.9 cm LV Chamber Size 3.6 cm IVS Diastolic Thickness 0.9 cm 0.6 - 1.0 / 0.6 - 0.9 cm IVS Systolic Thickness 0.8 cm LVPW Diastolic Thickness 1.2 cm 0.6 - 1.0 / 0.6 - 0.9 cm LVPW Systolic Thickness 1.5 cm RV Chamber Size 2.4 cm LVOT Diameter 2.0 cm LV Ejection Fraction 2D Teich 51.6 % LV Ejection Fraction MOD 2C 80.9 % LV Ejection Fraction 2C AL 80.3 % LA Diameter 3.0 cm LA Width 2.5 cm LA Height 2.5 cm RA Width 4.2 cm RA Height 3.0 cm Aorta at Sinotubular Diameter 2.8 cm IVC Diameter 1.3 cm M-MODE Aortic Annulus Diameter 2.6 cm LA Ao Ratio MM 1.3 MV E Point Septal Separation 0.2 cm DOPPLER AV Peak Velocity 137.0 cm/s LVOT Peak Velocity 104.0 cm/s AV Area Cont Eq vti 2.4 cm squared AV Area Cont Eq pk 2.5 cm squared MV Peak Velocity 154.0 cm/s MV Area PHT 2.9 cm squared Mitral E to A Ratio 1.5 MV E' Velocity 74.0 cm/s Mitral E to MV E' Ratio 12.7 Mitral E to LV E' Lateral Ratio 10.4 Mitral E to LV E' Septal Ratio 16.4 TR Peak Velocity 303.0 cm/s TR Peak Gradient 36.7 mmHg TR Mean Velocity 233.3 cm/s TR Mean Gradient 23.4 mmHg TR Velocity Time Integral 102.4 cm Right Atrial Pressure 3.0 mmHg Pulmonary Artery Systolic Pressu 39.7 mmHg RV Acceleration Time 0.3 s RV Ejection Time 0.4 s RV AcT/ET 0.7 FINDINGS Left Ventricle Left ventricle is normal size. LV systolic function is normal with EF of 55 to 60%. No regional wall motion abnormalities are seen. Right Ventricle Normal in size Right Atrium Normal in size Left Atrium Normal in size Mitral Valve Mild mitral annular calcification.Mitral valve leaflets are thickened. Moderate to severe mitral regurgitation. Aortic Valve Structurally normal aortic valve. No significant stenosis or regurgitation. Tricuspid Valve Mild tricuspid regurgitation. RVSP is 35 to 40 mmHg. This is consistent with mild pulmonary hypertension. Pulmonic Valve Not well-visualized. Pericardium Normal Aorta Normal in size IVC Appears to be normal CONCLUSIONS LV systolic function is normal with EF of 55 to 60%. Moderate to severe mitral regurgitation Mild tricuspid regurgitation Mild pulmonary hypertension No comparison studies are available. Osmani Molina MD (Electronically Signed) Final Date: 08 April 2023 17:41 S
== END 2023-03-24 14:07 | disposition home or self-care (01) ==
LOC: RAD 14:07
PROVIDERS: PCP Family Medicine; Visit Provider Family Medicine
DX: I08.1 Rheumatic disorders of both mitral and tricuspid valves (principal); I27.20 Pulmonary hypertension, unspecified
CPT/HCPCS: 93306

== ENCOUNTER → 2023-03-30 11:02 | Outpatient (BNVA) | payer MEDICARE, OTHER, SELFPAY | PROVIDERS: PCP Family Medicine; Visit Provider Podiatrist Foot & Ankle Surgery | DX: Z98.890 Other specified postprocedural states (principal) | CPT/HCPCS: 73630; 99024 ==

== ENCOUNTER 2023-04-08 14:47 | Outpatient (CLI) | payer MEDICARE, OTHER, SELFPAY ==
--- NOTE | 2023-04-08 14:49 | MM_ITS ---
WS: [id number] BILATERAL 3D TOMOSYNTHESIS DIGITAL SCREENING MAMMOGRAM WITH CAD CLINICAL INFORMATION: SCREENING HISTORY: Screening mammogram. No current complaints. COMPARISON: 2021 TECHNIQUE: Bilateral CC and MLO. FINDINGS: The breast are composed of extremely dense tissue, which can limit the detection of small underlying mass lesions. No suspicious focal mass, asymmetry, calcifications, or architectural distortion. No ev idence of malignancy. Incidental punctate and lucent centered calcifications. Vascular calcifications . IMPRESSION: MM/[place] [id number] BI-RADS: 2-Benign FOLLOW UP: 1 Year Follow-up Recommend return to annual screening mammography.
== END 2023-04-08 14:48 | disposition home or self-care (01) ==
LOC: RAD 14:47
PROVIDERS: PCP Family Medicine; Visit Provider Family Medicine
DX: Z12.31 Encounter for screening mammogram for malignant neoplasm of breast (principal); R92.30 Dense breasts, unspecified
CPT/HCPCS: 77063; 77067

== ENCOUNTER → 2023-04-16 09:35 | Outpatient (BNVA) | payer MEDICARE, OTHER, SELFPAY | PROVIDERS: PCP Family Medicine; Visit Provider Internal Medicine Pulmonary Disease | DX: J45.998 Other asthma (principal); Z91.09 Other allergy status, other than to drugs and biological substances; Z22.7 Latent tuberculosis; Z83.6 Family history of other diseases of the respiratory system; I27.20 Pulmonary hypertension, unspecified | CPT/HCPCS: 99214 ==

== ENCOUNTER → 2023-04-30 13:06 | Outpatient (BNVA) | payer MEDICARE, OTHER, SELFPAY | PROVIDERS: PCP Family Medicine; Visit Provider Podiatrist Foot & Ankle Surgery | DX: Z98.890 Other specified postprocedural states (principal) | CPT/HCPCS: 73630; 99024 ==

== ENCOUNTER → 2023-06-03 13:16 | Outpatient (BNVA) | payer MEDICARE, OTHER, SELFPAY | PROVIDERS: PCP Family Medicine; Visit Provider Nurse Practitioner Family | DX: Z80.8 Family history of malignant neoplasm of other organs or systems (principal); D22.61 Melanocytic nevi of right upper limb, including shoulder; L57.0 Actinic keratosis; L57.8 Other skin changes due to chronic exposure to nonionizing radiation; L82.0 Inflamed seborrheic keratosis | CPT/HCPCS: 17000; 17110; 99213 ==

== ENCOUNTER → 2023-06-09 14:00 | Outpatient (BNVA) | payer MEDICARE, OTHER, SELFPAY | PROVIDERS: PCP Family Medicine; Referring Provider Family Medicine; Visit Provider Internal Medicine Cardiovascular Disease | DX: R07.9 Chest pain, unspecified (principal); I34.0 Nonrheumatic mitral (valve) insufficiency | CPT/HCPCS: 93005; 99204 ==

== ENCOUNTER 2023-07-24 12:08 | Emergency (ER) | payer MEDICARE, OTHER, SELFPAY ==
[2023-07-24 12:20] VITALS: PULSE 75; RESP 18; TEMP 36.3; O2SAT 98; BMI 18.1
[2023-07-24 13:28] LABS: Basophils % 0.5 %; Eosinophils # 0.1 10^3/uL (0.0-0.8); Eosinophils % 2.2 %; Hematocrit 38.8 % (36-47); Lymphocytes # 1.1 10^3/uL (0.8-4.8); Lymphocytes % 17.5 %; Mean Corpuscular HGB Conc 33.5 g/dL (30-55); Mean Corpuscular Hemoglobin 29.4 pg (27-33); Mean Corpuscular Volume 87.8 fl (85-98); Monocytes # 0.7 10^3/uL (0.2-0.9); Monocytes % 10.6 %; Neutrophils # 4.38 10^3/uL (1.8-7.7); Nucleated Red Blood Cells % 0 %; Platelet Count 284 10^3/cmm (157-399); Red Blood Count 4.42 10^6/uL (3.85-5.65); Red Cell Distribution Width 12.4 % (12.1-15.1); White Blood Count 6.34 10^3/uL (3.29-11.43)
[2023-07-24 13:47] LABS: Alanine Aminotransferase 20 U/L (0-33); Albumin Level 3.8 g/dL (3.5-5.2); Alkaline Phosphatase 52 U/L (35-105); Anion Gap 13.1 (5-19); Aspartate Amino Transferase 24 U/L (0-32); Blood Urea Nitrogen 9 mg/dL (8-23); Calcium 8.6 mg/dL (8.5-10.5); Carbon Dioxide 26 mmol/L (22-29); Chloride 99 mmol/L (98-107); Creatinine Clr Calc Pharmacy 46.8562; Globulin 2.9 g/dL (1.3-4.6); Glucose 86 mg/dL (65-115); Lipase 41 U/L (13-60); Osmolality Calculated 276 mOsm/kg (285-295); Potassium 4.1 mmol/L (3.5-5.1); Sodium 134 mmol/L (136-145); Total Bilirubin 0.2 mg/dL (0.15-1.2); Total Protein 6.7 g/dL (6.6-8.7)
[2023-07-24 14:22] VITALS: BP 172/88; PULSE 71; O2SAT 97
--- NOTE | 2023-07-24 14:31 | XR_ITS ---
WS: [id number] Portable AP upright chest, 07/24/2023 Clinical Data: nv Comparison: Portable chest, 06/06/2021 Findings: No nodules, masses or effusions are seen. The heart is normal. The pulmonary vascularity is not increased. No pneumonia or pneumothorax is seen. The aortic arch and descending thoracic aorta s how mild tortuosity. The diaphragms are flattened. XR/XR chest 1V portable [id number] Impression: Atherosclerosis and hyperinflation.
--- NOTE | 2023-07-24 14:41 | ED_ITS ---
HPI - Nausea/Vomiting/Diarrhea 2 General: Chief complaint: Nausea/Vomiting/Diarrhea Stated complaint: states she has had diarrhea for a month Time Seen by Provider: 07/24/23 13:33 Source: patient Mode of arrival: ambulatory Limitations: no limitations History of Present Illness: 78-year-old female states that she has h ad diarrhea off and on for the last month states last 2 days had improved but started having some diarrhea again today. Denies any blood in her stool. Said some abdominal cramping she states that her 's recently been sick as well. She denies any fever she is well-appearing here. Associated nausea: No Associated symtoms: Denies chest pain, dysuria, headache(s) or nausea Review of Systems 2 Const: Denies: fever(s), chills, body aches or change in appetite ENMT: Denies: throat pain or dental pain Card: Denies: chest pain Resp: Denies: dyspnea GI: Reports: diarrhea; Denies: abdominal pain, nausea or vomiting : Denies: dysuria Musc: Denies: neck pain or back pain Skin/Breast: Denies: rash Neuro: Denies: headache(s) PFSH ED 2 PFSH: Medical History (Updated 07/24/23 @ 15:25 by Carrington Mackay MD) Erosive osteoarthritis of both hands Hypothyroidism -has known hx of hypothyroidism -continue Levothyroxine Irritable bowel syndrome Thyroid disease COPD (chronic obstructive pulmonary disease) -has known hx of COPD, not oxygen dependent at baseline -no evidence of COPD exacerbation at this time -received IV steroids in ED, wheezing improved with oral steroids -not requiring oxygen currently, continue to monitor respiratory status -Neb treatments as needed Surgical History H/O thumb surgery bone spur H/O: hysterectomy History of carpal tunnel surgery R Family History Mother Dementia Father Congestive heart failure (CHF) Heart disease Other CAD (coronary artery disease) Cancer Diabetes Hypertension Lung disease Psychiatric illness Denies family history of Anemia Aneurysm Arrhythmia Clotting disorder Atrial fibrillation Hyperlipidemia Chronic kidney disease (CKD) Suicide Anesthesia complication Congenital heart disease Bleeding disorder Family history of premature coronary artery disease Carotid artery disease Cardiomyopathy Stroke Social History Smoking and tobacco/nicotine status: never used tobacco/nicotine Second hand smoke exposure: Yes (minimal) Alcohol intake: never Substance/Drug Use: never Lives independently: Yes Household members: spouse Housing: House Marital status: service: No Current occupational status: retired Pets and animals: No Do you think of yourself as: Straight/Heterosexual Current gender identity: Female Physical Exam 2 Const: COMMON NORMALS: no acute distress, patient oriented x3 and healthy appearing HENMT: COMMON NORMALS: normocephalic and atraumatic HEAD & SCALP: n ormocephalic and atraumatic Eye: COMMON NORMALS: Equal, round and reactive pupils present and EOMs intact bilaterally PUPIL: Yes Equal, round and reactive pupils present Neck/C-Spine: COMMON NORMALS: full ROM and supple Chest: COMMONS NORMALS: normal inspection of the chest and normal palpation of entire chest wall Resp: COMMON NORMALS: normal respiratory effort, No retractions, No use of accessory muscles and clear to auscultation bilaterally AUSCULTATION: clear to auscultation bilaterally Cardio: COMMON NORMALS: regular rate, regular rhythm and No murmurs present (Cardio) RATE: regular rate RHYTHM: regular rhythm GI: COMMON NORMALS: Normal to inspection, nondistended, normoactive bowel sounds present, Soft to palpation, non-tender and no masses PALPATION: Yes Soft to palpation Extremity: COMMON NORMALS: normal to inspection and full ROM Neuro: COMMON NORMALS: patient oriented x3, moves all extremities and no focal motor deficits Psych: COMMON NORMALS: mental status grossly normal, Normal thought process present and cooperative THOUGHT PROCESS: Normal thought process present Skin: COMMON NORMALS: no rashes or lesions noted and no wounds GENERAL SKIN EXAM: no rashes or lesions noted Course 2 Vital Signs: Vital signs: Vital Signs Temperature 97.4 F L 07/24/23 12:20 Pulse Rate 75 07/24/23 12:20 Respiratory Rate 18 07/24/23 12:20 Pulse Oximetry 98 07/24/23 12:20 Oxygen Delivery Me thod Room Air 07/24/23 12:20 MDM - Nausea/Vomiting/Diarrhea Medical Decision Making Patient presents here with diarrhea she is well-appearing here vital signs lab works all normal she stable for discharge to follow-up with PCP return if worsening she understands agrees plan Medical Records I reviewed the patient's medical records. Lab Data I reviewed the patient's lab results. 07/24/23 13:01 07/24/23 13:01 Radiology Impressions Chest X-Ray 07/24/23 14:31 Impression: Atherosclerosis and hyperinflation. Laboratory Results WBC 6.34 10^3/uL (3.29-11.43) 07/24/23 13:01 RBC 4.42 10^6/uL (3.85-5.65) 07/24/23 13:01 Hgb 13.00 g/dL (11.27-16.99) 07/24/23 13:01 Hct 38.8 % (36-47) 07/24/23 13:01 MCV 87.8 fl (85-98) 07/24/23 13:01 MCH 29.4 pg (27-33) 07/24/23 13:01 MCHC 33.5 g/dL (30-55) 07/24/23 13:01 RDW 12.4 % (12.1-15.1) 07/24/23 13:01 Plt Count 284 10^3/cmm (157-399) 07/24/23 13:01 MPV 10.0 fL (7.4-10.4) 07/24/23 13:01 Neut % (Auto) 69.0 % 07/24/23 13:01 Lymph % (Auto) 17.5 % 07/24/23 13:01 [place] % (Auto) 10.6 % 07/24/23 13:01 Eos % (Auto) 2.2 % 07/24/23 13:01 Baso % (Auto) 0.5 % 07/24/23 13:01 Neut # (Auto) 4.38 10^3/uL (1.8-7.7) 07/24/23 13:01 Lymph # (Auto) 1.1 10^3/uL (0.8-4.8) 07/24/23 13:01 [place] # (Auto) 0.7 10^3/uL (0.2-0.9) 07/24/23 13:01 Eos # (Auto) 0.1 10^3/uL (0.0-0.8) 07/24/23 13:01 Baso # (Auto) 0.0 10^3/uL (0.0-0.1) 07/24/23 13:01 Nucleated RBC % (auto) 0 % 07/24/23 13:01 Nucleated RBCs # 0.0 /100WBC 07/24/23 13:01 Sodium 134 mmol/L (136-145) L 07/24/23 13:01 Potassium 4.1 mmol/L (3.5-5.1) 07/24/23 13:01 Chloride 99 mmol/L (98-107) 07/24/23 13:01 Carbon Dioxide 26 mmol/L (22-29) 07/24/23 13:01 Anion Gap 13.1 (5-19) 07/24/23 13:01 BUN 9 mg/dL (8-23) 07/24/23 13:01 Creatinine 0.6 mg/dL (0.5-0.9) 07/24/23 13:01 GFR Calculation Not Reportable 07/24/23 13:01 Glucose 86 mg/dL (65-115) 07/24/23 13:01 Calculated Osmolality 276 mOsm/kg (285-295) L 07/24/23 13:01 Calcium 8.6 mg/dL (8.5-10.5) 07/24/23 13:01 Total Bilirubin 0.2 mg/dL (0.15-1.2) 07/24/23 13:01 AST 24 U/L (0-32) 07/24/23 13:01 ALT 20 U/L (0-33) 07/24/23 13:01 Alkaline Phosphatase 52 U/L (35-105) 07/24/23 13:01 Total Protein 6.7 g/dL (6.6-8.7) 07/24/23 13:01 Albumin 3.8 g/dL (3.5-5.2) 07/24/23 13:01 Globulin 2.9 g/dL (1.3-4.6) 07/24/23 13:01 Lipase 41 U/L (13-60) 07/24/23 13:01 All radiology interpretation(s) finalized by discharge Discharge Plan Discharge Patient Disposition: Home Clinical Impression: Diarrhea Condition: Stable Prescriptions: No Action estradiol 1 mg tablet See Rx Instructions .ROUTE .COMPLEX Rx Instructions: 1mg po every other day & 0.5mg po on other days levothyroxine 50 mcg capsule See Rx Instructions .ROUTE .COMPLEX Rx Instructions: TAKE 1 TAB EVERY OTHER DAY, AND 1/2 TAB ON THE OPPOSITE DAYS. magnesium 250 mg tablet 250 mg PO DAILY fluticasone propion-salmeterol [Advair Diskus] 500-50 mcg/dose blister with device 1 inh inhalation BID PRN (Reason: wheezing) Qty: 60 3RF albuterol sulfate 90 mcg/actuation HFA aerosol inhaler 2 puff inhalation Q6H PRN (Reason: shortness of breath or wheezing) Qty: 8.5 3RF fexofenadine 60 mg tablet 60 mg PO BID PRN (Reason: allergies) fluticasone propionate [Flonase Allergy Relief] 50 mcg/actuation spray,suspension 1 spray intranasal Q12H PRN (Reason: nasal congestion) Qty: 16 3RF Rx Instructions: administer into each nostril montelukast [Singulair] 10 mg tablet 10 mg PO DAILY Qty: 90 6RF simvastatin 5 mg tablet 5 mg PO DAILY@2200 cholecalciferol (vitamin D3) [Vitamin D3] 25 mcg (1,000 unit) Tablet 25 mcg PO DAILY@0730 potassium gluconate 595 mg (99 mg) Tablet 595 mg PO DAILY@0730 Calcium Magnesium 500 mg calcium -250 mg Tablet 1 tab PO DAILY@0730 Glucosamine Chondroitin 550-30-1 mg Capsule 1 cap PO DAILY@0730 Turmeric Curcumin 1 mg PO DAILY@0730 vitamin B complex-folic acid [Complex B-100] 400 mcg Tablet Extended Release 0 tab PO DAILY copper 3 mg Tablet 3 mg PO DAILY Discharge Orders: Discharge ED (Routine); Ordered 07/24/23 Ordered By: Carrington Mackay Referrals: Ash Cali MD [Primary Care Provider] - 4-7 days Discharge Diet: Advance as tolerated Discharge Activity: Resume usual activity Patient Instructions: Diarrhea - Adult Coding Level of Care Code ED Client Application Support Engineer for Raisa Sutton
[2023-07-24 14:52] VITALS: BP 149/75; PULSE 69; O2SAT 96
[2023-07-24] MEDS: diphenoxylate/atropine Tablet 1 TAB PO (14:58)
[2023-07-24] MEDS: sodium chloride 0.9% 500 ML 999 ML IV (15:05)
[2023-07-24 15:22] VITALS: PULSE 77; O2SAT 97
[2023-07-24 15:49] LABS: Influenza A by IFA negative (Negative); Influenza B by IFA negative (Negative)
== END 2023-07-24 17:44 | disposition home or self-care (01) ==
PROVIDERS: Emergency Provider Emergency Medicine; PCP Family Medicine
DX: R19.7 Diarrhea, unspecified (principal); Z77.22 Contact with and (suspected) exposure to environmental tobacco smoke (acute) (chronic); J44.9 Chronic obstructive pulmonary disease, unspecified
CPT/HCPCS: 36415; 71045; 80053; 83690; 85025; 87804; 99284; J7040

== ENCOUNTER 2023-07-26 08:30 | Emergency (ER) | payer MEDICARE, OTHER, SELFPAY ==
[2023-07-26] VITALS (8 sets, daily range): BP systolic 119–160; BP diastolic 64–92; PULSE 71–80; RESP 17–68; TEMP 36.6; O2SAT 95–97; BMI 17.6
--- NOTE | 2023-07-26 08:39 | ED_ITS ---
HPI - Nausea/Vomiting/Diarrhea 2 General: Chief complaint: Nausea/Vomiting/Diarrhea Stated complaint: diarrhea, nausea Time Seen by Provider: 07/26/23 08:35 Source: patient Mode of arrival: ambulatory Limitations: no limitations History of Present Illness: 78-year-old female states she has had in termittent diarrhea for the last month. States she is also had nausea and some abdominal cramping. She denies any abdominal pain currently she was seen here 2 days ago her blood work is all normal she was not able to provide a stool sample been. She states she brought a stool sample here today. She denies any fevers denies any worsening from factors. Associated nausea: Yes Associated symtoms: Reports nausea; Denies chest pain, dysuria or headache(s) Review of Systems 2 Const: Denies: fever(s), chills, body aches or change in appetite ENMT: Denies: throat pain or dental pain Card: Denies: chest pain Resp: Denies: dyspnea GI: Reports: abdominal pain, nausea and diarrhea; Denies: vomiting : Denies: dysuria Musc: Denies: neck pain or back pain Skin/Breast: Denies: rash Neuro: Denies: headache(s) PFSH ED 2 PFSH: Medical History (Updated 07/26/23 @ 10:15 by Carrington Mackay MD) Erosive osteoarthritis of both hands Hypothyroidism -has known hx of hypothyroidism -continue Levothyroxine Irritable bowel syndrome Thyroid disease COPD (chronic obstructive pulmonary disease) -has known hx of COPD, not oxygen dependent at baseline -no evidence of COPD exacerbation at this time -received IV steroids in ED, wheezing improved with oral steroids -not requiring oxygen currently, continue to monitor respiratory status -Neb treatments as needed Surgical History H/O thumb surgery bone spur H/O: hysterectomy History of carpal tunnel surgery R Family History Mother Dementia Father Congestive heart failure (CHF) Heart disease Other CAD (coronary artery disease) Cancer Diabetes Hypertension Lung disease Psychiatric illness Denies family history of Anemia Aneurysm Arrhythmia Clotting disorder Atrial fibrillation Hyperlipidemia Chronic kidney disease (CKD) Suicide Anesthesia complication Congenital heart disease Bleeding disorder Family history of premature coronary artery disease Carotid artery disease Cardiomyopathy Stroke Social History Smoking and tobacco/nicotine status: never used tobacco/nicotine Second hand smoke exposure: Yes (minimal) Alcohol intake: never Substance/Drug Use: never Lives independently: Yes Household members: spouse Housing: House Marital status: service: No Current occupational status: retired Pets and animals: No Do you think of yourself as: Straight/Heterosexual Current gender identity: Female Physical Exam 2 Const: COMMON NORMALS: no acute distress, patient oriented x3 and healthy appearing HENMT: COMMON NORMALS: normocephalic and atraumatic HEAD & SCALP: n ormocephalic and atraumatic Eye: COMMON NORMALS: conjunctivae normal CONJUNCTIVA: Yes conjunctivae normal Neck/C-Spine: COMMON NORMALS: full ROM and supple Chest: COMMONS NORMALS: normal inspection of the chest Resp: COMMON NORMALS: normal respiratory effort, No retractions, No use of accessory muscles and clear to auscultation bilaterally AUSCULTATION: clear to auscultation bilaterally Cardio: COMMON NORMALS: regular rate, regular rhythm and No murmurs present (Cardio) RATE: regular rate RHYTHM: regular rhythm GI: COMMON NORMALS: Normal to inspection, nondistended, normoactive bowel sounds present, Soft to palpation, non-tender and no masses PALPATION: Yes Soft to palpation Extremity: COMMON NORMALS: normal to inspection and full ROM Neuro: COMMON NORMALS: patient oriented x3, moves all extremities and no focal motor deficits Psych: COMMON NORMALS: mental status grossly normal, Normal thought process present and cooperative THOUGHT PROCESS: Normal thought process present Skin: COMMON NORMALS: no rashes or lesions noted and no wounds GENERAL SKIN EXAM: no rashes or lesions noted Course 2 Vital Signs: Vital signs: Vital Signs Temperature 97.9 F 07/26/23 08:37 Pulse Rate 71 07/26/23 08:37 Respiratory Rate 68 H 07/26/23 08:37 Blood Pressure 119/64 07/26/23 09:45 Pulse Oximetry 96 07/26/23 09:45 Oxygen Delivery Me thod Room Air 07/26/23 08:37 MDM - Nausea/Vomiting/Diarrhea Medical Decision Making Patient presents here with diarrhea white count electrolytes are normal C. difficile is negative stool culture is pending she is stable for discharge she is follow-up with PCP return if worsening she understands agrees to plan Medical Records I reviewed the patient's medical records. Lab Data I reviewed the patient's lab results. 07/26/23 08:45 07/26/23 08:45 Laboratory Results WBC 6.01 10^3/uL (3.29-11.43) 07/26/23 08:45 RBC 4.80 10^6/uL (3.85-5.65) 07/26/23 08:45 Hgb 14.00 g/dL (11.27-16.99) 07/26/23 08:45 Hct 42.7 % (36-47) 07/26/23 08:45 MCV 89.0 fl (85-98) 07/26/23 08:45 MCH 29.2 pg (27-33) 07/26/23 08:45 MCHC 32.8 g/dL (30-55) 07/26/23 08:45 RDW 12.5 % (12.1-15.1) 07/26/23 08:45 Plt Count 276 10^3/cmm (157-399) 07/26/23 08:45 MPV 9.8 fL (7.4-10.4) 07/26/23 08:45 Neut % (Auto) 65.1 % 07/26/23 08:45 Lymph % (Auto) 23.6 % 07/26/23 08:45 [place] % (Auto) 8.2 % 07/26/23 08:45 Eos % (Auto) 2.2 % 07/26/23 08:45 Baso % (Auto) 0.7 % 07/26/23 08:45 Neut # (Auto) 3.92 10^3/uL (1.8-7.7) 07/26/23 08:45 Lymph # (Auto) 1.4 10^3/uL (0.8-4.8) 07/26/23 08:45 [place] # (Auto) 0.5 10^3/uL (0.2-0.9) 07/26/23 08:45 Eos # (Auto) 0.1 10^3/uL (0.0-0.8) 07/26/23 08:45 Baso # (Auto) 0.0 10^3/uL (0.0-0.1) 07/26/23 08:45 Nucleated RBC % (auto) 0 % 07/26/23 08:45 Nucleated RBCs # 0.0 /100WBC 07/26/23 08:45 Sodium 133 mmol/L (136-145) L 07/26/23 08:45 Potassium 4.0 mmol/L (3.5-5.1) 07/26/23 08:45 Chloride 99 mmol/L (98-107) 07/26/23 08:45 Carbon Dioxide 25 mmol/L (22-29) 07/26/23 08:45 Anion Gap 13.0 (5-19) 07/26/23 08:45 BUN 7 mg/dL (8-23) L 07/26/23 08:45 Creatinine 0.5 mg/dL (0.5-0.9) 07/26/23 08:45 GFR Calculation Not Reportable 07/26/23 08:45 Glucose 84 mg/dL (65-115) 07/26/23 08:45 Calculated Osmolality 273 mOsm/kg (285-295) L 07/26/23 08:45 Calcium 8.9 mg/dL (8.5-10.5) 07/26/23 08:45 Total Bilirubin 0.3 mg/dL (0.15-1.2) 07/26/23 08:45 AST 23 U/L (0-32) 07/26/23 08:45 ALT 23 U/L (0-33) 07/26/23 08:45 Alkaline Phosphatase 53 U/L (35-105) 07/26/23 08:45 Total Protein 7.0 g/dL (6.6-8.7) 07/26/23 08:45 Albumin 3.9 g/dL (3.5-5.2) 07/26/23 08:45 Globulin 3.1 g/dL (1.3-4.6) 07/26/23 08:45 Lipase 35 U/L (13-60) 07/26/23 08:45 TSH 3.19 uIU/mL (0.27-4.20) 07/26/23 08:45 C. difficile (PCR) Negative (Negative) 07/26/23 08:57 No radiology studies performed this visit Discharge Plan Discharge Patient Disposition: Home Clinical Impression: Diarrhea Condition: Stable Prescriptions: No Action estradiol 1 mg tablet See Rx Instructions .ROUTE .COMPLEX Rx Instructions: 1mg po every other day & 0.5mg po on other days levothyroxine 50 mcg capsule See Rx Instructions .ROUTE .COMPLEX Rx Instructions: TAKE 1 TAB EVERY OTHER DAY, AND 1/2 TAB ON THE OPPOSITE DAYS. magnesium 250 mg tablet 250 mg PO DAILY fluticasone propion-salmeterol [Advair Diskus] 500-50 mcg/dose blister with device 1 inh inhalation BID PRN (Reason: wheezing) Qty: 60 3RF albuterol sulfate 90 mcg/actuation HFA aerosol inhaler 2 puff inhalation Q6H PRN (Reason: shortness of breath or wheezing) Qty: 8.5 3RF fluticasone propionate [Flonase Allergy Relief] 50 mcg/actuation spray,suspension 1 spray intranasal Q12H PRN (Reason: nasal congestion) Qty: 16 3RF Rx Instructions: administer into each nostril montelukast [Singulair] 10 mg tablet 10 mg PO DAILY Qty: 90 6RF simvastatin 5 mg tablet 5 mg PO DAILY@2200 cholecalciferol (vitamin D3) [Vitamin D3] 25 mcg (1,000 unit) Tablet 25 mcg PO DAILY@0730 potassium gluconate 595 mg (99 mg) Tablet 595 mg PO DAILY@0730 Calcium Magnesium 500 mg calcium -250 mg Tablet 1 tab PO DAILY@0730 Glucosamine Chondroitin 550-30-1 mg Capsule 1 cap PO DAILY@0730 Turmeric Curcumin 1 mg PO DAILY@0730 vitamin B complex-folic acid [Complex B-100] 400 mcg Tablet Extended Release 0 tab PO DAILY copper 3 mg Tablet 3 mg PO DAILY Discharge Orders: Discharge ED (Routine); Ordered 07/26/23 Ordered By: Carrington Mackay Referrals: Ash Cali MD [Primary Care Provider] - Discharge Diet: Advance as tolerated Discharge Activity: Resume usual activity Patient Instructions: Diarrhea - Adult Coding Level of Care Code ED Electronic Heat Seal Operator for Raisa Sutton
[2023-07-26 08:50] LABS: Basophils % 0.7 %; Eosinophils # 0.1 10^3/uL (0.0-0.8); Eosinophils % 2.2 %; Hematocrit 42.7 % (36-47); Lymphocytes # 1.4 10^3/uL (0.8-4.8); Lymphocytes % 23.6 %; Mean Corpuscular HGB Conc 32.8 g/dL (30-55); Mean Corpuscular Hemoglobin 29.2 pg (27-33); Mean Platelet Volume 9.8 fL (7.4-10.4); Monocytes # 0.5 10^3/uL (0.2-0.9); Monocytes % 8.2 %; Neutrophils # 3.92 10^3/uL (1.8-7.7); Neutrophils % 65.1 %; Nucleated Red Blood Cells % 0 %; Platelet Count 276 10^3/cmm (157-399); Red Cell Distribution Width 12.5 % (12.1-15.1); White Blood Count 6.01 10^3/uL (3.29-11.43)
[2023-07-26] MEDS: sodium chloride 0.9% 1,000 ML 999 ML IV (08:50)
[2023-07-26] MEDS: ondansetron 2 mg/ML SDV 2 mL 4 MG IVP (08:51)
[2023-07-26 09:16] LABS: Alanine Aminotransferase 23 U/L (0-33); Albumin Level 3.9 g/dL (3.5-5.2); Alkaline Phosphatase 53 U/L (35-105); Aspartate Amino Transferase 23 U/L (0-32); Blood Urea Nitrogen 7 mg/dL (8-23); Calcium 8.9 mg/dL (8.5-10.5); Carbon Dioxide 25 mmol/L (22-29); Chloride 99 mmol/L (98-107); Creatinine Clr Calc Pharmacy 46.3661; Globulin 3.1 g/dL (1.3-4.6); Glucose 84 mg/dL (65-115); Lipase 35 U/L (13-60); Osmolality Calculated 273 mOsm/kg (285-295); Sodium 133 mmol/L (136-145); Thyroid Stimulating Hormone 3.19 uIU/mL (0.27-4.20); Total Bilirubin 0.3 mg/dL (0.15-1.2)
[2023-07-26 10:14] LABS: C.Diff PCR (Lab) NEGATIVE (Negative)
== END 2023-07-26 10:47 | disposition home or self-care (01) ==
PROVIDERS: Emergency Provider Emergency Medicine; PCP Family Medicine
DX: R19.7 Diarrhea, unspecified (principal); Z77.22 Contact with and (suspected) exposure to environmental tobacco smoke (acute) (chronic); J44.9 Chronic obstructive pulmonary disease, unspecified
CPT/HCPCS: 36415; 80053; 82274; 83630; 83690; 84443; 85025; 87045; 87177; 87209; 87427; 87449; 87493; 96374; 99284; J2405; J7030

== ENCOUNTER → 2023-12-21 09:10 | Outpatient (BNVA) | payer MEDICARE, OTHER, SELFPAY | PROVIDERS: PCP Family Medicine; Visit Provider Nurse Practitioner Family | DX: I34.0 Nonrheumatic mitral (valve) insufficiency (principal) | CPT/HCPCS: 99213 ==

== ENCOUNTER 2024-02-21 09:31 | Emergency (ER) | payer MEDICARE, OTHER, SELFPAY ==
--- NOTE | 2024-02-21 09:35 | XRR_ITS ---
PROCEDURE INFORMATION: Exam: XR Chest Exam date and time: 02/21/2024 9:45 AM Age: 79 years old Clinical indication: Cough and dyspnea; Additional info: Dyspnea/cough TECHNIQUE: Imaging protocol: Radiologic exam of the chest. Views: 1 view. COMPARISON: CR XR chest 1V portable [id number] 07/24/2023 2:45 PM FINDINGS: Lungs: Bilateral apical fibrotic changes. There are left lower lung zone infiltrates Pleural spaces: Unremarkable. No pleural effusion. No pneumothorax. Heart/Mediastinum: Unremarkable. No cardiomegaly. Bones/joints: Unremarkable. XR/XR chest 1V portable [id number] IMPRESSION: Left lower lung zone pneumonia.
--- NOTE | 2024-02-21 09:38 | ECG_ITS ---
[facility] Test Date: 2024-02-21 Pat Name: Bernadette Brown Department: Room: Gender: Female Rn Office: : 1945 Requested By: Kwasi Cartagena Order Number: [id number] Reading MD: EVERETT CHAVEZ Measurements Intervals [place] Rate: 110 P: 52 [place]: 135 QRS: 39 QRSD: 97 T: 57 QT: 326 QTc: 441 Interpretive Statements SINUS TACHYCARDIA LEFT ATRIAL ENLARGEMENT [-0.15mV P-WAVE IN V1/V2] MODERATE ST DEPRESSION [0.05+ mV ST DEPRESSION] Compared to ECG 06/09/2023 14:08:48 ST (T wave) deviation now present Sinus rhythm no longer present Incomplete right bundle-branch block no longer present T-wave abnormality no longer present Electronically Signed On 02-22-2024 16:10:26 ASSISTANT CHIEF ENGINEER by EVERETT CHAVEZ [email or web address]
[2024-02-21 09:45] VITALS: BP 137/81; PULSE 109; RESP 16; TEMP 36.8; O2SAT 95; BMI 18.8
--- NOTE | 2024-02-21 10:35 | ED_ITS ---
HPI - SOB/Dyspnea 2 General: Chief Complaint: Shortness of Breath/Dyspnea Stated Complaint: SOB Time Seen by Provider: 02/21/24 09:33 History of Present Illness: HPI Narrative: 79-year-old female presents emergency ro om planing of shortness of breath congestion. She is on prednisone and albuterol inhaler she had seen earlier this week I advised it was likely a viral and started the prednisone and inhaler. She has had a increasingly productive cough as well as some sore throat. Chest discomfort with cough. Subjective low-grade fever. Associated symptoms: Reports chest congestion; Deny abdominal pain, chest pain or fever(s) Related Data Home Medications Medication Instructions Recorded Confirmed estradiol 1 mg tablet See Rx Instructions .Route .COMPLEX 03/31/19 02/21/24 levothyroxine 50 mcg capsule See Rx Instructions .Route .COMPLEX 03/31/19 02/21/24 Turmeric Curcumin 1 mg PO DAILY@72905/04/20 02/21/24 calcium 500 mg 1 tab PO DAILY@72905/04/20 02/21/24 (carb,gluconate)-magnesium 250 mg (gluc,oxide) tablet (Calcium Magnesium) cholecalciferol (vitamin D3) 25 25 mcg PO DAILY@72905/04/20 02/21/24 mcg (1,000 unit) tablet (Vitamin D3) glucosamine sulf dipot 1 cap PO DAILY@72905/04/20 02/21/24 chlr,msm,chond 550 mg-C 30 mg-vargas 1 mg capsule (Glucosamine Chondroitin) potassium gluconate 595 mg (99 mg) 595 mg PO DAILY@72905/04/20 02/21/24 tablet simvastatin 5 mg tablet 5 mg PO DAILY@22005/04/20 02/21/24 vitamin B complex-folic acid ER 0 tab PO DAILY 05/01/22 02/21/24 400 mcg tablet,extended release (Complex B-100) azelastine 137 mcg (0.1 %) nasal 1 spray intranasal DAILY 02/21/24 02/21/24 spray carbidopa 10 mg-levodopa 100 mg 1 tab PO DAILY 02/21/24 02/21/24 tablet fexofenadine 180 mg tablet 180 mg PO DAILY 02/21/24 02/21/24 (Jahaira Allergy) prednisone 20 mg tablet 20 mg PO DAILY 02/21/24 02/21/24 Previous Rx's Medication Instructions Recorded fluticasone propionate 50 1 spray intranasal Q12H PRN nasal 11/24/22 mcg/actuation nasal congestion #16 mL spray,suspension (Flonase Allergy Relief) albuterol sulfate 90 mcg/actuation 2 puff inhalation Q6H PRN 04/16/23 aerosol inhaler shortness of breath or wheezing #8.5 grams fluticasone 500 mcg-salmeterol 50 1 inh inhalation BID PRN wheezing 04/16/23 mcg/dose blistr powdr for #60 ea inhalation (Advair Diskus) montelukast 10 mg tablet 10 mg PO DAILY #90 tabs 06/02/23 (Singulair) azithromycin 500 mg tablet See Rx Instructions PO .COMPLEX #3 02/21/24 tabs cefdinir 300 mg capsule 300 mg PO BID #14 caps 02/21/24 Allergies Allergy/AdvReac Type Severity Reaction Status Date / Time ciprofloxacin [Cipro] Allergy Mild pt doesnt Verified 12/21/23 09:15 want to take levofloxacin [From Levaquin] Allergy Mild unsure Verified 12/21/23 09:15 budesonide [From Symbicort] Allergy Hoarseness Verified 12/21/23 09:15 of voice formoterol [From Symbicort] Allergy Hoarseness Verified 12/21/23 09:15 of voice hydrocodone Allergy ADR-Halluci Verified 12/21/23 09:15 nating Review of Systems 2 Const: Denies: fever(s) or chills Card: Denies: chest pain Resp: Reports: dyspnea, productive cough, wheezing and chest congestion GI: Denies: abdominal pain : Denies: dysuria, urinary frequency or urinary urgency Musc: Denies: neck pain or back pain Skin/Breast: Denies: rash PFSH ED 2 PFSH: Medical History Erosive osteoarthritis of both hands Hypothyroidism -has known hx of hypothyroidism -continue Levothyroxine Irritable bowel syndrome Thyroid disease COPD (chronic obstructive pulmonary disease) -has known hx of COPD, not oxygen dependent at baseline -no evidence of COPD exacerbation at this time -received IV steroids in ED, wheezing improved with oral steroids -not requiring oxygen currently, continue to monitor respiratory status -Neb treatments as needed Surgical History H/O thumb surgery bone spur H/O: hysterectomy History of carpal tunnel surgery R Family History Mother Dementia Father Congestive heart failure (CHF) Heart disease Other CAD (coronary artery disease) Cancer Diabetes Hypertension Lung disease Psychiatric illness Denies family history of Anemia Aneurysm Arrhythmia Clotting disorder Atrial fibrillation Hyperlipidemia Chronic kidney disease (CKD) Suicide Anesthesia complication Congenital heart disease Bleeding disorder Family history of premature coronary artery disease Carotid artery disease Cardiomyopathy Stroke Social History Smoking and tobacco/nicotine status: never used tobacco/nicotine Second hand smoke exposure: Yes (minimal) Alcohol intake: never Substance/Drug Use: never Lives independently: Yes Household members: spouse Housing: House Marital status: service: No Current occupational status: retired Pets and animals: No Do you think of yourself as: Straight/Heterosexual Current gender identity: Female Physical Exam 2 Const: GENERAL APPEARANCE: cooperative ORIENTATION/CONSCIOUSNESS: Yes awake, Yes oriented to person, Yes oriented to place and Yes oriented to time HENMT: COMMON NORMALS: normocephalic, atraumatic and hearing grossly normal bilaterally HEAD & SCALP: normocephalic and atraumatic Resp: COMMON NORMALS: normal respiratory effort, No retractions and No use of accessory muscles AUSCULTATION: rhonchi left lower Cardio: COMMON NORMALS: regular rate, regular rhythm and No murmurs present (Cardio) RATE: regular rate RHYTHM: regular rhythm GI: COMMON NORMALS: Soft to palpation and No hepatosplenomegaly present A USCULTATION: Yes normoactive bowel sounds PALPATION: Yes Soft to palpation, No Tenderness to palpation present (GI), No Guarding due to palpation present (GI) and Yes No hepatosplenomegaly present Extremity: COMMON NORMALS: normal to inspection, capillary refill normal, no clubbing, cyanosis or edema, no calf tenderness and no pedal edema Neuro: SENSORIUM/ORIENTATION: Yes oriented to person, Yes oriented to place and Yes oriented to time Skin: COMMON NORMALS: no rashes or lesions noted GENERAL SKIN EXAM: no rashes or lesions noted Course 2 Vital Signs: Vital signs: Vital Signs Temperature 98.2 F 02/21/24 09:45 Pulse Rate 94 02/21/24 13:40 Respiratory Rate 16 02/21/24 09:45 Blood Pressure 123/59 02/21/24 13:40 Pulse Oximetry 92 02/21/24 13:40 MDM - SOB/Dyspnea Medical Decision Making Left lower lobe pneumonia. Will start on cefdinir and Zithromax. Flu and COVID-negative labs and imaging reviewed. White count is slightly elevated believe that is from the prednisone that she has been on. At rest her oxygen sats are 92 to 94% pretty consistently. Discussed observation of the patient's since she is occasionally dipping into 90 but she would prefer to go home return if she has further problems. Medical Records I reviewed the patient's medical records. Lab Data I reviewed the patient's lab results. 02/21/24 12:31 02/21/24 12:31 Labs/Radiology: Radiology Impressions Chest X-Ray 02/21/24 09:35 IMPRESSION: Left lower lung zone pneumonia. Laboratory Results WBC 13.71 10^3/uL (3.29-11.43) H 02/21/24 12:31 RBC 4.12 10^6/uL (3.85-5.65) 02/21/24 12:31 Hgb 12.10 g/dL (11.27-16.99) 02/21/24 12:31 Hct 36.7 % (36-47) 02/21/24 12:31 MCV 89.1 fl (85-98) 02/21/24 12:31 MCH 29.4 pg (27-33) 02/21/24 12:31 MCHC 33.0 g/dL (30-55) 02/21/24 12:31 RDW 12.9 % (12.1-15.1) 02/21/24 12:31 Plt Count 230 10^3/cmm (157-399) 02/21/24 12:31 MPV 10.5 fL (7.4-10.4) H 02/21/24 12:31 Neut % (Auto) 94.3 % 02/21/24 12:31 Lymph % (Auto) 3.0 % 02/21/24 12:31 [place] % (Auto) 2.1 % 02/21/24 12:31 Eos % (Auto) 0.0 % 02/21/24 12:31 Baso % (Auto) 0.3 % 02/21/24 12:31 Neut # (Auto) 12.93 10^3/uL (1.8-7.7) H 02/21/24 12:31 Lymph # (Auto) 0.4 10^3/uL (0.8-4.8) L 02/21/24 12:31 [place] # (Auto) 0.3 10^3/uL (0.2-0.9) 02/21/24 12:31 Eos # (Auto) 0.0 10^3/uL (0.0-0.8) 02/21/24 12:31 Baso # (Auto) 0.0 10^3/uL (0.0-0.1) 02/21/24 12:31 Nucleated RBC % (auto) 0 % 02/21/24 12:31 Nucleated RBCs # 0.0 /100WBC 02/21/24 12:31 Sodium 131 mmol/L (136-145) L 02/21/24 12:31 Potassium 4.4 mmol/L (3.5-5.1) 02/21/24 12:31 Chloride 98 mmol/L (98-107) 02/21/24 12:31 Carbon Dioxide 23 mmol/L (22-29) 02/21/24 12:31 Anion Gap 14.4 (5-19) 02/21/24 12:31 BUN 9 mg/dL (8-23) 02/21/24 12:31 Creatinine 0.5 mg/dL (0.5-0.9) 02/21/24 12:31 GFR Calculation Not Reportable 02/21/24 12:31 Glucose 142 mg/dL (65-115) H 02/21/24 12:31 Calculated Osmolality 273 mOsm/kg (285-295) L 02/21/24 12:31 Calcium 8.9 mg/dL (8.5-10.5) 02/21/24 12:31 Total Bilirubin 0.4 mg/dL (0.15-1.2) 02/21/24 12:31 AST 17 U/L (0-32) 02/21/24 12:31 ALT 18 U/L (0-33) 02/21/24 12:31 Alkaline Phosphatase 64 U/L (35-105) 02/21/24 12:31 Total Protein 6.6 g/dL (6.6-8.7) 02/21/24 12:31 Albumin 3.8 g/dL (3.5-5.2) 02/21/24 12:31 Globulin 2.8 g/dL (1.3-4.6) 02/21/24 12:31 Urine Color Yellow (Yellow) 02/21/24 10:42 Urine Appearance Clear (CLEAR) 02/21/24 10:42 Urine pH 6.0 (5-7) 02/21/24 10:42 Ur Specific [place] 1.012 (1.005-1.030) 02/21/24 10:42 Urine Protein Negative (Negative) 02/21/24 10:42 Urine Glucose (UA) Negative (Normal) 02/21/24 10:42 Urine Ketones Negative (Negative) 02/21/24 10:42 Urine Blood Negative (Negative) 02/21/24 10:42 Urine Nitrate Negative (Negative) 02/21/24 10:42 Urine Bilirubin Negative (Negative) 02/21/24 10:42 Urine Urobilinogen 0.2 mg/dL (Negative) 02/21/24 10:42 Ur Leukocyte Esterase Negative (Negative) 02/21/24 10:42 Urine RBC 0-4 /hpf (0-2) H 02/21/24 10:42 Urine WBC 0-4 /hpf (0-5) H 02/21/24 10:42 Ur Squamous Epith Cells 0-4 /hpf (0-5) H 02/21/24 10:42 Amorphous Sediment Not Reportable 02/21/24 10:42 Urine Bacteria Trace /hpf (NONE) 02/21/24 10:42 Coronavirus (PCR) Negative (Negative) 02/21/24 10:50 Influenza A (PCR) Negative (Negative) 02/21/24 10:50 Influenza Type B (PCR) Negative (Negative) 02/21/24 10:50 RSV (PCR) Negative (Negative) 02/21/24 10:50 All radiology interpretation(s) finalized by discharge Discharge Plan Discharge Patient Disposition: Home Clinical Impression: Pneumonia Qualifiers: Pneumonia type: due to unspecified organism Laterality: left Lung location: l ower lobe of lung Qualified Code(s): J18.9 - Pneumonia, unspecified organism Condition: Stable Prescriptions: New cefdinir 300 mg capsule 300 mg PO BID Qty: 14 0RF azithromycin 500 mg tablet See Rx Instructions .ROUTE .COMPLEX Qty: 3 0RF Rx Instructions: For 250 mg dose pack: take 500 mg today (day 1), then 250 mg for 4 days (days 2-5) No Action estradiol 1 mg tablet See Rx Instructions .ROUTE .COMPLEX Rx Instructions: 1mg po every other day & 0.5mg po on other days levothyroxine 50 mcg capsule See Rx Instructions .ROUTE .COMPLEX Rx Instructions: TAKE 1 TAB EVERY OTHER DAY, AND 1/2 TAB ON THE OPPOSITE DAYS. fluticasone propion-salmeterol [Advair Diskus] 500-50 mcg/dose blister with device 1 inh inhalation BID PRN (Reason: wheezing) Qty: 60 3RF albuterol sulfate 90 mcg/actuation HFA aerosol inhaler 2 puff inhalation Q6H PRN (Reason: shortness of breath or wheezing) Qty: 8.5 3RF fluticasone propionate [Flonase Allergy Relief] 50 mcg/actuation spray,suspension 1 spray intranasal Q12H PRN (Reason: nasal congestion) Qty: 16 3RF Rx Instructions: administer into each nostril montelukast [Singulair] 10 mg tablet 10 mg PO DAILY Qty: 90 6RF simvastatin 5 mg tablet 5 mg PO DAILY@2200 cholecalciferol (vitamin D3) [Vitamin D3] 25 mcg (1,000 unit) Tablet 25 mcg PO DAILY@0730 potassium gluconate 595 mg (99 mg) Tablet 595 mg PO DAILY@0730 Calcium Magnesium 500 mg calcium -250 mg Tablet 1 tab PO DAILY@0730 Glucosamine Chondroitin 550-30-1 mg Capsule 1 cap PO DAILY@0730 Turmeric Curcumin 1 mg PO DAILY@0730 vitamin B complex-folic acid [Complex B-100] 400 mcg Tablet Extended Release 0 tab PO DAILY prednisone 20 mg tablet 20 mg PO DAILY fexofenadine [Jahaira Allergy] 180 mg Tablet 180 mg PO DAILY carbidopa-levodopa 10-100 mg tablet 1 tab PO DAILY azelastine 137 mcg (0.1 %) spray,non-aerosol 1 spray INTRANASAL DAILY Discharge Orders: Discharge ED (Routine); Ordered 02/21/24 Ordered By: Kwasi Cain Referrals: Ash Cali MD [Primary Care Provider] - Discharge Diet: Usual diet Discharge Activity: Increase activity as tolerated Patient Instructions: Pneumonia (ED), Opioid Safety, Pain Management Activity Restrictions/Additional Instructions: Thank you for choosing [facility] for your healthcare needs today. It is very important that you follow up as instructed or that you return to the Emergency Department should you have concerns or if your condition changes or worsens in any way. Coding Level of Care Code ED Clinical Exercise Specialist for Raisa Sutton
[2024-02-21 10:52] LABS: Bilirubin Urine Negative (Negative); Blood Urine Negative (Negative); Glucose Urine UA Negative (Normal); Ketones Urine Negative (Negative); Leukocyte Esterase Urine Negative (Negative); Nitrate Urine Negative (Negative); Protein Urine Negative (Negative); Specific Gravity, Urine 1.012 (1.005-1.030); Urine Appearance Clear (CLEAR); Urine Color Yellow (Yellow); Urobilinogen Urine 0.2 mg/dL (Negative)
[2024-02-21 10:54] VITALS: PULSE 100; O2SAT 90
[2024-02-21 11:00] LABS: Add Urine Microscopic? YES; Bacteria Urine TRACE /hpf; RBC Urine 0-4 /hpf (0-2); Squamous Epithelial Cell Urine 0-4 /hpf (0-5); UA Manual Slide Review YES; WBC Urine 0-4 /hpf (0-5)
[2024-02-21 11:47] LABS: Covid PCR NEGATIVE (Negative); Influenza A NEGATIVE (Negative); Influenza B NEGATIVE (Negative); Respiratory Syncytial Virus Ce NEGATIVE (Negative)
[2024-02-21 11:54] VITALS: PULSE 99; O2SAT 90
[2024-02-21 12:36] LABS: Basophils % 0.3 %; Hematocrit 36.7 % (36-47); Lymphocytes # 0.4 10^3/uL (0.8-4.8); Mean Corpuscular Hemoglobin 29.4 pg (27-33); Mean Corpuscular Volume 89.1 fl (85-98); Mean Platelet Volume 10.5 fL (7.4-10.4); Monocytes # 0.3 10^3/uL (0.2-0.9); Monocytes % 2.1 %; Neutrophils # 12.93 10^3/uL (1.8-7.7); Neutrophils % 94.3 %; Nucleated Red Blood Cells % 0 %; Platelet Count 230 10^3/cmm (157-399); Red Blood Count 4.12 10^6/uL (3.85-5.65); Red Cell Distribution Width 12.9 % (12.1-15.1); White Blood Count 13.71 10^3/uL (3.29-11.43)
[2024-02-21 12:52] LABS: Alanine Aminotransferase 18 U/L (0-33); Albumin Level 3.8 g/dL (3.5-5.2); Alkaline Phosphatase 64 U/L (35-105); Anion Gap 14.4 (5-19); Aspartate Amino Transferase 17 U/L (0-32); Blood Urea Nitrogen 9 mg/dL (8-23); Calcium 8.9 mg/dL (8.5-10.5); Carbon Dioxide 23 mmol/L (22-29); Chloride 98 mmol/L (98-107); Creatinine Clr Calc Pharmacy 46.7305; Globulin 2.8 g/dL (1.3-4.6); Glucose 142 mg/dL (65-115); Osmolality Calculated 273 mOsm/kg (285-295); Potassium 4.4 mmol/L (3.5-5.1); Sodium 131 mmol/L (136-145); Total Bilirubin 0.4 mg/dL (0.15-1.2); Total Protein 6.6 g/dL (6.6-8.7)
[2024-02-21 13:40] VITALS: BP 123/59; PULSE 94; O2SAT 92
== END 2024-02-21 13:44 | disposition home or self-care (01) ==
PROVIDERS: Emergency Provider Family Medicine; PCP Family Medicine
DX: J18.9 Pneumonia, unspecified organism (principal); Z11.52 Encounter for screening for COVID-19; J44.9 Chronic obstructive pulmonary disease, unspecified
CPT/HCPCS: 0241U; 71045; 80053; 81001; 85025; 87070; 87205; 93005; 99285

== ENCOUNTER 2024-02-23 07:54 | Inpatient (IN) | payer MEDICARE, OTHER, SELFPAY ==
[2024-02-23] VITALS (16 sets, daily range): BP systolic 114–160; BP diastolic 66–88; PULSE 72–134; RESP 13–27; TEMP 36.6–37.7; O2SAT 89–97; BMI 18.8
--- NOTE | 2024-02-23 07:59 | XR_ITS ---
WS: [id number] Exam: XR chest 1V portable [id number] Date/Time of Exam: 02/23/2024 8:03 AM Reason For Exam: dyspnea/cough Comparison 02/21/2024. Increasing infiltrate in the LEFT lower lobe since previous study. Remaining lung valles are clear. T here is pulmonary hyperinflation. Scattered calcified granulomas. Cardiomediastinal silhouette is unr emarkable. Bony structures are intact. Chronic interstitial changes. XR/XR chest 1V portable [id number] IMPRESSION: 1. Increasing pneumonic infiltrate in the LEFT lower lobe since prior study. 2. Pulmonary hyperinflation, chronic pulmonary changes.
--- NOTE | 2024-02-23 08:10 | ED_ITS ---
HPI - SOB/Dyspnea 2 General: Chief Complaint: Shortness of Breath/Dyspnea Stated Complaint: pneumonia not better Time Seen by Provider: 02/23/24 07:58 History of Present Illness: HPI Narrative: 79-year-old female returns to the emerge ncy room was seen 2 days ago with a left lower lobe pneumonia. She was started on cefdinir and Zithromax she states she is not improving feels weaker and more short of breath. Increasing productive cough denies any hemoptysis. Generally has felt very weak. On arrival to the exam room she is ambulating her oxygen sat is at 88% improved with addition of 2 L by nasal cannula. She has some chest discomfort with coughing and with deep inspiration. Associated symptoms: Reports chest congestion; Deny abdominal pain, chest pain or fever(s) Related Data Home Medications Medication Instructions Recorded Confirmed estradiol 1 mg tablet See Rx Instructions .Route .COMPLEX 03/31/19 02/23/24 levothyroxine 50 mcg capsule See Rx Instructions .Route .COMPLEX 03/31/19 02/23/24 calcium 500 mg 1 tab PO DAILY@72905/04/20 02/23/24 (carb,gluconate)-magnesium 250 mg (gluc,oxide) tablet (Calcium Magnesium) cholecalciferol (vitamin D3) 25 25 mcg PO DAILY@72905/04/20 02/23/24 mcg (1,000 unit) tablet (Vitamin D3) glucosamine sulf dipot 1 cap PO DAILY@72905/04/20 02/23/24 chlr,msm,chond 550 mg-C 30 mg-vargas 1 mg capsule (Glucosamine Chondroitin) potassium gluconate 595 mg (99 mg) 595 mg PO DAILY@72905/04/20 02/23/24 tablet simvastatin 5 mg tablet 5 mg PO DAILY@219905/04/20 02/23/24 vitamin B complex-folic acid ER 1 tab PO DAILY 05/01/22 02/23/24 400 mcg tablet,extended release (Complex B-100) azelastine 137 mcg (0.1 %) nasal 1 spray intranasal DAILY 02/21/24 02/23/24 spray carbidopa 10 mg-levodopa 100 mg 1 tab PO DAILY 02/21/24 02/23/24 tablet fexofenadine 180 mg tablet 180 mg PO DAILY 02/21/24 02/23/24 (Jahaira Allergy) prednisone 20 mg tablet 20 mg PO DAILY 02/21/24 02/23/24 Previous Rx's Medication Instructions Recorded fluticasone propionate 50 1 spray intranasal Q12H PRN nasal 11/24/22 mcg/actuation nasal congestion #16 mL spray,suspension (Flonase Allergy Relief) albuterol sulfate 90 mcg/actuation 2 puff inhalation Q6H PRN 04/16/23 aerosol inhaler shortness of breath or wheezing #8.5 grams fluticasone 500 mcg-salmeterol 50 1 inh inhalation BID PRN wheezing 04/16/23 mcg/dose blistr powdr for #60 ea inhalation (Advair Diskus) montelukast 10 mg tablet 10 mg PO DAILY #90 tabs 06/02/23 (Singulair) azithromycin 500 mg tablet See Rx Instructions PO .COMPLEX #3 02/21/24 tabs cefdinir 300 mg capsule 300 mg PO BID #14 caps 02/21/24 Allergies Allergy/AdvReac Type Severity Reaction Status Date / Time ciprofloxacin [Cipro] Allergy Mild pt doesnt Verified 12/21/23 09:15 want to take levofloxacin [From Levaquin] Allergy Mild unsure Verified 12/21/23 09:15 budesonide [From Symbicort] Allergy Hoarseness Verified 12/21/23 09:15 of voice formoterol [From Symbicort] Allergy Hoarseness Verified 12/21/23 09:15 of voice hydrocodone Allergy ADR-Halluci Verified 12/21/23 09:15 nating Review of Systems 2 Const: Denies: fever(s) or chills Card: Denies: chest pain Resp: Reports: dyspnea and chest congestion GI: Denies: abdominal pain : Denies: dysuria, urinary frequency or urinary urgency Musc: Denies: neck pain or back pain Skin/Breast: Denies: rash PFSH ED 2 PFSH: Medical History Erosive osteoarthritis of both hands Hypothyroidism -has known hx of hypothyroidism -continue Levothyroxine Irritable bowel syndrome Thyroid disease COPD (chronic obstructive pulmonary disease) -has known hx of COPD, not oxygen dependent at baseline -no evidence of COPD exacerbation at this time -received IV steroids in ED, wheezing improved with oral steroids -not requiring oxygen currently, continue to monitor respiratory status -Neb treatments as needed Surgical History H/O thumb surgery bone spur H/O: hysterectomy History of carpal tunnel surgery R Family History Mother Dementia Father Congestive heart failure (CHF) Heart disease Other CAD (coronary artery disease) Cancer Diabetes Hypertension Lung disease Psychiatric illness Denies family history of Anemia Aneurysm Arrhythmia Clotting disorder Atrial fibrillation Hyperlipidemia Chronic kidney disease (CKD) Suicide Anesthesia complication Congenital heart disease Bleeding disorder Family history of premature coronary artery disease Carotid artery disease Cardiomyopathy Stroke Social History Smoking and tobacco/nicotine status: never used tobacco/nicotine Second hand smoke exposure: Yes (minimal) Alcohol intake: never Substance/Drug Use: never Lives independently: Yes Household members: spouse Housing: House Marital status: service: No Current occupational status: retired Pets and animals: No Do you think of yourself as: Straight/Heterosexual Current gender identity: Female Physical Exam 2 Const: COMMON NORMALS: no acute distress GENERAL APPEARANCE: cooperative and comfortable ORIENTATION/CONSCIOUSNESS: Yes awake, Yes oriented to person, Yes oriented to place and Yes oriented to time HENMT: COMMON NORMALS: normocephalic, atraumatic and hearing grossly normal bilaterally HEAD & SCALP: normocephalic and atraumatic Resp: COMMON NORMALS: normal respiratory effort, No retractions and No use of accessory muscles AUSCULTATION: crackles (Left base) Cardio: COMMON NORMALS: regular rate, regular rhythm and No murmurs present (Cardio) RATE: regular rate RHYTHM: regular rhythm GI: COMMON NORMALS: Soft to palpation and No hepatosplenomegaly present A USCULTATION: Yes normoactive bowel sounds PALPATION: Yes Soft to palpation, No Tenderness to palpation present (GI), No Guarding due to palpation present (GI) and Yes No hepatosplenomegaly present Extremity: COMMON NORMALS: normal to inspection, capillary refill normal, no clubbing, cyanosis or edema, no calf tenderness and no pedal edema Neuro: SENSORIUM/ORIENTATION: Yes oriented to person, Yes oriented to place and Yes oriented to time Skin: COMMON NORMALS: no rashes or lesions noted GENERAL SKIN EXAM: no rashes or lesions noted Course 2 Vital Signs: Vital signs: Vital Signs Temperature 99.9 F H 02/23/24 15:30 Pulse Rate 117 H 02/23/24 15:30 Respiratory Rate 20 H 02/23/24 15:30 Blood Pressure 133/73 02/23/24 15:30 Pulse Oximetry 97 02/23/24 15:30 Oxygen Delivery Me thod Nasal Cannula 02/23/24 15:30 Oxygen Flow Rate 1 02/23/24 13:50 MDM - SOB/Dyspnea Medical Decision Making Left lower lobe pneumonia worsening with increased hypoxia. Failed outpatient therapy. Admit to inpatient start IV antibiotics cultures done discussed with Dr. Alonzo orders are Medical Records I reviewed the patient's medical records. Lab Data I reviewed the patient's lab results. 02/23/24 08:30 02/23/24 08:30 Labs/Radiology: Radiology Impressions Chest X-Ray 02/23/24 07:59 IMPRESSION: 1. Increasing pneumonic infiltrate in the LEFT lower lobe since prior study. 2. Pulmonary hyperinflation, chronic pulmonary changes. Laboratory Results WBC 11.19 10^3/uL (3.29-11.43) 02/23/24 08:30 RBC 4.04 10^6/uL (3.85-5.65) 02/23/24 08:30 Hgb 12.20 g/dL (11.27-16.99) 02/23/24 08:30 Hct 36.0 % (36-47) 02/23/24 08:30 MCV 89.1 fl (85-98) 02/23/24 08:30 MCH 30.2 pg (27-33) 02/23/24 08:30 MCHC 33.9 g/dL (30-55) 02/23/24 08:30 RDW 12.9 % (12.1-15.1) 02/23/24 08:30 Plt Count 229 10^3/cmm (157-399) 02/23/24 08:30 MPV 10.3 fL (7.4-10.4) 02/23/24 08:30 Neut % (Auto) 84.2 % 02/23/24 08:30 Lymph % (Auto) 5.6 % 02/23/24 08:30 [place] % (Auto) 9.4 % 02/23/24 08:30 Eos % (Auto) 0.1 % 02/23/24 08:30 Baso % (Auto) 0.4 % 02/23/24 08:30 Neut # (Auto) 9.43 10^3/uL (1.8-7.7) H 02/23/24 08:30 Lymph # (Auto) 0.6 10^3/uL (0.8-4.8) L 02/23/24 08:30 [place] # (Auto) 1.1 10^3/uL (0.2-0.9) H 02/23/24 08:30 Eos # (Auto) 0.0 10^3/uL (0.0-0.8) 02/23/24 08:30 Baso # (Auto) 0.0 10^3/uL (0.0-0.1) 02/23/24 08:30 Nucleated RBC % (auto) 0 % 02/23/24 08:30 Nucleated RBCs # 0.0 /100WBC 02/23/24 08:30 Sodium 129 mmol/L (136-145) L 02/23/24 08:30 Potassium 4.3 mmol/L (3.5-5.1) 02/23/24 08:30 Chloride 93 mmol/L (98-107) L 02/23/24 08:30 Carbon Dioxide 25 mmol/L (22-29) 02/23/24 08:30 Anion Gap 15.3 (5-19) 02/23/24 08:30 BUN 9 mg/dL (8-23) 02/23/24 08:30 Creatinine 0.6 mg/dL (0.5-0.9) 02/23/24 08:30 GFR Calculation Not Reportable 02/23/24 08:30 Glucose 137 mg/dL (65-115) H 02/23/24 08:30 Calculated Osmolality 269 mOsm/kg (285-295) L 02/23/24 08:30 Lactic Acid 1.4 mmol/L (0.5-2.2) 02/23/24 08:30 Calcium 9.3 mg/dL (8.5-10.5) 02/23/24 08:30 Total Bilirubin 0.4 mg/dL (0.15-1.2) 02/23/24 08:30 AST 34 U/L (0-32) H 02/23/24 08:30 ALT 30 U/L (0-33) 02/23/24 08:30 Alkaline Phosphatase 101 U/L (35-105) 02/23/24 08:30 NT-Pro-B Natriuret Pep 1468 pg/mL (0-450) H 02/23/24 08:30 Total Protein 6.7 g/dL (6.6-8.7) 02/23/24 08:30 Albumin 3.6 g/dL (3.5-5.2) 02/23/24 08:30 Globulin 3.1 g/dL (1.3-4.6) 02/23/24 08:30 TSH 3.91 uIU/mL (0.27-4.20) 02/23/24 08:30 Urine Color Yellow (Yellow) 02/23/24 12:38 Urine Appearance Clear (CLEAR) 02/23/24 12:38 Urine pH 6.0 (5-7) 02/23/24 12:38 Ur Specific [place] 1.026 (1.005-1.030) 02/23/24 12:38 Urine Protein 1+ (Negative) A 02/23/24 12:38 Urine Glucose (UA) Negative (Normal) 02/23/24 12:38 Urine Ketones Trace (Negative) 02/23/24 12:38 Urine Blood Negative (Negative) 02/23/24 12:38 Urine Nitrate Negative (Negative) 02/23/24 12:38 Urine Bilirubin Negative (Negative) 02/23/24 12:38 Urine Urobilinogen 0.2 mg/dL (Negative) 02/23/24 12:38 Ur Leukocyte Esterase Negative (Negative) 02/23/24 12:38 Urine RBC 3-5 /hpf (0-2) 02/23/24 12:38 Urine WBC 0-5 /hpf (0-5) 02/23/24 12:38 Ur Squamous Epith Cells 0-5 /hpf (0-5) 02/23/24 12:38 Amorphous Sediment Not Reportable 02/23/24 12:38 Urine Bacteria None seen /hpf (NONE) 02/23/24 12:38 Hyaline Casts 0.81 /lpf 02/23/24 12:38 Nasal MRSA (PCR) Not detected (Not Detecte) 02/23/24 12:35 All radiology interpretation(s) finalized by discharge Discharge Plan Discharge Patient Disposition: Admitted As Inpatient Admit Provider: Dave Alonzo Clinical Impression: Pneumonia Condition: Stable Coding Level of Care Code ED Pvc Loader for Raisa Sutton
[2024-02-23] MEDS: piperacillin-tazobactam 3.375 GM in sodium chloride 0.9% (plus) 50 ML IV ×2 (08:36→16:20)
[2024-02-23] MEDS: ipratropium-albuterol 3 mL Neb INHALATION ×3 (08:41→20:34)
[2024-02-23 08:51] LABS: Basophils % 0.4 %; Eosinophils % 0.1 %; Lymphocytes # 0.6 10^3/uL (0.8-4.8); Lymphocytes % 5.6 %; Mean Corpuscular HGB Conc 33.9 g/dL (30-55); Mean Corpuscular Hemoglobin 30.2 pg (27-33); Mean Corpuscular Volume 89.1 fl (85-98); Mean Platelet Volume 10.3 fL (7.4-10.4); Monocytes # 1.1 10^3/uL (0.2-0.9); Monocytes % 9.4 %; Neutrophils # 9.43 10^3/uL (1.8-7.7); Neutrophils % 84.2 %; Nucleated Red Blood Cells % 0 %; Platelet Count 229 10^3/cmm (157-399); Red Blood Count 4.04 10^6/uL (3.85-5.65); Red Cell Distribution Width 12.9 % (12.1-15.1); White Blood Count 11.19 10^3/uL (3.29-11.43)
[2024-02-23 09:08] LABS: Alanine Aminotransferase 30 U/L (0-33); Albumin Level 3.6 g/dL (3.5-5.2); Alkaline Phosphatase 101 U/L (35-105); Anion Gap 15.3 (5-19); Aspartate Amino Transferase 34 U/L (0-32); Blood Urea Nitrogen 9 mg/dL (8-23); Calcium 9.3 mg/dL (8.5-10.5); Carbon Dioxide 25 mmol/L (22-29); Chloride 93 mmol/L (98-107); Creatinine Clr Calc Pharmacy 46.7305; Globulin 3.1 g/dL (1.3-4.6); Glucose 137 mg/dL (65-115); Osmolality Calculated 269 mOsm/kg (285-295); Potassium 4.3 mmol/L (3.5-5.1); Sodium 129 mmol/L (136-145); Total Bilirubin 0.4 mg/dL (0.15-1.2); Total Protein 6.7 g/dL (6.6-8.7)
[2024-02-23 09:10] LABS: Lactic Sepsis W/Reflex 1.4 mmol/L (0.5-2.2)
--- NOTE | 2024-02-23 09:38 | ECG_ITS ---
[facility] Date: 2024-02[facility]23 Pat Name: Bernadette Brown Department: Room: Gender: Female E Tailer: : 1945 Requested By: Kwasi Cartagena Order Number: [id number] Jason MD: Beltran Samson M.D. Measurements Intervals [place] Rate: 100 P: 60 MO: 128 QRS: 34 QRSD: 82 T: 56 QT: 316 QTc: 408 Interpretive Statements SINUS TACHYCARDIA WITH FREQUENT ECTOPIC PREMATURE COMPLEXES LEFT ATRIAL ENLARGEMENT [-0.15mV P-WAVE IN V1/V2] POSSIBLE RIGHT VENTRICULAR CONDUCTION DELAY [RSR (QR) IN V1/V2] MODERATE ST DEPRESSION [0.05+ mV ST DEPRESSION] Compared to ECG 02/21/2024 09:38:08 No significant changes Electronically Signed On 02-23-2024 19:11:58 LIGHTING FIXTURES DECORATOR by Beltran Samson M.D. [email or web address]
[2024-02-23 10:53] LABS: NT Pro B Type Natriuretic Pept 1468 pg/mL (0-450); Thyroid Stimulating Hormone 3.91 uIU/mL (0.27-4.20)
--- NOTE | 2024-02-23 12:18 | PM.HP ---
Providers/Chief Complaint Admitting Physician: Dave Alonzo MD, hospitalist Primary Care Provider: Ash Cali MD Chief Complaint: pneumonia not better History of Present Illness Bernadette Brown is a 79 year old female presenting with persistent cough. She has been ill for at least 1 week. She has had purulent sputum, no blood. She reports she has been short of breath with coughing and exertion. Has had fever as high as 103 ?F. Has been seen at urgent care, and COVID tested at that time and was negative. She was prescribed Zithromax, but not improving. In the emergency department she was requiring oxygen. Some chest discomfort with coughing. Acknowledges wheezing as well. Past history of COPD, although not a smoker. Review of Systems General: Reports: 10 or more systems reviewed and unremarkable except in HPI and below Card: Reports: chest pain Resp: Reports: dyspnea and productive cough GI: Denies: abdominal pain, hematochezia or melena Medications/Allergies Home Medications Medication Instructions Recorded Confirmed Last Taken Type estradiol 1 mg tablet See Rx Instructions .Route .COMPLEX 03/31/19 02/23/24 02/22/24 History levothyroxine 50 mcg capsule See Rx Instructions .Route .COMPLEX 03/31/19 02/23/24 02/23/24 History calcium 500 mg 1 tab PO DAILY@72905/04/20 02/23/24 02/22/24 History (carb,gluconate)-magnesium 250 mg (gluc,oxide) tablet (Calcium Magnesium) cholecalciferol (vitamin D3) 25 25 mcg PO DAILY@72905/04/20 02/23/24 02/22/24 History mcg (1,000 unit) tablet (Vitamin D3) glucosamine sulf dipot 1 cap PO DAILY@72905/04/20 02/23/24 02/22/24 History chlr,msm,chond 550 mg-C 30 mg-vargas 1 mg capsule (Glucosamine Chondroitin) potassium gluconate 595 mg (99 mg) 595 mg PO DAILY@72905/04/20 02/23/24 02/22/24 History tablet simvastatin 5 mg tablet 5 mg PO DAILY@2200 05/04/20 02/23/24 02/22/24 History vitamin B complex-folic acid ER 1 tab PO DAILY 05/01/22 02/23/24 02/12/23 History 400 mcg tablet,extended release (Complex B-100) fluticasone propionate 50 1 spray intranasal Q12H PRN nasal 11/24/22 02/23/24 02/21/24 Rx mcg/actuation nasal congestion #16 mL spray,suspension (Flonase Allergy Relief) albuterol sulfate 90 mcg/actuation 2 puff inhalation Q6H PRN 04/16/23 02/23/24 02/22/24 Rx aerosol inhaler shortness of breath or wheezing #8.5 grams fluticasone 500 mcg-salmeterol 50 1 inh inhalation BID PRN wheezing 04/16/23 02/23/24 02/22/24 Rx mcg/dose blistr powdr for #60 ea inhalation (Advair Diskus) montelukast 10 mg tablet 10 mg PO DAILY #90 tabs 06/02/23 02/23/24 02/22/24 Rx (Singulair) azelastine 137 mcg (0.1 %) nasal 1 spray intranasal DAILY 02/21/24 02/23/24 02/21/24 History spray azithromycin 500 mg tablet See Rx Instructions PO .COMPLEX #3 02/21/24 02/23/24 02/22/24 Rx tabs carbidopa 10 mg-levodopa 100 mg 1 tab PO DAILY 02/21/24 02/23/24 02/23/24 History tablet cefdinir 300 mg capsule 300 mg PO BID #14 caps 02/21/24 02/23/24 02/22/24 Rx fexofenadine 180 mg tablet 180 mg PO DAILY 02/21/24 02/23/24 02/21/24 History (Jahaira Allergy) prednisone 20 mg tablet 20 mg PO DAILY 02/21/24 02/23/24 02/21/24 History Allergies Allergy/AdvReac Type Severity Reaction Status Date / Time ciprofloxacin [Cipro] Allergy Mild pt doesnt Verified 12/21/23 09:15 want to take levofloxacin [From Levaquin] Allergy Mild unsure Verified 12/21/23 09:15 budesonide [From Symbicort] Allergy Hoarseness Verified 12/21/23 09:15 of voice formoterol [From Symbicort] Allergy Hoarseness Verified 12/21/23 09:15 of voice hydrocodone Allergy ADR-Halluci Verified 12/21/23 09:15 [facility] PFSH Acute PFSH: Medical History Erosive osteoarthritis of both hands Hypothyroidism -has known hx of hypothyroidism -continue Levothyroxine Irritable bowel syndrome Thyroid disease COPD (chronic obstructive pulmonary disease) -has known hx of COPD, not oxygen dependent at baseline -no evidence of COPD exacerbation at this time -received IV steroids in ED, wheezing improved with oral steroids -not requiring oxygen currently, continue to monitor respiratory status -Neb treatments as needed Surgical History H/O thumb surgery bone spur H/O: hysterectomy History of carpal tunnel surgery R Family History Mother Dementia Father Congestive heart failure (CHF) Heart disease Other CAD (coronary artery disease) Cancer Diabetes Hypertension Lung disease Psychiatric illness Denies family history of Anemia Aneurysm Arrhythmia Clotting disorder Atrial fibrillation Hyperlipidemia Chronic kidney disease (CKD) Suicide Anesthesia complication Congenital heart disease Bleeding disorder Family history of premature coronary artery disease Carotid artery disease Cardiomyopathy Stroke Social History Smoking and tobacco/nicotine status: never used tobacco/nicotine Second hand smoke exposure: Yes (minimal) Alcohol intake: never Substance/Drug Use: never Lives independently: Yes Household members: spouse Housing: House Marital status: service: No Current occupational status: retired Pets and animals: No Do you think of yourself as: Straight/Heterosexual Current gender identity: Female Vitals/I&O/Wt Last Vital Signs Temp 98.4 F 02/23/24 08:04 Pulse 121 H 02/23/24 12:00 Resp 19 H 02/23/24 12:00 BP 156/66 02/23/24 12:00 Pulse Ox 93 02/23/24 12:00 O2 Del Method Nasal Cannula 02/23/24 12:00 O2 Flow Rate 3 02/23/24 12:00 Weight last 48 hrs Weight 49.895 kg Physical Exam Narrative: General Exam is a white female, coughing multiple times during my exam, obviously short of breath. Moderate retractions. On 2 L of oxygen. HEENT atraumatic normocephalic. Pupils equally round. Oropharynx clear. Neck is supple no lymphadenopathy thyromegaly Cardiovascular tachycardic, no murmur, regular Lungs bilateral expiratory wheezes. A few coarse rhonchi Abdomen is soft nontender positive bowel sounds. No obvious organomegaly exam is deferred Extremities no cyanosis clubbing or edema, cap refill brisk Skin no rash Neuro no obvious focal deficits Data 02/23/24 08:30 12 08:30 Other Labs: LFTs normal with the exception of AST of 34 BNP approximately 1500 TSH normal Urinalysis negative COVID testing negative I had an MRSA PCR done which was negative Chest x-ray demonstrates left lower lobe infiltrate, I reviewed this as well. Urine Legionella which I ordered is presumptive negative EKG which I reviewed demonstrates sinus tachycardia, normal axis, occasional PVC, nonspecific ST-T wave changes, likely left atrial enlargement Micro: Microbiology 02/23/24 08:22 Blood Culture - Preliminary Blood SPECIMEN COLLECTED 02/23/24 08:30 Blood Culture - Preliminary Blood SPECIMEN COLLECTED A&P Assessment and plan (1) Pneumonia: Presents with pneumonia failing outpatient treatment with azithromycin Continue azithromycin, add Zosyn MRSA PCR is negative Sputum culture Urine Legionella negative MRSA PCR negative COVID influenza and RSV negative Blood cultures Qualifiers: Laterality: left Lung location: lower lobe of lung Pneumonia type: due to unspecified organism Qualified Code(s): J18.9 - Pneumonia, unspecified organism (2) Asthma-COPD overlap syndrome: Has evidence of acute asthma/COPD exacerbation Solu-Medrol 60 mg IV every 12 hours Budesonide twice daily DuoNeb every 6 hours scheduled Wean steroid as tolerated (3) Acute hypoxemic respiratory failure: Patient with evidence of acute hypoxemic respiratory failure, requiring oxygen, elevated respiratory rate, obvious retractions Wean oxygen as tolerated as patient improves (4) Moderate to severe mitral regurgitation: Patient with recent past evidence of moderate to severe mitral regurgitation Lasix 20 mg IV Reassess tomorrow CBC and BMP tomorrow Plan Other medical problems as outlined in past medical history Full code SCDs, Lovenox for DVT prophylaxis Attestations Medical Necessity Statement*: Will need greater than 2 midnight stay for evaluation and treatment of pneumonia failing outpatient therapy with acute hypoxia and acute COPD/asthma exacerbation Diagnoses Pneumonia J18.9 Laterality: left Lung location: lower lobe of lung Pneumonia type: due to unspecified organism Asthma-COPD overlap syndrome J44.9 Acute hypoxemic respiratory failure J96.01 Moderate to severe mitral regurgitation I34.0 Time Spent (min) 59
[2024-02-23] MEDS: FUROsemide 10 mg/mL SDV 2mL 20 MG IVP (12:43)
[2024-02-23] MEDS: methylPREDNISolone sod succ 40 mg/mL INJ 60 MG IVP (12:43)
[2024-02-23 13:37] LABS: Bilirubin Urine Negative (Negative); Blood Urine Negative (Negative); Glucose Urine UA Negative (Normal); Ketones Urine Trace (Negative); Leukocyte Esterase Urine Negative (Negative); Nitrate Urine Negative (Negative); Protein Urine 1+ (Negative); Specific Gravity, Urine 1.026 (1.005-1.030); Urine Appearance Clear (CLEAR); Urine Color Yellow (Yellow); Urobilinogen Urine 0.2 mg/dL (Negative)
[2024-02-23 13:42] LABS: Add Urine Microscopic? YES; Bacteria Urine None Seen /hpf; Hyaline Casts Urine 0.81 /lpf; Squamous Epithelial Cell Urine 0-5 /hpf (0-5); WBC Urine 0-5 /hpf (0-5)
[2024-02-23 14:06] LABS: MRSA PCR OZH (swab) NOT DETECTED (Not Detecte)
[2024-02-23] MEDS: enoxaparin 40 mg/0.4 mL Syringe SUBCUT (15:00)
[2024-02-23] MEDS: benzonatate 100 mg Capsule 200 MG PO (15:00)
[2024-02-23] MEDS: acetaminophen 325 mg Tablet 650 MG PO (15:01)
[2024-02-23] MEDS: AZITHROMYCIN ADD-Vantage 500 MG in 0.9% NaCl ADD-Vantage 250 ML 250 MG IV (15:01)
[2024-02-23] MEDS: guaiFENesin 600 mg Tablet PO (16:20)
[2024-02-23] MEDS: budesonide 0.5 mg/2 mL Neb INHALATION (20:34)
[2024-02-23] MEDS: atorvastatin 40 mg Tablet 20 MG PO (21:10)
[2024-02-24] VITALS (11 sets, daily range): BP systolic 99–116; BP diastolic 53–64; PULSE 85–108; RESP 14–22; TEMP 36.4–37; O2SAT 86–96
[2024-02-24] MEDS: methylPREDNISolone sod succ 40 mg/mL INJ 60 MG IVP (00:02)
[2024-02-24] MEDS: piperacillin-tazobactam 3.375 GM in sodium chloride 0.9% (plus) 50 ML IV ×4 (00:02→23:05)
[2024-02-24] MEDS: benzonatate 100 mg Capsule 200 MG PO ×4 (00:06→23:05)
[2024-02-24] MEDS: ipratropium-albuterol 3 mL Neb INHALATION ×4 (01:03→21:14)
[2024-02-24 06:04] LABS: Hematocrit 32.6 % (36-47); Mean Corpuscular HGB Conc 33.1 g/dL (30-55); Mean Corpuscular Hemoglobin 29.2 pg (27-33); Mean Corpuscular Volume 88.1 fl (85-98); Mean Platelet Volume 10.8 fL (7.4-10.4); Platelet Count 246 10^3/cmm (157-399); White Blood Count 16.82 10^3/uL (3.29-11.43)
[2024-02-24 06:36] LABS: Alanine Aminotransferase 34 U/L (0-33); Albumin Level 3.1 g/dL (3.5-5.2); Alkaline Phosphatase 74 U/L (35-105); Anion Gap 16.7 (5-19); Aspartate Amino Transferase 40 U/L (0-32); Blood Urea Nitrogen 9 mg/dL (8-23); Calcium 8.8 mg/dL (8.5-10.5); Carbon Dioxide 24 mmol/L (22-29); Chloride 89 mmol/L (98-107); Globulin 3.1 g/dL (1.3-4.6); Glucose 170 mg/dL (65-115); Magnesium 1.9 mg/dL (1.7-2.3); Osmolality Calculated 265 mOsm/kg (285-295); Potassium 3.7 mmol/L (3.5-5.1); Sodium 126 mmol/L (136-145); Total Bilirubin 0.4 mg/dL (0.15-1.2); Total Protein 6.2 g/dL (6.6-8.7)
[2024-02-24 06:52] LABS: Slide Review Slide Review Perform
[2024-02-24 06:53] LABS: Absolute Neutrophil 15.5 10^3/cmm (1.4-6.5); Band Neutrophils Absolute 2.5 10^3/cmm (0.0-1.2); Eosinophils 0 %; Lymphocytes 7 %; Lymphocytes Absolute 1.2 10^3/cmm (1.2-3.4); Monocytes Absolute 0.2 10^3/cmm (0.1-0.6); Platelet Estimate Normal (Normal); Segmented Neutrophils 77 %; Total Cells Counted 100 (0-100)
[2024-02-24] MEDS: acetaminophen 325 mg Tablet 650 MG PO (07:36)
[2024-02-24] MEDS: guaiFENesin 600 mg Tablet PO ×2 (07:36→17:12)
[2024-02-24] MEDS: fexofenadine 60 mg Tablet 180 MG PO (07:36)
[2024-02-24] MEDS: levothyroxine 50 mcg Tablet PO (07:38)
[2024-02-24] MEDS: FUROsemide 10 mg/mL SDV 2mL 20 MG IVP (07:39)
[2024-02-24] MEDS: montelukast sodium 10 mg Tablet PO (07:39)
[2024-02-24] MEDS: budesonide 0.5 mg/2 mL Neb INHALATION ×2 (08:37→21:14)
--- NOTE | 2024-02-24 09:24 | PC.CHAP ---
Pastoral Care Encounter/Spiritual Assessment Type of Contact [] Declined corporate safety director visit [] Patient/Family/Request visit [] Outpatient visit [] Follow-up visit [] Physician referral [] Code/Alert [x] Routine visit [] Staff referral [] Actively dying [] Patient sleeping [x] Family support [] [] Out of room [] Palliative care [] [] Receiving care in room [] Pre-surgical visit [] Trauma [] Long length of stay [] ICU visit [] Other: Relational/Emotional Strength [x] Patient feels connected with others/family/visitors/staff [] Distress [] Loneliness/isolation [] Abandonment Spirituality of Patient [x] Person of Elizabeth [] Attends Confucianist of their Elizabeth [x] Believes in Prayer [] Reads Bible or Buddhist materials [] There are Spiritual issues to be addressed [employer] Interventions [x] Prayer [x] Active listening [x] Non-anxious presence [x] Spiritual/emotional support [] Crisis/trauma care [] Spiritual counseling [] Bereavement support [] Provided bereavement packet [] Provided Bible/devotional materials [] Provided toy/stuffed animal, coloring book to patient or family member [] Provided Communion [] Anointing/[place] [] Salvation [x] Completed spiritual assessment [] Other: Impact on Illness or Injury [] Angry [] Fearful [] Anxious [] Often cries [] Exhaustion [] Unable to work [] Unable to attend latter day [] Unable to walk/stand [] Unable to read [] Unable to drive [] Unable to eat/drink [] Unable to sleep [] Unable to be with family [] Patient intubated [] Other: Summary Time spent with patient 5 min
--- NOTE | 2024-02-24 10:15 | P.PN_ITS ---
Subjective 2 Subjective: Feels a little bit better but still coughing. No nausea or vomiting. Requiring 2 L of oxygen. Medications: Reviewed: Yes Vitals/I&O/Wt Last Vital Signs Temp 97.6 F 02/24/24 07:31 Pulse 92 02/24/24 08:37 Resp 18 02/24/24 08:37 BP 111/53 02/24/24 07:31 Pulse Ox 86 L 02/24/24 08:37 O2 Del Method Room Air 02/24/24 08:37 O2 Flow Rate 2 02/24/24 03:22 02/23/24 02/24/24 02/24/24 22:59 06:59 14:59 Intake Total 900 / 950 530 / 1480 120 / 120 Balance 900 / 950 530 / 1480 120 / 120 Weight last 48 hrs Weight 49.487 kg Weight 51.823 kg Weight 49.895 kg Weight 49.895 kg Physical Exam 2 Narrative: General Exam on 2 L of oxygen, no distress today Neck is supple no lymphadenopathy thyromegaly Cardiovascular tachycardic, no murmur, regular Lungs crackles left lower lobe. No wheezes heard today Abdomen is soft nontender positive bowel sounds. No obvious organomegaly Extremities no cyanosis clubbing or edema, cap refill brisk Data 02/24/24 04:48 02/24/24 04:48 Micro: Microbiology 02/23/24 08:22 Blood Culture - Preliminary Blood NEGATIVE TO DATE 02/23/24 08:30 Blood Culture - Preliminary Blood NEGATIVE TO DATE 02/23/24 11:23 Gram Stain - Final Sputum - Expectorated Sputum 02/23/24 12:38 Legionella Urinary Antigen - Final Urine,Voided A&P Assessment and plan (1) Pneumonia: Presents with pneumonia failing outpatient treatment with azithromycin Continue azithromycin, add Zosyn MRSA PCR is negative Sputum culture pending Urine Legionella negative MRSA PCR negative COVID influenza and RSV negative Blood cultures pending Qualifiers: Laterality: left Lung location: lower lobe of lung Pneumonia type: due to unspecified organism Qualified Code(s): J18.9 - Pneumonia, unspecified organism (2) Asthma-COPD overlap syndrome: Has evidence of acute asthma/COPD exacerbation Discontinue Solu-Medrol, initiate prednisone 40 mg daily Budesonide twice daily DuoNeb every 6 hours scheduled Wean steroid as tolerated (3) Acute hypoxemic respiratory failure: Patient with evidence of acute hypoxemic respiratory failure, requiring oxygen, elevated respiratory rate, obvious retractions Wean oxygen as tolerated as patient improves (4) Moderate to severe mitral regurgitation: Patient with recent past evidence of moderate to severe mitral regurgitation Appears compensated currently Plan Hyponatremia. Liberalize salt intake. Lasix 20 mg IV x 1. Fluid restriction. Recheck sodium this afternoon. Other medical problems as outlined in past medical history Full code SCDs, Lovenox for DVT prophylaxis Attestations 2 Medical Necessity Statement*: Needs continued hospitalization for IV antibiotics in this patient with significant illness, and continued hypoxia Diagnoses Pneumonia J18.9 Laterality: left Lung location: lower lobe of lung Pneumonia type: due to unspecified organism Asthma-COPD overlap syndrome J44.9 Acute hypoxemic respiratory failure J96.01 Moderate to severe mitral regurgitation I34.0 Time Spent (min) 21
--- NOTE | 2024-02-24 12:03 | PC.SOCIAL ---
IMM Update Pg. 2 of IMM updated. Initialed, dated, and timed, copy provided at bedside.
[2024-02-24] MEDS: hydrocortisone 2.5% cream 28 gm 1 APPLIC PR (13:22)
[2024-02-24] MEDS: AZITHROMYCIN ADD-Vantage 500 MG in 0.9% NaCl ADD-Vantage 250 ML 250 MG IV (13:22)
[2024-02-24] MEDS: enoxaparin 40 mg/0.4 mL Syringe SUBCUT (13:23)
[2024-02-24 17:14] LABS: Sodium 129 mmol/L (136-145)
[2024-02-24] MEDS: atorvastatin 40 mg Tablet 20 MG PO (21:25)
[2024-02-25] VITALS (14 sets, daily range): BP systolic 103–124; BP diastolic 61–76; PULSE 90–102; RESP 15–18; TEMP 36.4–36.9; O2SAT 93–97
[2024-02-25 05:36] LABS: Basophils # 0.1 10^3/uL (0.0-0.1); Basophils % 0.3 %; Hematocrit 32.9 % (36-47); Lymphocytes # 1.7 10^3/uL (0.8-4.8); Lymphocytes % 7.7 %; Mean Corpuscular HGB Conc 33.1 g/dL (30-55); Mean Corpuscular Hemoglobin 29.1 pg (27-33); Mean Corpuscular Volume 87.7 fl (85-98); Mean Platelet Volume 10.2 fL (7.4-10.4); Monocytes # 1.4 10^3/uL (0.2-0.9); Monocytes % 6.4 %; Neutrophils # 18.56 10^3/uL (1.8-7.7); Neutrophils % 83.7 %; Nucleated Red Blood Cells % 0 %; Platelet Count 322 10^3/cmm (157-399); Red Blood Count 3.75 10^6/uL (3.85-5.65); White Blood Count 22.17 10^3/uL (3.29-11.43)
[2024-02-25 05:58] LABS: Alanine Aminotransferase 15 U/L (0-33); Albumin Level 3.1 g/dL (3.5-5.2); Alkaline Phosphatase 75 U/L (35-105); Anion Gap 15.5 (5-19); Aspartate Amino Transferase 49 U/L (0-32); Blood Urea Nitrogen 14 mg/dL (8-23); Calcium 8.6 mg/dL (8.5-10.5); Carbon Dioxide 25 mmol/L (22-29); Chloride 92 mmol/L (98-107); Creatinine Clr Calc Pharmacy 46.7305; Glucose 106 mg/dL (65-115); Osmolality Calculated 269 mOsm/kg (285-295); Potassium 3.5 mmol/L (3.5-5.1); Sodium 129 mmol/L (136-145); Total Bilirubin 0.3 mg/dL (0.15-1.2); Total Protein 6.1 g/dL (6.6-8.7)
[2024-02-25] MEDS: ipratropium-albuterol 3 mL Neb INHALATION ×4 (06:09→20:06)
[2024-02-25] MEDS: budesonide 0.5 mg/2 mL Neb INHALATION ×2 (07:45→20:07)
--- NOTE | 2024-02-25 08:42 | XR_ITS ---
WS: [id number] Exam: XR chest 1V portable [id number] Date/Time of Exam: 02/25/2024 8:42 AM Reason For Exam: pneumonia, decreased BS left side check for effusion Comparison 02/23/2024. Increasing consolidation in the LEFT lower lobe since the previous study. There is also now a new foc al infiltrate in the RIGHT lower lobe. The lungs are fully inflated. Heart size is within normal limi ts. The mediastinum is normal in contour. Chronic interstitial changes. No obvious pleural effusion. XR/XR chest 1V portable [id number] IMPRESSION: 1. Increasing consolidating infiltrate in the LEFT lower lobe and atelectasis s jes the prior study. New focal pneumonia in the RIGHT lower lobe.
[2024-02-25] MEDS: piperacillin-tazobactam 3.375 GM in sodium chloride 0.9% (plus) 50 ML IV ×3 (09:25→23:58)
[2024-02-25] MEDS: benzonatate 100 mg Capsule 200 MG PO ×2 (09:25→15:04)
[2024-02-25] MEDS: acetaminophen 325 mg Tablet 650 MG PO (09:25)
[2024-02-25] MEDS: montelukast sodium 10 mg Tablet PO (09:25)
[2024-02-25] MEDS: levothyroxine 25 mcg Tablet PO (09:25)
[2024-02-25] MEDS: guaiFENesin 600 mg Tablet PO ×2 (09:25→17:24)
[2024-02-25] MEDS: predniSONE 20 mg Tablet 40 MG PO (09:25)
[2024-02-25] MEDS: fexofenadine 60 mg Tablet 180 MG PO (09:25)
[2024-02-25] MEDS: lanolin oint 7 gm 1 APPLIC TOPICAL (09:34)
--- NOTE | 2024-02-25 10:30 | P.PN_ITS ---
Subjective 2 Subjective: Patient reports she still feels weak. Still coughing quite a bit. No fever overnight. Still requiring oxygen. Medications: Reviewed: Yes Vitals/I&O/Wt Last Vital Signs Temp 97.8 F 02/25/24 07:18 Pulse 100 02/25/24 07:18 Resp 15 02/25/24 07:18 BP 115/66 02/25/24 07:18 Pulse Ox 96 02/25/24 07:18 O2 Del Method Nasal Cannula 02/25/24 07:18 O2 Flow Rate 1 02/25/24 07:18 02/24/24 02/25/24 02/25/24 22:59 06:59 14:59 Intake Total 420 / 640 50 / 690 236 / 236 Balance 420 / 640 50 / 690 236 / 236 Weight last 48 hrs Weight 49.895 kg Weight 49.487 kg Weight 51.823 kg Weight 49.895 kg Physical Exam 2 Narrative: General Exam on 1 L of oxygen, no distress today Neck is supple no lymphadenopathy thyromegaly Cardiovascular tachycardic, no murmur, regular Lungs crackles left lower lobe. No wheezes heard today. Some diminished breath sounds left side Abdomen is soft nontender positive bowel sounds. No obvious organomegaly Extremities no cyanosis clubbing or edema, cap refill brisk Data 02/25/24 04:30 02/25/24 04:30 Micro: Microbiology 02/23/24 11:23 Gram Stain - Final Sputum - Expectorated Sputum Sputum Culture - Preliminary 02/23/24 08:22 Blood Culture - Preliminary Blood NEGATIVE TO DATE 02/23/24 08:30 Blood Culture - Preliminary Blood NEGATIVE TO DATE A&P Assessment and plan (1) Pneumonia: Presents with pneumonia failing outpatient treatment with azithromycin Continue azithromycin, add Zosyn MRSA PCR is negative Sputum culture no growth to date Urine Legionella negative MRSA PCR negative COVID influenza and RSV negative Blood cultures pending Repeat chest x-ray today secondary to diminished breath sounds left side. Rule out effusion. Qualifiers: Laterality: left Lung location: lower lobe of lung Pneumonia type: due to unspecified organism Qualified Code(s): J18.9 - Pneumonia, unspecified organism (2) Asthma-COPD overlap syndrome: Has evidence of acute asthma/COPD exacerbation Continue prednisone 40 mg daily Budesonide twice daily DuoNeb every 6 hours scheduled Wean steroid as tolerated (3) Acute hypoxemic respiratory failure: Patient with evidence of acute hypoxemic respiratory failure, requiring oxygen, elevated respiratory rate, obvious retractions Wean oxygen as tolerated as patient improves (4) Moderate to severe mitral regurgitation: Patient with recent past evidence of moderate to severe mitral regurgitation Appears compensated currently Plan Hyponatremia. Liberalize salt intake. Lasix 20 mg IV x 1 given yesterday. Fluid restriction. Recheck sodium tomorrow Other medical problems as outlined in past medical history Full code SCDs, Lovenox for DVT prophylaxis Attestations 2 Medical Necessity Statement*: Needs continued hospitalization for IV antibiotics secondary to pneumonia Diagnoses Pneumonia J18.9 Laterality: left Lung location: lower lobe of lung Pneumonia type: due to unspecified organism Asthma-COPD overlap syndrome J44.9 Acute hypoxemic respiratory failure J96.01 Moderate to severe mitral regurgitation I34.0 Time Spent (min) 23
[2024-02-25] MEDS: enoxaparin 40 mg/0.4 mL Syringe SUBCUT (17:24)
[2024-02-25] MEDS: AZITHROMYCIN ADD-Vantage 500 MG in 0.9% NaCl ADD-Vantage 250 ML 250 MG IV (17:25)
[2024-02-25] MEDS: atorvastatin 40 mg Tablet 20 MG PO (21:33)
[2024-02-26] VITALS (16 sets, daily range): BP systolic 111–136; BP diastolic 60–83; PULSE 87–101; RESP 16–18; TEMP 36.5–37; O2SAT 90–97
[2024-02-26] MEDS: benzonatate 100 mg Capsule 200 MG PO ×4 (00:40→21:03)
[2024-02-26] MEDS: ipratropium-albuterol 3 mL Neb INHALATION ×6 (00:55→23:41)
[2024-02-26 05:33] LABS: Hematocrit 31.9 % (36-47); Mean Corpuscular HGB Conc 32.9 g/dL (30-55); Mean Corpuscular Volume 88.1 fl (85-98); Mean Platelet Volume 9.8 fL (7.4-10.4); Platelet Count 350 10^3/cmm (157-399); Red Blood Count 3.62 10^6/uL (3.85-5.65); Red Cell Distribution Width 12.9 % (12.1-15.1); White Blood Count 16.82 10^3/uL (3.29-11.43)
[2024-02-26 06:00] LABS: Slide Review Slide Review Perform
[2024-02-26 06:01] LABS: Absolute Segmented Neutrophil 13.5 10/cmm (1.6-7.1); Anion Gap 13.4 (5-19); Blood Urea Nitrogen 9 mg/dL (8-23); Calcium 8.4 mg/dL (8.5-10.5); Carbon Dioxide 26 mmol/L (22-29); Chloride 100 mmol/L (98-107); Creatinine Clr Calc Pharmacy 47.6946; Eosinophils 0 %; Glucose 100 mg/dL (65-115); Lymphocytes 10 %; Monocytes Absolute 0.5 10^3/cmm (0.1-0.6); Osmolality Calculated 281 mOsm/kg (285-295); Platelet Estimate Normal (Normal); Potassium 3.4 mmol/L (3.5-5.1); Segmented Neutrophils 80 %; Sodium 136 mmol/L (136-145); Total Cells Counted 100 (0-100)
[2024-02-26] MEDS: budesonide 0.5 mg/2 mL Neb INHALATION ×2 (08:11→20:05)
[2024-02-26] MEDS: predniSONE 20 mg Tablet 40 MG PO (08:22)
[2024-02-26] MEDS: guaiFENesin 600 mg Tablet PO ×2 (08:22→18:09)
[2024-02-26] MEDS: piperacillin-tazobactam 3.375 GM in sodium chloride 0.9% (plus) 50 ML IV ×2 (08:23→19:16)
[2024-02-26] MEDS: fexofenadine 60 mg Tablet 180 MG PO (08:23)
[2024-02-26] MEDS: potassium chloride ER 20 mEq Tablet 40 MEQ PO (08:23)
--- NOTE | 2024-02-26 11:48 | P.PN_ITS ---
Subjective 2 Subjective: Still having some paroxysms of coughing. Just taken off oxygen this morning, and O2 sat is borderline. He is able to get up out of bed some. Does not feel like she is ready to go home. Medications: Reviewed: Yes Vitals/I&O/Wt Last Vital Signs Temp 98.3 F 02/26/24 11:40 Pulse 98 02/26/24 11:40 Resp 16 02/26/24 11:40 BP 136/70 02/26/24 11:40 Pulse Ox 91 02/26/24 11:40 O2 Del Method Room Air 02/26/24 11:40 O2 Flow Rate 1 02/26/24 04:14 02/25/24 02/26/24 02/26/24 22:59 06:59 14:59 Intake Total 300 / 706 50 / 756 60 / 60 Balance 300 / 706 50 / 756 60 / 60 Weight last 48 hrs Weight 52.617 kg Weight 49.895 kg Physical Exam 2 Narrative: General Exam occasional cough Neck is supple no lymphadenopathy thyromegaly Cardiovascular tachycardic, no murmur, regular Lungs crackles left lower lobe. No wheezes heard today. Some diminished breath sounds left side Abdomen is soft nontender positive bowel sounds. No obvious organomegaly Extremities no cyanosis clubbing or edema, cap refill brisk Data 02/26/24 04:47 02/26/24 04:47 Micro: Microbiology 02/23/24 11:23 Gram Stain - Final Sputum - Expectorated Sputum Sputum Culture - Preliminary A&P Assessment and plan (1) Pneumonia: Presents with pneumonia failing outpatient treatment with azithromycin Continue azithromycin, Zosyn MRSA PCR is negative Sputum culture now shows haemophilus Urine Legionella negative MRSA PCR negative COVID influenza and RSV negative Blood cultures no growth to date Repeat chest x-ray in hospital, consolidation left lower lobe, no obvious effusion. Qualifiers: Laterality: left Lung location: lower lobe of lung Pneumonia type: due to unspecified organism Qualified Code(s): J18.9 - Pneumonia, unspecified organism (2) Asthma-COPD overlap syndrome: Has evidence of acute asthma/COPD exacerbation Continue prednisone 40 mg daily Budesonide twice daily DuoNeb every 6 hours scheduled (3) Acute hypoxemic respiratory failure: Patient with evidence of acute hypoxemic respiratory failure, requiring oxygen, elevated respiratory rate, obvious retractions Now off oxygen, saturation borderline (4) Moderate to severe mitral regurgitation: Patient with recent past evidence of moderate to severe mitral regurgitation Appears compensated currently Plan Hyponatremia. Normal today. Unrestricted salt. Discontinue fluid restriction Other medical problems as outlined in past medical history Full code SCDs, Lovenox for DVT prophylaxis Attestations 2 Medical Necessity Statement*: Needs continued hospitalization for pneumonia, still with borderline oxygen levels, now starting to improve. Expect discharge tomorrow. Diagnoses Pneumonia J18.9 Laterality: left Lung location: lower lobe of lung Pneumonia type: due to unspecified organism Asthma-COPD overlap syndrome J44.9 Acute hypoxemic respiratory failure J96.01 Moderate to severe mitral regurgitation I34.0
--- NOTE | 2024-02-26 12:30 | PC.SOCIAL ---
IMM Updated Updated pt on IMM. No questions voiced. Provided pt a copy. Initialed, dated, & timed a copy & placed in chart.
[2024-02-26] MEDS: enoxaparin 40 mg/0.4 mL Syringe SUBCUT (13:56)
[2024-02-26] MEDS: AZITHROMYCIN ADD-Vantage 500 MG in 0.9% NaCl ADD-Vantage 250 ML 250 MG IV (18:04)
[2024-02-26] MEDS: atorvastatin 40 mg Tablet 20 MG PO (21:02)
[2024-02-26] MEDS: levothyroxine 50 mcg Tablet PO (21:03)
[2024-02-26] MEDS: montelukast sodium 10 mg Tablet PO (21:03)
[2024-02-27] VITALS (13 sets, daily range): BP systolic 115–138; BP diastolic 60–76; PULSE 80–108; RESP 14–18; TEMP 36.4–36.8; O2SAT 90–98
[2024-02-27] MEDS: piperacillin-tazobactam 3.375 GM in sodium chloride 0.9% (plus) 50 ML IV ×3 (03:22→19:35)
[2024-02-27 05:15] LABS: Basophils # 0.2 10^3/uL (0.0-0.1); Basophils % 0.9 %; Eosinophils # 0.1 10^3/uL (0.0-0.8); Eosinophils % 0.3 %; Hematocrit 33.6 % (36-47); Lymphocytes # 3.4 10^3/uL (0.8-4.8); Lymphocytes % 15.2 %; Mean Corpuscular HGB Conc 32.1 g/dL (30-55); Mean Corpuscular Hemoglobin 28.8 pg (27-33); Mean Corpuscular Volume 89.6 fl (85-98); Mean Platelet Volume 9.4 fL (7.4-10.4); Monocytes # 1.3 10^3/uL (0.2-0.9); Monocytes % 5.8 %; Neutrophils # 14.15 10^3/uL (1.8-7.7); Neutrophils % 63.4 %; Nucleated Red Blood Cells % 0 %; Platelet Count 410 10^3/cmm (157-399); Red Blood Count 3.75 10^6/uL (3.85-5.65); Red Cell Distribution Width 13.2 % (12.1-15.1); White Blood Count 22.31 10^3/uL (3.29-11.43)
[2024-02-27] MEDS: ipratropium-albuterol 3 mL Neb INHALATION ×6 (05:22→23:33)
[2024-02-27 05:32] LABS: Anion Gap 13.1 (5-19); Blood Urea Nitrogen 12 mg/dL (8-23); Calcium 8.6 mg/dL (8.5-10.5); Carbon Dioxide 24 mmol/L (22-29); Chloride 101 mmol/L (98-107); Creatinine Clr Calc Pharmacy 48.1121; Glucose 98 mg/dL (65-115); Osmolality Calculated 278 mOsm/kg (285-295); Potassium 4.1 mmol/L (3.5-5.1); Sodium 134 mmol/L (136-145)
[2024-02-27 05:41] LABS: Slide Review Slide Review Perform
[2024-02-27] MEDS: guaiFENesin 600 mg Tablet PO ×2 (08:35→18:17)
[2024-02-27] MEDS: levothyroxine 25 mcg Tablet PO (08:36)
[2024-02-27] MEDS: benzonatate 100 mg Capsule 200 MG PO ×3 (08:36→21:01)
[2024-02-27] MEDS: predniSONE 20 mg Tablet 40 MG PO (08:36)
[2024-02-27] MEDS: fexofenadine 60 mg Tablet 180 MG PO (08:36)
[2024-02-27] MEDS: budesonide 0.5 mg/2 mL Neb INHALATION ×2 (08:43→20:25)
[2024-02-27] MEDS: enoxaparin 40 mg/0.4 mL Syringe SUBCUT (13:52)
--- NOTE | 2024-02-27 13:53 | CTR_ITS ---
PROCEDURE INFORMATION: Exam: CT Chest With Contrast; Diagnostic Exam date and time: 02/27/2024 2:32 PM Age: 79 years old Clinical indication: Cough and dyspnea; Assess for empyema TECHNIQUE: Imaging protocol: Diagnostic computed tomography of the chest with contrast. Radiation optimization: All CT scans at this facility use at least one of these dose optimization techniques: automated exposure control; mA and/or kV adjustment per patient size (includes targeted exams where dose is matched to clinical indication); or iterative reconstruction. Contrast material: OMNIPAQUE 350; Contrast volume: 80 ml; Contrast route: INTRAVENOUS (IV); COMPARISON: CT chest w con* [id number] 05/23/2020 7:10 PM RADIATION DOSE METRICS: Total DLP (mGy-cm): 207.21 FINDINGS: Lungs: Bilateral lung scarring. Chronic bronchiectasis with associated peribronchial thickening in the right middle lobe and lingula are seen on the prior CT scan as well. There are multiple noncalcified nodular densities which appear to be in a tree in bud configuration in the bilateral lungs most consistent with sequela of atypical infection. Largest noncalcified nodular density is in the lingula series 4, image 29 measuring 6 mm in the transverse dimension. There are multifocal patchy bilateral pulmonary infiltrates most prominently involving the bilateral lower lobes. Pleural spaces: Small bilateral pleural effusions with adjacent compressive atelectasis. Heart: Unremarkable. No cardiomegaly. No pericardial effusion. Esophagus: There is fluid in the esophagus consistent with reflux. Lymph nodes: Multiple subcentimeter mediastinal and perihilar lymph nodes. Vasculature: Unremarkable. No aortic aneurysm. Bones/joints: Unremarkable. No acute fracture. Soft tissues: Unremarkable. CT/CT chest w con* [id number] IMPRESSION: 1. Multifocal patchy bilateral pulmonary infiltrates most prominently involving the lower lobes. 2. There are multiple noncalcified nodular densities which appear to be in a tree in bud configuration in the bilateral lungs most consistent with sequela of atypical infection. Largest nodular density is in the lingula measuring 6 mm in transverse dimension.For patients at low risk (minimal or absent history of smoking and of other known risk factors), recommend CT Chest at 3-6 months, then consider CT Chest at 18-24 months. For patients at high risk (history of smoking or of other known risk factors), recommend CT Chest at 3-6 months, then CT Chest at 18-24 months. (Reference: Shane) 3. There are emphysematous changes in the lungs. 4. Chronic bronchiectasis with peribronchial thickening in the right middle lobe and lingula. REFERENCES: Shane Tobias, et al. Guidelines for Management of Incidental Pulmonary Nodules Detected on CT Images: From the Fleischner Society 2017. Radiology. 2017;284(1):228-243.
[2024-02-27] MEDS: iohexol 350 mg/mL 500 mL Btl (per mL) IV (14:38)
--- NOTE | 2024-02-27 15:01 | P.PN_ITS ---
Subjective 2 Subjective: Patient states she does not feel better today. She has been coughing which is waiting that out. Currently on room air. However white blood cell count of 22,000 today. Medications: Reviewed: Yes Vitals/I&O/Wt Last Vital Signs Temp 97.6 F 02/27/24 11:28 Pulse 97 02/27/24 12:30 Resp 16 02/27/24 12:30 BP 130/75 02/27/24 11:28 Pulse Ox 98 02/27/24 12:30 O2 Del Method Room Air 02/27/24 12:30 O2 Flow Rate 1 02/26/24 04:14 02/27/24 02/27/24 02/27/24 06:59 14:59 22:59 Intake Total 50 / 770 650 / 650 Balance 50 / 770 650 / 650 Weight last 48 hrs Weight 53.796 kg Weight 52.617 kg Physical Exam 2 Narrative: General: No acute distress, AO x3 HEENT: PERRLA, pupils bilaterally equal and reactive, pallors not present Chest: Normal vesicular breath sounds, no added sounds, equal good air entry bilaterally CVS: S1-S2 regular, no murmurs, no tachycardia, no gallops, no rubs Abdomen: Soft, nontender, no organomegaly, bowel sounds present Neuro: No focal deficits, no facial deformity, AO x3, power 5/5 in all limbs Data 02/27/24 05:08 02/27/24 05:08 Micro: Microbiology 02/23/24 11:23 Gram Stain - Final Sputum - Expectorated Sputum Sputum Culture - Final A&P Assessment and plan (1) Pneumonia: Presents with pneumonia failing outpatient treatment with azithromycin Continue azithromycin, Zosyn MRSA PCR is negative Sputum culture now shows haemophilus Urine Legionella negative MRSA PCR negative COVID influenza and RSV negative Blood cultures no growth to date Repeat chest x-ray in hospital, consolidation left lower lobe, no obvious effusion. Qualifiers: Laterality: left Lung location: lower lobe of lung Pneumonia type: due to unspecified organism Qualified Code(s): J18.9 - Pneumonia, unspecified organism (2) Asthma-COPD overlap syndrome: Has evidence of acute asthma/COPD exacerbation Continue prednisone 40 mg daily Budesonide twice daily DuoNeb every 6 hours scheduled (3) Acute hypoxemic respiratory failure: Patient with evidence of acute hypoxemic respiratory failure, requiring oxygen, elevated respiratory rate, obvious retractions Now off oxygen, saturation borderline (4) Moderate to severe mitral regurgitation: Patient with recent past evidence of moderate to severe mitral regurgitation Appears compensated currently Plan Hyponatremia. Normal today. Unrestricted salt. Discontinue fluid restriction Other medical problems as outlined in past medical history Full code SCDs, Lovenox for DVT prophylaxis 02/27/2024. Patient reported by repeated bouts of coughing today. Thinks it is worse than yesterday. Will add codeine as needed. Leukocytosis at 22,000 today, up from 16,000 yesterday. Predominantly neutrophils. Reviewing serial x-rays between February 20 to February 25, 2024 noted to have consolidating infiltrate in the left lower lobe. Possibility of pleural effusion given blunting of the costophrenic angles per my personal interpretation. Will obtain CT of the chest given rising leukocytosis and changes on x-ray, evaluate for possible empyema. Sputum culture with haemophilus influenza. Currently appropriately covered with antibiotics. Reviewed past notes from pulmonology. Patient has a history of aspiration pneumonia in 2020. Will obtain speech and swallow evaluation. Modified barium swallow from 2022 was without any obvious aspiration. Past history of LTBI, has never been treated for the same. Given acuity of symptoms right now, less likely to be pulmonary TB at this time. This documentation was created by [employer] freelance court reporter software. Every effort was made to ensure accuracy of freelance court reporter. Any obvious errors or omissions should be clarified with the author of the document. Attestations 2 Medical Necessity Statement*: Continued need for IV antibiotics, CT chest today, worsening leukocytosis. Coding Level of Care Code Acute Code for [facility] Diagnoses Pneumonia J18.9 Laterality: left Lung location: lower lobe of lung Pneumonia type: due to unspecified organism Asthma-COPD overlap syndrome J44.9 Acute hypoxemic respiratory failure J96.01 Moderate to severe mitral regurgitation I34.0
[2024-02-27 15:40] LABS: MRSA PCR OZH (swab) NOT DETECTED (Not Detecte)
[2024-02-27] MEDS: AZITHROMYCIN ADD-Vantage 500 MG in 0.9% NaCl ADD-Vantage 250 ML 250 MG IV (18:18)
[2024-02-27] MEDS: atorvastatin 40 mg Tablet 20 MG PO (21:01)
[2024-02-27] MEDS: acetaminophen-codeine 300-30mg Tablet 1 TAB PO (21:01)
[2024-02-27] MEDS: montelukast sodium 10 mg Tablet PO (21:01)
[2024-02-28] VITALS (7 sets, daily range): BP systolic 126–154; BP diastolic 68–78; PULSE 84–100; RESP 15–18; TEMP 36.4–37; O2SAT 93–95
[2024-02-28] MEDS: piperacillin-tazobactam 3.375 GM in sodium chloride 0.9% (plus) 50 ML IV (02:46)
[2024-02-28] MEDS: ipratropium-albuterol 3 mL Neb INHALATION ×2 (03:00→08:19)
[2024-02-28 07:41] LABS: Basophils # 0.1 10^3/uL (0.0-0.1); Basophils % 0.5 %; Eosinophils # 0.1 10^3/uL (0.0-0.8); Eosinophils % 0.3 %; Hematocrit 31.9 % (36-47); Lymphocytes # 2.7 10^3/uL (0.8-4.8); Lymphocytes % 13.3 %; Mean Corpuscular HGB Conc 32.3 g/dL (30-55); Mean Corpuscular Hemoglobin 29.3 pg (27-33); Mean Corpuscular Volume 90.9 fl (85-98); Mean Platelet Volume 9.8 fL (7.4-10.4); Neutrophils # 12.91 10^3/uL (1.8-7.7); Neutrophils % 63.1 %; Nucleated Red Blood Cells % 0 %; Platelet Count 408 10^3/cmm (157-399); Red Blood Count 3.51 10^6/uL (3.85-5.65); Red Cell Distribution Width 13.2 % (12.1-15.1); White Blood Count 20.45 10^3/uL (3.29-11.43)
[2024-02-28 07:45] LABS: Alanine Aminotransferase 16 U/L (0-33); Albumin Level 3.1 g/dL (3.5-5.2); Alkaline Phosphatase 58 U/L (35-105); Anion Gap 13.9 (5-19); Aspartate Amino Transferase 27 U/L (0-32); Blood Urea Nitrogen 9 mg/dL (8-23); Calcium 8.4 mg/dL (8.5-10.5); Carbon Dioxide 26 mmol/L (22-29); Chloride 103 mmol/L (98-107); Creatinine Clr Calc Pharmacy 48.1603; Globulin 2.5 g/dL (1.3-4.6); Glucose 97 mg/dL (65-115); Osmolality Calculated 287 mOsm/kg (285-295); Potassium 3.9 mmol/L (3.5-5.1); Sodium 139 mmol/L (136-145); Total Bilirubin 0.2 mg/dL (0.15-1.2); Total Protein 5.6 g/dL (6.6-8.7)
[2024-02-28] MEDS: budesonide 0.5 mg/2 mL Neb INHALATION (08:19)
[2024-02-28] MEDS: fexofenadine 60 mg Tablet 180 MG PO (08:53)
[2024-02-28] MEDS: predniSONE 20 mg Tablet 40 MG PO (08:53)
[2024-02-28] MEDS: guaiFENesin 600 mg Tablet PO (08:53)
[2024-02-28] MEDS: acetaminophen-codeine 300-30mg Tablet 1 TAB PO (10:33)
[2024-02-28] MEDS: benzonatate 100 mg Capsule 200 MG PO (10:34)
--- NOTE | 2024-02-28 15:59 | P.DS_ITS ---
Discharge Providers Date of Admission: 02/23/24 12:59 Date of Discharge: February 28, 2024 Attending Provider at Admission: Dave Alonzo MD Attending Provider at Discharge: Molly Tatum MD Primary Care Provider: Ash Cali MD Diagnoses at Discharge Discharge Diagnosis (1) Pneumonia: Status: Acute Qualifiers: Laterality: left Lung location: lower lobe of lung Pneumonia type: due to unspecified organism Qualified Code(s): J18.9 - Pneumonia, unspecified organism (2) Asthma-COPD overlap syndrome: Status: Acute (3) Acute hypoxemic respiratory failure: Status: Acute (4) Moderate to severe mitral regurgitation: Status: Acute Reason for Visit Reason for Visit: pneumonia not better Brief History: Taken from [facility]. Bernadette Brown is a 79 year old female presenting with persistent cough. She has been ill for at least 1 week. She has had purulent sputum, no blood. She reports she has been short of breath with coughing and exertion. Has had fever as high as 103 ?F. Has been seen at urgent care, and COVID tested at that time and was negative. She was prescribed Zithromax, but not improving. In the emergency department she was requiring oxygen. Some chest discomfort with coughing. Acknowledges wheezing as well. Past history of COPD, although not a smoker. Hospital Course Hospital Course Patient was admitted to the hospital on February 23, 2024, noted to have a left lower lobe pneumonia and started on treatment with azithromycin and piperacillin/tazobactam. COVID influenza and RSV PCR were negative. MRSA PCR was additionally negative. Negative urine Legionella antigen. Blood cultures were without growth. Sputum culture from February 21, 2024 had shown haemophilus influenza. Subsequent cultures taken on 02/23/2024 showed gram-negative rods eventually identified as normal respiratory cinthya. There appeared to be worsening of the left lower lobe infiltrate therefore patient underwent CT of the chest on February 27, 2024 for worsening x-ray findings and persisting leukocytosis. CT of the chest did not show any evidence of empyema. Study negative for PE. She improved with treatment with IV antibiotics including Zosyn and IV azithromycin. She has been transitioned to oral Augmentin at the time of discharge. She did have a COPD exacerbation related to her acute infection for which she received treatment with a short course of steroids, scheduled nebulization with budesonide and DuoNeb. She is being discharged with recommendations to continue Advair inhaler, rescue inhalation with albuterol. Spiriva has additionally been added at the time of discharge. She had better cough suppression with codeine therefore limited prescription was given for codeine to be taken only if Tessalon has no effect for cough suppression. She continued to have a leukocytosis of around 20,000 at the time of discharge. Given otherwise clinical improvement suspect that persisting leukocytosis may be related to high-dose steroid use. Recommended to follow-up with repeat x-ray in 2 weeks and recheck of WBC count in the next 4 to 7 days with primary care physician. At a baseline her CT is showing multiple noncalcified nodular densities in a tree-in-bud configuration in bilateral lungs. Largest nodular densities in the lingula measuring 6 mm. There is chronic bronchiectasis with peribronchial thickening in the right middle lobe and lingula. Compared to 2020 per personal review of images there appears to be progression of the background process. Patient does have a diagnosis of COPD and these changes may be related to chronic bronchiectasis versus worsening COPD. However MAC infection would be another consideration. Sputum mycobacterial smear has been ordered at the time of discharge. Patient prefers to complete this as an outpatient. She feels symptomatically improved at the time of discharge Referral provided to pulmonology as an outpatient. Patient previously was followed by Dr. Bryant who has since left the organization. This documentation was created by [employer] critical care physician assistant software. Every effort was made to ensure accuracy of critical care physician assistant. Any obvious errors or omissions should be clarified with the author of the document. Physical Exam Narrative: General: No acute distress, AO x3 HEENT: PERRLA, pupils bilaterally equal and reactive, pallors not present Chest: Normal vesicular breath sounds, no added sounds, equal good air entry bilaterally CVS: S1-S2 regular, no murmurs, no tachycardia, no gallops, no rubs Abdomen: Soft, nontender, no organomegaly, bowel sounds present Neuro: No focal deficits, no facial deformity, AO x3, power 5/5 in all limbs Discharge Data Studies Completed and Pending Completed Studies During Hospitalization Category Date Time Status CT chest w con* [id number] Routine Cat Scan 02/27/24 13:53 Completed XR chest 1V portable [id number] Routine Exams 02/25/24 08:42 Completed XR chest 1V portable [id number] Stat Exams 02/23/24 07:59 Completed Pending at discharge Category Date Time Status HELDER Profile Rheumatology AM LABS Lab 02/28/24 02:16 Received Radiology Impressions Chest X-Ray 02/25/24 08:42 IMPRESSION: 1. Increasing consolidating infiltrate in the LEFT lower lobe and atelectasis since the prior study. New focal pneumonia in the RIGHT lower lobe. Chest CT 02/27/24 13:53 IMPRESSION: 1. Multifocal patchy bilateral pulmonary infiltrates most prominently involving the lower lobes. 2. There are multiple noncalcified nodular densities which appear to be in a tree in bud configuration in the bilateral lungs most consistent with sequela of atypical infection. Largest nodular density is in the lingula measuring 6 mm in transverse dimension.For patients at low risk (minimal or absent history of smoking and of other known risk factors), recommend CT Chest at 3-6 months, then consider CT Chest at 18-24 months. For patients at high risk (history of smoking or of other known risk factors), recommend CT Chest at 3-6 months, then CT Chest at 18-24 months. (Reference: Shane) 3. There are emphysematous changes in the lungs. 4. Chronic bronchiectasis with peribronchial thickening in the right middle lobe and lingula. REFERENCES: Shane Tobias, et al. Guidelines for Management of Incidental Pulmonary Nodules Detected on CT Images: From the Fleischner Society 2017. Radiology. 2017;284(1):228-243. Laboratory Results WBC 20.45 10^3/uL (3.29-11.43) H 02/28/24 02:16 RBC 3.51 10^6/uL (3.85-5.65) L 02/28/24 02:16 Hgb 10.30 g/dL (11.27-16.99) L 02/28/24 02:16 Hct 31.9 % (36-47) L 02/28/24 02:16 MCV 90.9 fl (85-98) 02/28/24 02:16 MCH 29.3 pg (27-33) 02/28/24 02:16 MCHC 32.3 g/dL (30-55) 02/28/24 02:16 RDW 13.2 % (12.1-15.1) 02/28/24 02:16 Plt Count 408 10^3/cmm (157-399) H 02/28/24 02:16 MPV 9.8 fL (7.4-10.4) 02/28/24 02:16 Neut % (Auto) 63.1 % 02/28/24 02:16 Lymph % (Auto) 13.3 % 02/28/24 02:16 Dauphin % (Auto) 5.0 % 02/28/24 02:16 Eos % (Auto) 0.3 % 02/28/24 02:16 Baso % (Auto) 0.5 % 02/28/24 02:16 Neut # (Auto) 12.91 10^3/uL (1.8-7.7) H 02/28/24 02:16 Lymph # (Auto) 2.7 10^3/uL (0.8-4.8) 02/28/24 02:16 Dauphin # (Auto) 1.0 10^3/uL (0.2-0.9) H 02/28/24 02:16 Eos # (Auto) 0.1 10^3/uL (0.0-0.8) 02/28/24 02:16 Baso # (Auto) 0.1 10^3/uL (0.0-0.1) 02/28/24 02:16 Nucleated RBC % (auto) 0 % 02/28/24 02:16 Total Counted 100 (0-100) 02/26/24 04:47 Atypical Lymphs % Not Reportable 02/26/24 04:47 Absolute Neutrophils 15.5 10^3/cmm (1.4-6.5) H 02/24/24 04:48 Segmented Neutrophils 80 % 02/26/24 04:47 Band Neutrophils Not Reportable 02/26/24 04:47 Absolute Lymphocytes 1.2 10^3/cmm (1.2-3.4) 02/24/24 04:48 Lymphocytes (Manual) 10 % 02/26/24 04:47 Monocytes (Manual) 3.0 % 02/26/24 04:47 Absolute Monocytes 0.5 10^3/cmm (0.1-0.6) 02/26/24 04:47 Eosinophils (Manual) 0 % 02/26/24 04:47 Absolute Eosinophils 0.0 10^3/cmm (0.0-0.7) 02/26/24 04:47 Basophils (Manual) 0.0 % 02/26/24 04:47 Absolute Basophils 0.0 10^3/cmm (0.0-0.2) 02/26/24 04:47 Metamyelocytes 1.0 % 02/26/24 04:47 Myelocytes 6.0 % 02/26/24 04:47 Nucleated RBCs # 0.0 /100WBC 02/28/24 02:16 Platelet Estimate Normal (Normal) 02/26/24 04:47 Sodium 139 mmol/L (136-145) 02/28/24 02:16 Potassium 3.9 mmol/L (3.5-5.1) 02/28/24 02:16 Chloride 103 mmol/L (98-107) 02/28/24 02:16 Carbon Dioxide 26 mmol/L (22-29) 02/28/24 02:16 Anion Gap 13.9 (5-19) 02/28/24 02:16 BUN 9 mg/dL (8-23) 02/28/24 02:16 Creatinine 0.5 mg/dL (0.5-0.9) 02/28/24 02:16 GFR Calculation Not Reportable 02/28/24 02:16 Glucose 97 mg/dL (65-115) 02/28/24 02:16 Calculated Osmolality 287 mOsm/kg (285-295) 02/28/24 02:16 Lactic Acid 1.4 mmol/L (0.5-2.2) 02/23/24 08:30 Calcium 8.4 mg/dL (8.5-10.5) L 02/28/24 02:16 Magnesium 1.9 mg/dL (1.7-2.3) 02/24/24 04:48 Total Bilirubin 0.2 mg/dL (0.15-1.2) 02/28/24 02:16 AST 27 U/L (0-32) 02/28/24 02:16 ALT 16 U/L (0-33) 02/28/24 02:16 Alkaline Phosphatase 58 U/L (35-105) 02/28/24 02:16 NT-Pro-B Natriuret Pep 1468 pg/mL (0-450) H 02/23/24 08:30 Total Protein 5.6 g/dL (6.6-8.7) L 02/28/24 02:16 Albumin 3.1 g/dL (3.5-5.2) L 02/28/24 02:16 Globulin 2.5 g/dL (1.3-4.6) 02/28/24 02:16 TSH 3.91 uIU/mL (0.27-4.20) 02/23/24 08:30 Urine Color Yellow (Yellow) 02/23/24 12:38 Urine Appearance Clear (CLEAR) 02/23/24 12:38 Urine pH 6.0 (5-7) 02/23/24 12:38 Ur Specific Baskin 1.026 (1.005-1.030) 02/23/24 12:38 Urine Protein 1+ (Negative) A 02/23/24 12:38 Urine Glucose (UA) Negative (Normal) 02/23/24 12:38 Urine Ketones Trace (Negative) 02/23/24 12:38 Urine Blood Negative (Negative) 02/23/24 12:38 Urine Nitrate Negative (Negative) 02/23/24 12:38 Urine Bilirubin Negative (Negative) 02/23/24 12:38 Urine Urobilinogen 0.2 mg/dL (Negative) 02/23/24 12:38 Ur Leukocyte Esterase Negative (Negative) 02/23/24 12:38 Urine RBC 3-5 /hpf (0-2) 02/23/24 12:38 Urine WBC 0-5 /hpf (0-5) 02/23/24 12:38 Ur Squamous Epith Cells 0-5 /hpf (0-5) 02/23/24 12:38 Amorphous Sediment Not Reportable 02/23/24 12:38 Urine Bacteria None seen /hpf (NONE) 02/23/24 12:38 Hyaline Casts 0.81 /lpf 02/23/24 12:38 Nasal MRSA (PCR) Not detected (Not Detecte) 02/27/24 13:53 Vitals Last Vital Signs Temp 97.8 F 02/28/24 13:40 Pulse 95 02/28/24 13:40 Resp 18 02/28/24 13:40 BP 137/75 02/28/24 13:40 Pulse Ox 95 02/28/24 13:40 O2 Del Method Room Air 02/28/24 11:10 O2 Flow Rate 1 02/26/24 04:14 Discharge Plan Discharge Patient Disposition: Home Condition: Stable Prescriptions: New guaifenesin [Mucinex] 600 mg Tablet Extended Release 12hr 600 mg PO BID Qty: 14 0RF benzonatate 100 mg Capsule 200 mg PO Q6H PRN (Reason: Cough) Qty: 14 0RF prednisone 20 mg Tablet 40 mg PO DAILY 3 Days Qty: 6 0RF amoxicillin-pot clavulanate 875-125 mg tablet 1 tab PO BID Qty: 14 0RF acetaminophen-codeine 300-30 mg Tablet 1 tab PO Q12H PRN (Reason: Moderate Pain) 5 Days Qty: 10 0RF tiotropium bromide [Spiriva with HandiHaler] 18 mcg capsule, w/inhalation device 1 cap inhalation DAILY 30 Days Qty: 30 2RF Rx Instructions: puncture 1 cap using device; one dose = 2 inhalations nystatin 100,000 unit/mL suspension 1 ml PO QID 14 Days Qty: 56 0RF Rx Instructions: swish and swallow Continued estradiol 1 mg tablet See Rx Instructions .ROUTE .COMPLEX Rx Instructions: 1mg po every other day & 0.5mg po on other days levothyroxine 50 mcg capsule See Rx Instructions .ROUTE .COMPLEX Rx Instructions: TAKE 1 TAB EVERY OTHER DAY, AND 1/2 TAB ON THE OPPOSITE DAYS. albuterol sulfate 90 mcg/actuation HFA aerosol inhaler 2 puff inhalation Q6H PRN (Reason: shortness of breath or wheezing) Qty: 8.5 3RF fluticasone propionate [Flonase Allergy Relief] 50 mcg/actuation spray,suspension 1 spray intranasal Q12H PRN (Reason: nasal congestion) Qty: 16 3RF Rx Instructions: administer into each nostril montelukast [Singulair] 10 mg tablet 10 mg PO DAILY Qty: 90 6RF simvastatin 5 mg tablet 5 mg PO DAILY@2200 cholecalciferol (vitamin D3) [Vitamin D3] 25 mcg (1,000 unit) Tablet 25 mcg PO DAILY@0730 potassium gluconate 595 mg (99 mg) Tablet 595 mg PO DAILY@0730 Calcium Magnesium 500 mg calcium -250 mg Tablet 1 tab PO DAILY@0730 Glucosamine Chondroitin 550-30-1 mg Capsule 1 cap PO DAILY@0730 vitamin B complex-folic acid [Complex B-100] 400 mcg Tablet Extended Release 1 tab PO DAILY fluticasone propion-salmeterol 500-50 mcg/dose blister with device 1 inh inhalation BID PRN (Reason: wheezing) Qty: 60 3RF fexofenadine [Jahaira Allergy] 180 mg Tablet 180 mg PO DAILY carbidopa-levodopa 10-100 mg tablet 1 tab PO DAILY azelastine 137 mcg (0.1 %) spray,non-aerosol 1 spray INTRANASAL DAILY No Action prednisone 20 mg tablet 20 mg PO DAILY cefdinir 300 mg capsule 300 mg PO BID Qty: 14 0RF azithromycin 500 mg tablet See Rx Instructions .ROUTE .COMPLEX Qty: 3 0RF Rx Instructions: For 250 mg dose pack: take 500 mg today (day 1), then 250 mg for 4 days (days 2-5) Discharge Orders: Discharge Order (Routine); Ordered 02/28/24 Ordered By: Molly Tatum Referrals: [facility] [Outside] (We have faxed your infromation to [facility] of the need for a follow-up appointment to be scheduled. If you have not heard from them within the next 2 business days, please call them directly. ) [facility] [Outside] (We have faxed your information to [facility] of the need for a follow-up appointment to be scheduled. If you have not heard from them within the next 2 business days, please call them directly. ) Ash Cali MD [Primary Care Provider] - 4-7 days (We have notified your physician's clinic of the need for a follow-up appointment to be scheduled. If you have not heard from them within the next 2 business days, please call them directly. ) Discharge Diet: Regular Discharge Activity: Increase activity as tolerated Patient Instructions: Benzonatate (By mouth), Decongestant/Expectorant (By mouth), Acetaminophen/Codeine (By mouth) (Tylenol with Codeine No. 3,..., Prednisone (By mouth), Amoxicillin/Clavulanate Potassium (By mouth), Bronchiolitis (DC), Viral Pneumonia (DC), Opioid Safety Activity Restrictions/Additional Instructions: Take all medicine as prescribed Follow-up with your primary care provider in 3 to 5 days Blood work consisting of a BMP on follow-up Chest x-ray in 2 weeks Return for any concerns outpatient MAC testing Discharge Attestations Time Spent in Discharge Care*: greater than 30 min Status at Discharge: Cognitive status at discharge: cognitively intact , Behavioral status at discharge: cooperative , Quality Metrics Clinical Quality Measures [ No reported AMI, CVA or VTE this stay] Coding Level of Care Code Acute Code for [facility] Diagnoses Pneumonia J18.9 Laterality: left Lung location: lower lobe of lung Pneumonia type: due to unspecified organism Asthma-COPD overlap syndrome J44.9 Acute hypoxemic respiratory failure J96.01 Moderate to severe mitral regurgitation I34.0
[2024-02-29 14:46] LABS: COMPLEMENT, TOTAL (CH50) 56 U/mL (31-60)
[2024-03-01 06:34] LABS: CENTROMERE B ANTIBODY <1.0 NEG AI (<1.0 NEG); JO-1 ANTIBODY <1.0 NEG AI (<1.0 NEG); RNP ANTIBODY 1.8 POS AI (<1.0 NEG); SCL-70 ANTIBODY <1.0 NEG AI (<1.0 NEG); SJOGREN'S ANTIBODY (SS-A) <1.0 NEG AI (<1.0 NEG); SM ANTIBODY <1.0 NEG AI (<1.0 NEG); SS-B <1.0 NEG AI (<1.0 NEG)
[2024-03-02 06:19] LABS: THYROID PEROXIDASE ANTIBODIES <1 IU/mL (<9)
[2024-03-02 13:40] LABS: COMPLEMENT COMPONENT C3C 107 mg/dL (83-193); COMPLEMENT COMPONENT C4C 20 mg/dL (15-57)
[2024-03-04 10:59] LABS: ANA PATTERN Nuclear, Homogeneous; ANA SCREEN, IFA POSITIVE (NEGATIVE)
== END 2024-02-28 13:30 | disposition home or self-care (01) | DRG 193 ==
LOC: ER 12:53 → MEDSURG 12:59
PROVIDERS: Admitting Provider Internal Medicine; Emergency Provider Family Medicine; PCP Family Medicine; Visit Provider Student in an Organized Health Care Education/Training Program
DX: J18.9 Pneumonia, unspecified organism (principal); J96.01 Acute respiratory failure with hypoxia; J44.0 Chronic obstructive pulmonary disease with (acute) lower respiratory infection; J44.1 Chronic obstructive pulmonary disease with (acute) exacerbation; E87.1 Hypo-osmolality and hyponatremia; M15.4 Erosive (osteo)arthritis; E03.9 Hypothyroidism, unspecified; K58.9 Irritable bowel syndrome, unspecified; I34.0 Nonrheumatic mitral (valve) insufficiency; Z79.51 Long term (current) use of inhaled steroids; Z79.890 Hormone replacement therapy; Z88.1 Allergy status to other antibiotic agents; Z90.710 Acquired absence of both cervix and uterus; Z82.49 Family history of ischemic heart disease and other diseases of the circulatory system; Z83.3 Family history of diabetes mellitus; Z80.9 Family history of malignant neoplasm, unspecified
CPT/HCPCS: 0241U; 36415; 71045; 71260; 80048; 80053; 81001; 83605; 83735; 83880; 84295; 84443; 85007; 85025; 86160; 86162; 86235; 86255; 86376; 87040; 87070; 87205; 87449; 93005; 94640; 96365; 96372; 96375; 99285; J0456; J1650; J1940; J2543; J2919; J7050; J7512; J7626

== ENCOUNTER → 2024-04-27 09:57 | Outpatient (BNVA) | payer MEDICARE, OTHER, SELFPAY | PROVIDERS: PCP Family Medicine; Referring Provider Student in an Organized Health Care Education/Training Program; Visit Provider Internal Medicine Rheumatology | DX: M19.042 Primary osteoarthritis, left hand (principal); M19.041 Primary osteoarthritis, right hand | CPT/HCPCS: 73130; 99204 ==

== ENCOUNTER 2024-05-25 10:01 | Outpatient (CLI) | payer MEDICARE, OTHER, SELFPAY ==
[2024-05-25 10:41] LABS: Basophils # 0.1 10^3/uL (0.0-0.1); Basophils % 0.9 %; Eosinophils # 0.2 10^3/uL (0.0-0.8); Hematocrit 41.1 % (36-47); Lymphocytes # 1.5 10^3/uL (0.8-4.8); Lymphocytes % 16.3 %; Mean Corpuscular HGB Conc 32.4 g/dL (30-55); Mean Corpuscular Hemoglobin 28.6 pg (27-33); Mean Corpuscular Volume 88.4 fl (85-98); Mean Platelet Volume 9.9 fL (7.4-10.4); Monocytes # 0.7 10^3/uL (0.2-0.9); Monocytes % 7.6 %; Neutrophils # 6.54 10^3/uL (1.8-7.7); Neutrophils % 73.1 %; Nucleated Red Blood Cells % 0 %; Platelet Count 346 10^3/cmm (157-399); Red Blood Count 4.65 10^6/uL (3.85-5.65); Red Cell Distribution Width 13.1 % (12.1-15.1); White Blood Count 8.95 10^3/uL (3.29-11.43)
[2024-05-25 10:50] LABS: Erythrocyte Sedimentation Rate 6 mm/hr (0-15)
[2024-05-25 11:00] LABS: Alanine Aminotransferase 28 U/L (0-33); Albumin Level 4.1 g/dL (3.5-5.2); Alkaline Phosphatase 65 U/L (35-105); Aspartate Amino Transferase 27 U/L (0-32); Globulin 2.5 g/dL (1.3-4.6); Total Bilirubin 0.3 mg/dL (0.15-1.2); Total Protein 6.6 g/dL (6.6-8.7)
== END 2024-05-25 10:02 | disposition home or self-care (01) ==
PROVIDERS: PCP Family Medicine; Visit Provider Internal Medicine Rheumatology
DX: Z79.899 Other long term (current) drug therapy (principal)
CPT/HCPCS: 36415; 80076; 82565; 85025; 85651; 86140

== ENCOUNTER 2024-05-27 13:05 | Outpatient (CLI) | payer MEDICARE, OTHER, SELFPAY ==
--- NOTE | 2024-05-27 13:33 | MR_ITS ---
WS: [id number] MRI LUMBAR SPINE NONCONTRAST HISTORY: Low back pain. History of rheumatoid arthritis. COMPARISON: 06/06/2020 TECHNIQUE: Sagittal and axial multisequence imaging is submitted. Partial osseous fusion at C3-4 is noted on the prior study. Multilevel areas of disc space narrowing and osteophytosis in the cervical and thoracic spines. No cord compression. Straightening of the normal lumbar lordosis. Very slight retrolisthesis of L1, L2 and L3 by 2 to 3 mm. Complete loss of the L3-4 disc space now with bone upon bone. Loss of disc space has progressed since 2020. Small amount of reactive marrow edema along the superior endplate of L1. No fractures. New L2 Schmorl's node. Conus terminates normally at L1-2 disc level. T12-L1: Mild disc bulging with shallow bilateral paracentral disc protrusions and facet arthritis. No high-grade stenosis. L1-L2: Diffuse annular disc bulging with osteophytic ridging and bilateral facet arthritis, LEFT greater than RIGHT. Mild bilateral subarticular recess and proximal foraminal stenosis. No central stenosis. L2-L3: Diffuse annular disc bulging with marked ligamentum flavum and facet arthritis. Mild central, bilateral subarticular recess and foraminal stenosis. Mild progression of stenosis since the prior study. L3-L4: Diffuse annular disc bulging with mild ligamentum flavum and facet arthritis. Effacement of foraminal fat. The disc space is completely obliterated. No central stenosis. Severe RIGHT foraminal stenosis. Moderate LEFT and moderate bilateral subarticular recess encroachment upon the traversing ner ve roots. L4-L5: Marked annular disc bulging with osteophytic ridging and ligamentum flavum and facet arthritis. Fluid in the facet joints bilaterally. Small cyst within the RIGHT ligamentum flavum encroaching upon the subarticular recess. Severe central, bilateral subarticular recess and moderate to severe foraminal stenosis. Central and foraminal stenosis has progressed since the prior study. Progression of fluid in the facet joints. L5-S1: Diffuse annular disc bulging asymmetric to the RIGHT with marked ligamentum flavum and facet arthritis. Severe central, bilateral subarticular recess and foraminal stenosis. Perineural cysts in the sacrum. MR/MR lumbar spine wo con* [id number] IMPRESSION: 1. Overall progression of degenerative lumbar spondylosis since 2020. Increasi ng stenoses at several levels. 2. Complete obliteration of the L3-4 disc now with bone upon bone. Progressed since 2020. 3. L3-4: Severe RIGHT with moderate LEFT foraminal stenosis and moderate bilat eral subarticular recess encroachment upon the nerve roots. There is significan t Clotrim upon the L3 and L4 nerve roots. 4. L4-5: Severe central, bilateral subarticular recess and moderate to severe foraminal stenosis. Progression of central and foraminal stenosis since the yoandy or study. Progression of fluid in the facet joints. There is significant encroa chment upon the L4 and L5 nerve roots. 5. L5-S1: Severe central, bilateral subarticular recess and foraminal stenosis . 6. L2-3: Mild central, bilateral subarticular recess and foraminal stenosis. P rogressed since the prior study. 7. L1-2: Mild bilateral subarticular recess and proximal foraminal stenosis.
== END 2024-05-27 13:06 | disposition home or self-care (01) ==
LOC: RAD 13:06
PROVIDERS: PCP Family Medicine; Visit Provider Family Medicine
DX: M62.81 Muscle weakness (generalized) (principal); M47.896 Other spondylosis, lumbar region; M51.369 Other intervertebral disc degeneration, lumbar region without mention of lumbar back pain or lower extremity pain; M48.061 Spinal stenosis, lumbar region without neurogenic claudication; Z98.1 Arthrodesis status; M51.34 Other intervertebral disc degeneration, thoracic region; M51.46 Schmorl's nodes, lumbar region; M51.35 Other intervertebral disc degeneration, thoracolumbar region; M47.895 Other spondylosis, thoracolumbar region; M24.28 Disorder of ligament, vertebrae; R93.7 Abnormal findings on diagnostic imaging of other parts of musculoskeletal system; M25.78 Osteophyte, vertebrae; M51.379 Other intervertebral disc degeneration, lumbosacral region without mention of lumbar back pain or lower extremity pain; M48.07 Spinal stenosis, lumbosacral region; M47.897 Other spondylosis, lumbosacral region; G96.191 Perineural cyst
CPT/HCPCS: 72148

== ENCOUNTER 2024-06-08 15:12 | Outpatient (CLI) | payer MEDICARE, OTHER, SELFPAY ==
--- NOTE | 2024-06-08 15:15 | CTR_ITS ---
PROCEDURE INFORMATION: Exam: CT Chest With Contrast; Diagnostic Exam date and time: 06/08/2024 3:54 PM Age: 79 years old Clinical indication: Abnormal findings; Abnormal radiologic exam of lung or chest; Follow up from abnormal CT chest; Additional info: Abnormal chest CT TECHNIQUE: Imaging protocol: Diagnostic computed tomography of the chest with contrast. Radiation optimization: All CT scans at this facility use at least one of these dose optimization techniques: automated exposure control; mA and/or kV adjustment per patient size (includes targeted exams where dose is matched to clinical indication); or iterative reconstruction. Contrast material: OMNIPAQUE 350; Contrast volume: 100 ml; Contrast route: INTRAVENOUS (IV); COMPARISON: 1. CT chest w con* [id number] 02/27/2024 2:[address] chest w con* [id number] 05/23/2020 7:10 PM RADIATION DOSE METRICS: Total DLP (mGy-cm): 219.01 FINDINGS: Lungs: There is chronic biapical fibrosis, unchanged. There is chronic bronchiectasis most apparent right middle lobe and left lingula, stable. There is accompanying scattered bronchiolitis mid to lower lung zones improved from previous exam with resolving peribronchial consolidative opacities within the lower lung zones likely representing combination of pneumonia and atelectasis. There are multiple circumscribed noncalcified pulmonary nodules stable from most recent exam of many which have developed from 2020 possibly granulomatous in nature (MAC) but needs follow-up clarification.. Pleural spaces: Unremarkable. No pneumothorax. No pleural effusion. Heart: Heart is not significantly enlarged. There are mild calcifications of the coronary arteries. No significant pericardial effusion. Lymph nodes: Unremarkable. No enlarged lymph nodes. Vasculature: Unremarkable. No aortic aneurysm. Bones/joints: Unremarkable. No acute fracture. Soft tissues: Unremarkable. CT/CT chest w con* [id number] IMPRESSION: 1. Chronic bronchiectasis right middle lobe and left lingula with improving bronchiolitis and peribronchial consolidation lower lung zones likely infectious in nature. 2. Multiple noncalcified pulmonary nodules mid to lower lung zones relatively stable from most recent exam possibly granulomatous in nature raises possibility of ongoing MAC infection. Recommend follow-up CT exam in 6 months for continued surveillance. 3. Chronic biapical fibrosis unchanged.
[2024-06-08] MEDS: iohexol 350 mg/mL 500 mL Btl (per mL) IV (16:10)
== END 2024-06-08 15:13 | disposition home or self-care (01) ==
LOC: RAD 15:13
PROVIDERS: PCP Family Medicine; Visit Provider Family Medicine
DX: R93.89 Abnormal findings on diagnostic imaging of other specified body structures (principal); J47.9 Bronchiectasis, uncomplicated; J44.89 Other specified chronic obstructive pulmonary disease; R91.8 Other nonspecific abnormal finding of lung field; J84.10 Pulmonary fibrosis, unspecified; I25.10 Atherosclerotic heart disease of native coronary artery without angina pectoris
CPT/HCPCS: 71260

== ENCOUNTER → 2024-06-29 15:38 | Outpatient (BNVA) | payer MEDICARE, OTHER, SELFPAY | PROVIDERS: PCP Family Medicine; Visit Provider Internal Medicine Cardiovascular Disease | DX: I34.0 Nonrheumatic mitral (valve) insufficiency (principal); E03.9 Hypothyroidism, unspecified; I27.20 Pulmonary hypertension, unspecified; I83.90 Asymptomatic varicose veins of unspecified lower extremity; M79.672 Pain in left foot | CPT/HCPCS: 99214 ==

== ENCOUNTER 2024-07-01 13:16 | Outpatient (CLI) | payer MEDICARE, OTHER, SELFPAY ==
--- NOTE | 2024-07-01 13:30 | XR_ITS ---
WS: [id number] DEXA (DUAL ENERGY X-RAY ABSORPTIOMETRY) Bone mineral density was performed using a icanbuy machine. HISTORY: ASYMPTOMATIC MENOPAUSAL STATE COMPARISON: 02/19/2022 Lumbar spine BMD (L1-L4): 1.177 g/cm2 T score: 0.0 Z score: 2.3 Total hip BMD: Left: 0.867 g/cm2. T score: -1.1 Z score: 1.2 Right: 0.848 g/cm2. T score: -1.3 Z score: 1.1 10 year probability of a major osteoporotic fracture is 16.0%. Compared to the prior study from 02/19/2022. Lumbar spine bone mineral density has increased by 0.8%. Bilateral hips bone mineral density has decreased by 3.4%. XR/XR DEXA axial skeleton* [id number] IMPRESSION: OSTEOPENIA based upon the WHO classification for females. No significant change in bone mineral density within the lumbar spine. Significant decrease in bone mineral density within the hips.
== END 2024-07-01 13:17 | disposition home or self-care (01) ==
PROVIDERS: PCP Family Medicine; Visit Provider Physical Medicine & Rehabilitation
DX: Z78.0 Asymptomatic menopausal state (principal); M85.80 Other specified disorders of bone density and structure, unspecified site
CPT/HCPCS: 77080

== ENCOUNTER → 2024-07-05 11:29 | Outpatient (BNVA) | payer MEDICARE, OTHER, SELFPAY | PROVIDERS: PCP Family Medicine; Visit Provider Nurse Practitioner Family | DX: L81.4 Other melanin hyperpigmentation (principal); L82.1 Other seborrheic keratosis; L57.8 Other skin changes due to chronic exposure to nonionizing radiation; X32.XXXA Exposure to sunlight, initial encounter; Z08 Encounter for follow-up examination after completed treatment for malignant neoplasm; Z85.828 Personal history of other malignant neoplasm of skin | CPT/HCPCS: 99213 ==

== ENCOUNTER → 2024-07-07 12:53 | Outpatient (BNVA) | payer MEDICARE, OTHER, SELFPAY | PROVIDERS: PCP Family Medicine; Referring Provider Family Medicine; Visit Provider Specialist | DX: R29.898 Other symptoms and signs involving the musculoskeletal system (principal) | CPT/HCPCS: 95910 ==

== ENCOUNTER 2024-07-22 09:29 | Outpatient (CLI) | payer MEDICARE, OTHER, SELFPAY ==
--- NOTE | 2024-07-22 09:30 | USR_ITS ---
PROCEDURE INFORMATION: Exam: US Duplex Right Lower Extremity Veins, Limited Exam date and time: 07/22/2024 9:47 AM Age: 79 years old Clinical indication: Screening exam; Eval for reflux; Additional info: Varicase vein TECHNIQUE: Imaging protocol: Real-time duplex ultrasound of the right extremity with 2-D avilez scale, color Doppler flow and spectral waveform analysis including responses to compression and other maneuvers (when performed) with image documentation. Limited exam was focused on the right lower extremity veins. COMPARISON: No relevant prior studies available. FINDINGS: Right deep veins: Unremarkable. The common femoral, femoral, proximal profunda femoral and popliteal veins are patent without thrombus. Normal Doppler waveforms. Normal compressibility and/or augmentation response. Superficial veins: Greater saphenous vein at the saphenofemoral junction is patent without thrombus. Soft tissues: Unremarkable. US/[place] [id number] IMPRESSION: 1. No evidence of deep vein thrombosis. 2. No evidence of reflux.
== END 2024-07-22 09:30 | disposition home or self-care (01) ==
PROVIDERS: PCP Family Medicine; Visit Provider Internal Medicine Cardiovascular Disease
DX: M79.672 Pain in left foot (principal)
CPT/HCPCS: 93971

== ENCOUNTER → 2024-08-03 14:01 | Outpatient (BNVA) | payer MEDICARE, OTHER, SELFPAY | PROVIDERS: PCP Family Medicine; Visit Provider Internal Medicine Rheumatology | DX: M19.90 Unspecified osteoarthritis, unspecified site (principal); R76.8 Other specified abnormal immunological findings in serum; Z22.7 Latent tuberculosis; Z79.899 Other long term (current) drug therapy | CPT/HCPCS: 99214 ==

== ENCOUNTER 2024-08-04 09:08 | Outpatient (CLI) | payer MEDICARE, OTHER, SELFPAY ==
--- NOTE | 2024-08-04 09:15 | USCV_ITS ---
Bernadette Brown Age: 79 Gender: F : 1945 Exam Date: 08/04/2024 09:48 Ordering Phys: Beltran Samson MD ([email or web address]) Technologist: Leo Moyer [place]am Location[place] [facility] [place] Indication: mitral regurg BP: 133 / 73 HR: 71 Rhythm: Sinus Technical Quality: Adequate MEASUREMENTS (Male / Female) Normal Values 2D ECHO LV Diastolic Diameter PLAX 3.3 cm 4.2 - 5.9 / 3.9 - 5.3 cm IVS Diastolic Thickness 1.0 cm 0.6 - 1.0 / 0.6 - 0.9 cm IVS Systolic Thickness 1.2 cm LVPW Diastolic Thickness 1.8 cm 0.6 - 1.0 / 0.6 - 0.9 cm LVPW Systolic Thickness 1.8 cm LVOT Diameter 2.0 cm LV Ejection Fraction 2D Teich 55.0 % LV Ejection Fraction MOD 4C 69.3 % LV Ejection Fraction MOD 2C 77.3 % LV Ejection Fraction 2C AL 77.3 % LA Diameter 3.2 cm RA Systolic Volume 4C AL 35.2 ml RA Systolic Volume 4C MOD 34.5 ml LA Sys Volume AL 42.0 cm cubed LA Sys Volume Index AL 27.7 cm cubed/m squared Aorta at Sinotubular Diameter 2.0 cm IVC Diameter 1.4 cm M-MODE LA Ao Ratio MM 1.4 MV E Point Septal Separation 0.6 cm AV Cusp Separation MM 1.6 cm DOPPLER AV Peak Velocity 129.0 cm/s LVOT Peak Velocity 110.0 cm/s AV Area Cont Eq vti 2.5 cm squared AV Area Cont Eq pk 2.7 cm squared MV Peak Velocity 134.0 cm/s MV Area PHT 3.7 cm squared Mitral E to A Ratio 1.4 TR Peak Velocity 314.0 cm/s TR Peak Gradient 39.4 mmHg TR Mean Velocity 267.0 cm/s TR Mean Gradient 29.7 mmHg TR Velocity Time Integral 87.7 cm PV Peak Velocity 117.0 cm/s RV Ejection Time 0.3 s FINDINGS Left Ventricle Normal left ventricular size and systolic function, EF 77%.mild left ventricular hypertrophy. No regional wall motion abnormalities. Grade III/IV diastolic dysfunction (restrictive filling pattern), severely elevated filling pressures. Right Ventricle The right ventricle is normal in size and function. Right Atrium Mildly increased right atrial size. Left Atrium Mildly increased left atrial size. Mitral Valve Mildly thickened mitral valve. Moderate eccentric mitral valve regurgitation. Aortic Valve Thickened aortic valve. Tricuspid Valve Trace to mild tricuspid valve regurgitation. Pulmonic Valve No gross abnormalities noted Pericardium No pericardial effusion. Aorta Normal aortic annulus size. IVC Normal inferior vena cava. CONCLUSIONS Normal left ventricular size and systolic function, EF 77%.mild left ventricular hypertrophy. No regional wall motion abnormalities. Grade III/IV diastolic dysfunction (restrictive filling pattern), severely elevated filling pressures. Mild biatrial enlargement Mildly thickened mitral valve. Moderate mitral valve regurgitation. Thickened aortic valve. Trace to mild tricuspid valve regurgitation. There is no pericardial effusion. There are no intracardiac masses. Compared to the study from 03/24/2023, there may not be a significant change Dr Beltran Samson MD FACC (Electronically Signed) Final Date: 10 Aug 2024 20:54 S
== END 2024-08-04 09:09 | disposition home or self-care (01) ==
PROVIDERS: PCP Family Medicine; Visit Provider Internal Medicine Cardiovascular Disease
DX: I34.0 Nonrheumatic mitral (valve) insufficiency (principal)
CPT/HCPCS: 93306

== ENCOUNTER 2024-10-14 09:18 | Outpatient (CLI) | payer MEDICARE, OTHER, SELFPAY ==
--- NOTE | 2024-10-14 09:27 | US_ITS ---
WS: [id number] ULTRASOUND ABDOMEN CLINICAL INFORMATION: R UPPER QUAD PAIN COMPARISON: None. FINDINGS: Liver Size: Normal. Craniocaudal length: 11.7 cm. Echogenicity: Normal. Surface nodularity: None. Mass (size and location): None. Bile ducts Intrahepatic ducts: Normal. Common bile duct diameter: 0.2 cm. Gallbladder Normal. Gallstones: None. Gallbladder sludge: None. Gallbladder wall thickening: None. Pericholecystic fluid: None. Sonographic Asencio sign: Absent. Pancreas Normal as visualized. Spleen Splenomegaly: None. Craniocaudal length: 8.8 cm. Right kidney: Normal. Hydronephrosis: None. Size: 9.5 cm x 4.6 cm x 4.8 cm Left kidney: Normal. Hydronephrosis: None. Size: 8.9 cm x 5.4 cm x 5.2 cm. Abdominal aorta and IVC Visualized portions are normal. Ascites: None. US/US abdomen complete* [id number] IMPRESSION: Normal abdominal ultrasound. No acute findings.
== END 2024-10-14 09:19 | disposition home or self-care (01) ==
PROVIDERS: PCP Family Medicine; Visit Provider Nurse Practitioner
DX: R10.11 Right upper quadrant pain (principal)
CPT/HCPCS: 76700

== ENCOUNTER → 2024-12-20 15:43 | Outpatient (BNVA) | payer MEDICARE, OTHER, SELFPAY | PROVIDERS: PCP Family Medicine; Visit Provider Internal Medicine Cardiovascular Disease | DX: I34.0 Nonrheumatic mitral (valve) insufficiency (principal); E03.9 Hypothyroidism, unspecified; I27.20 Pulmonary hypertension, unspecified; I83.90 Asymptomatic varicose veins of unspecified lower extremity | CPT/HCPCS: 99214 ==

== ENCOUNTER → 2024-12-22 10:14 | Outpatient (BNVA) | payer MEDICARE, OTHER, SELFPAY | PROVIDERS: PCP Family Medicine; Visit Provider Internal Medicine Rheumatology | DX: R76.89 Other specified abnormal immunological findings in serum (principal); R03.0 Elevated blood-pressure reading, without diagnosis of hypertension; M06.041 Rheumatoid arthritis without rheumatoid factor, right hand; M06.042 Rheumatoid arthritis without rheumatoid factor, left hand; Z79.899 Other long term (current) drug therapy; R93.89 Abnormal findings on diagnostic imaging of other specified body structures | CPT/HCPCS: 36415; 80076; 82565; 85025; 85651; 86140; 99215 ==

== ENCOUNTER 2025-01-05 18:19 | Emergency (ER) | payer MEDICARE, OTHER, SELFPAY ==
--- OUTSIDE RECORDS SUMMARY | 2024-05-03 08:40 | XMS_ITS ---
Author Organization [facility] Address [address] [place] [address] Care Team Providers Care Banquet Stewardess Name Role Phone Viraj LUCERO, Ash Primary Care Provider Ashok Buckley Unavailable [phone] Lance Pelayo Unavailable [phone] REASON FOR VISIT [id number] Encounters Encounter Location Date Provider Diagnosis [facility] [address] [place] [address] [place] [address] [place] [id number] 05/03/2024 Lance Pelayo Plan Of Treatment Next Appt Details Provider Name:Lance Pelayo, 06/20/2025 02:40:00 PM, [address] [place] [address], [id number], Progress Notes * MACARIO RAPHAEL SDOB: [birth year] (79 yo F)Acc No.[id number]:05/03/2024 Progress Notes Patient: Oscar AMCARIO DWYER Provider: Oscar Pelayo MD :1945 A ge:79 Y S ex:Female Date:05/03/2024 Address:[address], [id number] Pcp:Ash Cali MD Subjective: * Chief Complaints: * [phone] [id number] Billing Information: * Procedure Codes: * Electronic signature of Aissatou Pelayo MD on 01/05/2025 at 06:26 PM CDT Sign off status: Pending * Provider: Oscar Pelayo MD Date: 0 05/03/2024 Generated for Triny obando/Hayley/Justine on: 1 06:26 PM CDT
--- NOTE | 2025-01-05 18:21 | ECG_ITS ---
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 Measurements Intervals Coleman Rate: 84 P: 62 TX: 136 QRS: 21 QRSD: 89 T: 61 QT: 385 QTc: 456 Interpretive Statements SINUS RHYTHM LEFT ATRIAL ENLARGEMENT [-0.15mV P-WAVE IN V1/V2] POSSIBLE RIGHT VENTRICULAR CONDUCTION DELAY [RSR (QR) IN V1/V2] MODERATE ST DEPRESSION [0.05+ mV ST DEPRESSION] INTERPRETATION BASED ON A DEFAULT AGE OF 40 YEARS Compared to ECG 05/07/2019 13:12:56 ST (T wave) deviation now present Incomplete right bundle-branch block no longer present Electronically Signed On 01-06-2025 15:27:11 CDT by Beltran Samson M.D. [email or web address]
--- NOTE | 2025-01-05 18:21 | XRR_ITS ---
PROCEDURE INFORMATION: Exam: XR Chest Exam date and time: 01/05/2025 6:45 PM Age: 79 years old Clinical indication: Pain; Angina pectoris; Additional info: Chest pain TECHNIQUE: Imaging protocol: Radiologic exam of the chest. Views: 1 view. COMPARISON: CT chest w con* [id number] 06/08/2024 3:54 PM FINDINGS: Lungs: Unremarkable. No consolidation. Pleural spaces: Unremarkable. No pleural effusion. No pneumothorax. Heart/Mediastinum: Unremarkable. No cardiomegaly. Bones/joints: Unremarkable. XR/XR chest 1V portable [id number] IMPRESSION: No acute findings.
--- OUTSIDE RECORDS SUMMARY | 2025-01-05 18:26 | XMS_ITS | Encounter Summary ---
Author Organization [employer] [facility] Address [address] [place] [address] Care Team Providers Care Sports Teacher Name Role Phone Ash Cali MD Primary Care Provider +1- [phone] Encounter Details Date Type Department Care Team (Latest Contact Info) Description 08/04/2002 Outpatient Historical [facility] Musa Brown MD [address] [place] [address] HYPOTHYROIDISM NOS (Primary Dx) Social History Tobacco Use Types Packs/Day Years Used Date Smoking Tobacco: Never Assessed Comments Unknown Sex and Gender Information Value Date Recorded Sex Assigned at Not on file 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
--- OUTSIDE RECORDS SUMMARY | 2025-01-05 18:26 | XMS_ITS | Encounter Summary ---
Author Organization [facility] Address [address] [place] [address] Care Team Providers Care Health Practice Manager Name Role Phone Ash Cali MD Primary Care Provider +1- [phone] Encounter Details Date Type Department Care Team (Latest Contact Info) Description 04/21/2003 Outpatient Historical [facility] Musa Brown MD [address] [place] [address] MYALGIA AND MYOSITIS NOS (Primary Dx); PAINFUL RESPIRATION Social History Tobacco Use Types Packs/Day Years Used Date Smoking Tobacco: Never Assessed Comments Unknown Sex and Gender Information Value Date Recorded Sex Assigned at Not on file 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
--- OUTSIDE RECORDS SUMMARY | 2025-01-05 18:26 | XMS_ITS | Encounter Summary ---
Author Organization [facility] Address [address] [place] [address] Care Team Providers Care Line Production Cook Name Role Phone Ash Cali MD Primary Care Provider +1- [phone] Encounter Details Date Type Department Care Team (Late st Contact Info) Description 06/02/2003 Outpatient Historical [facility] [place] [address] [place] [phone] Social History Tobacco Use Types Packs/Day Years Used Date Smoking Tobacco: Never Assessed Comments Unknown Sex and Gender Information Value Date Recorded Sex Assigned at Not on file 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
--- OUTSIDE RECORDS SUMMARY | 2025-01-05 18:26 | XMS_ITS | Encounter Summary ---
Author Organization [facility] Address [address] [place] [address] Care Team Providers Care General Internist Name Role Phone Ash Cali MD Primary Care Provider +1- [phone] Encounter Details Date Type Department Care Team (Latest Contact Info) Description 07/23/1998 Outpatient Historical [facility] Addison Ewing Jr., MD [address] [place] [address] Osteoarthrosis, unspecified whether generalized or localized, unspecified site (Primary Dx); Unspecified hypothyroidism; Need for prophylactic hormone replacement therapy (postmenopausal) Social History Tobacco Use Types Packs/Day Years Used Date Smoking Tobacco: Never Assessed Comments Unknown Sex and Gender Information Value Date Recorded Sex Assigned at Not on file 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
--- OUTSIDE RECORDS SUMMARY | 2025-01-05 18:26 | XMS_ITS | Encounter Summary ---
Author Organization [facility] Address [address] [place] [address] Care Team Providers Care Metal Bed Assembler Name Role Phone Ash Cali MD Primary Care Provider +1- [phone] Encounter Details Date Type Department Care Team (Latest Contact Info) Description 04/19/2003 Outpatient Historical [facility] Evan Harper, DPM NO ADDRESS ON FILE ACQ ANKLE-FOOT DEF NEC (Primary Dx) Social History Tobacco Use Types Packs/Day Years Used Date Smoking Tobacco: Never Assessed Comments Unknown Sex and Gender Information Value Date Recorded Sex Assigned at Not on file Legal Sex Female 5:53 AM PENSION EXAMINER Gender Identity Not on file Sexual Orientation Not on file documented as of this encounter Plan of Treatment Not on file documented as of this encounter Visit Diagnoses Diagnosis Other acquired deformity of ankle and foot(736.79)- Primary Other acquired deformity of ankle and foot documented in this encounter Care Teams Metal Bed Assembler Relationship Specialty Start Date End Date Ash Cali MD [address] [place] [phone] PCP - General 01/03/05 documented as of this encounter
--- OUTSIDE RECORDS SUMMARY | 2025-01-05 18:26 | XMS_ITS | Encounter Summary ---
Author Organization [employer] [facility] Address [address] [place] [address] Care Team Providers Care Scraper Operator Name Role Phone Ash Cali MD Primary Care Provider +1- [phone] Encounter Details Date Type Department Care Team (Latest Contact Info) Description 06/23/2002 Outpatient Historical [facility] Musa Brown MD [address] [place] [address] HYPOTHYROIDISM NOS (Primary Dx) Social History Tobacco Use Types Packs/Day Years Used Date Smoking Tobacco: Never Assessed Comments Unknown Sex and Gender Information Value Date Recorded Sex Assigned at Not on file 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
--- OUTSIDE RECORDS SUMMARY | 2025-01-05 18:26 | XMS_ITS | Encounter Summary ---
Author Organization [facility] Address [address] [place] [address] Care Team Providers Care Dye Penetrant Testing Technician Name Role Phone Ash Cali MD Primary Care Provider +1- [phone] Encounter Details Date Type Department Care Team (Latest Contact Info) Description 09/28/1997 Outpatient Historical [facility] [address] [facility] [address] [place] [phone] Sherly Alva MD NO ADDRESS ON FILE Other screening mammogram (Primary Dx) Social History Tobacco Use Types Packs/Day Years Used Date Smoking Tobacco: Never Assessed Comments Unknown Sex and Gender Information Value Date Recorded Sex Assigned at Not on file 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
--- OUTSIDE RECORDS SUMMARY | 2025-01-05 18:26 | XMS_ITS | Encounter Summary ---
Author Organization [facility] Address [address] [place] [address] Care Team Providers Care Garageman Name Role Phone Ash Cali MD Primary Care Provider +1- [phone] Encounter Details Date Type Department Care Team (Latest Contact Info) Description 11/30/1998 Outpatient Historical [facility] [address] [facility] [address] [place] [phone] Sebastian Omalley MD NO ADDRESS ON FILE Other screening mammogram (Primary Dx) Social History Tobacco Use Types Packs/Day Years Used Date Smoking Tobacco: Never Assessed Comments Unknown Sex and Gender Information Value Date Recorded Sex Assigned at Not on file 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
--- OUTSIDE RECORDS SUMMARY | 2025-01-05 18:26 | XMS_ITS | Encounter Summary ---
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
--- OUTSIDE RECORDS SUMMARY | 2025-01-05 18:26 | XMS_ITS | Encounter Summary ---
Author Organization [employer] [facility] Address [address] [place] [address] Care Team Providers Care Section 8 Property Manager Name Role Phone Ash Cali MD Primary Care Provider +1- [phone] Encounter Details Date Type Department Care Team (Latest Contact Info) Description 09/14/2002 Outpatient Historical [facility] Musa Brown MD [address] [place] [address] HYPOTHYROIDISM NOS (Primary Dx); OSTEOARTHROS NOS-UNSPEC Social History Tobacco Use Types Packs/Day Years Used Date Smoking Tobacco: Never Assessed Comments Unknown Sex and Gender Information Value Date Recorded Sex Assigned at Not on file 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
--- OUTSIDE RECORDS SUMMARY | 2025-01-05 18:26 | XMS_ITS | Encounter Summary ---
Author Organization [employer] [facility] Address [address] [place] [address] Care Team Providers Care Embedder Name Role Phone Ash Cali MD Primary Care Provider +1- [phone] Encounter Details Date Type Department Care Team (Latest Contact Info) Description 09/28/1997 Outpatient Historical [facility] Bartholin's gland cyst (Primary Dx) Social History Tobacco Use Types Packs/Day Years Used Date Smoking Tobacco: Never Assessed Comments Unknown Sex and Gender Information Value Date Recorded Sex Assigned at Not on file Legal Sex Female 5:53 AM DOUBLE SPINDLE 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
--- OUTSIDE RECORDS SUMMARY | 2025-01-05 18:26 | XMS_ITS | Encounter Summary ---
Author Organization [facility] Address [address] [place] [address] Care Team Providers Care Nuisance Animal Damage Control Agent Name Role Phone Ash Cali MD Primary Care Provider +1- [phone] Encounter Details Date Type Department Care Team (Late st Contact Info) Description 05/26/2002 Outpatient Historical [facility] Musa Brown MD [address] [place] [address] Social History Tobacco Use Types Packs/Day Years Used Date Smoking Tobacco: Never Assessed Comments Unknown Sex and Gender Information Value Date Recorded Sex Assigned at Not on file Legal Sex Female 5:53 AM WASTE TREATMENT OPERATOR Gender Identity Not on file Sexual Orientation Not on file documented as of this encounter Plan of Treatment Not on file documented as of this encounter Visit Diagnoses Not on filedocumented in this encounter Care Teams Nuisance Animal Damage Control Agent Relationship Specialty Start Date End Date Ash Cali MD [address] [place] [phone] PCP - General 01/03/05 documented as of this encounter
--- OUTSIDE RECORDS SUMMARY | 2025-01-05 18:26 | XMS_ITS | Encounter Summary ---
Author Organization [facility] Address [address] [place] [address] Care Team Providers Care Harvest Manager Name Role Phone Ash Cali MD Primary Care Provider +1- [phone] Encounter Details Date Type Department Care Team (Latest Contact Info) Description 03/31/2003 Outpatient Historical [facility] Evan Harper, DPM NO ADDRESS ON FILE Pain in limb (Primary Dx); Hallux valgus Social History Tobacco Use Types Packs/Day Years Used Date Smoking Tobacco: Never Assessed Comments Unknown Sex and Gender Information Value Date Recorded Sex Assigned at Not on file 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
--- OUTSIDE RECORDS SUMMARY | 2025-01-05 18:26 | XMS_ITS | Encounter Summary ---
Author Organization [facility] Address [address] [place] [address] Care Team Providers Care Digital Solution Architect Name Role Phone Ash Cali MD Primary Care Provider +1- [phone] Encounter Details Date Type Department Care Team (Latest Contact Info) Description 05/12/2002 Outpatient Historical 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
--- OUTSIDE RECORDS SUMMARY | 2025-01-05 18:26 | XMS_ITS | Encounter Summary ---
Author Organization [employer] [facility] Address [address] [place] [address] Care Team Providers Care Ecological Risk Assessor Name Role Phone Ash Cali MD Primary Care Provider +1- [phone] Encounter Details Date Type Department Care Team (Latest Contact Info) Description 12/02/2002 Outpatient Historical [facility] Musa Brown MD [address] [place] [address] SKIN DISORDER NOS (Primary Dx) Social History Tobacco Use Types Packs/Day Years Used Date Smoking Tobacco: Never Assessed Comments Unknown Sex and Gender Information Value Date Recorded Sex Assigned at Not on file 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
--- OUTSIDE RECORDS SUMMARY | 2025-01-05 18:26 | XMS_ITS | Encounter Summary ---
Author Organization [facility] Address [address] [place] [address] Care Team Providers Care Rn Enterostomal Name Role Phone Ash Cali MD Primary Care Provider +1- [phone] Encounter Details Date Type Department Care Team (Latest Contact Info) Description 06/14/1998 Outpatient Historical [facility] Addison Ewing Jr., MD [address] [place] [address] Vaccine for viral hepatitis (Primary Dx) Social History Tobacco Use Types Packs/Day Years Used Date Smoking Tobacco: Never Assessed Comments Unknown Sex and Gender Information Value Date Recorded Sex Assigned at Not on file 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
--- OUTSIDE RECORDS SUMMARY | 2025-01-05 18:26 | XMS_ITS | Encounter Summary ---
Author Organization [facility] Address [address] [place] [address] Care Team Providers Care Mold Bunch Trimmer Name Role Phone Ash Cali MD Primary Care Provider +1- [phone] Encounter Details Date Type Department Care Team (Latest Contact Info) Description 10/03/1998 Outpatient Historical [facility] Peewee Duong NO ADDRESS ON FILE Other, multiple, and unspecified sites, insect bite, nonvenomous, without mention of infection(919.4) (Primary Dx) Social History Tobacco Use Types Packs/Day Years Used Date Smoking Tobacco: Never Assessed Comments Unknown Sex and Gender Information Value Date Recorded Sex Assigned at Not on file 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
--- OUTSIDE RECORDS SUMMARY | 2025-01-05 18:26 | XMS_ITS | Encounter Summary ---
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
--- OUTSIDE RECORDS SUMMARY | 2025-01-05 18:26 | XMS_ITS | Encounter Summary ---
Author Organization [facility] [facility] Address [address] [place] [address] Care Team Providers Care Firer Bisque Kiln Name Role Phone Ash Cali MD Primary Care Provider +1- [phone] Encounter Details Date Type Department Care Team (Latest Contact Info) Description 05/26/2002 Outpatient Historical [facility] Musa Brown MD [address] [place] [address] HYPOTHYROIDISM NOS (Primary Dx); DIARRHEA NOS Social History Tobacco Use Types Packs/Day Years Used Date Smoking Tobacco: Never Assessed Comments Unknown Sex and Gender Information Value Date Recorded Sex Assigned at Not on file 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
--- OUTSIDE RECORDS SUMMARY | 2025-01-05 18:26 | XMS_ITS | Encounter Summary ---
Author Organization [facility] Address [address] [place] [address] Care Team Providers Care Plant Maintenance Worker Name Role Phone Ash Cali MD Primary Care Provider +1- [phone] Encounter Details Date Type Department Care Team (Late st Contact Info) Description 05/13/2002 Outpatient Historical [facility] Musa Brown MD [address] [place] [address] Social History Tobacco Use Types Packs/Day Years Used Date Smoking Tobacco: Never Assessed Comments Unknown Sex and Gender Information Value Date Recorded Sex Assigned at Not on file Legal Sex Female 5:53 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
--- OUTSIDE RECORDS SUMMARY | 2025-01-05 18:27 | XMS_ITS | Encounter Summary ---
Author Organization [facility] Address [address] [place] [address] Care Team Providers Care Basin Cleaner Name Role Phone Ash Cali MD Primary Care Provider +1- [phone] Encounter Details Date Type Department Care Team (Late st Contact Info) Description 01/01/2007 Outpatient [facility] [address] [place] [address] Ash Cali MD [address] [phone] Social History Tobacco Use Types Packs/Day Years Used Date Smoking Tobacco: Never Assessed Comments Unknown Sex and Gender Information Value Date Recorded Sex Assigned at Not on file 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
--- OUTSIDE RECORDS SUMMARY | 2025-01-05 18:27 | XMS_ITS | Encounter Summary ---
Author Organization [facility] Address [address] [place] [address] Care Team Providers Care Carpet Mechanic Name Role Phone Ash Cali MD Primary Care Provider +1- [phone] Encounter Details Date Type Department Care Team (Late st Contact Info) Description 01/03/[address] [facility] Breast Center 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
--- OUTSIDE RECORDS SUMMARY | 2025-01-05 18:27 | XMS_ITS | Encounter Summary ---
Author Organization [facility] Address [address] [place] [address] Care Team Providers Care Account Auditor Name Role Phone Ash Cali MD Primary Care Provider +1- [phone] Encounter Details Date Type Department Care Team (Late st Contact Info) Description 12/16/2005 Outpatient [facility] Breast Center [facility] [address] [place] [address] Ash Cali MD [address] [phone] Other Screening Mammogram (Primary Dx) Social History Tobacco Use Types Packs/Day Years Used Date Smoking Tobacco: Never Assessed Comments Unknown Sex and Gender Information Value Date Recorded Sex Assigned at Not on file 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
--- OUTSIDE RECORDS SUMMARY | 2025-01-05 18:27 | XMS_ITS | Data Portability ---
Author Organization ASHLEIGH [facility], [facility], [facility] Address [address] [place] [address] Care Team Providers Care Real Estate Account Executive Name Role Phone TRINA JOYNER Primary Care Provider Unavaila ble Assessment Encounter Date Assessment Date Assessment LastModified by Organization Details LastModified Time 08/31/2024 08/31/2024 She is concerned about constipation and obstipation. Will get a plain x-ray to make sure that she is not too backed up. Not available 09/10/2024 21:05:13 10/04/2024 10/04/2024 She will see her gi, pulm and neurosurgeon about her concerns as well. Not available 10/04/2024 13:31:17 Plan of Treatment Reminders Order Date Submit Date Provider Last Modified By Organization Details Last Modified Time Details Appointments RECHECK 2024 11:10A M Trina Joyner MD Not available Not available Not available Lab culture, urine 2024 025 [facility], [address] [facility] [address], [address] [facility] [place], [address], 11/22/2024 13:29:36 urinalysi s, dipstick 2024 025 [facility] ([facility]), [address] [place], [address], 11/19/2024 09:26:13 respirato ry pathogens DNA and RNA panel, PCR, nasophary nx 2024 025 [facility] ([facility]), [address] [place], [address], 11/16/2024 12:21:15 CBC 2024 025 [facility], [address] [place] [address], [facility] 1, [place], [address], 09/28/2024 09:17:31 CMP, serum or plasma 2024 025 [facility], [address] [place] [address], [facility] 1, [place], [address], 09/28/2024 10:06:15 ESR (erythroc yte sedimenta tion rate), blood 2024 025 [facility] ([facility]), [address] [place] [address], [address], 09/28/2024 10:24:56 lipase, serum or plasma 2024 025 MCGREW Scal[facility], [address] [facility] [address], [address] [place], [address], 09/29/2024 05:57:[address] referral [address] [facility], [address] [place], [address], 09/30/2024 12:53:45 Procedures None recorded. Surgeries None recorded. Imaging XR, abdomen [facility]24 [facility] [address] [place] [address], [address], 09/01/2024 11:04:40 Medication Orders Macrobid 100 mg capsule 2024 025 [facility], [address], [place], [address], 12/01/2024 05:02:00 Patient TargetsNo targets recorded. Patient InstructionsNo instructions recorded. Reason for Referral Neurologist Referral for Deshawn yneuropathy Referring Physician: Trina Joyner, Family Medicine, Encounter Date: 08/31/2024 Results Created Date Observation Date Name Description Value Unit Range Abnormal Flag Note LastModifiedBy Organization Detail LastModifiedTime 08/24/1908/23/2024 CULTU RE, URINE , ROUTI NE culture, urine, routine SEE NOTE CULTU RE, URINE , ROUTI NE Micro Numbe r: [id number] Test Statu s: Final Speci men Sourc e: Urine Speci men Quali ty: Adequ ate Resul t: No Growt h Comme nt: No colle ction date was provi ded. The speci men is gener ally defin ed as stabl e up to 48 hours . The resul t(s) need( s) to be inter prete d cauti ously . Clini copat holog ic corre latio n is requi red. Repea t testi ng is recom shan d as clini fartun indic ated. [employer] [employer] ce is avail able with quest ions or comme nts based on your area of inter est: 866-M YQUES T ([phone]) NO COLLE CTION DATE RECEI NEGRO. WE HAVE USED THE DATE THE SPECI MEN WAS RECEI NEGRO BY THIS LABOR ATORY THE COLLE CTION DATE. IF THIS IS INCOR RECT, PLEAS E CONTA CT CLIEN T SERVI GIGI. PHONE NUMBE R: [phone] [phone] 78 Not Available [facility] [address], [place], [address], 08/23/2024 15:39:58 11/23/1911/22/2024 CULTU RE, URINE , ROUTI NE culture, urine, routine SEE NOTE abnormal CULTU RE, URINE , ROUTI NE Micro Numbe r: [id number] Test Statu s: Final Speci men Sourc e: Not given Speci men Quali ty: Adequ ate Resul t: Great er than 100,0 00 CFU/m L of Klebs iella pneum oniae Comme nt: No colle ction date was provi ded. The speci men is gener ally defin ed as stabl e up to 48 hours . The resul t(s) need( s) to be inter prete d cauti ously . Clini copat holog ic corre latio n is requi red. Repea t testi ng is recom shan d as clini fartun indic ated. [employer] is avail able with quest ions or comme nts based on your area of inter est: 866-M DMITRIY T ([phone]) K.pne umoni ae ----- ----- ----- - INT BEENA AMOX/ CLAVU LANAT E S <=2 AMP/S ULBAC JENKINS S 4 CEFAZ KELI NR <=1 2 CEFEP FLAVIO S <=0.1 2 CEFTA ZIDIM E S <=0.5 CEFTR IAXON E S <=0.2 5 CIPRO FLOXA GINO S <=0.0 6 GENTA MICIN S <=1 IMIPE NEM S <=0.2 5 LEVOF LOXAC IN S <=0.1 2 MEROP ENEM S <=0.2 5 NITRO FURAN TOIN I 64 PIP/T AZOBA CTAM S <=4 TRIME THOPR IM/MEI LFA S <=20 S = Susce ptibl e I = Inter media te R = Resis tant NS = Not susce ptibl e SDD = Susce ptibl e Dose Depen dent * = Not Teste d NR = Not Repor kwan NN = See Thera py Comme nts THERA PY COMME NTS Note 1: For infec tions other than uncom plica kwan UTI cause d by E. coli, K. pneum oniae or P. mirab ilis: Cefaz keli is resis tant if BEENA > or = 8 mcg/m L. (Dist ingui shing susce ptibl e versu s inter media te for isola veronique with BEENA < or = 4 mcg/m L requi res addit ional testi ng.) Note 2: For uncom plica kwan UTI cause d by E. coli, K. pneum oniae or P. mirab ilis: Cefaz keli is susce ptibl e if BEENA <32 mcg/m L and predi cts susce ptibl e to the oral agent s cefac rosy, cefdi linda, cefpo doxim e, cefpr ozil, cefur oxime , cepha lexin and lorac arbef . NO COLLE CTION DATE RECEI NEGRO. WE HAVE USED THE DATE THE SPECI MEN WAS RECEI NEGRO BY THIS LABOR ATORY THE COLLE CTION DATE. IF THIS IS INCOR RECT, PLEAS E CONTA CT CLIEN T SERVI GIGI. PHONE NUMBE R: [phone] [phone] 78 Not Available [facility] [address] [place], [address], 11/22/2024 13:29:36 08/21/19 25 08/20/2024 urina lysis , dipst ick Leukocytes Negati ve Not Available [facility] ([facility]) [address] [place], [address], 08/20/2024 16:37:54 08/21/19 25 08/20/2024 urina lysis , dipst ick Nitrite negati ve Not Available [facility] ([facility]) [address] [place], [address], 08/20/2024 16:37:54 08/21/19 25 08/20/2024 urina lysis , dipst ick Urobilinogen .2 Not Available [facility] ([facility]) [address] [place], [address], 08/20/2024 16:37:54 08/21/19 25 08/20/2024 urina lysis , dipst ick Protein Negati ve Not Available [facility] ([facility]) [address] [place], [address], 08/20/2024 16:37:54 08/21/19 25 08/20/2024 urina lysis , dipst ick pH 5.5 Not Available [facility] ([facility]) [address] [place], [address], 08/20/2024 16:37:54 08/21/19 25 08/20/2024 urina lysis , dipst ick Blood Negati ve Not Available [facility] ([facility]) [address] [place], [address], 08/20/2024 16:37:54 08/21/19 25 08/20/2024 urina lysis , dipst ick Specific [place] 1.010 Not Available [facility] ( [facility]) [address] [place], [address], 08/20/2024 16:37:54 08/21/19 25 08/20/2024 urina lysis , dipst ick Ketone Negati ve Not Available [facility] ([facility]) [address] [place], [address], 08/20/2024 16:37:54 08/21/19 25 08/20/2024 urina lysis , dipst ick Bilirubin Negati ve Not Available [facility] ([facility]) [address] [place], [address], 08/20/2024 16:37:54 08/21/19 25 08/20/2024 urina lysis , dipst ick Glucose Negati ve Not Available [facility] ([facility]) [address] [place], [address], 08/20/2024 16:37:54 08/21/19 25 08/20/2024 urina lysis , dipst ick Appearance Clear Not Available [facility] ([facility]) [address] [place], [address], 08/20/2024 16:37:54 08/21/1908/20/2024 urina lysis , dipst ick Color Yellow Not Available [facility] ([facility]) [address] [place], [address], 08/20/2024 16:37:54 09/29/1909/28/2024 CBC WBC 6.5 x10 4.0-10 .5 Not Available [facility] [address] [facility] [address] [facility] 1, [place], [address], 09/28/2024 09:17:31 09/29/1909/28/2024 CBC RBC 4.87 x10 3.50-5 .50 Not Available [facility] [address] [facility] [address] 1, [place], [address], 09/28/2024 09:17:31 09/29/1909/28/2024 CBC HGB 14.1 g/dL 12.0-1 6.0 Not Available [facility] [address] [facility] 1, [place], [address], 09/28/2024 09:17:31 09/29/1909/28/2024 CBC HCT 43.7 % 37.0-4 7.0 Not Available [facility] [address] [facility] [address] [facility] 1, [place], [address], 09/28/2024 09:17:31 09/29/1909/28/2024 CBC MCV 89.8 fL 80.0-9 9.9 Not Available [facility] [address] [facility] [address] [facility] 1, [place], [address], 09/28/2024 09:17:31 09/29/1909/28/2024 CBC MCH 28.9 pg 27.0-3 2.0 Not Available [facility] [address] [facility] 1, [place], [address], 09/28/2024 09:17:31 09/29/1909/28/2024 CBC MCHC 32.2 g/dL 32.0-3 6.0 Not Available [facility] [address] [facility] 1, [place], [address], 09/28/2024 09:17:31 09/29/1909/28/2024 CBC RDW 13.6 % 11.5-1 4.5 Not Available [facility] [address] [facility], [place], [address], 09/28/2024 09:17:31 09/29/1909/28/2024 CBC plt 356.8 x10 140.0- 451.0 Not Available [facility] [address] [facility] 1, [place], [address], 09/28/2024 09:17:31 09/29/1909/28/2024 CBC lymphocytes % 31.1 % 20.0-5 0.0 Not Available [facility] [address] [facility] 1, [place], [address], 09/28/2024 09:17:31 09/29/1909/28/2024 CBC granulcytes % 59.6 % 30.0-7 0.0 Not Available [facility] [address] [facility] 1, [place], [address], 09/28/2024 09:17:31 09/29/1909/28/2024 CBC monocytes % 5.6 % 2.0-16 .0 Not Available [facility] [address] [facility] 1, [place], [address], 09/28/2024 09:17:31 09/29/1909/28/2024 CBC granulcytes# 3.8 x10 Not Lita ilable [facility] [address] [facility], [place], [address], 09/28/2024 09:17:31 09/29/1909/28/2024 CBC lymphocytes # 2.0 x10 Not Available [facility] [address] [place] [address] [facility] 1, [place], [address], 09/28/2024 09:17:31 09/29/1909/28/2024 CBC monocytes # 0.4 x10 Not Avai lable [facility] [address] [place] [facility], [place], [address], 09/28/2024 09:17:31 09/29/1909/28/2024 CMP (FEMA LE) glucose 85.0 mg/dL 60.0-9 9.0 Not Available [facility] [address] [address], [place], [address], 09/28/2024 10:06:15 09/29/19 25 09/28/2024 CMP (FEMA LE) BUN (blood urea nitrogen) 10.0 mg/dL 10.0-2 6.0 Not Available [facility] [address] [facility], [place], [address], 09/28/2024 10:06:15 09/29/19 25 09/28/2024 CMP (FEMA LE) creatinine (serum) 0.6 mg/dL 0.4-1. 5 Not Available [facility] [address] [facility], [place], [address], 09/28/2024 10:06:15 09/29/19 25 09/28/2024 CMP (FEMA LE) BUN/creatini ne ratio 16.67 ratio Not Available [facility] [address] [facility], [place], [address], 09/28/2024 10:06:15 09/29/19 09/28/2024 CMP (FEMA LE) eGFR calculated 102.2 Not Available [facility] [address] [place] [address] [facility] 1, [place], [address], 09/28/2024 10:06:15 09/29/1909/28/2024 CMP (FEMA LE) total protein 7.3 g/dL 6.0-8. 5 Not Available [facility] [address] [facility], [place], [address], 09/28/2024 10:06:15 09/29/1909/28/2024 CMP (FEMA LE) total bilirubin 0.4 mg/dL 0.2-1. 3 Not Available [facility] [address] [place] [facility], [place], [address], 09/28/2024 10:06:15 09/29/1909/28/2024 CMP (FEMA LE) albumin 4.3 g/dL 3.5-5. 5 Not Available [facility] [address] [facility] 1, [place], [address], 09/28/2024 10:06:15 09/29/1909/28/2024 CMP (FEMA LE) globulin 3.0 calc Not Available [facility] [address] [facility] 1, [place], [address], 09/28/2024 10:06:15 09/29/1909/28/2024 CMP (FEMA LE) AST (SGOT) 28.0 U/L 0.0-46 .0 Not Available [facility] [address] [facility], [place], [address], 09/28/2024 10:06:15 09/29/1909/28/2024 CMP (FEMA LE) altv (SGPT) 27.0 U/L 13.0-6 9.0 normal Not Available [facility] [address] [facility] 1, [place], [address], 09/28/2024 10:06:15 09/29/19 25 09/28/2024 CMP (FEMA LE) A/G ratio 1.4 ratio Not Available [facility] [address] [place] [address] [facility] 1, [place], [address], 09/28/2024 10:06:15 09/29/19 25 09/28/2024 CMP (FEMA LE) ALP phos 57.0 U/L 30.0-1 40.0 normal Not Available [facility] [address] [facility] 1, [place], [address], 09/28/2024 10:06:15 09/29/19 25 09/28/2024 CMP (FEMA LE) calcium 9.2 mg/dL 8.4-10 .5 Not Available [facility] [address] [facility] 1, [place], [address], 09/28/2024 10:06:15 09/29/19 25 09/28/2024 CMP (FEMA LE) sodium 138.0 mmol/ L 136.0- 145.0 Not Available [facility] [address] [place] [address] [facility] 1, [place], [address], 09/28/2024 10:06:15 09/29/19 25 09/28/2024 CMP (FEMA LE) potassium 4.2 mmol/ L 3.5-5. 1 Not Available [facility] [address] [place] [address] [facility] 1, [place], [address], 09/28/2024 10:06:15 09/29/19 25 09/28/2024 CMP (FEMA LE) chloride 103.0 mmol/ L 98.0-1 10.0 normal Not Available [facility] [address] [facility] 1, [place], [address], 09/28/2024 10:06:15 09/29/19 25 09/28/2024 CMP (FEMA LE) C02 29.0 mmol/ L 22.0-3 1.0 Not Available [facility] [address] [facility] 1, [place], [address], 09/28/2024 10:06:15 09/29/19 25 09/28/2024 CMP (FEMA LE) anion gap 6.0 calc Not Available [facility] [address] [facility] 1, [place], [address], 09/28/2024 10:06:15 09/29/19 25 09/28/2024 CMP (FEMA LE) osmolality 283.6 calc Not Available [facility] [address] [facility] 1, [place], [address], 09/28/2024 10:06:15 09/29/19 25 09/29/2024 LIPAS E lipase 42 U/L 7-60 normal Not Available [facility] [address] [place], [address], 09/29/2024 05:57:40 09/29/19 25 09/28/2024 ESR (eryt hrocy te sedim entat ion rate) , blood SedRate 29 Not Available [facility] ([facility]) [address] [place] [address], [address], 09/28/2024 08:40:40 11/17/19 25 11/16/2024 respi rator y patho gens DNA and RNA panel , PCR, nasop haryn x Covid positi ve Not Available [facility] ([facility]) [address] [place] [address], [address], 11/16/2024 11:46:58 11/17/19 25 11/16/2024 respi rator y patho gens DNA and RNA panel , PCR, nasop haryn x Rhinovirus negati ve Not Available [facility] ([facility]) [address] [place], [address], 11/16/2024 11:46:58 11/17/19 25 11/16/2024 respi rator y patho gens DNA and RNA panel , PCR, nasop haryn x Influenza A negati ve Not Available [facility] ([facility]) [address] [place], [address], 11/16/2024 11:46:58 11/17/19 25 11/16/2024 respi rator y patho gens DNA and RNA panel , PCR, nasop haryn x Influenza B negati ve Not Available [facility] ([facility]) [address] [place], [address], 11/16/2024 11:46:58 11/17/19 25 11/16/2024 respi rator y patho gens DNA and RNA panel , PCR, nasop haryn x RSV negati ve Not Available [facility] ([facility]) [address] [place], [address], 11/16/2024 11:46:58 11/20/19 25 11/19/2024 urina lysis , dipst ick Color Yellow Not Available [facility] ([facility]) [address] [place], [address], 11/19/2024 09:15:09 11/20/19 25 11/19/2024 urina lysis , dipst ick Appearance Clear Not Available [facility] [address] [place], [address], 11/19/2024 09:15:09 11/20/19 25 11/19/2024 urina lysis , dipst ick Glucose Negati ve Not Available [facility] ([facility]) [address] [place], [address], 11/19/2024 09:15:11/20/1911/19/2024 urina lysis , dipst ick Bilirubin Negati ve Not Available [facility] ([facility]) [address] [place], [address], 11/19/2024 09:15:11/20/19 25 11/19/2024 urina lysis , dipst ick Leukocytes Modera te Not Available [facility] ([facility]) [address] [place], [address], 11/19/2024 09:15:11/20/19 25 11/19/2024 urina lysis , dipst ick Nitrite negati ve Not Available [facility] ([facility]) [address] [place], [address], 11/19/2024 09:15:11/20/1911/19/2024 urina lysis , dipst ick Urobilinogen .2 Not Available [facility] ([facility]) [address] [place], [address], 11/19/2024 09:15:11/20/1911/19/2024 urina lysis , dipst ick Protein 30 Not Available [facility] ([facility]) [address] [place], [address], 11/19/2024 09:15:11/20/1911/19/2024 urina lysis , dipst ick pH 7.5 Not Available [facility] ([facility]) [address] [place], [address], 11/19/2024 09:15:09 11/20/19 25 11/19/2024 urina lysis , dipst ick Blood Non-He molyze d: Trace Not Available [facility] ([facility]) [address] [place], [address], 11/19/2024 09:15:09 11/20/19 25 11/19/2024 urina lysis , dipst ick Specific [place] 1.015 Not Available [facility] ( [facility]) [address] [place], [address], 11/19/2024 09:15:09 11/20/19 25 11/19/2024 urina lysis , dipst ick Ketone Negati ve Not Available [facility] ([facility]) [address] [place], [address], 11/19/2024 09:15:09 08/27/19 25 08/22/2024 XR, abdom en No observ ation record ed. [email or web address] [facility] [address] [place], [address], 08/26/2024 10:13:32 09/02/19 25 08/31/2024 XR, abdom en No observ ation record ed. [facility] ([facility]) [address] [place], [address], 09/07/2024 08:55:26 10/18/19 25 10/17/2024 XR, lumba r spine No observ ation record ed. [email or web address] [facility] 1 [facility] [place], [address], 10/18/2024 06:41:49 10/20/1910/17/2024 MRI, lumba r spine , w/o contr ast No observ ation record ed. [email or web address] [facility] 1 [facility] [place], [address], 10/21/2024 19:02:49 Result Notes None recorded. Problems Name Problem SNOMED Code Status Onset Date Resolution Date Notes Provider Name and Address Organization Details Recorded Time Myxedema 77644623 Active 2022 Myxedema ; 05/21/19 10:55AM by Evans Recio RN, Office Visit; Promoted ; acuity set as *; DANIEL EDOUARD[address], [address], [facility] 10:19:21 Allergic rhinitis 07949753 Active [address], [address], [facility] 10:19:11 Hypothyroi dism 41728559 Active [address], [address], [facility] 10:19:17 Hyperchole sterolemia 18987475 Active [address], [address], [facility] 10:19:13 Systolic murmur 15264703 Active [address], [address], [facility] 10:19:39 Chronic obstructiv e pulmonary disease 36978575 Active [address], [address], [facility] 10:19:00 Right side sciatica 462397280865 101 Active 2024 EVANS RECIO [facility] 5 17:03:03 Asthma 579790131 Active 2024 SERA SHEFFIELD luis, [facility] 5 10:10:02 Polynkaren pierre 46909383 Active 2024 EVANS RECIO null, [facility] 5 15:54:29 Abdominal pain 22409049 Active 2024 EVANS RECIO null, [facility] 5 15:54:24 Stool finding 943329958 Active 2024 EVANS RECIO [facility], [facility] 5 16:13:02 Altered bowel function 88824906 Active 2024 [facility]SKULWANT [facility] 5 16:13:03 Right lower quadrant pain 567052155 Active 2024 Trina Joyner MD [address] [place], [address], [facility] 5 16:33:20 Persistent cough 089929469 Active 2024 [facility] 5 13:06:24 Problem Notes None recorded. Procedures Surgical History Date Name Laterality Status Provider Name and Address Organization Details Recorded Time 04/08/19 24 mammography completed EVANS RECIO [facility] 05/06/2023 17:51:47 03/16/19 02 colonoscopy completed JENNY MONTOYA [address] [place], [address], [facility] 05/10/2024 10:20:22 Carpal Tunnel Surgery completed SERA PRADHAN [facility] 07/28/2024 10:09:55 [facility] 02/10/2023 13:34:50 excision of bunion completed [facility] 02/10/2023 13:35:17 Imaging Results None recorded. Procedure Notes None recorded. Medical Equipment None Reported. Allergies Allergen ID Allergen Name Allergen Category Reaction Reaction Severity Criticality Documentation Date Start Date Code Code System Note Provider Name and Address Organization Details Recorded Time 22090 Levaquin medicatio n other Not available Not available 10/11/202232052 2 RxNorm React ion: depre ssion /*int olera nce*; Comme nt: Recor ded 05/20 10:55 AM by Edwin Recio RN, Offic e Visit ; Promo kwan; Facundo huerta ce: *; Reaso n: Drug aller gy; ; Not Available [facility] 3 02:25:45 94381 Cipro medicatio n Not available Not available Not available 01/25/2024 47382 3 RxNorm [facility] 4 09:14:26 09546 Avelox medicatio n Not available Not available Not available 01/25/2024 89250 6 RxNorm [facility] 4 09:14:34 28787 cyclobenz aprine medicatio n Not available Not available Not available 01/25/2024 37952 RxNorm Kimberly smith [facility] 4 09:14:44 72384 hydrocodo ne Not available Not available Not available Not available 01/25/2024 5489 RxNorm Kimberly Arcos [facility] 4 09:15:03 58108 Bactrim medicatio n Not available Not available Not available 01/25/2024 [id number] [facility]11 Medications Name Sig Start Date Stop Date Status Note LastModified by Organization Details LastModified Time Prescript ion - Change 05/10 completed Not Available Not Available Not Available cyclobenz aprine 10 mg tablet TAKE 1 TABLET BY MOUTH EVERY 8 HOURS FOR 7 DAYS 07/29 completed Not Available Not Available Not Available nystatin 100,000 unit/mL oral suspensio n SWISH & SWALLOW 1 ML BY MOUTH 4 TIMES DAILY FOR 14 DAYS 05/16 completed Not Available Not Available Not Available doxycycli ne hyclate 100 mg capsule TAKE 1 CAPSULE BY MOUTH TWICE A DAY, BEGIN TAKING IF SYMPTOMS PERSIST 07/29 completed Not Available Not Available Not Available sulfasala zine 500 mg tablet 07/28 completed Not Available Not Available Not Available fexofenad ine 60 mg tablet TAKE 1 TABLET BY MOUTH TWICE A DAY 04/04 completed dose increase d Not Available Not Available Not Available azithromy gino 250 mg tablet TAKE 2 TABLETS BY MOUTH ON DAY 1, AND THEN TAKE 1 TABLET BY MOUTH ONCE A DAY ON DAY 2 THROUGH DAY 5 03/03 completed Not Available Not Available Not Available benzonata te 200 mg capsule Take 1 capsule 3 times a day by oral route as needed, for cough. 02/18 completed Not Available Not Available Not Available prednison e 20 mg tablet TAKE 2 TABLETS BY MOUTH ONCE DAILY FOR 3 DAYS 03/03 completed Not Available Not Available Not Available triamcino lone acetonide 0.5 % topical ointment APPLY A THIN LAYER TO THE AFFECTED AREA(S) BY TOPICAL ROUTE 2 TIMES PER DAY 05/16 completed Not Available Not Available Not Available acetamino phen 300 mg-codein e 30 mg tablet TAKE 1 TABLET BY MOUTH EVERY 12 HOURS NEEDED FOR MODERATE PAIN FOR 5 DAYS 04/04 completed Not Available Not Available Not Available fexofenad ine 180 mg tablet TAKE 1 TABLET BY MOUTH ONCE DAILY active Not Available Not Available No t Available Macrobid 100 mg capsule Take 1 capsule every 12 hours by oral route for 5 days. 12/01 completed Not Available Not Available Not Available betametha sone acetate and sodium phos 6 mg/mL suspensio n for injection Take 3 mg every day by injectio n route for 1 day. 10/04 completed Not Available Not Available Not Available rifampin 300 mg capsule TAKE 1 CAPSULE BY MOUTH ONCE DAILY FOR 4 MONTHS 07/29 completed Not Available Not Available Not Available estradiol 1 mg tablet TAKE 1 TABLET BY MOUTH EVERY OTHER DAY, AND 1/2 TABLET ALL OTHER DAYS 2024 active vo JR/tn Not Available Not Available Not Avai lable Tylenol PM 25 mg-500 mg tablet qhs 05/16 completed Not Available Not Available Not Available oxycodone -acetamin ophen 10 mg-325 mg tablet TAKE ONE TABLET BY MOUTH EVERY 6 HOURS NEEDED FOR PAIN FOR SEVEN DAYS 04/15 completed Not Available Not Available Not Available benzonata te 100 mg capsule TAKE 2 CAPSULES BY MOUTH EVERY 6 HOURS NEEDED FOR COUGH 04/25 completed Not Available Not Available Not Available simvastat in 5 mg tablet TAKE 1 TABLET BY MOUTH ONCE DAILY active Not Available Not Available No t Available levothyro xine 50 mcg tablet TAKE 1/2 (ONE-XANDER F) TABLET BY MOUTH ONCE DAILY ALTERNAT ING WITH 1 TABLET DAILY active Not Available Not Available No t Available cephalexi n 500 mg capsule TAKE 1 CAPSULE BY MOUTH TWICE A DAY FOR 7 DAYS 04/15 completed Not Available Not Available Not Available fluticaso ne 500 mcg-salme terol 50 mcg/dose blistr powdr for inhalatio n INHALE 1 DOSE BY MOUTH TWICE DAILY NEEDED FOR WHEEZING 04/08 completed Not Available Not Available Not Available carbidopa 10 mg-levodo pa 100 mg tablet TAKE 1 TABLET BY MOUTH ONCE DAILY AT BEDTIME FOR RESTLESS LEGS active Not Available Not Available No t Available omeprazol e 20 mg capsule,d elayed release TAKE 1 CAPSULE BY MOUTH 30 MINUTES TO 1 HOUR BEFORE MORNING MEAL ONCE DAILY active Not Available Not Available No t Available monteluka st 10 mg tablet TAKE 1 TABLET BY MOUTH ONCE DAILY active Not Available Not Available No t Available mupirocin 2 % topical ointment APPLY A SMALL AMOUNT TO THE AFFECTED AREA BY TOPICAL ROUTE 3 TIMES PER DAY x 10 DAYS 07/27 completed Not Available Not Available Not Available gabapenti n 100 mg capsule TAKE 1 CAPSULE BY MOUTH THREE TIMES DAILY active Not Available Not Available No t Available azelastin e 137 mcg (0.1 %) nasal spray USE ONE SPRAY IN EACH NOSTRIL TWICE DAILY (USE WITH FLONASE DIRECTED ) active Not Available Not Available No t Available methylpre dnisolone 4 mg tablets in a dose pack USE DIRECTED 07/28 completed Not Available Not Available Not Available albuterol sulfate HFA 90 mcg/actua tion aerosol inhaler INHALE 2 PUFFS BY MOUTH EVERY 4 TO 6 HOURS NEEDED active Not Available Not Available No t Available cefdinir 300 mg capsule TAKE 1 CAPSULE BY MOUTH TWICE DAILY 03/03 completed Not Available Not Available Not Available fluticaso ne propionat e 50 mcg/actua tion nasal spray,brayan pension Use 1 spray(s) in each nostril twice daily 2024 active Not Available Not Available Not Avai lable ipratropi um bromide 21 mcg (0.03 %) nasal spray USE 2 SPRAY(S) IN EACH NOSTRIL THREE TIMES DAILY NEEDED active Not Available Not Available No t Available amoxicill in 875 mg-potass ium clavulana te 125 mg tablet Take 1 tablet twice a day by oral route for 10 days. 12/09 completed Not Available Not Available Not Available Sumycin 500 500 mg capsule qd 02/10 completed 0; Recorded 05/21/19 23 10:56AM by Evans Recio RN, Office Visit; Not Available Not Available Not Available potassium gluconate daily active Not Available Not Available No t Available calcium-m agnesium QD active Not Available Not Available Not Available ferrous sulfate qd PRN 04/15 completed 0; Recorded 05/21/19 23 10:56AM by Evans Recio RN, Office Visit; Not Available Not Available Not Available sulfasala zine 05/16 completed Not Available Not Available Not Available Glucosami ne active Not Available Not Available Not Available Vitamin D3 qd active Not Available Not Available Not Available fexofenad ine BID 02/10 completed 0; Recorded 05/21/19 23 10:59AM by Evans Recio RN, Office Visit; Not Available Not Available Not Available [facility] Levothyro xine Sodium qd, see notes 02/103 completed Alternat e 1/2 tab and 1 tab daily vo JR/tn; 173; Recorded 11/09/19 22 1:47PM by Sera gan (Authori madysond through Trina Joyner MD), Refill Request; Refill Quantity : 90; Tablet; Not Available Not Available Not Available Advair Diskus 04/15 completed Not Available Not Available Not Available Vitamin-C qd 05/16 completed Not Available Not Available Not Available Advair HFA 45 mcg-21 mcg/actua tion aerosol inhaler Inhale 2 puffs twice a day by inhalati on route. 05/16 completed VO JR/tn Not Available Not Available Not Available Super B Complex + C tablet 07/27 completed duplicat e in chart. Not Available Not Available Not Available copper gluconate 2 mg capsule QD active Not Available Not Available Not Available Probiotic qd 04/15 completed 0; Recorded 05/21/19 10:56AM by Evans Recio, RN, Office Visit; Not Available Not Available Not Available Joint Support Complex active Not Available Not Available Not Available Paxlovid 300 mg (150 mg x 2)-100 mg tablets in a dose pack TAKE DIRECTED 07/29 completed Not Available Not Available Not Available albuterol 90 mcg-budes onide 80 mcg/actua tion HFA aerosol inhaler Inhale 2 inhalati ons as needed by inhalati on route. 10/04 completed Not Available Not Available Not Available Vitals Date Recorded Body height Body mass index (BMI) Body weight Oxygen saturation Oxygen saturation in Arterial blood by Pulse oximetry Heart rate Respiratory rate Body temperature Systolic And Diastolic Provider Name and Address Organization Details Last Updated DateTime 5 162.56 cm 19.3 kg/m2 24875.1 5 g 97 % 97 % 77 /min 16 /min 98.7 [degF] 110/68 mm[Hg] EVANS RECIO [facility] 5 15:59:46 Date Recorded Body height Body mass index (BMI) Body weight Heart rate Oxygen saturation Oxygen saturation in Arterial blood by Pulse oximetry Respiratory rate Body temperature Systolic And Diastolic Provider Name and Address Organization Details Last Updated DateTime 5 162.56 cm 18.9 kg/m2 79090.1 6 g 81 /min 97 % 97 % 16 /min 98 [degF] 112/62 mm[Hg] EVANS RECIO [facility] 5 13:05:21 Date Recorded Body height Body mass index (BMI) Body weight Oxygen saturation Oxygen saturation in Arterial blood by Pulse oximetry Heart rate Body temperature Respiratory rate Systolic And Diastolic Provider Name and Address Organization Details Last Updated DateTime 5 162.56 cm 18.6 kg/m2 59500.6 8 g 95 % 95 % 75 /min 98.1 [degF] 18 /min 110/60 mm[Hg] SERGIO CARABALLO [facility] 5 11:44:38 Date Recorded Body height Body mass index (BMI) Body weight Body temperature Heart rate Oxygen saturation Oxygen saturation in Arterial blood by Pulse oximetry Systolic And Diastolic Provider Name and Address Organization Details Last Updated DateTime 5 162.56 cm 18.7 kg/m2 51374.5 7 g 97.7 [degF] 70 /min 98 % 98 % 102/62 mm[Hg] Sruthi Herrera [facility] 5 09:24:31 Social History Question Answer Notes LastModified by [employer] Details LastModified Time Tobacco Smoking Status Never Smoker EVANS RECIO [facility] 02/10/2023 13:34:23 What Was The Date Of Your Most Recent Tobacco Screening? 11/19/2024 [email or web address] Information not available 11/19/2024 What Is Your Relationship Status? [email or web address] Information not available 02/10/2023 Sex: Unknown Functional Status Question Answer Note LastModified by [employer] Details LastModified Time Do you use any illicit or recreational drugs? No Information not available 02/10/2023 Do you or have you ever used any other forms of tobacco or nicotine? No Information not available 02/10/2023 What is your level of alcohol consumption? None Information not available 02/10/2023 Are you able to care for yourself independently? Yes [email or web address] Information not available 02/10/2023 Mental Status None recorded. Family History Nothing Reported. Medical History No medical history recorded. Gynecological HistoryNo gynecological history recorded. Obstetrics History GPAL:G 0 P 0 0 0 0 Immunizations Vaccine Type Date Status Note Provider Nam e and Address Organization Details Recorded Time zoster recombinant 2 completed Not Available [facility] 01/19/2023 08:54:24 Influenza, split virus, trivalent, preservative 4 completed Not Available [facility] 01/19/2023 08:54:24 Pneumococcal conjugate PCV 13 6 completed Not Available [facility] 01/19/2023 08:54:24 Influenza, split virus, trivalent, preservative 7 completed Not Available [facility] 01/19/2023 08:54:24 Influenza, split virus, trivalent, preservative 5 completed Not Available [facility] 01/19/2023 08:54:24 Influenza, split virus, trivalent, preservative 3 completed Eva smith [facility] 07/28/2023 12:44:27 Tdap 2 completed Not Available [facility] 01/19/2023 08:54:24 Influenza, high-dose, quadrivalent, PF 3 completed Eva smith [facility] 07/28/2023 12:44:27 Influenza, high-dose, trivalent, PF 4 completed Not Available [facility] 10/04/2024 12:18:52 Influenza, MDCK, quadrivalent, PF 9 completed Not Available [facility] 01/19/2023 08:54:24 zoster recombinant 2 completed Not Available [facility] 01/19/2023 08:54:24 zoster recombinant 2 completed Not Available [facility] 01/19/2023 08:54:24 Influenza, high-dose, quadrivalent, PF 2 completed Not Available [facility] 01/19/2023 08:54:24 COVID-19, mRNA, LNP-S, PF, 100 mcg/0.5mL dose or 50 mcg/0.25mL dose 1 completed Not Available [facility] 01/19/2023 08:54:24 COVID-19, mRNA, LNP-S, PF, 100 mcg/0.5mL dose or 50 mcg/0.25mL dose 1 completed Not Available [facility] 01/19/2023 08:54:24 pneumococcal polysaccharide PPV23 7 completed Not Available [facility] 01/19/2023 08:54:24 Pneumococcal conjugate PCV 13 6 completed Not Available [facility] 01/19/2023 08:54:24 zoster live 7 completed Not Available [facility] 01/19/2023 08:54:24 Influenza, high-dose, trivalent, PF 6 completed Not Available [facility] 01/19/2023 08:54:24 Influenza, high-dose, trivalent, PF 7 completed Not Available [facility] 01/19/2023 08:54:24 Influenza, high-dose, trivalent, PF 8 completed Not Available [facility] 01/19/2023 08:54:24 Influenza, high-dose, trivalent, PF 5 completed Not Available [facility] 01/19/2023 08:54:24 Influenza, split virus, quadrivalent, PF 0 completed Not Available [facility] 01/19/2023 08:54:24 Past Encounters Encounter ID Performer Location Encounter Start Date Encounter Closed Date Diagnosis/Indication Diagnosis SNOMED-CT Code Diagnosis ICD10 Code Diagnosis IMO Codes Diagnosis Note [id number] Trina Joyner MD [facility] ([facility]) [address] [place] [address] [id number] 5 07/29/2022 13:36:59 08/12/2022 09:39:20 Hypothyroidism 57700680 E03.9 Xerostomia 05166641 R68. 2 We discussed options to stop meds that may help her dry mouth. Pain of le ft shoulder joint 8695578442 0865946 M25.512 We discussed ways that she can improve her shoulder flexibilit y. PT is an option if she desires. No need for imaging at this time. [id number] Trina Joyner MD [facility] ([facility]) [address] [place] [address] [id number] 08/26/2022 15:59:28 08/31/2022 17:34:12 Chokes when swallowing 431653842 R09.89 Oropharyng eal dysphagia 80759960 R13.12 [id number] SVETA HOOVER NP [facility] ([facility]) [address] [place] [address] [id number] 5 09/27/2022 14:50:46 09/27/2022 15:48:12 Blister of foot 419983218 S90.821A Discussed to keep bite clean and dry.Discus sed utilizing mupirocin as prescribed once blister has popped.Edu cated patient not to pop, squeeze, rub, mess with blister and let it pop on its own.Return to clinic if you have any signs or symptoms of infection such as increased redness, excessive swelling, drainage, intense pain, fever/chil ls. May utilize a cool compress to the bite. Return to clinic if any changes, any worsening, any concerns.P atient verbalized understand ing of plan. [id number] Trina Joyner MD [facility] ([facility]) [address] [place] [address] [id number] 5 09/29/2022 12:15:54 09/29/2022 15:15:52 Difficulty swallowing 577630236 R13.10 [id number] YOLANDA BURRELL [facility] ([facility]) [address] [place] [address] [id number] 5 10/02/2022 17:09:02 10/09/2022 16:32:45 Blister of foot 146170589 S90.821D Reassured patient that there are no signs of infection at this time. Discussed to keep blister clean and dry. Continue using mupirocin TID. Educated patient not to pop, squeeze, rub, mess with blister and let it pop on its own. Return to clinic if you have any signs or symptoms of infection such as increased redness, excessive swelling, drainage, intense pain, fever/chil ls. May utilize a cool compress to the blister. Patient verbalized understand ing. [id number] Trina Joyner MD [facility] ([facility]) [address] [place] [address] [id number] 5 02/02/2023 08:35:37 02/02/2023 15:45:17 Hypothyroidism 34949499 E03.9 Hypercholesterolemia 136 93854 E78.00 [id number] Trina Joyner MD [facility] ([facility]) [address] [place] [address] [id number] 5 02/10/2023 13:16:54 02/18/2023 08:23:40 Hypothyroidism 88958573 E03.9 Hypercholesterolemia 136 23748 E78.00 Pain in right thumb 1076 550540 641129 M79.644 Cough 15042559 R05.9 Acute sinusitis 20345951 J01.90 [id number] Jon Joshua MD [facility] ([facility]) [address] [place] [address] [id number] 5 03/12/2023 15:04:10 03/13/2023 15:27:49 Urinary symptoms 107183616 R39.9 UA was not concerning for infection, but will send urine for culture. Handout provided for bladder irritants as this may be causing some of her symptoms. Systolic murmur 46779499 R01.1 Patient has no known history of murmur. Recommend proceed with echocardio gram and recommend follow-up with PCP. Exposure t o SARS-CoV-2 786379290 Z20.822 Patient's COVID test was negative. [id number] Trina Joyner MD [facility] ([facility]) [address] [place] [address] [id number] 5 04/15/2023 12:17:13 04/15/2023 15:28:24 Systolic murmur 57779769 R01.1 Pain in right thumb 1076 210215 010859 M79.644 Mitral olivier ve regurgitation 96726172 I34.0 [id number] JENNY MONTOYA [facility] ([facility]) [address] [place] [address] [id number] 5 07/28/2023 12:40:11 07/28/2023 13:17:09 Diarrhea 90435675 R19.7 No changes until stool testing from the ER visit is completed [id number] Trina Joyner MD [facility] ([facility]) [address] [place] [address] [id number] 5 07/29/2023 11:50:10 07/29/2023 15:23:09 Hypothyroidism 08376891 E03.9 Hypercholesterolemia 136 27858 E78.00 Cramp in lower limb 4499 96220 R25.2 Diarrhea 35322283 R19.7 Cough 74118482 R05.9 [id number] Trina Joyner MD [facility] ([facility]) [address] [place] [address] [id number] 5 11/03/2023 12:06:51 11/03/2023 13:17:39 Hyperlipidemia 49858526 E78.5 Asthma 249654372 J45.90 9 Contact dermatitis 71341 004 L25.9 Change in voice 41138751 5 R49.9 [id number] Ray Causey DO [facility] ([facility]) [address] [place] [address] [id number] 5 01/25/2024 09:06:35 01/25/2024 09:59:04 Pneumonia 540236422 J18.9 concern for, with risk factors, will start abx. steroids. t. pearls. O2 good today. continue albuterol. counseled on s/s of concern. go to er or f/u with us if not getting better. [id number] JENNY MONTOYA [facility] ([facility]) [address] [place] [address] [id number] 5 01/29/2024 18:21:36 01/29/2024 18:41:47 Community acquired pneumonia 860372525 J18.9 Pulse ox slightly improved from last visit. No abnormal breath sounds. will change from augmentin to z-lynette. If pt develops fever, lethargy, or worsening s/s then return for re-eval.Co ntinue inhaler and prednisone as prescribed . [id number] JENNY MONTOYA [facility] ([facility]) [address] [place] [address] [id number] 5 2024 11:03:37 02/23/2024 13:33:53 Cough 47677442 R05.9 Discussed prednisone and to use her rescue inhaler every 3-4 hours prn cough/sob. No signs of bacterial infection today. F/u if symptoms worsen or no improvemen t. [id number] Trina Joyner MD [facility] ([facility]) [address] [place] [address] [id number] 5 03/03/2024 10:00:29 03/07/2024 12:00:[address] of chest abnormal 945 0294973 3869295 R93.89 [id number] Trina Joyner MD [facility] ([facility]) [address] [place] [address] [id number] 5 04/04/2024 15:10:29 04/04/2024 17:01:13 Pneumonia 303111339 J18.9 Cough 06739905 R05.9 Hoarse 93827599 R49.0 Ear pressu re sensation 412454752 H93.8X9 Headache 10097373 R51.9 Chronic ob structive pulmonary disease 78925428 J44.9 [id number] Trina Joyner MD [facility] ([facility]) [address] [place] [address] [id number] 5 04/25/2024 13:46:47 04/29/2024 15:09:30 Pneumonia 071701883 J18.9 Hypothyroidism 36059529 E03.9 Hyperlipidemia 72687497 E78.5 [id number] JENNY MONTOYA [facility] ([facility]) [address] [place] [address] [id number] 5 05/10/2024 10:02:15 05/10/2024 10:56:06 Right side sciatica 6766663841 36992 M54.31 Discussed to take 400mg ibuprofen twice a day for next 5 days with food.Apply a heating pad for 10 minutes every 2 hours while awake. Perform slow stretches 2 times a day.F/u with PCP in 4-5 days if symptoms persist or worsen. 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 G57.91 [id number] Trina Joyner MD [facility] ([facility]) [address] [place] [address] [id number] 5 06/02/2024 13:16:55 06/02/2024 14:25:26 Right side sciatica 6789788556 61038 M54.31 Hoarse 24494853 R49.0 Spinal jered nosis of lumbar region 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 Will have x ray next week. Follow up with Dr Joyner Pain in [facility] lower limb 684564939 M79.604 [id number] groin pain. Advised to stretch. Monitor symptoms. [id number] Trina Joyner MD [facility] ([facility]) [address] [place] [address] [id number] 5 08/31/2024 15:12:28 09/01/2024 11:04:40 Abdominal pain 60101012 R10.9 Stool finding 447207224 R19.5 [id number] Altered mateusz wel function 81267531 R19.4 [id number] Right side sciatica 3202 121040 83798 M54.31 Right lowe r quadrant pain 268917448 R10.31 [id number] Polyneuropathy 52124542 G62.9 [id number] Trina Joyner MD [facility] ([facility]) [address] [place] [address] [id number] 5 09/28/2024 08:39:24 09/28/2024 15:00:30 Right upper quadrant pain 079099108 R10.11 [id number] [id number] Trina Joyner MD [facility] ([facility]) [address] [place] [address] [id number] 5 10/04/2024 12:18:24 10/04/2024 13:53:42 Altered bowel function 32842270 R19.4 [id number] Right side sciatica 3202 080998 01739 M54.31 Persistent cough 2173101 02 R05.3 [id number] JENNY ARORA [facility] ([facility]) [address] [place] [address] [id number] 5 11/16/2024 11:13:07 11/16/2024 13:41:37 Nasal congestion 28913973 R09.81 [id number] COVID-19 152796404 U07.8 2901858831 Increase po fluids. Rest. May use otc meds as needed for symptoms. Return to clinic with any new or worsening symptoms. [id number] DANIEL EDOUARD [employer] [facility] ([facility]) [address] [place] [address] [id number] 5 11/19/2024 09:11:18 11/19/2024 15:45:30 Dysuria 51130004 R30.0 [id number] UA results reviewed and discussed with pt. We will start antibiotic s. Pt will increase oral fluids. Return to office with no improvemen t or any problems. Go to ER with severe worsening or severe problems.W e will obtain urine culture Health Concerns Section Related Observation LastModified by Organization Detai ls LastModified Time None Recorded Concern Status LastModified by Organization Details LastModified Time None Recorded Advance Directives Directive None Recorded Payers Insurance Date Sequence Insurance Name Policy Number Policy Negrete Covered Member ID Negrete Member ID Guarantor Name 11/16/2024 1 [place]IC[place]: [place] S Brill [id number] Bernadette S Brill 12/01/2024 2 [employer] (MEDICARE SUPPLEMENT) Bernadette S Brill [id number] Bernadette S Brill 11/16/2024 [place] - [place] - PART A - HELEN M. [facility] (MEDICARE) Bernadette S Brill [id number] Bernadette S Brill Notes Date Note Type Note Provider Name and Address Organization Details Recorded Time 09/01/19 25 text/htm l Abdominal PainReported by PatientAbdominal PainFor quality, patient reportsdullandfullness. For associated symptoms, patient reportsdiarrhea,fatigue, andchanges in stoolbut reportsno fever,no chills,no blood in the urine,no nausea,no vomiting,no constipation,normal stool,no blood in stool, andno urinary frequency. For location, patient reportsrlq. For severity, patient reportsmoderate. For onset/timing, patient reportsacute.ROS as noted in the HPI Follow up from walk-in clinic. Pt came in for acute onset of RLQ abdominal pain. She had started having pain in her stomach, and no BM. she started taking Miralax, then started having BM. But no change in the RLQ pain. She stated that she continued the Miralax until about 2 days ago, which at that time her stools had become very loose.During this time of pain in RLQ for about 2 weeks she noticed that her stools were very skinny in size.pt has held the miralax for 2 days now.She stated that had wanted her to stop taking calcium pills and start adding more milk to her diet. She had done that, then realized that since she had started having more milk and dairy in her diet she was having more abdominal pain. She has changed her milk to a lactose free milkrt sciatic wondering about the nerve conduction and if she needs to see a neurologist Trina Joyner MD [address] [place] [address], [phone], [facility], [place] 09/10/2024 21:05:42 10/05/19 25 text/htm l CoughReported by PatientHPIFor associated symptoms, patient reportswheezing,sputum production (occasional),throat clearing, andhoarsenessbut reportsno fever,no chest wall tenderness, andno nasal discharge. For quality, patient reportsproductiveanddry. For severity, patient reportsmildandmoderate. For duration, patient reportssubacute (3-8 weeks). For context, patient reportsnon-smoker. Hip(s)Reported by PatientHPIFor associated symptoms, patient reportsnumbnessandradiation down legbut reportsno weakness. For location, patient reportsright,lateral,deep, andthigh. For quality, patient reportssharpanddull. For severity, patient reportsnot changingandsevere. For duration, patient reports4 monthsandcontinuous since onset. Abdominal PainReported by PatientAbdominal PainFor quality, patient reportsdullandfullness. For associated symptoms, patient reportsfatigueandchanges in stoolbut reportsno fever,no chills,no blood in the urine,no nausea,no vomiting,no constipation,normal stool,no blood in stool, andno urinary frequency. For location, patient reportsrlq. For severity, patient reportsmoderate. For onset/timing, patient reportsacute.ROS as noted in the [facility] Pt has not seen the Neurologist, her appointment is not until May of 2025. She continues to have pain in Right leg. She has seen gastroenterology, they are setting her up for a u/s of gallbladder Trina Joyner MD [address] [place] [address], [phone], [facility], [place]. 10/04/2024 13:31:31 11/17/19 25 text/htm l ROS as noted in the HPI walk-in; PCP Dr Joyner Patient c/o upper respiratory symptoms. Headache, cough that is mainly dry, fatigue, congestion. Symptoms started Thursday evening. Known exposure to COVID. JENNY ARORA [address] [place], [address], [facility], [place] 11/16/2024 13:37:13 11/20/19 25 text/htm l ROS as noted in the HPI walk in ptPt is having urgency yesterday and today developed burning. Was positive for covid earlier this week. States her cough is ok. Still feels very fatigued. JENNY MONTOYA [address] [place], [address], [facility], [place] 11/19/2024 12:44:38 OBGyn Episode No OBEpisode recorded.
--- OUTSIDE RECORDS SUMMARY | 2025-01-05 18:27 | XMS_ITS | Patient Health Record ---
Author Organization [facility] Address [address] [place] [address] Care Team Providers Care Director Of Restaurant Operations Name Role Phone Ash Cali MD Primary Care Provider Ashok Buckley Unavailable [phone] Lance Pelayo Unavailable [phone] Kenton Block Unavailable [phone] Allergies Allergen (clinical drug ingredient) Drug/Non Drug Allergy documented on EMR Reaction Allergy Type Onset Date Status moxifloxacin Avelox Unknown Drug Allergy Acti ve sulfamethoxazole / trimethoprim Bactrim DS Unknown Drug Allergy Active Levaquin Unknown Drug Allergy Active ciprofloxacin Ciprofloxacin Unknown Drug Allergy Active cyclobenzaprine Cyclobenzaprine Unknown Drug Allergy Active hydrocodone Hydrocodone Unknown Drug Allergy Act giancarlo Results Component Value Reference Range Notes Culture Sputum [id number] Reviewed date:10/17/2024 09:51:24 AM Interpretation: Performing Lab: Notes/Report: Culture Sputum Patien MACARIO RAPHAEL Culture Sputum t: Culture Sputum Culture Sputum Accessio [id number] Culture Sputum n: Culture Sputum Microbiology Culture Sputum PROCEDURE: Culture S putum [O1] Culture Sputum SOURCE: Sputum BODY SITE: Culture Sputum COLLECTED DATE/TIME: 10/13/2024 12:30 CDT RECEIVED DATE/TIME: 10/13/2024 19:40 CDT Culture Sputum START DATE/TIME: 09/15 19:40 CDT FREE TEXT SOURCE: Culture Sputum FINAL REPORT Culture Sputum Final Report [] Culture Sputum Verified Date/Time: 10/17/2024 09:35 CDT Culture Sputum Mixed Upper Respirat ory Sonam Culture Sputum and Culture Sputum Many Haemophilus influenzae Culture Sputum Beta Lactamase negative Culture Sputum STAINS/PREPARATIONS Culture Sputum GS [] Culture Sputum Verified Date/Time: 10/13/2024 19:43 CDT Culture Sputum Moderate Polymorphon uclear leukocytes (PMN) Culture Sputum Moderate Gram Positi ve Rods Culture Sputum Few Gram Positive Cocci Culture Sputum Order Comments Culture Sputum O1: Culture Sputum (Culture Sputum 41047) Culture Sputum Diagnosis Descriptio n: Chronic cough Culture Sputum Diagnosis Descriptio n: Shortness of breath Quantiferon-TB Gold 30773 Reviewed date:05/12/2024 10:05:47 AM Interpretation: Performing Lab: Notes/Report: Diagnosis Description: Latent tuberculosis Quantiferon-TB Gold Plus Negative Ref Range: Negative Interferon gamma release is measured for specimens from each of the four collection tubes. A qualitative result (Negative,Positive,or indeterminate) is based on interpretation of four values, NIL, MITOGEN minus NIL(MITOGEN-NIL),TB1 minus NIL(TB1-NIL) and TB2 minus NIL (TB2-NIL). The NIL value represents nonspecific reactivity produced by the patient specimen. The MITOGEN-NIL value serves as the positive control for the patient specimen, demonstrating successful lymphocyte activity. The TB1-NIL and TB2-NIL values represent lymphocyte reactivity specifically stimulated by the TB antigen. An overall Negative result does not completely rule out TB infection. QFT-Plus is an indirect test for M.tuberculosis infection (including disease) and result from QFT-PLus testing must be in conjunction with risk assessment, radiography, and other medical and diagnostic evaluations. Chest PA/Lat-46038 Reviewed date:10/15/2024 03:00:18 PM Interpretation: Performing Lab: Notes/Report: See Below For Report Chest PA/Lat Diagnosis Description: Chronic cough Read See Below For Report Chest PA/Lat-68506 Reviewed date:10/15/2024 03:00:26 PM Interpretation: Performing Lab: Notes/Report: [id number]=[facility] US Abdomen Complete-71647 Reviewed date:10/22/2024 04:04:06 PM Interpretation: Performing Lab: Notes/Report: zzzCT Outside CD Reviewed date:06/27/2024 04:08:48 PM Interpretation: Performing Lab: Notes/Report: [email or web address]=[id number]=[facility] Reason For Referral Reason Pneumonia, COPD, Ast hma 2nd Referral received 04/05/2404/06-4-6 wks per giovanny Scheduled 05/03/2024 @ 1:40 PM Diagnosis 1 Chronic obstructive pulmonary disease, unspecified COPD type (J44.9) Diagnosis 2 Unspecified asthma ( J45.909) Referring Provider First Name Ash Referring Provider Last Name Viraj Referring Provider Speciality [facility] Referred Organization [facility] Referred Provider Lance Pelayo Referred Address [address] [place] [address] [address],[place], [place],[address], Referred Provider Specialty Pulmonary [facility] Notes Gwendolyn Taylor 025 01:22:35 PM >2nd Referral received 04/05/24, Yasmin Barreto 04/05/2024 04:37:30 PM >04/05: X-ray report received and in [place] CHAPPELL Meranda 04/07/2024 03:07:27 PM >Scheduled 05/03/2024 @ 1:40 PM Referral Priority Routine Medications Medication SIG (Take, Route, Frequency, Duration) Notes Start Date End Date Status Ondansetron HCl 8 MG Tablet 1 tablet as needed Orally Orally 30 minutes prior to starting colon prep for 1 dose. 09/21/2024 Active Montelukast Sodium 10 MG Tablet 1 tablet Orally Once a day Active Magnesium 250 MG Tablet 1 tablet with a meal Orally Once a day Active Levothyroxine Sodium 50 MCG Tablet 1 tablet in the morning on an empty stomach Orally Once a day alternate 0.5 tab daily 1 tba Active Simvastatin 5 MG Tablet 1 tablet in the evening Orally Once a day Active Potassium Gluconate 595 (99 K) MG Tablet 1 tablet Orally Once a day Active Probiotic - Tablet as directed Orally Unknown Golytely 236 GM Solution Reconstituted 240ml Orally [id number]; Duration: 1 09/21/2024 Active Glucosamine Chond MSM Formula - Tablet as directed Orally wuth hyarolonic acid Active Fluticasone Propionate 50 MCG/ACT Suspension 1 spray in each nostril Nasally Twice a day Active Fexofenadine HCl 180 MG Tablet 1 tablet Swallow whole with water; do not take with fruit juices. Orally Once a day Active Albuterol Sulfate HFA 108 (90 Base) MCG/ACT Aerosol Solution 1 puff as needed Inhalation every 4 hrs Active Calcium 500 MG Tablet 1 tablet with meals Orally Once a day Unknown Albuterol Sulfate HFA 108 (90 Base) MCG/ACT Aerosol Solution 2 puffs as needed Inhalation every 4-6 hrs as needed; Duration: 30 days 06/27/2024 Unknown Advair Diskus 100-50 MCG/DOSE Aerosol Powder Breath Activated 1 puff Inhalation Twice a day Unknown sulfaSALAzine 500 MG Tablet 1 tablet Orally Once a day Not-Taking Estradiol 1 MG Tablet 1 tablet alternating 0.5 tab and 1 tab daily Orally Once a day Active Omeprazole 20 MG Capsule Delayed Release 1 capsule 1/2 to 1 hour before morning meal Orally Once a day; Duration: 30 day(s) 10/27/2024 Active Carbidopa-Levodopa 10-100 MG Tablet 1 tablet Orally Three times a day Active Azelastine HCl 137 MCG/SPRAY Solution 2 puffs (1 spray in each nostril) Nasally Twice a day Active Misc Natural Product Copper 3 mg orally daily Unknown Turmeric Curcumin - Capsule 1 capsule Orally once a day Active Quercetin 250 MG Tablet 2 tablet Orally Once a day Not-Taking Cyclobenzaprine HCl 5 MG Tablet 1 tablet at bedtime as needed Orally Once a day Not-Taking Vitamin D3 25 MCG (1000 UT) Capsule 1 capsule Orally Once a day Active Vitamin C 500 MG Tablet Chewable 1 tablet Orally Once a day Active Social History Tobacco Use: Social History Observation Description Date Details (start date - stop date) Never Smoker NA - NA Social History Drugs/Alcohol: Social Info Question Answer Notes Alcohol Screen (Audit-C) Did you have a drink containing alcohol in the past year? No Points 0 Interpretation Negative Drugs Have you used drugs other than those for medical reasons in the past 12 months? No Tobacco Use: Social Info Question Answer Notes Tobacco Control (Standard) Tobacco use: Nonsmoker Additional Details Category Social Info Options Details Drugs/Alcohol: Do you smoke marijuana? De nies Do you drink alcohol? No Problems Problem Type SNOMED Code ICD Code Onset Dates Problem Status W/U Status Risk Notes Problem Chronic rhinitis (76444905) Chronic rhinitis (J31.0) Active confirmed Problem Gastroesophageal reflux disease (disorder) (754627800) Chronic GERD (K21.9) Active confirmed Problem Constipation (83459601) Constipation, unspecified constipation type (K59.00) Active confirmed Problem COPD - Chronic obstructive pulmonary disease (38603104) Chronic obstructive pulmonary disease, unspecified COPD type (J44.9) Active confirmed Problem Oropharyngeal dysphagia (24150278) Oropharyngeal dysphagia (R13.12) Active confirmed Problem Acquired bronchiectasis (651543875) Acquired bronchiectasis (J47.9) Active confirmed Problem Asthma (578640761) Unspecified asthma (J45.909) Active confirmed Vital Signs Heart Rate 76 /min 10/27/2024 Temperature 97.9 degrees Fahrenheit 10/27/2024 Respiratory Rate 18 /min 10/27/2024 Blood pressure diastolic 68 mm Hg 10/27/2024 Oximetry 95 % 10/27/2024 Height-cm 162.56 cm 10/27/2024 Weight-kg 50.08 kg 10/27/2024 Height 64 in 10/27/2024 Blood pressure systolic 126 mm Hg 10/27/2024 Weight 110.4 lbs 10/27/2024 BMI 18.95 kg/m2 10/27/2024 Procedures Procedure Date Ordered Date Performed Result Body Sit e PFT with FRC: (NO TGV) 05/09/2024 N/A PFT with FRC: (NO TGV) 06/27/2024 06/27/2024 N/A Encounters Encounter Location Date Provider Diagnosis [facility] [address] [place] [address] [place] [address] 05/09/2024 Lance Pelayo Shortness of breath R06.02 ; Chronic rhinitis J31.0 ; Acquired bronchiectasis J47.9 and Latent tuberculosis Z22.7 [facility] [address] [place] [address] [place] [address] 06/27/2024 Lance Pelayo Shortness of breath R06.02 [facility] [address] [place] [address] [place] [address] 06/27/2024 Lance Pelayo Shortness of breath R06.02 ; Chronic rhinitis J31.0 and Acquired bronchiectasis J47.9 [facility] [address] [place] [address] 09/21/2024 Ashok Zambrano Right upper quadrant pain R10.11 ; Chronic GERD K21.9 ; Change in stool habits R19.4 and History of COPD Z87.09 [facility] [address] [place] [address] 10/27/2024 Ashok Zambrano Chronic GERD K21.9 ; Change in stool habits R19.4 and History of COPD Z87.09 [facility] [address] [place] [address] [place] [address] 04/29/2024 Lance [facility] [address] [place] [address] [place] [address] 05/30/2024 [facility] [address] [place] [address] [place] [address] 06/21/2024 [facility] [address] [place] [address] [place] [address] 08/09/2024 [facility] [address] [place] [address] 10/05/2024 Kenton Block [facility] [address] [place] [address] [place] [address] 10/11/2024 Lance Pelayo Chronic cough R05.3 and Shortness of breath R06.02 [facility] [address] [place] [address] 10/17/2024 Ashok Zambrano [facility] [address] [place] [address] 10/18/2024 Kenton Block [facility] [address] [place] [address] 11/17/2024 Kenton Block Assessments Encounter Date Diagnosis (ICD Code) Assessment Notes Treatment Notes Treatment Clinical Notes Section Notes 10/11/2024 Chronic cough (ICD-10 - R05.3) 10/27/2024 Chronic GERD (ICD-10 - K21.9) Continue GERD precautions: Avoiding spicy foods, alcohol, NSAIDs, turmeric, Excessive coffee. Okay for omeprazole OTC dose, 20 mg daily. Continue to follow low-fat diet but encouraged healthy snacking between meals and protein shakes to maintain her calorie intake. May consider HIDA scan if right upper quadrant abdominal pain recurs. Again, she is adamantly declining any invasive procedures as she feels symptoms have greatly improved. Return to clinic as needed. 10/27/2024 Change in stool habits (ICD-10 - R19.4) 05/09/2024 Chronic rhinitis (ICD-10 - J31.0) 05/09/2024 Shortness of breath (ICD-10 - R06.02) Continue Albuterol HFA. Refill sent. Hold Advair for now. If she feels more short of breath she may go back to using this. Obtain PFT. 06/27/2024 Shortness of breath (ICD-10 - R06.02) 06/27/2024 Chronic rhinitis (ICD-10 - J31.0) 06/27/2024 Shortness of breath (ICD-10 - R06.02) Hold off on Advair due to expense. I will give her a prescription for albuterol HFA to use as needed. She does have obstruction on PFT. 09/21/2024 Right upper quadrant pain (ICD-10 - R10.11) 09/21/2024 Chronic GERD (ICD-10 - K21.9) 10/11/2024 Shortness of breath (ICD-10 - R06.02) 05/09/2024 Acquired bronchiectasis (ICD-10 - J47.9) Patient has repeat CT ordered by her PCP. I will request these images to review. 09/21/2024 Change in stool habits (ICD-10 - R19.4) GERD precautions. Avoid excessive coffee, turmeric, NSAIDs. *Requesting full cardiology clearance ahead of procedures, especially with predominant symptoms of nausea and fatigue with certain meals, rule out concurrent cardiac issues. Abdominal ultrasound and lab work prior to EGD and colonoscopy. Increase fiber and encourage purposeful hydration addressing constipation which likely is related to her decrease in activity levels over the last 8 months recovering from various illnesses. All questions answered. Follow-up in 1 month and as needed. Recommend diagnostic colonoscopy for further evaluation with endoscopic intervenion as indicated. Colonoscopy procedure, risks, benefits, potential complications, and potential interventions discussed. Bowel preparation was discussed and written instructions provided. Questions answered to apparent satisfaction. Verbalizes understanding. Desires to proceed with the proposed plan. Schedule colonoscopy with __Dr. Block Colonoscopy bowel prep sent to [facility] and instructions were reviewed with the patient. Advised to avoid any OTC supplements, NSAIDs, and aspirin 3 days prior to endoscopy. Follow-up to be arranged based on endoscopy findings and interventions 06/27/2024 Acquired bronchiectasis (ICD-10 - J47.9) Improved infiltrates on CT imaging. I showed the images to the patient who agrees. The patient was advised antireflux measures: Elevating the head of the bed when going to sleep, avoiding eating or drinking 4 hours prior to bedtime, avoiding caffeinated drinks such as coffee, tea, and chocolates as well as milk products. 10/27/2024 History of COPD (ICD-10 - Z87.09) 05/09/2024 Latent tuberculosis (ICD-10 - Z22.7) Obtain QuantiFERON TB Gold. If positive will treat for latent TB. Defer treatment to healthcare service. 09/21/2024 History of COPD (ICD-10 - Z87.09) 05/09/2024 Other Merry Todd am scribing for, and in the presence of Dr. Lance Pelayo. I, Dr. Lance Pelayo, personally performed the services described in this documentation , as scribed by Merry Jensen in my presence, and it is both accurate and complete. 06/27/2024 Other Merry Todd am scribing for, and in the presence of Dr. Lance Pelayo. I, Dr. Lance Pelayo, personally performed the services described in this documentation , as scribed by Merry Jensen in my presence, and it is both accurate and complete. Plan Of Treatment Pending Test Test Name Order Date CBC w\ Auto Diff [id number] 09/21/2024 Comprehensive Metabolic Panel (CMP) 8005 3 09/21/2024 Lipase 87445 09/21/2024 Sedimentation Rate 74546 09/21/2024 PFT with FRC: (NO TGV) 05/09/2024 Diagnostic Colonoscopy-[id number] 09/21/2024 EGD, Upper GI Diagnostic-29175 Next Appt Details Provider Name:Lance Pelayo, 06/20/2025 02:40:00 PM, [address] [place] [address] [address], [place], [address], Insurance Providers Payer Name Payer Address Payer Phone Subscriber Number Group Number Insured Name Patient Relationship to Insured Coverage Start Date Coverage End Date [place] [address] [place] [phone] [id number] MACARIO RAPHAEL Self - patient is the insured [place] [address] [address] [place] [phone] [id number] MACARIO RAPHAEL Self - patient is the insured 3 Medical (General) History Medical History History ICD Code Hypothyroidism Hyperlipidemia GERD Irritable Bowel Syndrome dysphagia measels mumps pneumonia arthritis anemia bladder infections tuberculosis back trouble hemorrhoids asthma bronchitis Surgical History Surgery Date(Month/Year) Rhinoplasty 1960 TROY/BSO 1995 Bone spur on thumb 2009 fibroid tumor 1992 foot surgery 2022 Hospitalization History Reason Date(Month/Year) Double pneumonia 1949 Bronchitis and pneumonia 2019 Pneumonia 1998 surgeries
--- OUTSIDE RECORDS SUMMARY | 2025-01-05 18:27 | XMS_ITS | Encounter Summary ---
Author Organization [facility] Address [address] [place] [address] Care Team Providers Care Pump Erector Helper Name Role Phone Ash Cali MD Primary Care Provider [phone] Encounter Details Date Type Department Care Team (Latest Contact Info) Description 01/03/2005 Outpatient Historical [facility] [address] [facility] [address] [place] [phone] Sebastian Omalley MD NO ADDRESS ON FILE SCREENING MAMM-MAILG NEOPL NEC (Primary Dx) Social History Tobacco Use Types Packs/Day Years Used Date Smoking Tobacco: Never Assessed Comments Unknown Sex and Gender Information Value Date Recorded Sex Assigned at Not on file 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
--- OUTSIDE RECORDS SUMMARY | 2025-01-05 18:27 | XMS_ITS | Encounter Summary ---
Author Organization [facility] Address [address] [place] [address] Care Team Providers Care Shipping Checker Name Role Phone Ash Cali MD Primary Care Provider [phone]- [phone] Encounter Details Date Type Department Care Team (Latest Contact Info) Description 12/16/[address] 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
--- OUTSIDE RECORDS SUMMARY | 2025-01-05 18:27 | XMS_ITS | Clinical Summary ---
Author Organization [facility] Address [address] [place] [address] Care Team Providers Care Pharmacognosist Name Role Phone Ash Cali MD Primary Care Provider [phone] Immunizations Immunization Administration Dates Next Due Hepatitis A Vaccine 06/14/1998 Hepatitis B Vaccine 06/14/1998 Social History Tobacco Use Types Packs/Day Years Used Date Smoking Tobacco: Never Assessed Comments Unknown Sex and Gender Information Value Date Recorded Sex Assigned at Not on file Legal Sex Female 5:53 AM [employer] Gender Identity Not on file Sexual Orientation Not on file Plan of Treatment Health Maintenance Due Date Last Done Comments DTAP/TDAP/TD VACCINES (1 - Tdap) 02/18/1963 PNEUMOCOCCAL VACCINE 50+ YEARS (1 of 1 - PCV) 02/18/19 94 ZOSTER VACCINE (1 of 2) 02/18/1994 OSTEOPOROSIS SCREENING 02/18/2009 RSV VACCINE (60+ or ) (1 - 1-dose 75+ series) 02/18/2019 INFLUENZA VACCINE (#1) 2024 Care Teams Pharmacognosist Relationship Specialty Start Date End Date Ash Cali MD [address] [id number] PCP - General 01/03/05
[2025-01-05 18:33] VITALS: BP 160/87; PULSE 78; RESP 18; TEMP 37.1; O2SAT 100; BMI 18.0
[2025-01-05 18:45] VITALS: BP 160/87; PULSE 72; O2SAT 98
--- NOTE | 2025-01-05 18:52 | W.ED.CHESTPA ---
HPI - Chest Pain General: Chief Complaint: Chest Pain Stated Complaint: CP trouble breathing Time Seen by Provider: 01/05/25 18:31 History of Present Illness: Patient is 79-year-old female with history of mitral valve regurgitation, pulmonary hypertension, followed by cardiology, no known CAD, with previous stress test negative, that presents to the emergency room due to chest pressure, and shortness of breath. Content: Patient was cleaning under her bed earlier today, and stated that she thought it was her allergies. She stated it was adrian, and this was about noon. She went to go lay down. When she went to go lay down this afternoon/evening she noted a trash pressure in the central area of her chest. She did not do any additional self-care. She came to the emergency room for further evaluation, since she heard you should always go if your chest feels pressure like an elephant. She describes this as an elephant type chest pain. Associated symptoms: Reports dyspnea; Deny abdominal pain, fever(s), palpitations or syncope Related Data Home Medications ?Medication ?Instructions ?Recorded ?Confirmed estradiol 1 mg tablet See Rx Instructions .Route .COMPLEX 03/31/19 12/22/24 levothyroxine 50 mcg capsule See Rx Instructions .Route .COMPLEX 03/31/19 12/22/24 calcium 500 mg 1 tab PO DAILY@72905/04/20 12/22/24 (carb,gluconate)-magnesium 250 mg (gluc,oxide) tablet (Calcium Magnesium) cholecalciferol (vitamin D3) 25 25 mcg PO DAILY@72905/04/20 12/22/24 mcg (1,000 unit) tablet (Vitamin D3) glucosamine sulf dipot 1 cap PO DAILY@72905/04/20 12/22/24 chlr,msm,chond 550 mg-C 30 mg-vargas 1 mg capsule (Glucosamine Chondroitin) potassium gluconate 595 mg (99 mg) 595 mg PO DAILY@72905/04/20 12/22/24 tablet simvastatin 5 mg tablet 5 mg PO DAILY@219905/04/20 12/22/24 azelastine 137 mcg (0.1 %) nasal 1 spray intranasal DAILY 02/21/24 12/22/24 spray carbidopa 10 mg-levodopa 100 mg 1 tab PO DAILY 02/21/24 12/22/24 tablet fexofenadine 180 mg tablet 180 mg PO DAILY 02/21/24 12/22/24 (Jahaira Allergy) Previous Rx's ?Medication ?Instructions ?Recorded fluticasone propionate 50 1 spray intranasal Q12H PRN nasal 11/24/22 mcg/actuation nasal congestion #16 mL spray,suspension (Flonase Allergy Relief) albuterol sulfate 90 mcg/actuation 2 puff inhalation Q6H PRN 04/16/23 aerosol inhaler shortness of breath or wheezing #8.5 grams montelukast 10 mg tablet 10 mg PO DAILY #90 tabs 06/02/23 (Singulair) prednisone 20 mg tablet See Rx Instructions PO DAILY #30 12/22/24 tabs methylprednisolone 4 mg tablets in See Rx Instructions PO .COMPLEX 01/05/25 a dose pack (Medrol (Mert)) #21 ea Allergies Allergy/AdvReac Type Severity Reaction Status Date / Time ciprofloxacin (Cipro) Allergy Mild pt doesnt Verified 12/22/24 10:49 want to take levofloxacin (From Levaquin) Allergy Mild unsure Verified 12/22/24 10:49 budesonide (From Symbicort) Allergy Hoarseness Verified 12/22/24 10:49 of voice formoterol (From Symbicort) Allergy Hoarseness Verified 12/22/24 10:49 of voice hydrocodone Allergy ADR-Halluci Verified 12/22/24 10:49 nating sulfasalazine AdvReac Intermediate ADR face Verified 12/22/24 10:49 and eye swelling Review of Systems Const: Denies: fever(s), chills or night sweats Eyes: Denies: change in vision, blurry vision, eye discomfort or eye redness ENMT: Denies: throat pain, odynophagia, mouth pain, nasal discharge or sinus pain Card: Reports: chest pain; Denies: palpitations or syncope Resp: Reports: dyspnea; Denies: productive cough, wheezing or hemoptysis GI: Denies: abdominal pain : Denies: difficulty voiding, dysuria, urinary frequency, urinary urgency or hematuria Musc: Reports: other (as per HPI) Skin/Breast: Denies: rash Neuro: Denies: weakness in extremities or seizure-like activity Psych: Denies: anxiety Endo: Denies: heat intolerance Thomas/Lymph: Denies: easy bleeding, petechiae or enlarged lymph nodes PFSH ED PFSH: Medical History (Updated 01/05/25 @ 19:41 by JOE Cardona) Seronegative rheumatoid arthritis of both hands Inflammatory arthritis Erosive osteoarthritis of both hands Hypothyroidism -has known hx of hypothyroidism -continue Levothyroxine Irritable bowel syndrome Thyroid disease COPD (chronic obstructive pulmonary disease) -has known hx of COPD, not oxygen dependent at baseline -no evidence of COPD exacerbation at this time -received IV steroids in ED, wheezing improved with oral steroids -not requiring oxygen currently, continue to monitor respiratory status -Neb treatments as needed Surgical History H/O thumb surgery bone spur H/O: hysterectomy History of carpal tunnel surgery R Family History Mother Dementia Father Congestive heart failure (CHF) Heart disease Other CAD (coronary artery disease) Cancer Diabetes Hypertension Lung disease Psychiatric illness Denies family history of Anemia Aneurysm Arrhythmia Clotting disorder Atrial fibrillation Hyperlipidemia Chronic kidney disease (CKD) Suicide Anesthesia complication Congenital heart disease Bleeding disorder Family history of premature coronary artery disease Carotid artery disease Cardiomyopathy Stroke Social History Smoking and tobacco/nicotine status: never used tobacco/nicotine Second hand smoke exposure: Yes (minimal) Alcohol intake: never Substance/Drug Use: never Lives independently: Yes Household members: spouse Housing: House Marital status: service: No Current occupational status: retired Pets and animals: No Do you think of yourself as: Straight/Heterosexual Current gender identity: Female Physical Exam Const: COMMON NORMALS: no acute distress, average body habitus and patient oriented x3 HENMT: COMMON NORMALS: normocephalic and atraumatic HEAD & SCALP: normocephalic and atraumatic Neck/C-Spine: COMMON NORMALS: full ROM and no lymphadenopathy Lymph: LYMPHATIC: no lymphadenopathy noted Chest: COMMONS NORMALS: normal inspection of the chest and normal palpation of entire chest wall Resp: COMMON NORMALS: normal respiratory effort AUSCULTATION: rales on the left (LLL) and wheezes (RUL) Cardio: HEART SOUNDS: Murmur heart sound present diastolic Location: apex GI: COMMON NORMALS: Normal to inspection, nondistended, normoactive bowel sounds present and Soft to palpation PALPATION: Yes Soft to palpation : COMMON NORMALS: Yes no CVA tenderness BLADDER/KIDNEY EXAM: Yes no CVA tenderness Back/Pelvis: COMMON NORMALS: no CVA tenderness Extremity: COMMON NORMALS: normal to inspection and full ROM Neuro: COMMON NORMALS: patient oriented x3 Course Vital Signs: Vital signs: Vital Signs Temperature 98.8 F 01/05/25 18:33 Pulse Rate 93 01/05/25 19:58 Respiratory Rate 17 01/05/25 19:15 Blood Pressure 138/61 01/05/25 19:58 Pulse Oximetry 96 01/05/25 19:58 Oxygen Delivery Me thod Room Air 01/05/25 19:15 MDM - Chest Pain Medical Decision Making Patient is a-year-old female with history of mitral valve regurgitation and pulmonary hypertension. She is ruled out from a cardiac standpoint with her heart score of 3. She will be discharged with her troponin negative. Chest pain has resolved, and she feels like she is develop more of a cough. She is improved after DuoNeb. I have encouraged her to continue her albuterol inhaler, and her Astepro, as well as sent Medrol Dosepak to the pharmacy, and she has received Solu-Medrol x 1 here Medical Records I reviewed the patient's medical records. Lab Data I reviewed the patient's lab results. 01/05/25 18:37 01/05/25 18:37 Laboratory Results WBC 7.69 10^3/uL (3.29-11.43) 01/05/25 18:37 RBC 4.22 10^6/uL (3.85-5.65) 01/05/25 18:37 Hgb 12.10 g/dL (11.27-16.99) 01/05/25 18:37 Hct 37.4 % (36-47) 01/05/25 18:37 MCV 88.6 fl (85-98) 01/05/25 18:37 MCH 28.7 pg (27-33) 01/05/25 18:37 MCHC 32.4 g/dL (30-55) 01/05/25 18:37 RDW 13.3 % (12.1-15.1) 01/05/25 18:37 Plt Count 249 10^3/cmm (157-399) 01/05/25 18:37 MPV 10.4 fL (7.4-10.4) 01/05/25 18:37 Neut % (Auto) 63.0 % 01/05/25 18:37 Lymph % (Auto) 25.0 % 01/05/25 18:37 [place] % (Auto) 8.2 % 01/05/25 18:37 Eos % (Auto) 3.0 % 01/05/25 18:37 Baso % (Auto) 0.7 % 01/05/25 18:37 Neut # (Auto) 4.85 10^3/uL (1.8-7.7) 01/05/25 18:37 Lymph # (Auto) 1.9 10^3/uL (0.8-4.8) 01/05/25 18:37 [place] # (Auto) 0.6 10^3/uL (0.2-0.9) 01/05/25 18:37 Eos # (Auto) 0.2 10^3/uL (0.0-0.8) 01/05/25 18:37 Baso # (Auto) 0.1 10^3/uL (0.0-0.1) 01/05/25 18:37 Nucleated RBC % (auto) 0 % 01/05/25 18:37 Nucleated RBCs # 0.0 /100WBC 01/05/25 18:37 Sodium 138 mmol/L (136-145) 01/05/25 18:37 Potassium 3.9 mmol/L (3.5-5.1) 01/05/25 18:37 Chloride 101 mmol/L (98-107) 01/05/25 18:37 Carbon Dioxide 26 mmol/L (22-29) 01/05/25 18:37 Anion Gap 14.9 (5-19) 01/05/25 18:37 BUN 14 mg/dL (8-23) 01/05/25 18:37 Creatinine 0.5 mg/dL (0.5-0.9) 01/05/25 18:37 GFR Calculation Not Reportable 01/05/25 18:37 Glucose 90 mg/dL (65-115) 01/05/25 18:37 Calculated Osmolality 286 mOsm/kg (285-295) 01/05/25 18:37 Calcium 8.9 mg/dL (8.5-10.5) 01/05/25 18:37 Total Bilirubin 0.2 mg/dL (0.15-1.2) 01/05/25 18:37 AST 27 U/L (0-32) 01/05/25 18:37 ALT 28 U/L (0-33) 01/05/25 18:37 Alkaline Phosphatase 66 U/L (35-105) 01/05/25 18:37 Troponin T Baseline 16 ng/L (0-10) H 01/05/25 18:37 NT-Pro-B Natriuret Pep 312 pg/mL (0-450) 01/05/25 18:37 Total Protein 6.8 g/dL (6.6-8.7) 01/05/25 18:37 Albumin 4.1 g/dL (3.5-5.2) 01/05/25 18:37 Globulin 2.7 g/dL (1.3-4.6) 01/05/25 18:37 Procalcitonin 0.03 ng/mL (0-0.5) 01/05/25 18:37 XR interpretation done by ED provider, pending radiology final review EKG Data EKG 1: Interpretation: Normal sinus rhythm, LVH, no ST segment elevation. Discharge Plan Discharge Patient Disposition: Home Clinical Impression: Viral respiratory illness Condition: Stable Prescriptions: New methylprednisolone [Medrol (Mert)] 4 mg tablets,dose pack See Rx Instructions .ROUTE .COMPLEX Qty: 21 0RF Rx Instructions: for 6 days No Action estradiol 1 mg tablet See Rx Instructions .ROUTE .COMPLEX Rx Instructions: 1mg po every other day & 0.5mg po on other days levothyroxine 50 mcg capsule See Rx Instructions .ROUTE .COMPLEX Rx Instructions: TAKE 1 TAB EVERY OTHER DAY, AND 1/2 TAB ON THE OPPOSITE DAYS. albuterol sulfate 90 mcg/actuation HFA aerosol inhaler 2 puff inhalation Q6H PRN (Reason: shortness of breath or wheezing) Qty: 8.5 3RF prednisone 20 mg tablet See Rx Instructions PO DAILY Qty: 30 1RF Rx Instructions: Take 1 or 2 tabs daily up to 7 days as needed for joint pain flare fluticasone propionate [Flonase Allergy Relief] 50 mcg/actuation spray,suspension 1 spray intranasal Q12H PRN (Reason: nasal congestion) Qty: 16 3RF Rx Instructions: administer into each nostril montelukast [Singulair] 10 mg tablet 10 mg PO DAILY Qty: 90 6RF simvastatin 5 mg tablet 5 mg PO DAILY@2200 cholecalciferol (vitamin D3) [Vitamin D3] 25 mcg (1,000 unit) Tablet 25 mcg PO DAILY@0730 potassium gluconate 595 mg (99 mg) Tablet 595 mg PO DAILY@0730 Calcium Magnesium 500 mg calcium -250 mg Tablet 1 tab PO DAILY@0730 Glucosamine Chondroitin 550-30-1 mg Capsule 1 cap PO DAILY@0730 fexofenadine [Jahaira Allergy] 180 mg Tablet 180 mg PO DAILY carbidopa-levodopa 10-100 mg tablet 1 tab PO DAILY azelastine 137 mcg (0.1 %) spray,non-aerosol 1 spray INTRANASAL DAILY Discharge Orders: Discharge ED (Routine); Ordered 01/05/25 Ordered By: Kaitlyn Singh Referrals: Ash Cali MD [Primary Care Provider, Family Practice] Discharge Diet: Low Salt Discharge Activity: Resume usual activity Patient Instructions: Viral Syndrome (ED), Patient Portal & Melissa Instructions Activity Restrictions/Additional Instructions: - Take your albuterol inhaler as instructed -Medrol Dosepak was sent to your pharmacy. Start in the morning -Return to ED if you have worsening shortness of breath or ongoing chest pain. - Take a baby aspirin daily for primary prevention of cardiac ischemia. This can be coded. -Make sure you continue to take your Astepro nasal spray. - Call your doctor for follow-up. Thank you for choosing [facility] for your healthcare needs today. You have been screened and evaluated and felt safe for discharge. Health conditions do change or evolve sometimes and as such it is important that you follow up with your Primary Doctor to be re checked, 3-5 days is a general good time frame for follow up. You are always welcome to return to the ED for re assessment if your symptoms are worsening or you have new concerns Print Language: German Coding Level of Care Code ED Vegetable Sorter for Raisa Sutton Heart Score HEART Score Components History: Slightly Suspicous EKG: Normal Age: 65 or more yrs Risk Factors: No Risk Factors Known Troponin: Baseline Trop 16-45 ng/L HEART Score RESULT HEART Score: 3
[2025-01-05 18:55] LABS: Hematocrit 37.4 % (36-47); Hemoglobin 12.10 g/dL (11.27-16.99); Mean Corpuscular HGB Conc 32.4 g/dL (30-55); Mean Corpuscular Hemoglobin 28.7 pg (27-33); Mean Corpuscular Volume 88.6 fl (85-98); Nucleated Red Blood Cells % 0 %; Platelet Count 249 10^3/cmm (157-399); Red Blood Count 4.22 10^6/uL (3.85-5.65); White Blood Count 7.69 10^3/uL (3.29-11.43)
[2025-01-05 19:03] VITALS: BP 142/60; PULSE 78; O2SAT 96
[2025-01-05 19:14] LABS: Alanine Aminotransferase 28 U/L (0-33); Albumin Level 4.1 g/dL (3.5-5.2); Alkaline Phosphatase 66 U/L (35-105); Anion Gap 14.9 (5-19); Aspartate Amino Transferase 27 U/L (0-32); Blood Urea Nitrogen 14 mg/dL (8-23); Calcium 8.9 mg/dL (8.5-10.5); Carbon Dioxide 26 mmol/L (22-29); Chloride 101 mmol/L (98-107); Creatinine Clr Calc Pharmacy 45.9273; Globulin 2.7 g/dL (1.3-4.6); Glucose 90 mg/dL (65-115); Osmolality Calculated 286 mOsm/kg (285-295); Potassium 3.9 mmol/L (3.5-5.1); Sodium 138 mmol/L (136-145); Total Protein 6.8 g/dL (6.6-8.7)
[2025-01-05 19:15] VITALS: PULSE 79; RESP 17; O2SAT 96
[2025-01-05 19:17] LABS: Troponin(5th) Baseline 16 ng/L (0-10)
[2025-01-05 19:21] VITALS: PULSE 83
[2025-01-05 19:27] LABS: Procalcitonin 0.03 ng/mL (0-0.5)
[2025-01-05 19:48] LABS: NT Pro B Type Natriuretic Pept 312 pg/mL (0-450)
[2025-01-05] MEDS: methylPREDNISolone sod succ 125 mg/2 mL INJ 80 MG IVP (19:51)
[2025-01-05 19:58] VITALS: BP 138/61; PULSE 93; O2SAT 96
== END 2025-01-05 20:15 | disposition home or self-care (01) ==
PROVIDERS: Emergency Medicine; Emergency Provider Physician Assistant; PCP Family Medicine
DX: J06.9 Acute upper respiratory infection, unspecified (principal); J44.9 Chronic obstructive pulmonary disease, unspecified; I10 Essential (primary) hypertension
CPT/HCPCS: 36415; 71045; 80053; 83880; 84145; 84484; 85025; 93005; 94640; 96374; 99285; J2919; J9999

== ENCOUNTER 2025-02-14 15:30 | Outpatient (CLI) | payer MEDICARE, OTHER, SELFPAY ==
[2025-02-14 15:58] LABS: Hematocrit 39.1 % (36-47); Hemoglobin 12.70 g/dL (11.27-16.99); Mean Corpuscular HGB Conc 32.5 g/dL (30-55); Mean Corpuscular Hemoglobin 28.8 pg (27-33); Mean Corpuscular Volume 88.7 fl (85-98); Nucleated Red Blood Cells % 0 %; Platelet Count 309 10^3/cmm (157-399); Red Blood Count 4.41 10^6/uL (3.85-5.65); White Blood Count 8.12 10^3/uL (3.29-11.43)
[2025-02-14 16:28] LABS: Alanine Aminotransferase 26 U/L (0-33); Albumin Level 4.4 g/dL (3.5-5.2); Alkaline Phosphatase 66 U/L (35-105); Aspartate Amino Transferase 25 U/L (0-32); Globulin 2.8 g/dL (1.3-4.6); Total Protein 7.2 g/dL (6.6-8.7)
[2025-02-14 21:38] LABS: Hepatitis B Surface Antigen Non-Reactive (Nonreactive)
== END 2025-02-14 15:31 | disposition home or self-care (01) ==
LOC: LAB 15:33
PROVIDERS: PCP Family Medicine; Visit Provider Internal Medicine Rheumatology
DX: Z79.899 Other long term (current) drug therapy (principal)
CPT/HCPCS: 36415; 80076; 82565; 85025; 85651; 86140; 86480; 86704; 86803; 87340